=== PATIENT | male | born 1940 | race Caucasian/White ===

== ENCOUNTER 2019-01-20 08:02 | Outpatient (RCR) | payer OTHER, SELFPAY | END 2019-02-18 | LOC: ANHLAB 08:02 | PROVIDERS: PCP Family Medicine; Visit Provider Internal Medicine Cardiovascular Disease | DX: I48.2 Chronic atrial fibrillation (principal) | CPT/HCPCS: 85610; 36415 ==

== ENCOUNTER 2019-05-21 07:09 | Outpatient (RCR) | payer OTHER, MEDICARE, SELFPAY ==
[2019-02-26 12:00] LABS: INR 2.8; Prothrombin Time 28.8 Seconds (11.1-14.7)
[2019-03-25 08:03] LABS: INR 2.5; Prothrombin Time 26.5 Seconds (11.1-14.7)
[2019-04-22 09:00] LABS: INR 2.3; Prothrombin Time 24.9 Seconds (11.1-14.7)
[2019-05-21 08:09] LABS: INR 1.9; Prothrombin Time 21.4 Seconds (11.1-14.7)
== END 2019-05-27 23:59 | disposition home or self-care (01) ==
LOC: ANHLAB 07:09
PROVIDERS: PCP Family Medicine; Visit Provider Internal Medicine Cardiovascular Disease
DX: Z51.81 Encounter for therapeutic drug level monitoring (principal); I48.20 Chronic atrial fibrillation, unspecified; Z79.01 Long term (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 of anticoagulants
CPT/HCPCS: 36415; 85610

== ENCOUNTER 2019-07-21 07:25 | Outpatient (RCR) | payer MEDICARE, SELFPAY ==
[2019-06-18 07:57] LABS: INR 1.4; Prothrombin Time 16.9 Seconds (11.1-14.7)
[2019-07-02 08:11] LABS: INR 1.5; Prothrombin Time 17.3 Seconds (11.1-14.7)
[2019-07-12 08:02] LABS: INR 1.5
[2019-07-21 07:53] LABS: INR 2.2; Prothrombin Time 23.9 Seconds (11.1-14.7)
== END 2019-09-16 23:59 | disposition home or self-care (01) ==
LOC: ANHLAB 07:25
PROVIDERS: PCP Family Medicine; Visit Provider Internal Medicine Cardiovascular Disease
DX: Z51.81 Encounter for therapeutic drug level monitoring (principal); I48.91 Unspecified atrial fibrillation; Z79.01 Long term (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 of anticoagulants
CPT/HCPCS: 36415; 85610

== ENCOUNTER 2019-12-22 11:00 | Outpatient (RCR) | payer MEDICARE, SELFPAY ==
--- NOTE | 2019-10-27 15:45 | PTOPEVAL ---
Thank you for referring Agustin Chen to [facility]. Please review, sign, date and return this plan of care DONOVAN. Pt referred to therapy due to right hip pain. He demonstrates increased risk for falls with Thorne balance score of 22/56. He demonstrates decreased LE strength and range, decreased functional mobility with walking speed, safety with mobility with use of rollator and decreased performance with transfers. He requires additional skilled therapy to address noted impairments and improved functional mobility. Cont PT 2x/wk x 8 wk. I agree with and certify that the following plan of care is medically necessary. Referring Physician Date Attending Provider: Jarvis Bates MD *PT Outpatient Evaluation Start: 10/27/19 13:16 Freq: Status: Active Protocol: Document 10/27/19 13:17 GIOVANNA (Rec: 10/27/19 14:10 CAP [id number]) Therapy Assessment Status Assessment Status Assessment Status Evaluation Outpatient Past Medical History Past Medical History Source of Past Medical History Patient,Recalled from Previous Visit, Confirmed with Patient /Family Cardiovascular History Hx Atrial Fibrillation Yes Hx Hypertension Yes Hx Other Cardiac Disorders Yes: stenosis right carotid artery Genitourinary History Hx Other Genitourinary Disorders Yes: chronic kidney disease Musculoskeletal History Hx Joint Replacement Yes: right THR 2009 and revision 10/05, right TKR 2013 Endocrine History Hx Diabetes Yes Hx Other Endocrine Disorders Yes: neuropathy Evaluation Information Problem Diagnosis right hip pain Onset 2 months Cause bone spurs of hip and HO of soft tissue Subjective Information Pt reports increased Query Text:As Reported By Patient/ progression of right hip pain. Family He also reports increased unsteadiness over the past 2 months. Reports 4 falls in the past month. His falls have been outside when walking, getting in/out of truck. Reports difficulty getting out of bed or chair at home. He does not perform an exercise program Prior Level of Function Home Setting Home Type Mobile Home Environmental Barriers Railing, Bilateral,Stairs, Greater than 4 Living Situation With Friend Mobility Assistive Devices (Used Last 3 Walker, Rollator Months) Comments Additional Prior Level of Function
--- NOTE | 2019-11-12 15:12 | PCPTNOTE ---
Patient did not show up for scheduled appointment this date.
--- NOTE | 2019-11-25 15:26 | PTOPEVAL ---
Thank you for referring Agustin Chen to [facility]. Please review, sign, date and return this plan of care DONOVAN. Pt has received 6 therapy visits to address impairments related to balance, functional mobility, endurance and strength. He is progressing slowly towards his therapy goals. Cont PT 2x/wk x 3 wk. I agree with and certify that the following plan of care is medically necessary. Referring Physician Date Attending Provider: Jarvis Bates MD Referring Provider: Physical therapy re-assessment note *PT Outpatient Evaluation Start: 10/27/19 13:16 Freq: Status: Active Protocol: Document 11/25/19 10:05 GIOVANNA (Rec: 11/25/19 10:31 GIOVANNA [id number]) Therapy Assessment Status Assessment Status Assessment Status Re-evaluation Evaluation Information Problem Diagnosis right hip pain Onset 2 months Cause bone spurs of hip and HO of soft tissue Subjective Information Denies pain in his right or Query Text:As Reported By Patient/ any falls in the past 2 months Family . Reports cont fatigue with walking with multipe rest required. He is able to get in /out of th truck better. Pain Assessment Timing of Pain Assessment Timing of Pain Assessment Re-assessment Pain Scale Pain Scale Used Numeric (1 - 10) Self Report Pain Assessment Right Anterior Lateral Hip(s) Reported Pain Level 0 Pain Score Pain Score 0: Self Report Lower Extremity Muscle Strength Testing Hip Strength Left Hip Flexion Strength 4+ Good + Hip Extension Strength 3 Fair Hip Abduction Strength 3- Fair - Hip Strength Comments full bridge for hip ext Right Hip Flexion Strength 5 Normal Hip Extension Strength 3 Fair Hip Abduction Strength 2+ Poor + Hip Adduction Strength 2+ Poor + Hip Strength Comments full bridge for hip ext Knee Strength Bilateral Knee Flexion Strength 4- Good - Knee Extension Strength 5 Normal Knee Strength Comments hamstring measured in supine Transfer Assessment Chair Transfer Assessment Chair Transfer Assistive Devices None Ambulation Assistive Devices Walker, Rollator Chair Transfer Destination Ambulatory Sit to Stand Chair Transfer Ability Independent Stand to Sit Chair Transfer Ability Independent Ability to Transfer In/Out of Chair Independent Chair Transfer Comments improved safety for hand placement and proper position with chair/mat except when fatigued Bed Mobility Assessment
--- NOTE | 2019-12-22 11:53 | PTOPEVAL ---
Thank you for referring Agustin Chen to [facility].? Pt has been seen for 12 therapy visits to address balance, strength and functional mobility. Continues to demonstrate poor safety with functional mobility and poor endurance with standing and walking. Limited progress noted towards therapy goals. DC skilled therapy at this time with pt having reaching maximal potential with skilled services. Please review, sign, date and return this plan of care DONOVAN. I agree with and certify that the following plan of care is medically necessary. Referring Physician Date Attending Provider: Jarvis Bates MD Physical Therapy Discharge Note *PT Outpatient Evaluation Start: 10/27/19 13:16 Freq: Status: Active Protocol: Document 12/22/19 11:00 GIOVANNA (Rec: 12/22/19 11:51 GIOVANNA [id number]) Therapy Assessment Status Assessment Status Re-evaluation Evaluation Information Problem Diagnosis right hip pain Onset 2 months Cause bone spurs of hip and HO of soft tissue Subjective Information Pt has had 1 fall in the past Query Text:As Reported By Patient/ month when he was entering the Family house. Reports cont fatigue with walking with multipe rest required. He does feel like his walking is a little better . Pain Assessment Timing of Pain Assessment Timing of Pain Assessment Re-assessment Pain Scale Pain Scale Used Numeric (1 - 10) Self Report Pain Assessment Right Anterior Lateral Hip(s) Reported Pain Level 0 Pain Score Pain Score 0: Self Report Lower Extremity Muscle Strength Testing Hip Strength Left Hip Flexion Strength 4+ Good + Hip Extension Strength 3 Fair Hip Abduction Strength 3 Fair Right Hip Flexion Strength 4- Good - Hip Extension Strength 3 Fair Hip Abduction Strength 2+ Poor + Hip Adduction Strength 2+ Poor + Knee Strength Bilateral Knee Flexion Strength 4 Good Knee Extension Strength 5 Normal Knee Strength Comments hamstring measured in supine Transfer Assessment Chair Transfer Assessment Chair Transfer Assistive Devices None Ambulation Assistive Devices Walker, Rollator Chair Transfer Destination Ambulatory Sit to Stand Chair Transfer Ability Independent Stand to Sit Chair Transfer Ability Independent Ability to Transfer In/Out of Chair Independent Chair Transfer Comments decreased safety with transfers except when fatigued then poor safety and poor carry-over of education. Gait Assessment Gait Assessment Ambulation Assist
== END 2019-12-28 10:16 | disposition home or self-care (01) ==
LOC: ANHPT 11:00
PROVIDERS: Visit Provider Orthopaedic Surgery
DX: M25.551 Pain in right hip (principal)
CPT/HCPCS: 97110; 97116; 97162; 97530

== ENCOUNTER 2020-02-09 14:15 | Outpatient (RCR) | payer MEDICARE, SELFPAY ==
--- NOTE | 2020-02-01 13:28 | PTOPEVAL ---
PHYSICAL THERAPY EVALUATION AND PLAN OF CARE 02-01-2020 Thank you for referring Agustin Chen to [facility], for the diagnosis of gait imbalance.?He is scheduled to be seen for therapy? 2 x/week for 4 weeks. Please review, sign, date and return this plan of care DONOVAN. I agree with and certify that the following plan of care is medically necessary. Referring Physician Date Attending Provider: Vineet Quintana MD *PT Outpatient Evaluation Document 02/01/20 12:40 HAYLEE (Rec: 02/01/20 13:28 HAYLEE [id number]) Therapy Assessment Status Assessment Status Assessment Status Evaluation Outpatient Past Medical History Past Medical History Source of Past Medical History Patient,Recalled from Previous Visit, Confirmed with Patient /Family Neurological History Hx Neurological Disorders No Significant History Cardiovascular History Hx Atrial Fibrillation Yes: meds control Hx Hypertension Yes: meds control Hx Other Cardiac Disorders Yes: stenosis right carotid artery Respiratory History Hx Other Respiratory Disorders Yes: SOB with exertion Gastrointestinal History Hx Gastrointestinal Disorders No Significant History Genitourinary History Hx Other Genitourinary Disorders Yes: chronic kidney disease Musculoskeletal History Hx Back Pain Yes: chronic back pain, crushed back have not had treatment for Hx Joint Replacement Yes: right THR 2009 and revision 10/05, right TKR 2013 Hx Other Musculoskeletal Disorders Yes: pain in hands, cannot move at times in AM Hematological History Hx Hematological Disorders No Significant History Endocrine History Hx Diabetes Yes: taking meds, not sure meds are control- had lab work Hx Other Endocrine Disorders Yes: neuropath R and L feet Evaluation Information Problem Diagnosis unsteady gait, falls Onset Nov 2019 Subjective Information gradual increase with problems Query Text:As Reported By Patient/ walking; have had 2 falls- Family in his home and walking-- walker got away from him ; unable to get up off the floor , called ambulance but did not go to the hospital, they just helped him get up; Diagnostic Tests X-Rays For This Problem Yes: recent hip xray:stable, greater troch spur distalR Previous Treatments Previous Treatments For This Problem previous PT here for same issue Prior Level of Function A
--- NOTE | 2020-02-09 15:02 | PCPTNOTE ---
Patient did not show up for scheduled appointment this date.
--- NOTE | 2020-02-11 08:29 | PCPTNOTE ---
pt did not show for today's appt, called and talked with him; he stated he was not feeling well. Reminded him of appt next week and to call if he is not jeronimo to attend.
--- NOTE | 2020-02-15 16:51 | PCPTNOTE ---
pt called and canceled all remaining appointments, due to not wanting to pay co-pay;
--- NOTE | 2020-02-25 11:39 | PCPTNOTE ---
PHYSICAL THERAPY DISCHARGE 02-25-2020 Attending Provider: Vineet Quintana MD Patient:Agustin Chen Date of :1940 Mr. Chen has received the PT evaluation and one treatment session for the diagnosis of unsteady gait and falls. He did not show for 2 appointments, then called on 02-15-20, and stated he wanted to cancel his therapy due to co pays for his insurance. The goals were not assessed. Thank you for referring Agustin to [facility]. Please review, sign, date and return this discharge summary DONOVAN. I have been updated about the patient's current status and I agree with discharge from the above service at this time. Referring Physician Date
== END 2020-02-28 09:41 | disposition home or self-care (01) ==
LOC: ANHPT 14:15
PROVIDERS: Visit Provider Family Medicine
DX: R26.81 Unsteadiness on feet (principal); R29.6 Repeated falls
CPT/HCPCS: 97110; 97161

== ENCOUNTER 2020-03-31 11:19 | Outpatient (CLI) | payer MEDICARE, SELFPAY ==
--- NOTE | ~2020-03-31 | XR_ITS ---
XR abdomen/kub 1V DATE: 03/31/2020 11:35 INDICATION: Constipation TECHNIQUE: AP projection, 2 views COMPARISON: None FINDINGS: There is a battery pack overlying the left buttock, with leads extending into the thoracic spinal canal is hiatus T7-8. There is extensive degenerative spurring thoracic and lumbar spine. There is prominent osteoarthritic change at the left hip joint. Status post right total hip arthropla sty. There is no evidence of bowel obstruction. There is no evidence of any significant retention of fecal material within the colon. Psoas shadows are intact. No visceromegaly is evident. IMPRESSION: No evidence of bowel obstruction or constipation detected radiographically Reviewed, dictated and finalized at [facility] 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 [employer] IMPRESSION: No evidence of bowel obstruction or constipation detected radiograp hically
== END 2020-03-31 11:20 | disposition home or self-care (01) ==
PROVIDERS: Visit Provider Family Medicine
DX: K59.00 Constipation, unspecified (principal)
CPT/HCPCS: 74018

== ENCOUNTER 2020-04-18 08:08 | Outpatient (RCR) | payer MEDICARE, SELFPAY ==
[2020-01-27 12:13] LABS: INR 1.8; Prothrombin Time 20.3 Seconds (11.1-14.7)
[2020-03-08 08:16] LABS: INR 1.8; Prothrombin Time 21.8 Seconds (11.1-14.7)
[2020-03-27 07:57] LABS: Prothrombin Time 23.1 Seconds (11.1-14.7)
[2020-04-18 08:53] LABS: INR 1.9; Prothrombin Time 22.1 Seconds (11.1-14.7)
== END 2020-04-26 23:59 | disposition home or self-care (01) ==
LOC: ANHLAB 08:08
PROVIDERS: Family Medicine; Visit Provider Internal Medicine Cardiovascular Disease
DX: Z51.81 Encounter for therapeutic drug level monitoring (principal); I48.91 Unspecified atrial fibrillation; Z79.01 Long term (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 of anticoagulants
CPT/HCPCS: 36415; 85610

== ENCOUNTER 2020-09-04 07:40 | Outpatient (RCR) | payer MEDICARE, SELFPAY ==
[2020-06-16 10:45] LABS: INR 1.5; Prothrombin Time 18.4 Seconds (11.1-14.7)
[2020-06-30 08:29] LABS: INR 1.5; Prothrombin Time 18.8 Seconds (11.1-14.7)
[2020-07-18 08:34] LABS: INR 2.7; Prothrombin Time 29.5 Seconds (11.1-14.7)
[2020-09-04 08:30] LABS: INR 1.6; Prothrombin Time 19.9 Seconds (11.1-14.7)
== END 2020-09-14 23:59 | disposition home or self-care (01) ==
LOC: ANHLAB 07:40
PROVIDERS: PCP Family Medicine; Visit Provider Internal Medicine Cardiovascular Disease
DX: I48.91 Unspecified atrial fibrillation (principal)
CPT/HCPCS: 36415; 85610

== ENCOUNTER 2020-09-21 16:41 | Inpatient (IN) | payer MEDICARE, SELFPAY ==
--- NOTE | ~2020-09-21 | XR_ITS ---
XR hip LT 2V w AP pelvis DATE: 09/21/2020 21:10 INDICATION: Generalized left hip pain after a fall TECHNIQUE: AP pelvis. AP and lateral views of left hip COMPARISON: 10/09/2019 pelvis and right hip FINDINGS: Battery pack and electrodes overlying the left pelvis and lumbar spine. Status post right total hip arthroplasty. Severe left hip osteoarthritis including joint space narrowing and prominent spurring. The pubic symphysis and sacroiliac joints appear intact. No pelvic fracture or bone destruction is de tected. Prominent degenerative disc disease is noted at the included L3-4 through L5-S1 interspaces. No fracture or dislocation, avascular necrosis or bone destruction of the left hip. IMPRESSION: L3-4 through L5-S1 degenerative disc disease Status post right total hip arthroplasty Severe left hip osteoarthritis. 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
--- NOTE | ~2020-09-21 | CT_ITS ---
EXAMINATION: CT brain wo con DATE: 09/24/2020 19:17 INDICATION: Confusion TECHNIQUE: Computed tomography (CT) of the head was performed without intravenous contrast. The mA wa s adjusted according to patient size. Iterative reconstruction technique was employed. Exam dose: 60 5.33 mGy-cm total exam DLP. COMPARISON: 10/18/2020 CT brain FINDINGS: Prominent bilateral vertebral artery calcifications, basilar artery and prominent bilateral carotid siphon and supraclinoid internal carotid artery calcifications. There is nonspecific diminished attenuation of the subcortical and periventricular cerebral white mat ter, likely due to chronic small vessel ischemic changes. No intracranial mass lesion or hemorrhage or cerebrovascular accident is detected. No midline shift o r mass effects. No subdural or epidural hematoma. There is cerebral and cerebellar volume loss. Bilateral drusen. No fracture or bone destruction of the cranial vault. Included paranasal sinuses and mastoid air cell s are normally developed and aerated. IMPRESSION: Cerebral atherosclerosis and chronic small vessel ischemic changes of the cerebral white matter No acute intracranial finding Reviewed, dictated and finalized at [facility]. 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
--- NOTE | ~2020-09-21 | CT_ITS ---
EXAMINATION:CT diagnostic chest wo con DATE: 09/22/2020 10:30 INDICATION: Pneumonia. Abnormal chest radiograph. TECHNIQUE: Computed tomography (CT) of the chest was performed without intravenous contrast. Automate d exposure control and iterative reconstruction technique were employed. The dose-length product (DLP ) was 535.64 mGy-cm. COMPARISON: Chest single view 09/21/2020, 12/18/17 FINDINGS: There is mild volume loss of the left hemithorax with elevation of left hemidiaphragm, whic h is chronic. There is mild scarring at left lung apex. There are peripheral groundglass opacities wi th septal thickening involving all lobes, left worse than right. There is honeycombing in left upper lobe. No bronchiectasis. Calcified pulmonary nodules and calcified hilar and mediastinal lymph nodes are consistent with old granulomatous disease. No pleural effusion. Cardiomegaly is noted. There are coronary artery calcifications. No pericardial effusion. There is mild mediastinal lymphadenopathy. F or example, a right paratracheal node measures 11 x 18 mm. There is a 4 mm stone in right kidney. The re is mild atrophy of left kidney. Epidural electrodes are noted. There are bridging endplate osteoph ytes at multiple levels in the spine, consistent with diffuse idiopathic skeletal hyperostosis (DISH) . IMPRESSION: 1. Diffuse lung disease, likely chronic interstitial lung disease in a pattern of usual interstitial pneumonia (UIP). 2. Mild mediastinal lymphadenopathy, likely reactive. 3. Cardiomegaly. 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
--- NOTE | ~2020-09-21 | CT_ITS ---
EXAMINATION: CT brain wo con DATE: 09/21/2020 18:10 INDICATION: Fall. Generalized paresis. TECHNIQUE: Computed tomography (CT) of the head was performed without intravenous contrast. The mA wa s adjusted according to patient size. Iterative reconstruction technique was employed. Exam dose: 68 1.00 mGy-cm total exam DLP. COMPARISON: 11/20/2017 CT brain FINDINGS: Prominent bilateral vertebral, basilar and bilateral carotid siphon internal carotid artery calcifications. There is nonspecific diminished attenuation of the cerebral white matter, likely du e to chronic small vessel ischemic changes. No intracranial mass lesion or hemorrhage or cerebrovascular accidents. No subdural or epidural hematoma. Bilateral drusen is noted No skull fracture or bone destruction. The included paranasal sinuses and the mastoid air cells are normally developed and aerated. IMPRESSION: Bilateral drusen Central and cortical cerebral atrophy Cerebral atherosclerosis and chronic small vessel ischemic changes of the white matter Reviewed, dictated and finalized at [facility]. 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
--- NOTE | ~2020-09-21 | CT_ITS ---
CT lumbar spine wo con DATE: 09/21/2020 18:10 INDICATION: Bilateral lower extremity paresis TECHNIQUE: Axial images and sagittal and coronal reconstructions through the lumbar spine. Exam dose: 1166.42 mGy-cm total exam DLP. COMPARISON: 04/26/2016 lumbar spine FINDINGS: Abdominal aortic calcifications and prominent calcifications of the celiac, superior mesent jarrod, renal and iliac arteries. No abdominal aortic aneurysm. Right hip arthroplasty. 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 There is multilevel degenerative disc disease, most pronounced at L1-2, L2-3, L3-4. No evidence of primary lumbar spinal stenosis. There is posterior spurring at T12-L1, L1-L2, L2-3. There is posterior disc bulging at L4-5 and L5-S1 . No fracture or bone destruction, spondylolysis or spondylolisthesis. There is degenerative change at the lumbosacral apophyseal joints, particularly at L4-5 and L5-S1. IMPRESSION: Multilevel degenerative disc disease of the lumbar and lumbosacral spine Posterior disc bulging particularly L4-5 and L5-S1 Thoracic spinal leads Reviewed, dictated and finalized at [facility]. 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
--- NOTE | ~2020-09-21 | XR_ITS ---
XR chest 1V DATE: 09/21/2020 21:11 INDICATION: Weakness. Atrial fibrillation. Hypertension. TECHNIQUE: AP chest COMPARISON: 09/07/2018 2 view chest FINDINGS: Spinal leads overlie the lower thoracic spine. Aortic arch calcification. Borderline or increased heart size. No hilar or mediastinal enlargement is evident. There is patchy increased density overlying the left mid and lower lung zones and right lung base sug gesting bilateral pneumonia. No pleural effusion or pulmonary vascular congestion or pneumothorax. Osteopenia. IMPRESSION: Mild patchy infiltrates in the left mid and lower lung field and right lung base, suggest ing bilateral pneumonia Reviewed, dictated and finalized at [facility]. IMPRESSION: Mild patchy infiltrates in the left mid and lower lung field and ri ght lung base, suggesting bilateral pneumonia
--- NOTE | ~2020-09-21 | XR_ITS ---
EXAMINATION: XR chest 1V portable EXAM DATE: 09/25/2020 00:24 INDICATION: Coarse lung sounds. TECHNIQUE: Portable AP frontal chest x-ray was obtained. Comparison is made to prior examination from 09/24/2020. FINDINGS: There is patchy left lung and right lower lobe airspace disease, probably the interstitial lung disease suspected on CT scan obtained 3 days earlier. Can't exclude superimposed acute pneumonia . The cardiomediastinal silhouette is prominent but magnified on this AP technique. There is no pneum othorax suspected. There are no pleural effusions. Spine stimulator leads. IMPRESSION: Peripheral left-sided predominant airspace disease at least partly chronic interstitial lung disease. Difficult to exclude superimposed developing pneumonia. Please clinically correlate. 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 IMPRESSION: Peripheral left-sided predominant airspace disease at least partly chronic interstitial lung disease. Difficult to exclude superimposed developin g pneumonia. Please clinically correlate.
--- NOTE | ~2020-09-21 | XR_ITS ---
XR chest 1V portable DATE: 09/24/2020 19:01 INDICATION: Pneumonia TECHNIQUE: Portable upright AP chest on 09/24/2020 1854 hours COMPARISON: 09/22/2020 CT chest FINDINGS: Electrodes overlie the lower thoracic spinal canal. Cardiomegaly. Aortic arch calcification. Pulmonary vascularity appears within normal range. No pleura l effusion or pneumothorax. Increased interstitial markings favoring the periphery are again noted, consistent with interstitial fibrosis/usual interstitial pneumonia. Diffuse osteopenia. Degenerative spurring of the thoracic spine. 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
[2020-09-21 16:47] VITALS: BP 180/78; PULSE 103; RESP 17; TEMP 36.4; O2SAT 98
[2020-09-21 17:00] VITALS: PULSE 96
--- NOTE | 2020-09-21 17:05 | ECG_ITS ---
Measurements Intervals [place] Rate: 91 P: MI: 0 QRS: 16 QRSD: 85 T: 18 QT: 358 QTc: 442 Interpretive Statements ATRIAL FIBRILLATION INCOMPLETE RIGHT BUNDLE BRANCH BLOCK BASELINE ARTIFACT- I, II, III, AVR, AVL, AVF, V1-V6 ABNORMAL ECG Electronically Signed On 09-21-2020 18:01:54 CDT by Grupo Johnson D.O.
[2020-09-21 18:28] LABS: Basophils Percent Auto 0.2 % (0.2-1.2); Eosinophils Absolute Auto 0.1 K/mm3 (0-0.3); Eosinophils Percent Auto 0.9 % (0-4.4); Hematocrit 42.6 % (42.0-52.0); Hemoglobin 13.7 g/dL (14.0-18.0); Immature Granulocyte Absolute 0.05 K/mm3 (0.00-0.031); Immature Granulocyte Percent A 0.4 % (0-0.5); Lymphocytes Absolute Auto 0.84 K/mm3 (0.9-3.2); Lymphocytes Percent Auto 6.9 % (18.3-44.2); Mean Corpuscular HGB Conc 32.2 g/dl (32-36); Mean Corpuscular Hemoglobin 32.9 pg (26-34); Mean Corpuscular Volume 102.2 fl (80-100); Mean Platelet Volume 10.4 fl (7.4-10.4); Monocytes Absolute Auto 0.9 K/mm3 (0.1-0.6); Monocytes Percent Auto 7.5 % (2.6-8.5); Neutrophils Absolute Auto 10.2 K/mm3 (1.3-6.7); Neutrophils Percent Auto 84.1 % (45.5-73.1); Platelet Count Result 263 k/mm3 (150-375); Red Blood Count 4.17 M/mm3 (4.6-6.20); Red Cell Distribution Width 12.9 % (11.5-14.5); White Blood Count 12.1 K/mm3 (4.5-10.0)
[2020-09-21 19:43] LABS: Alanine Aminotransferase 31 U/L (4-50); Albumin Level 4.4 g/dL (3.5-5.1); Alkaline Phosphatase 85 U/L (38-126); Anion Gap 13 mmol/L (8-16); Aspartate Amino Transferase 94 U/L (17-59); Bilirubin,Total 0.9 mg/dL (0.2-1.3); Blood Urea Nitrogen 31 mg/dL (9-20); Calcium 9.8 mg/dL (8.4-10.2); Carbon Dioxide 23 mmol/L (22-30); Chloride 103 mmol/L (98-107); Estimated CRCL calculation 38 ml/min; Estimated Glomerular Filt Rate 45; Glucose 189 mg/dL (75-110); Magnesium 1.7 mg/dL (1.6-2.3); Potassium 5.1 mmol/L (3.4-5.0); Sodium 139 mmol/L (137-145)
[2020-09-21 19:45] LABS: Creatine Kinase 3019 U/L (55-170)
[2020-09-21] MEDS: SODIUM BICARBONATE 8.4% 50 MEQ/50 ML SYRINGE IV PUSH (20:52)
[2020-09-21] MEDS: SODIUM CHLORIDE 0.45% 1,000 ML 100 ML IV CONT (20:52)
[2020-09-21 21:33] LABS: Add Urine Microscopic? YES; Appearance Urine Clear (Clear); Bacteria Urine Trace /hpf; Bilirubin Urine Negative (Negative); Blood Urine 3+ (Negative); Color Urine Yellow (Yellow); Glucose Urine UA Negative (Negative); Ketones Urine 1+ mg/dL (Negative); Leukocyte Esterase Ur Negative LEU/UL (Negative); Mucus Urine Rare /lpf; Nitrate Urine Negative (Negative); Protein Urine 2+ mg/dL (Negative); RBC Urine 0-2 /hpf (0-2); Specific Grav Ur 1.023 (1.001-1.035); Urobilinogen Urine Negative mg/dL (<2.0); WBC Urine 0-3 /hpf
--- NOTE | 2020-09-21 21:49 | ED.WEAKNESS ---
HPI - Weakness General Chief complaint: Weakness Stated complaint: INCREASED WEAKNES Time Seen by Provider: 09/21/20 17:08 Source: patient Mode of arrival: EMS Limitations: no limitations History of Present Illness HPI Narrative: 80-year-old male Here because of an incident with his walker while trying to go to the bathroom Patient says that he tried to sit down on the seat of his wheeled walker and that it collapsed and he went to the ground Then he was too weak to get up for several hours and claims that it took him an hour to get back to his living room where his TV set and his phone were He does not believe that he injured himself, he did not think that he was ill in any way on his way into the bathroom Denies a cough or shortness of breath, he denies nausea vomiting diarrhea or any other GI symptoms, did not have any chest pain or syncope He does not have any new numbness, but he does note that both of his legs feel too weak to support him, and he also notes that the amount of swelling present in both of his legs he regards is pretty typical of what he usually has Related Data Home Medications Medication Instructions Recorded Confirmed warfarin 1 mg tablet 1 mg PO DAILY 03/27/20 05/31/20 Allergies Allergy/AdvReac Type Severity Reaction Status Date / Time No Known Allergies Allergy Verified 09/21/20 17:00 Review of Systems Review of Systems: All systems reviewed & are unremarkable except as noted in HPI and below Constitutional: Constitutional: Reports no additional constitutional complaints, Denies chills, Reports fatigue, Denies fever(s), Denies headache(s) and Reports weakness Eyes: Eyes: Reports no additional eye complaints and Denies change in vision ENT: Denies headache(s) and Denies sore throat Cardiovascular: Cardiovascular: Denies chest pain, Denies rapid heart rate and Denies dyspnea Respiratory: Respiratory: Denies cough and Denies dyspnea Gastrointestinal: Gastrointestinal: Denies abdominal pain, Denies diarrhea and Denies vomiting Genitourinary: Genitourinary: Denies dysuria and Denies urinary frequency Musculoskeletal: Musculoskeletal: Denies deformity, Reports arthralgias, Denies joint swelling and Denies numbness Integumentary/Breasts: Skin/Breast: Denies rash and Denies wounds Neurologic: Denies headache(s), Denies focal weakness, Denies numbness and Reports weakness Psychiatric: Psychiatric: Reports no additional psychiatric complaints Endocrine: Endocrine: Reports no additional endocrine complaints Hematologic/Lymphatic: Hematologic/Lymphatic: Reports no additional hematologic/lymphatic complaints Allergic/Immunologic: Allergic/Immunologic: Reports no additional allergic/immunologic complaints [facility] Past Medical History Medical History (Updated 09/21/20 @ 21:58 by Dieter Douglas MD) Atrial fibrillation CKD (chronic kidney disease) Diabetes mellitus with neuropathy Fatty liver HLD (hyperlipidemia) HTN (hypertension) [employer] current use of anticoagulant Neuropathy Pulmonary HTN Stenosis of right carotid artery Surgical History Surgical History (Updated 09/01/20 @ 09:03 by Vineet Quintana MD) History of endarterectomy History of revision of total replacement of right hip joint Dr. Coleman History of right cataract extraction Family History Family History Sibling Hypertension Family history of chronic obstructive pulmonary disease Malignant neoplasm of prostate Family history of lung cancer Social History Social History (Updated 05/31/20 @ 11:02 by Adina Brooke) Social History: Single Smoking status: Never smoker Second hand tobacco smoke exposure: No Alcohol intake: never Substance use: never Substance use type: does not use Gender identity (if verbalized by the patient): Male Exam Const: General: cooperative and alert Orientation/consciousness: patient oriented
--- NOTE | 2020-09-21 22:48 | PM.IMHP ---
H&P: HPI History of Present Illness Date/Time: 09/21/20 22:48 Chief Complaint: collapse, rhabdomyolysis Narrative: 80-year-old male who prsents to the ED with generalised weakness, but more particularly his lower extremity wekaness. he reports that he walked to his bathroom. he went to the bathroom but when he tried to go back, he was not able to move as much and felt weak and collapseed to the ground without any loss of consciousness. He tried to get up but was not able to get up and stayed on the floor for few hours and it took him an hour to get back to his living room. He reports he did not injury himself however he reports soreness in his lower hips both sides but right worse than the left. He has occasional cough but no sob. no nasuea, vomitign, diarrhea. he reprots he feels numb in his lateral side of thigh and is painful to lift up his both lower legs. He is noted to ahve stable vitals in the ED with no fever. EKG showed rate controlled afib which is chronic. his CXR states possilbe pnuemonia on left lower lobe. head CT was negative for any acute fidnings. his wbc is mildly elevateda t 12k, renal function is at baseline. he is noted to ahve elevated CK suggestive of rhabdomyolysis.lumbar spine ct scan showed riht hip arthroplasty, along with diffuse mlutilevel degernative disc disease with posterior spurrin gat T12-L1, L1-L2, L2-L3, alng wtih posterio disc bulgin gparticular L4-5, and L5-S1. xray hips showed right hip total hip arthorplasty along with severe left hip osteroathritis. no urinary retention or urine incontinence noted. He is admitted for further evaluation and management. Review of Systems Review of Systems: Narrative: - CONSTITUTIONAL: Denies weight loss, fever and chills. - HEENT: Denies changes in vision and hearing - RESPIRATORY: Denies SOB and reporrts occasional cough. - CV: Denies palpitations and CP. - GI: Denies abdominal pain, nausea, vomiting and diarrhea. - : Denies dysuria and urinary frequency. - MSK: Denies myalgia and joint pain. - SKIN: Denies rash and pruritus. - NEUROLOGICAL: Denies headache and syncope. reports lower extremity weakness - PSYCHIATRIC: Denies recent changes in mood. Denies anxiety and depression. All systems reviewed & are unremarkable except as noted in HPI and below PMFSH Past Medical History Medical History (Updated 09/21/20 @ 21:58 by Dieter Douglas MD) Atrial fibrillation CKD (chronic kidney disease) Diabetes mellitus with neuropathy Fatty liver HLD (hyperlipidemia) HTN (hypertension) [employer] current use of anticoagulant Neuropathy Pulmonary HTN Stenosis of right carotid artery Surgical History Surgical History (Updated 09/01/20 @ 09:03 by Vineet Quintana MD) History of endarterectomy History of revision of total replacement of right hip joint Dr. Coleman History of right cataract extraction Family History Family History Sibling Hypertension Family history of chronic obstructive pulmonary disease Malignant neoplasm of prostate Family history of lung cancer Social History Social History (Updated 05/31/20 @ 11:02 by Adina Brooke) Social History: Single Smoking status: Never smoker Second hand tobacco smoke exposure: No Alcohol intake: never Substance use: never Substance use type: does not use Gender identity (if verbalized by the patient): Male Spiritual care concerns: No Meds Home Medications and Allergies Home Medications Medication Instructions Recorded Confirmed Type metoprolol tartrate 100 mg tablet 100 mg PO Q12H #180 tablet 01/20/20 09/22/20 Rx metformin 500 mg tablet 1,000 mg PO BID #120 tablet 01/27/20 09/22/20 Rx pravastatin 40 mg tablet 40 mg PO DAILY #90 tablet 01/27/20 09/22/20 Rx warfarin 1 mg tablet 4.5 mg PO DAILY 03/27/20 09/22/20 History glimepiride 3 mg PO DAILY 09/22/20 09/22/20 History Allergies Allergy/AdvReac Typ
[2020-09-21 22:53] VITALS: BP 184/103; PULSE 75; RESP 17; O2SAT 96
[2020-09-21 23:42] VITALS: BP 172/74; PULSE 97; RESP 20; O2SAT 97
[2020-09-21 23:48] VITALS: RESP 20
[2020-09-22] VITALS (8 sets, daily range): BP systolic 106–152; BP diastolic 58–100; PULSE 82–113; RESP 16–20; TEMP 36.1–37.2; O2SAT 95–100; BMI 28.2
--- NOTE | 2020-09-22 00:20 | ADMGEN ---
This patient, Agustin Chen, was admitted to [facility] Surg Room 315-01. Patient/family oriented to hospital policies and general routines including ID bracelet, bed and alarms, visiting hours, pain management, procedures, bathroom and other care routines, personal items, smoking policy, room service/diet, and visiting hours. Information on how to activate the Rapid Response Team has been discussed. Patient/Family are encouraged to report perceived risks to care and to ask questions if they do not understand what they are told or what they should do.
[2020-09-22 03:23] LABS: Basophils Percent Auto 0.2 % (0.2-1.2); Eosinophils Percent Auto 0.2 % (0-4.4); Hematocrit 36.4 % (42.0-52.0); Immature Granulocyte Absolute 0.03 K/mm3 (0.00-0.031); Immature Granulocyte Percent A 0.3 % (0-0.5); Lymphocytes Absolute Auto 1.34 K/mm3 (0.9-3.2); Lymphocytes Percent Auto 13.3 % (18.3-44.2); Mean Corpuscular Hemoglobin 32.3 pg (26-34); Mean Corpuscular Volume 97.8 fl (80-100); Mean Platelet Volume 9.7 fl (7.4-10.4); Monocytes Absolute Auto 1.4 K/mm3 (0.1-0.6); Monocytes Percent Auto 14.1 % (2.6-8.5); Neutrophils Absolute Auto 7.2 K/mm3 (1.3-6.7); Neutrophils Percent Auto 71.9 % (45.5-73.1); Platelet Count Result 251 k/mm3 (150-375); Red Blood Count 3.72 M/mm3 (4.6-6.20); Red Cell Distribution Width 12.8 % (11.5-14.5); White Blood Count 10.1 K/mm3 (4.5-10.0)
[2020-09-22 03:30] LABS: INR 1.6; Prothrombin Time 19.9 Seconds (11.1-14.7)
[2020-09-22 03:37] LABS: Hemoglobin A1C 5.2 % (<5.7)
[2020-09-22] MEDS: SODIUM CHLORIDE 0.9% IV 1,000 ML 125 ML IV CONT ×2 (03:54→23:19)
[2020-09-22 04:41] LABS: Folic Acid 9.5 ng/mL (2.76->20)
[2020-09-22 04:57] LABS: Anion Gap 10 mmol/L (8-16); Blood Urea Nitrogen 30 mg/dL (9-20); Calcium 9.2 mg/dL (8.4-10.2); Carbon Dioxide 24 mmol/L (22-30); Chloride 103 mmol/L (98-107); Creatine Kinase 7199 U/L (55-170); Estimated CRCL calculation 40 ml/min; Estimated Glomerular Filt Rate 49; Glucose 151 mg/dL (75-110); Potassium 4.2 mmol/L (3.4-5.0); Sodium 137 mmol/L (137-145)
[2020-09-22 07:44] LABS: Glucose Point of Care 135 mg/dl (65-105)
[2020-09-22] MEDS: PRAVASTATIN SODIUM 20 MG TABLET 40 MG PO (09:37)
[2020-09-22] MEDS: GLIMEPIRIDE 1 MG TABLET 3 MG PO (09:38)
[2020-09-22] MEDS: METOPROLOL TARTRATE 50 MG TAB 100 MG PO ×2 (09:38→21:13)
[2020-09-22] MEDS: metFORMIN HCL 500 MG TABLET 1000 MG PO ×2 (09:38→17:31)
[2020-09-22 11:45] LABS: Glucose Point of Care 170 mg/dl (65-105)
--- NOTE | 2020-09-22 13:27 | P.PNIM_ITS ---
Progress Note: A&P Assessment and Plan (1) Rhabdomyolysis: Qualifiers: Rhabdomyolysis type: traumatic Encounter type: initial encounter Qualified Code(s): T79.6XXA - Traumatic ischemia of muscle, initial encounter Code(s): M62.82 - Rhabdomyolysis Status: Acute Assessment and Plan: * Patient on the floor for 3.5 hours * CK is 7199 * Will recheck in the am * Trend CK * NS 125ml/hr * Trend labs * Labs in the am * Trend renal function (2) Pneumonia: Qualifiers: Pneumonia type: due to unspecified organism Laterality: bilateral Lung location: unspecified part of lung Qualified Code(s): J18.9 - Pneumonia, unspecified organism Code(s): J18.9 - Pneumonia, unspecified organism Status: Acute Assessment and Plan: * CT found interstitial PNA * Started on Ceftriaxone 1gm IV daily * Azithromycin 250 IV Daily * WBC 10.1 * Trend labs * Labs in the am * Cultures pending * De-escalate when culture return (3) Atrial fibrillation: Qualifiers: Atrial fibrillation type: unspecified chronic Qualified Code(s): I48.20 - Chronic atrial fibrillation, unspecified Code(s): I48.91 - Unspecified atrial fibrillation Status: Acute Assessment and Plan: * EKG shows atrial fibrillation * Continue warfarin 4.5mg Po daily * Trend INR * Current INR is 1.6 * INR in the am (4) General weakness: Code(s): R53.1 - Weakness Status: Acute Assessment and Plan: * CT showed degenerative Disc dz * Bulging disc L4-5 and L5-S1 * MRI cancelled * Neurology consulted thank you for recommendations * CT head Bilateral drusen and cerebral atrophy and chronic small vessel ischemic changes (5) History of revision of total replacement of right hip joint: Code(s): Z96.641 - Presence of right artificial hip joint Status: Chronic (6) Stenosis of right carotid artery: Code(s): I65.21 - Occlusion and stenosis of right carotid artery Status: Acute (7) skilled nursing current use of anticoagulant: Code(s): Z79.01 - 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 (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 of anticoagulants Status: Acute Assessment and Plan: * For A.Fib * See above (8) Diabetes mellitus with neuropathy: Qualifiers: Diabetes mellitus type: type 2 Diabetes mellitus assisted insulin use: with 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 service 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 use Qualified Code(s): E11.40 - Type 2 diabetes mellitus with diabetic neuropathy, unspecified; Z79.4 - 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 (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 of insulin Code(s): E11.40 - Type 2 diabetes mellitus with diabetic neuropathy, unspecified Status: Acute Assessment and Plan: * Glucose is 151 * Glimepiride 3mg PO daily * Metformin 1000mg PO BID * ACCU check AC/HS * Sliding scale * Adjust medications as needed (9) CKD (chronic kidney disease): Code(s): N18.9 - Chronic kidney disease, unspecified Status: Acute Assessment and Plan: * Baseline creatinine is 1.5 * Creatinine is 1.4 today * Trend Creatinine * Labs in the am (10) HTN (hypertension): Qualifiers: Hypertension type: essential hypertension Qualified Code(s): I10 - Essential (primary) hypertension Code(s): I10 - Essential (primary) hypertension Status: Acute Assessment and Plan: * Current BP is 106/58 * Continue metoprolol 100mg PO BID
--- NOTE | 2020-09-22 13:27 | PM.IMPN ---
Progress Note: A&P Assessment and Plan (1) Rhabdomyolysis: Qualifiers: Rhabdomyolysis type: traumatic Encounter type: initial encounter Qualified Code(s): T79.6XXA - Traumatic ischemia of muscle, initial encounter Code(s): M62.82 - Rhabdomyolysis Status: Acute Assessment and Plan: Patient on the floor for 3.5 hours CK is 7199 Will recheck in the am Trend CK NS 125ml/hr Trend labs Labs in the am Trend renal function (2) Pneumonia: Qualifiers: Pneumonia type: due to unspecified organism Laterality: bilateral Lung location: unspecified part of lung Qualified Code(s): J18.9 - Pneumonia, unspecified organism Code(s): J18.9 - Pneumonia, unspecified organism Status: Acute Assessment and Plan: CT found interstitial PNA Started on Ceftriaxone 1gm IV daily Azithromycin 250 IV Daily WBC 10.1 Trend labs Labs in the am Cultures pending De-escalate when culture return (3) Atrial fibrillation: Qualifiers: Atrial fibrillation type: unspecified chronic Qualified Code(s): I48.20 - Chronic atrial fibrillation, unspecified Code(s): I48.91 - Unspecified atrial fibrillation Status: Acute Assessment and Plan: EKG shows atrial fibrillation Continue warfarin 4.5mg Po daily Trend INR Current INR is 1.6 INR in the am (4) General weakness: Code(s): R53.1 - Weakness Status: Acute Assessment and Plan: CT showed degenerative Disc dz Bulging disc L4-5 and L5-S1 MRI cancelled Neurology consulted thank you for recommendations CT head Bilateral drusen and cerebral atrophy and chronic small vessel ischemic changes (5) History of revision of total replacement of right hip joint: Code(s): Z96.641 - Presence of right artificial hip joint Status: Chronic (6) Stenosis of right carotid artery: Code(s): I65.21 - Occlusion and stenosis of right carotid artery Status: Acute (7) [facility] current use of anticoagulant: Code(s): Z79.01 - 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 (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 of anticoagulants Status: Acute Assessment and Plan: For A.Fib See above (8) Diabetes mellitus with neuropathy: Qualifiers: Diabetes mellitus type: type 2 Diabetes mellitus manager of program insulin use: with assisted use Qualified Code(s): E11.40 - Type 2 diabetes mellitus with diabetic neuropathy, unspecified; Z79.4 - 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 (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 of insulin Code(s): E11.40 - Type 2 diabetes mellitus with diabetic neuropathy, unspecified Status: Acute Assessment and Plan: Glucose is 151 Glimepiride 3mg PO daily Metformin 1000mg PO BID ACCU check AC/HS Sliding scale Adjust medications as needed (9) CKD (chronic kidney disease): Code(s): N18.9 - Chronic kidney disease, unspecified Status: Acute Assessment and Plan: Baseline creatinine is 1.5 Creatinine is 1.4 today Trend Creatinine Labs in the am (10) HTN (hypertension): Qualifiers: Hypertension type: essential hypertension Qualified Code(s): I10 - Essential (primary) hypertension Code(s): I10 - Essential (primary) hypertension Status: Acute Assessment and Plan: Current BP is 106/58 Continue metoprolol 100mg PO BID Trend Blood pressures Adjust medications as needed (11) HLD (hyperlipidemia): Qualifiers: Hyperlipidemia type: unspecified Qualified Code(s): E78.5 - Hyperlipidemia, unspecified Code(s): E78.5 - Hyperlipidemia, unspecified Status: Acute Assessment and Plan: Pravastatin 40mg PO daily (12) Pulmonary HTN: Code(s): I27.20 - Pulmonary hypertension, unspecified Status: Acute (13) Fatty liver: Code(s): K76.0 - Fatty (change of) liver, not elsewhere classified Status: Acute (14) Neuropathy: Code(
--- NOTE | 2020-09-22 13:59 | WPDNEURCNPN ---
Assessment and Plan Additional Plan history of collapse at home we need the MRI of brain though he has no documented seizurel and has underlying atrial fibrillation I will also obtain the EEG Consult date: 09/22/20 Time Seen: 13:30 HPI: Agustin Chen is a 80 year old male admitted to the hospital for the complaints of collapse with rhabdomyolysis ,reportedly he walked to the bathroom but when he tried to go back he was unable to move felt extremely weak and collapsed to the ground without becoming unconscious, he was unable to get up for few hours, Did not injure himself anywhere though complained of soreness in his both lower hips right more than the left. his initial EKG revealed controlled atrial fibrillation which is chronic in nature by history, chest x-ray documented left lower lobe pneumonia,CT scan of the head was normal though he was found to have elevated CK suggestive of rhabdomyolysis, initial lumbar spine CT scan in the ER documented right hip arthroplasty with multilevel degenerative disc disease and spurring at the edges of the vertebral bodies along with the bulging discs , patient does have ongoing history of atrial fibrillation, chronic renal disease, diabetes mellitus, with neuropathy, hyperlipidemia, hypertension, and long-term current use of anti coagulant, pulmonary hypertension, and stenosis of the right carotid artery, he has a undergone endarterectomy in the past and revision total replacement the right hip ,also right cataract extraction, re-evaluation up until now documented unremarkable UA is slightly abnormal chemistry protime of 219.9 with INR of1.6 Review of Systems Review of Systems: All systems reviewed & are unremarkable except as noted in HPI and below PMFSH Past Medical History Medical History Atrial fibrillation CKD (chronic kidney disease) Diabetes mellitus with neuropathy Fatty liver HLD (hyperlipidemia) HTN (hypertension) 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 Coleman History of right cataract extraction Family History Family History Sibling Hypertension Family history of chronic obstructive pulmonary disease Malignant neoplasm of prostate Family history of lung cancer Social History Social History Social History: Single Smoking status: Never smoker Second hand tobacco smoke exposure: No Alcohol intake: never Substance use: never Substance use type: does not use Gender identity (if verbalized by the patient): Male Spiritual care concerns: No Meds Home Medications and Allergies Home Medications Medication Instructions Recorded Confirmed Type metoprolol tartrate 100 mg tablet 100 mg PO Q12H #180 tablet 01/20/20 09/22/20 Rx metformin 500 mg tablet 1,000 mg PO BID #120 tablet 01/27/20 09/22/20 Rx pravastatin 40 mg tablet 40 mg PO DAILY #90 tablet 01/27/20 09/22/20 Rx warfarin 1 mg tablet 4.5 mg PO DAILY 03/27/20 09/22/20 History glimepiride 3 mg PO DAILY 09/22/20 09/22/20 History Allergies Allergy/AdvReac Type Severity Reaction Status Date / Time No Known Allergies Allergy Verified 09/21/20 17:00 Vital Signs Vital Signs - 24 hr 09/21/20 16:47 09/21/20 17:00 09/21/20 22:53 Temperature 36.4 C L Pulse Rate 103 H 96 75 Respiratory Rate 17 17 Blood Pressure 180/78 H 184/103 H Pulse Oximetry 98 96 09/21/20 23:42 09/21/20 23:48 09/22/20 00:00 Temperature 36.3 C L Pulse Rate 97 106 H Respiratory Rate 20 20 20 Blood Pressure 172/74 H 140/100 H Pulse Oximetry 97 99 09/22/20 04:00 09/22/20 08:00 09/22/20 09:38 Temperature 36.2 C L 36.1 C L
[2020-09-22] MEDS: WARFARIN (*PBKC) 1.5 MG TABLET 4.5 MG PO (17:31)
[2020-09-22 17:40] LABS: Glucose Point of Care 76 mg/dl (65-105)
[2020-09-22 18:15] LABS: SARS-CoV-2 RNA PCR Negative
[2020-09-22 21:38] LABS: Glucose Point of Care 156 mg/dl (65-105)
[2020-09-22 23:27] LABS: INR 1.8; Prothrombin Time 21.1 Seconds (11.1-14.7)
[2020-09-23] VITALS (7 sets, daily range): BP systolic 105–165; BP diastolic 52–121; PULSE 68–88; RESP 18–20; TEMP 36.7; O2SAT 96–98
[2020-09-23 06:43] LABS: Basophils Percent Auto 0.3 % (0.2-1.2); Eosinophils Absolute Auto 0.3 K/mm3 (0-0.3); Eosinophils Percent Auto 2.1 % (0-4.4); Hematocrit 35.2 % (42.0-52.0); Hemoglobin 11.5 g/dL (14.0-18.0); Immature Granulocyte Absolute 0.05 K/mm3 (0.00-0.031); Immature Granulocyte Percent A 0.4 % (0-0.5); Lymphocytes Percent Auto 11.9 % (18.3-44.2); Mean Corpuscular HGB Conc 32.7 g/dl (32-36); Mean Corpuscular Hemoglobin 32.5 pg (26-34); Mean Corpuscular Volume 99.4 fl (80-100); Mean Platelet Volume 9.7 fl (7.4-10.4); Monocytes Absolute Auto 1.9 K/mm3 (0.1-0.6); Monocytes Percent Auto 16.5 % (2.6-8.5); Neutrophils Absolute Auto 8.1 K/mm3 (1.3-6.7); Neutrophils Percent Auto 68.8 % (45.5-73.1); Platelet Count Result 230 k/mm3 (150-375); Red Blood Count 3.54 M/mm3 (4.6-6.20); Red Cell Distribution Width 12.9 % (11.5-14.5); White Blood Count 11.8 K/mm3 (4.5-10.0)
[2020-09-23 07:15] LABS: Alanine Aminotransferase 48 U/L (4-50); Albumin Level 3.5 g/dL (3.5-5.1); Alkaline Phosphatase 50 U/L (38-126); Anion Gap 9 mmol/L (8-16); Aspartate Amino Transferase 188 U/L (17-59); Blood Urea Nitrogen 27 mg/dL (9-20); Calcium 9.1 mg/dL (8.4-10.2); Carbon Dioxide 26 mmol/L (22-30); Chloride 102 mmol/L (98-107); Creatine Kinase 5302 U/L (55-170); Estimated CRCL calculation 43 ml/min; Estimated Glomerular Filt Rate 53; Glucose 93 mg/dL (75-110); Magnesium 1.6 mg/dL (1.6-2.3); Potassium 4.9 mmol/L (3.4-5.0); Sodium 137 mmol/L (137-145)
[2020-09-23] MEDS: MAGNESIUM SULF 2 GM/WATER 50ML 2 GM/50 ML BAG IVPB (08:21)
[2020-09-23 08:33] LABS: Glucose Point of Care 93 mg/dl (65-105)
[2020-09-23] MEDS: GLIMEPIRIDE 1 MG TABLET 3 MG PO (09:16)
[2020-09-23] MEDS: metFORMIN HCL 500 MG TABLET 1000 MG PO ×2 (09:17→18:34)
[2020-09-23] MEDS: PRAVASTATIN SODIUM 20 MG TABLET 40 MG PO (09:17)
[2020-09-23] MEDS: METOPROLOL TARTRATE 50 MG TAB 100 MG PO ×2 (09:17→20:13)
--- NOTE | 2020-09-23 11:34 | P.PNIM_ITS ---
Progress Note: A&P Assessment and Plan (1) Rhabdomyolysis: Qualifiers: Encounter type: initial encounter Rhabdomyolysis type: traumatic Qualified Code(s): T79.6XXA - Traumatic ischemia of muscle, initial encounter Code(s): M62.82 - Rhabdomyolysis Status: Acute Assessment and Plan: * Patient on the floor for 3.5 hours * CK is 5302 down from 7199 * Will recheck in the am * Trend CK * NS 125ml/hr * Trend labs * AST is elevated at 188 which his baseline mid-20 * Labs in the am * Trend renal function (2) Pneumonia: Qualifiers: Pneumonia type: due to unspecified organism Laterality: bilateral Lung location: unspecified part of lung Qualified Code(s): J18.9 - Pneumonia, unspecified organism Code(s): J18.9 - Pneumonia, unspecified organism Status: Acute Assessment and Plan: * CT found interstitial PNA * Started on Ceftriaxone 1gm IV daily * Azithromycin 250 IV Daily * WBC 10.1 * Trend labs * Labs in the am * Cultures no growth day 1 * De-escalate when culture return (3) Atrial fibrillation: Qualifiers: Atrial fibrillation type: unspecified chronic Qualified Code(s): I48.20 - Chronic atrial fibrillation, unspecified Code(s): I48.91 - Unspecified atrial fibrillation Status: Acute Assessment and Plan: * EKG shows atrial fibrillation * Continue warfarin 4.5mg Po daily * Trend INR * Current INR is 1.8 * INR in the am (4) General weakness: Code(s): R53.1 - Weakness Status: Acute Assessment and Plan: * CT showed degenerative Disc dz * Bulging disc L4-5 and L5-S1 * MRI cancelled * Neurology consulted thank you for recommendations * CT head Bilateral drusen and cerebral atrophy and chronic small vessel ischemic changes (5) History of revision of total replacement of right hip joint: Code(s): Z96.641 - Presence of right artificial hip joint Status: Chronic (6) Stenosis of right carotid artery: Code(s): I65.21 - Occlusion and stenosis of right carotid artery Status: Acute (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: Code(s): Z79.01 - senior care (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 of anticoagulants Status: Acute Assessment and Plan: * For A.Fib * See above (8) Diabetes mellitus with neuropathy: Qualifiers: Diabetes mellitus type: type 2 Diabetes mellitus assisted insulin use: with assisted use Qualified Code(s): E11.40 - Type 2 diabetes mellitus with diabetic neuropathy, unspecified; Z79.4 - middle or 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 school principal (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 of insulin Code(s): E11.40 - Type 2 diabetes mellitus with diabetic neuropathy, unspecified Status: Acute Assessment and Plan: * Glucose is 93 * Glimepiride 3mg PO daily * Metformin 1000mg PO BID * ACCU check AC/HS * Sliding scale * Adjust medications as needed (9) CKD (chronic kidney disease): Code(s): N18.9 - Chronic kidney disease, unspecified Status: Acute Assessment and Plan: * Baseline creatinine is 1.5 * Creatinine is 1.3 today down from 1.40 * Trend Creatinine * Labs in the am (10) HTN (hypertension): Qualifiers: Hypertension type: essential hypertension Qualified Code(s): I10 - Essential (primary) hypertension Code(s): I10 - Essential (primary) hypertension Status: Acute
--- NOTE | 2020-09-23 11:34 | PM.IMPN ---
Progress Note: A&P Assessment and Plan (1) Rhabdomyolysis: Qualifiers: Encounter type: initial encounter Rhabdomyolysis type: traumatic Qualified Code(s): T79.6XXA - Traumatic ischemia of muscle, initial encounter Code(s): M62.82 - Rhabdomyolysis Status: Acute Assessment and Plan: Patient on the floor for 3.5 hours CK is 5302 down from 7199 Will recheck in the am Trend CK NS 125ml/hr Trend labs AST is elevated at 188 which his baseline mid-20 Labs in the am Trend renal function (2) Pneumonia: Qualifiers: Pneumonia type: due to unspecified organism Laterality: bilateral Lung location: unspecified part of lung Qualified Code(s): J18.9 - Pneumonia, unspecified organism Code(s): J18.9 - Pneumonia, unspecified organism Status: Acute Assessment and Plan: CT found interstitial PNA Started on Ceftriaxone 1gm IV daily Azithromycin 250 IV Daily WBC 10.1 Trend labs Labs in the am Cultures no growth day 1 De-escalate when culture return (3) Atrial fibrillation: Qualifiers: Atrial fibrillation type: unspecified chronic Qualified Code(s): I48.20 - Chronic atrial fibrillation, unspecified Code(s): I48.91 - Unspecified atrial fibrillation Status: Acute Assessment and Plan: EKG shows atrial fibrillation Continue warfarin 4.5mg Po daily Trend INR Current INR is 1.8 INR in the am (4) General weakness: Code(s): R53.1 - Weakness Status: Acute Assessment and Plan: CT showed degenerative Disc dz Bulging disc L4-5 and L5-S1 MRI cancelled Neurology consulted thank you for recommendations CT head Bilateral drusen and cerebral atrophy and chronic small vessel ischemic changes (5) History of revision of total replacement of right hip joint: Code(s): Z96.641 - Presence of right artificial hip joint Status: Chronic (6) Stenosis of right carotid artery: Code(s): I65.21 - Occlusion and stenosis of right carotid artery Status: Acute (7) 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: Code(s): Z79.01 - care home (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 of anticoagulants Status: Acute Assessment and Plan: For A.Fib See above (8) Diabetes mellitus with neuropathy: Qualifiers: Diabetes mellitus type: type 2 Diabetes mellitus nursing home insulin use: with intermission coordinator use Qualified Code(s): E11.40 - Type 2 diabetes mellitus with diabetic neuropathy, unspecified; Z79.4 - terminal press operator (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 of insulin Code(s): E11.40 - Type 2 diabetes mellitus with diabetic neuropathy, unspecified Status: Acute Assessment and Plan: Glucose is 93 Glimepiride 3mg PO daily Metformin 1000mg PO BID ACCU check AC/HS Sliding scale Adjust medications as needed (9) CKD (chronic kidney disease): Code(s): N18.9 - Chronic kidney disease, unspecified Status: Acute Assessment and Plan: Baseline creatinine is 1.5 Creatinine is 1.3 today down from 1.40 Trend Creatinine Labs in the am (10) HTN (hypertension): Qualifiers: Hypertension type: essential hypertension Qualified Code(s): I10 - Essential (primary) hypertension Code(s): I10 - Essential (primary) hypertension Status: Acute Assessment and Plan: Current BP is 165/82 probably from the fluids and the diuretics on hold Will add hydralazine 10mg IV Q8hr with parameters Continue metoprolol 100mg PO BID Trend Blood pressures Adjust medications as needed (11) HLD (hyperlipidemia): Qualifiers: Hyperlipidemia type: unspecified Qualified Code(s): E78.5 - Hyperlipidemia, unspecified Code(s): E78.5 - Hyperlipidemia, unspecified Status: Acute Assessment and Plan: Pravastatin 40mg PO daily (12) Pulmonary HTN: Code(s): I27.20 - Pulmonary h
[2020-09-23 13:46] LABS: Glucose Point of Care 169 mg/dl (65-105)
[2020-09-23] MEDS: GABAPENTIN 300 MG CAPSULE PO (14:08)
[2020-09-23] MEDS: ONDANSETRON INJ 4 MG/2 ML VIAL IV PUSH (17:00)
[2020-09-23 17:40] LABS: Glucose Point of Care 123 mg/dl (65-105)
[2020-09-23] MEDS: WARFARIN (*PBKC) 1.5 MG TABLET 4.5 MG PO (18:33)
[2020-09-23] MEDS: ACETAMINOPHEN 325 MG TABLET 650 MG PO (20:19)
[2020-09-23] MEDS: SODIUM CHLORIDE 0.9% IV 1,000 ML 125 ML IV CONT (20:21)
[2020-09-23 23:16] LABS: Glucose Point of Care 156 mg/dl (65-105)
[2020-09-24 00:33] LABS: INR 2.4; Prothrombin Time 27.1 Seconds (11.1-14.7)
[2020-09-24] MEDS: ACETAMINOPHEN 325 MG TABLET 650 MG PO (05:29)
[2020-09-24 06:00] VITALS: BP 103/60; PULSE 86; RESP 20; TEMP 36.6; O2SAT 96
[2020-09-24 06:24] LABS: Hematocrit 32.6 % (42.0-52.0); Hemoglobin 10.5 g/dL (14.0-18.0); Mean Corpuscular HGB Conc 32.2 g/dl (32-36); Mean Corpuscular Hemoglobin 32.8 pg (26-34); Mean Corpuscular Volume 101.9 fl (80-100); Mean Platelet Volume 9.4 fl (7.4-10.4); Platelet Count Result 192 k/mm3 (150-375); Red Cell Distribution Width 12.8 % (11.5-14.5); White Blood Count 11.3 K/mm3 (4.5-10.0)
[2020-09-24 06:46] LABS: Alanine Aminotransferase 42 U/L (4-50); Albumin Level 3.2 g/dL (3.5-5.1); Alkaline Phosphatase 53 U/L (38-126); Anion Gap 8 mmol/L (8-16); Aspartate Amino Transferase 125 U/L (17-59); Bilirubin,Total 0.7 mg/dL (0.2-1.3); Blood Urea Nitrogen 24 mg/dL (9-20); Calcium 8.5 mg/dL (8.4-10.2); Carbon Dioxide 23 mmol/L (22-30); Chloride 103 mmol/L (98-107); Creatine Kinase 2499 U/L (55-170); Estimated CRCL calculation 43 ml/min; Estimated Glomerular Filt Rate 53; Glucose 99 mg/dL (75-110); Magnesium 1.6 mg/dL (1.6-2.3); Sodium 134 mmol/L (137-145)
[2020-09-24 08:06] LABS: Glucose Point of Care 69 mg/dl (65-105)
[2020-09-24 08:43] LABS: Glucose Point of Care 73 mg/dl (65-105)
[2020-09-24 08:53] VITALS: PULSE 69
[2020-09-24] MEDS: METOPROLOL TARTRATE 50 MG TAB 100 MG PO ×2 (08:53→22:36)
[2020-09-24] MEDS: GLIMEPIRIDE 1 MG TABLET 3 MG PO (08:53)
[2020-09-24] MEDS: GABAPENTIN 300 MG CAPSULE PO ×3 (08:55→18:15)
[2020-09-24] MEDS: metFORMIN HCL 500 MG TABLET 1000 MG PO ×2 (08:55→18:15)
[2020-09-24] MEDS: PRAVASTATIN SODIUM 20 MG TABLET 40 MG PO (08:55)
--- NOTE | 2020-09-24 09:05 | P.PNIM_ITS ---
Progress Note: A&P Assessment and Plan (1) Rhabdomyolysis: Qualifiers: Encounter type: initial encounter Rhabdomyolysis type: traumatic Qualified Code(s): T79.6XXA - Traumatic ischemia of muscle, initial encounter Code(s): M62.82 - Rhabdomyolysis Status: Acute Assessment and Plan: * Patient on the floor for 3.5 hours * CK is 2499 down from 7199 * Will recheck in the am * Trend CK * NS 125ml/hr * Trend labs * AST is trending down and is at 125 which his baseline mid-20 * Labs in the am * Trend renal function (2) Pneumonia: Qualifiers: Pneumonia type: due to unspecified organism Laterality: bilateral Lung location: unspecified part of lung Qualified Code(s): J18.9 - Pneumonia, unspecified organism Code(s): J18.9 - Pneumonia, unspecified organism Status: Acute Assessment and Plan: * CT found interstitial PNA * Started on Ceftriaxone 1gm IV daily * Azithromycin 250 IV Daily * WBC 11.3 * Trend labs * Labs in the am * Cultures no growth day 1 * De-escalate when culture return (3) Atrial fibrillation: Qualifiers: Atrial fibrillation type: unspecified chronic Qualified Code(s): I48.20 - Chronic atrial fibrillation, unspecified Code(s): I48.91 - Unspecified atrial fibrillation Status: Acute Assessment and Plan: * EKG shows atrial fibrillation * Continue warfarin 4.5mg Po daily * Trend INR * Current INR is 2.4 * INR in the am (4) General weakness: Code(s): R53.1 - Weakness Status: Acute Assessment and Plan: * CT showed degenerative Disc dz * Bulging disc L4-5 and L5-S1 * MRI cancelled * Neurology consulted thank you for recommendations * CT head Bilateral drusen and cerebral atrophy and chronic small vessel ischemic changes (5) History of revision of total replacement of right hip joint: Code(s): Z96.641 - Presence of right artificial hip joint Status: Chronic (6) Stenosis of right carotid artery: Code(s): I65.21 - Occlusion and stenosis of right carotid artery Status: Acute (7) director long term care current use of anticoagulant: Code(s): Z79.01 - prison (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 of anticoagulants Status: Acute Assessment and Plan: * For A.Fib * See above (8) Diabetes mellitus with neuropathy: Qualifiers: Diabetes mellitus type: type 2 Diabetes mellitus marine oil terminal superintendent insulin use: with marine oil terminal superintendent use Qualified Code(s): E11.40 - Type 2 diabetes mellitus with diabetic neuropathy, unspecified; Z79.4 - prison (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 of insulin Code(s): E11.40 - Type 2 diabetes mellitus with diabetic neuropathy, unspecified Status: Acute Assessment and Plan: * Glucose is 99 * Glimepiride 3mg PO daily * Metformin 1000mg PO BID * ACCU check AC/HS * Sliding scale * Adjust medications as needed (9) CKD (chronic kidney disease): Code(s): N18.9 - Chronic kidney disease, unspecified Status: Acute Assessment and Plan: * Baseline creatinine is 1.5 * Creatinine is 1.3 today down from 1.40 * Trend Creatinine * Labs in the am (10) HTN (hypertension): Qualifiers: Hypertension type: essential hypertension Qualified Code(s): I10 - Essential (primary) hypertension Code(s): I10 - Essential (primary) hypertension Status: Acut
--- NOTE | 2020-09-24 09:05 | PM.IMPN ---
Progress Note: A&P Assessment and Plan (1) Rhabdomyolysis: Qualifiers: Encounter type: initial encounter Rhabdomyolysis type: traumatic Qualified Code(s): T79.6XXA - Traumatic ischemia of muscle, initial encounter Code(s): M62.82 - Rhabdomyolysis Status: Acute Assessment and Plan: Patient on the floor for 3.5 hours CK is 2499 down from 7199 Will recheck in the am Trend CK NS 125ml/hr Trend labs AST is trending down and is at 125 which his baseline mid-20 Labs in the am Trend renal function (2) Pneumonia: Qualifiers: Pneumonia type: due to unspecified organism Laterality: bilateral Lung location: unspecified part of lung Qualified Code(s): J18.9 - Pneumonia, unspecified organism Code(s): J18.9 - Pneumonia, unspecified organism Status: Acute Assessment and Plan: CT found interstitial PNA Started on Ceftriaxone 1gm IV daily Azithromycin 250 IV Daily WBC 11.3 Trend labs Labs in the am Cultures no growth day 1 De-escalate when culture return (3) Atrial fibrillation: Qualifiers: Atrial fibrillation type: unspecified chronic Qualified Code(s): I48.20 - Chronic atrial fibrillation, unspecified Code(s): I48.91 - Unspecified atrial fibrillation Status: Acute Assessment and Plan: EKG shows atrial fibrillation Continue warfarin 4.5mg Po daily Trend INR Current INR is 2.4 INR in the am (4) General weakness: Code(s): R53.1 - Weakness Status: Acute Assessment and Plan: CT showed degenerative Disc dz Bulging disc L4-5 and L5-S1 MRI cancelled Neurology consulted thank you for recommendations CT head Bilateral drusen and cerebral atrophy and chronic small vessel ischemic changes (5) History of revision of total replacement of right hip joint: Code(s): Z96.641 - Presence of right artificial hip joint Status: Chronic (6) Stenosis of right carotid artery: Code(s): I65.21 - Occlusion and stenosis of right carotid artery Status: Acute (7) longterm current use of anticoagulant: Code(s): Z79.01 - long term acute care registered nurse (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 of anticoagulants Status: Acute Assessment and Plan: For A.Fib See above (8) Diabetes mellitus with neuropathy: Qualifiers: Diabetes mellitus type: type 2 Diabetes mellitus terminal worker insulin use: with terminal worker use Qualified Code(s): E11.40 - Type 2 diabetes mellitus with diabetic neuropathy, unspecified; Z79.4 - longterm (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 of insulin Code(s): E11.40 - Type 2 diabetes mellitus with diabetic neuropathy, unspecified Status: Acute Assessment and Plan: Glucose is 99 Glimepiride 3mg PO daily Metformin 1000mg PO BID ACCU check AC/HS Sliding scale Adjust medications as needed (9) CKD (chronic kidney disease): Code(s): N18.9 - Chronic kidney disease, unspecified Status: Acute Assessment and Plan: Baseline creatinine is 1.5 Creatinine is 1.3 today down from 1.40 Trend Creatinine Labs in the am (10) HTN (hypertension): Qualifiers: Hypertension type: essential hypertension Qualified Code(s): I10 - Essential (primary) hypertension Code(s): I10 - Essential (primary) hypertension Status: Acute Assessment and Plan: Current BP is 103/60 probably from the fluids and the diuretics on hold Will add hydralazine 10mg IV Q8hr with parameters Continue metoprolol 100mg PO BID Trend Blood pressures Adjust medications as needed (11) HLD (hyperlipidemia): Qualifiers: Hyperlipidemia type: unspecified Qualified Code(s): E78.5 - Hyperlipidemia, unspecified Code(s): E78.5 - Hyperlipidemia, unspecified Status: Acute Assessment and Plan: Pravastatin 40mg PO daily (12) Pulmonary HTN: Code(s): I27.20
[2020-09-24 11:51] LABS: Glucose Point of Care 53 mg/dl (65-105)
[2020-09-24] MEDS: DEXTROSE 50% 25 GM/50 ML SYRINGE IV PUSH ×5 (11:59→23:48)
[2020-09-24 12:22] LABS: Glucose Point of Care 96 mg/dl (65-105)
[2020-09-24 13:45] VITALS: BP 142/47; PULSE 84; RESP 22; TEMP 37.1; O2SAT 98
[2020-09-24] MEDS: GLUCOSE ORAL GEL 15 GM OF GLUCSE IN 37.5 GM TUBE PO (17:06)
[2020-09-24 17:35] LABS: Glucose Point of Care 41 mg/dl (65-105)
[2020-09-24 17:35] LABS: Glucose Point of Care 39 mg/dl (65-105)
[2020-09-24 17:50] LABS: Glucose Point of Care 120 mg/dl (65-105)
[2020-09-24] MEDS: WARFARIN (*PBKC) 1.5 MG TABLET 4.5 MG PO (18:15)
[2020-09-24 18:55] LABS: Glucose Point of Care 79 mg/dl (65-105)
[2020-09-24 18:58] VITALS: BP 117/82; PULSE 87; O2SAT 97
[2020-09-24 19:11] LABS: Alveolar/Arterial O2 Gradient 37.4 mmHg; Base Excess ABG 0.1 mEq/l (+/-2.0); Fractional Inspired Oxygen 21 %; HCO3 ABG 24.2 mEq/l (22.0-26.0); Oxyhemoglobin 92.6 % THb (90.0-100.0); PCO2 ABG 37.5 mmHg (35.0-45.0); PO2 ABG 67.4 mmHg (80.0-100.0); PO2 FiO2 Ratio Arterial Blood 3.21 %; Total Hemoglobin 11.5 g/dL (12.0-18.0); pH ABG 7.428 (7.350-7.450)
[2020-09-24 19:13] LABS: Device ROOM AIR; Modified Allen's Test Pass; Site Drawn RIGHT RADIAL
--- NOTE | 2020-09-24 19:39 | PC.NURSE ---
Hold 1000ml 0.9% NS at 125ml/hr and Initiate 500ml 5% Dextrose 0.9% NS ONCE at 100ml/hr. Discontinue 5% Dextrose 0.9% NS after first bag. Restart 1000ml 0.9% NS at 125ml/hr CONT.
[2020-09-24 20:34] LABS: NT Pro B Type Natriuretic Pept 2100 pg/mL (5-100)
[2020-09-24 21:02] LABS: Glucose Point of Care 26 mg/dl (65-105)
[2020-09-24 21:03] LABS: Glucose Point of Care 117 mg/dl (65-105)
[2020-09-24] MEDS: DEXTROSE 5%/0.9% SOD CHL 1,000 ML 100 ML (21:51)
[2020-09-24 22:00] VITALS: BP 106/55; PULSE 86; RESP 20; TEMP 36.5; O2SAT 97
[2020-09-24 22:36] VITALS: PULSE 68
[2020-09-24 23:41] LABS: INR 2.2; Prothrombin Time 25.4 Seconds (11.1-14.7)
[2020-09-25] VITALS (14 sets, daily range): BP systolic 104–157; BP diastolic 48–72; PULSE 72–98; RESP 16–20; TEMP 36.3–37.1; O2SAT 93–100
--- NOTE | 2020-09-25 | PM.EVENT ---
Event Note Event Note Event Note: The patient's blood sugars have been dropping below 60 every hour for the last 6 hours. The patient had a 500 mL bag of D5 normal saline and his blood sugar still continue to drop. The patient has been eating poorly. The patient received metformin and glyburide earlier today. I have listened to the patient he has coarse lung sounds some going to give him some Lasix as well. Since were having a difficult time keeping his blood sugars above and change him to D10 continuously and give him some Solu-Medrol. I am going to add some nebulizer treatments as well.
[2020-09-25 00:15] LABS: Glucose Point of Care 144 mg/dl (65-105)
[2020-09-25 00:15] LABS: Glucose Point of Care 48 mg/dl (65-105)
--- NOTE | 2020-09-25 01:38 | PC.NURSE ---
Patients blood sugars continued to drop in the 40's hourly despite being given glucagon 12.5. Per Saray Davidson the patient was transferred to IMU Room 206 Bed 2 @ 0130 with his belongings. Report was given to the nurse, Cherie, by phone prior to transfer.
[2020-09-25] MEDS: methylPREDNISolone SOD SUCC 125 MG VIAL IV PUSH (01:57)
[2020-09-25] MEDS: DEXTROSE 50% 25 GM/50 ML SYRINGE IV PUSH (01:58)
[2020-09-25] MEDS: DEXTROSE 10% 1,000 ML 50 ML IV CONT (01:59)
[2020-09-25 02:17] LABS: Glucose Point of Care 146 mg/dl (65-105)
[2020-09-25 02:17] LABS: Glucose Point of Care 65 mg/dl (65-105)
--- NOTE | 2020-09-25 02:27 | PC.NURSE ---
This patient, Agustin Chen, was received from [facility] on 09/25/20 at 0130. Patient/family oriented to unit policies and routines
[2020-09-25 03:03] LABS: Glucose Point of Care 146 mg/dl (65-105)
[2020-09-25 03:03] LABS: Glucose Point of Care 47 mg/dl (65-105)
[2020-09-25 03:27] LABS: Glucose Point of Care 104 mg/dl (65-105)
[2020-09-25 04:28] LABS: Glucose Point of Care 119 mg/dl (65-105)
[2020-09-25 05:15] LABS: Glucose Point of Care 136 mg/dl (65-105)
[2020-09-25 05:35] LABS: INR 2.3; Prothrombin Time 25.5 Seconds (11.1-14.7)
[2020-09-25 07:01] LABS: Glucose Point of Care 181 mg/dl (65-105)
[2020-09-25 07:13] LABS: Alanine Aminotransferase 44 U/L (4-50); Albumin Level 3.3 g/dL (3.5-5.1); Alkaline Phosphatase 61 U/L (38-126); Anion Gap 7 mmol/L (8-16); Aspartate Amino Transferase 110 U/L (17-59); Bilirubin,Total 0.8 mg/dL (0.2-1.3); Blood Urea Nitrogen 20 mg/dL (9-20); Calcium 8.8 mg/dL (8.4-10.2); Carbon Dioxide 23 mmol/L (22-30); Chloride 103 mmol/L (98-107); Creatine Kinase 1469 U/L (55-170); Estimated CRCL calculation 47 ml/min; Estimated Glomerular Filt Rate 58; Glucose 113 mg/dL (75-110); Potassium 4.4 mmol/L (3.4-5.0); Sodium 133 mmol/L (137-145)
[2020-09-25 07:15] LABS: Hematocrit 33.7 % (42.0-52.0); Hemoglobin 10.8 g/dL (14.0-18.0); Mean Corpuscular Hemoglobin 32.9 pg (26-34); Mean Corpuscular Volume 102.7 fl (80-100); Mean Platelet Volume 10.2 fl (7.4-10.4); Platelet Count Result 206 k/mm3 (150-375); Red Blood Count 3.28 M/mm3 (4.6-6.20); Red Cell Distribution Width 13.1 % (11.5-14.5); White Blood Count 11.9 K/mm3 (4.5-10.0)
[2020-09-25 07:19] LABS: Glucose Point of Care 254 mg/dl (65-105)
[2020-09-25 08:31] LABS: NT Pro B Type Natriuretic Pept 2750 pg/mL (5-100)
[2020-09-25] MEDS: FUROSEMIDE INJ 40 MG/4 ML VIAL 20 MG IV PUSH (09:02)
[2020-09-25 09:14] LABS: Glucose Point of Care 258 mg/dl (65-105)
--- NOTE | 2020-09-25 09:47 | P.PNIM_ITS ---
Progress Note: A&P Assessment and Plan (1) Rhabdomyolysis: Qualifiers: Encounter type: initial encounter Rhabdomyolysis type: traumatic Qualified Code(s): T79.6XXA - Traumatic ischemia of muscle, initial encounter Code(s): M62.82 - Rhabdomyolysis Status: Acute Assessment and Plan: * Patient on the floor for 3.5 hours * CK is 1469 down from 2499 * Will recheck in the am * Trend CK * NS 125ml/hr * Trend labs * AST is trending down and is at 110 which his baseline mid-20 * Labs in the am * Trend renal function (2) Pneumonia: Qualifiers: Laterality: bilateral Lung location: unspecified part of lung Pneumonia type: due to unspecified organism Qualified Code(s): J18.9 - Pneumonia, unspecified organism Code(s): J18.9 - Pneumonia, unspecified organism Status: Acute Assessment and Plan: * CT found interstitial PNA * Started on Ceftriaxone 1gm IV daily * Azithromycin 250 IV Daily * DC antibiotics for now * Looks like baseling WBC is about 11 * WBC 11.9 * Chest xray from 09/25/20 looks the same as the first one and has chronic findings. * Trend labs * Labs in the am * Cultures no growth day 3 * Second set of cultures pending * De-escalate when culture return (3) Atrial fibrillation: Qualifiers: Atrial fibrillation type: unspecified chronic Qualified Code(s): I48.20 - Chronic atrial fibrillation, unspecified Code(s): I48.91 - Unspecified atrial fibrillation Status: Acute Assessment and Plan: * EKG shows atrial fibrillation * Continue warfarin 4.5mg Po daily * Trend INR * Current INR is 2.3 * INR in the am (4) General weakness: Code(s): R53.1 - Weakness Status: Acute Assessment and Plan: * CT showed degenerative Disc dz * Bulging disc L4-5 and L5-S1 * MRI cancelled * Neurology consulted thank you for recommendations * CT head Bilateral drusen and cerebral atrophy and chronic small vessel ischemic changes (5) History of revision of total replacement of right hip joint: Code(s): Z96.641 - Presence of right artificial hip joint Status: Chronic (6) Stenosis of right carotid artery: Code(s): I65.21 - Occlusion and stenosis of right carotid artery Status: Acute (7) rn pediatric current use of anticoagulant: Code(s): Z79.01 - residential (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 of anticoagulants Status: Acute Assessment and Plan: * For A.Fib * See above (8) Diabetes mellitus with neuropathy: Qualifiers: Diabetes mellitus skilled nursing insulin use: with central communications specialist use Diabetes mellitus type: type 2 Qualified Code(s): E11.40 - Type 2 diabetes mellitus with diabetic neuropathy, unspecified; Z79.4 - residential (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 of insulin Code(s): E11.40 - Type 2 diabetes mellitus with diabetic neuropathy, unspecified Status: Acute Assessment and Plan: * Glucose is 250s * Glimepiride 3mg PO daily DC'd for hypoglycemia episodes * Metformin 1000mg PO BID on hold for sustained hypoglycemia * ACCU check AC/HS * Sliding scale * Adjust medications as needed (9) CKD (chronic kidney disease): Code(s): N18.9 - Chronic kidney disease, unspecified Status: Acute Assessment and Plan: * Baseline creatinine is 1.5 * Creatinine is 1.2 today down from 1.3 * Trend Creatinine * Labs in the am
--- NOTE | 2020-09-25 09:47 | PM.IMPN ---
Progress Note: A&P Assessment and Plan (1) Rhabdomyolysis: Qualifiers: Encounter type: initial encounter Rhabdomyolysis type: traumatic Qualified Code(s): T79.6XXA - Traumatic ischemia of muscle, initial encounter Code(s): M62.82 - Rhabdomyolysis Status: Acute Assessment and Plan: Patient on the floor for 3.5 hours CK is 1469 down from 2499 Will recheck in the am Trend CK NS 125ml/hr Trend labs AST is trending down and is at 110 which his baseline mid-20 Labs in the am Trend renal function (2) Pneumonia: Qualifiers: Laterality: bilateral Lung location: unspecified part of lung Pneumonia type: due to unspecified organism Qualified Code(s): J18.9 - Pneumonia, unspecified organism Code(s): J18.9 - Pneumonia, unspecified organism Status: Acute Assessment and Plan: CT found interstitial PNA Started on Ceftriaxone 1gm IV daily Azithromycin 250 IV Daily DC antibiotics for now Looks like baseling WBC is about 11 WBC 11.9 Chest xray from 09/25/20 looks the same as the first one and has chronic findings. Trend labs Labs in the am Cultures no growth day 3 Second set of cultures pending De-escalate when culture return (3) Atrial fibrillation: Qualifiers: Atrial fibrillation type: unspecified chronic Qualified Code(s): I48.20 - Chronic atrial fibrillation, unspecified Code(s): I48.91 - Unspecified atrial fibrillation Status: Acute Assessment and Plan: EKG shows atrial fibrillation Continue warfarin 4.5mg Po daily Trend INR Current INR is 2.3 INR in the am (4) General weakness: Code(s): R53.1 - Weakness Status: Acute Assessment and Plan: CT showed degenerative Disc dz Bulging disc L4-5 and L5-S1 MRI cancelled Neurology consulted thank you for recommendations CT head Bilateral drusen and cerebral atrophy and chronic small vessel ischemic changes (5) History of revision of total replacement of right hip joint: Code(s): Z96.641 - Presence of right artificial hip joint Status: Chronic (6) Stenosis of right carotid artery: Code(s): I65.21 - Occlusion and stenosis of right carotid artery Status: Acute (7) terminal block assembler current use of anticoagulant: Code(s): Z79.01 - terminal block assembler (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 of anticoagulants Status: Acute Assessment and Plan: For A.Fib See above (8) Diabetes mellitus with neuropathy: Qualifiers: Diabetes mellitus superintendent container terminal insulin use: with superintendent container terminal use Diabetes mellitus type: type 2 Qualified Code(s): E11.40 - Type 2 diabetes mellitus with diabetic neuropathy, unspecified; Z79.4 - [facility] (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 of insulin Code(s): E11.40 - Type 2 diabetes mellitus with diabetic neuropathy, unspecified Status: Acute Assessment and Plan: Glucose is 250s Glimepiride 3mg PO daily DC'd for hypoglycemia episodes Metformin 1000mg PO BID on hold for sustained hypoglycemia ACCU check AC/HS Sliding scale Adjust medications as needed (9) CKD (chronic kidney disease): Code(s): N18.9 - Chronic kidney disease, unspecified Status: Acute Assessment and Plan: Baseline creatinine is 1.5 Creatinine is 1.2 today down from 1.3 Trend Creatinine Labs in the am (10) HTN (hypertension): Qualifiers: Hypertension type: essential hypertension Qualified Code(s): I10 - Essential (primary) hypertension Code(s): I10 - Essential (primary) hypertension Status: Acute Assessment and Plan: Current BP is 139/62 probably from the fluids and the diuretics on hold Will add hydralazine 10mg IV Q8hr with parameters, DC'D Continue metoprolol 100mg PO BID Trend Blood pressures Adjust medications as needed (11) HLD (hyperlipidemia): Qualifiers: Hyperlipidemia type: unspe
--- NOTE | 2020-09-25 10:47 | PCDIET ---
Nutrition Follow-Up Complete: Nutrition Diagnosis: Inadequate oral intake related to decreased appetite as evidenced by patient statements to physician and 7% weight loss x 4 months. Nutrition Goal: Patient to consume 75% of meals/supplements or greater and maintain weight. Goal in progress. Average intake from last review has been 70% of recorded meals. Patient does not like Ensure Compact and would not like to try alternate supplement, but does request milkshake. Recommend milkshake made with Frozen Nutritional Treat (300kcal, 9g protein) once per day. Could also consider liberalizing diet to no added salt with carbohydrate control, as patient c/o not liking many of the foods provided. Last recorded weight is 91.8 kg. Recommend obtaining new weight. Bowel Motility: BM x 1 on 09/24/20. Labs Reviewed: Hgb (10.8), Hct (33.7), Glu (254), Na (133), Alb (3.3), BNP (2750) Meds Noted: NS at 125mL/hr, Coumadin - noted multiple medications held today. Additional Notes: No open sores documented. Will continue to monitor with same goal. Nutrition Monitoring and Evaluation: Follow up in 5 days.
[2020-09-25] MEDS: SODIUM CHLORIDE 0.9% IV 1,000 ML 125 ML IV CONT ×2 (11:23→19:43)
[2020-09-25 12:06] LABS: Glucose Point of Care 355 mg/dl (65-105)
[2020-09-25] MEDS: INSULIN HUMAN NPH (*BKC) 100 UNITS/ML SUB-Q (15:28)
[2020-09-25 16:57] LABS: Glucose Point of Care 322 mg/dl (65-105)
[2020-09-25] MEDS: INSULIN ASPART (*BKC) 100 UNITS/ML SUB-Q ×2 (18:24→22:14)
[2020-09-25] MEDS: INSULIN ASPART (*BKC) 100 UNITS/ML 6 UNITS SUB-Q (18:24)
[2020-09-25] MEDS: WARFARIN (*PBKC) 1.5 MG TABLET 4.5 MG PO (18:31)
[2020-09-25] MEDS: METOPROLOL TARTRATE 50 MG TAB 100 MG PO (19:46)
--- NOTE | 2020-09-25 20:18 | PC.NURSE ---
This patient, Agustin Chen, was transferred to [facility] on 09/25/20 at 2038. Personal belongings sent with patient. Report given to Caro. Appropriate documentation sent with patient.
--- NOTE | 2020-09-25 20:20 | ADMGEN ---
This patient, Agustin Chen, was admitted to [facility] Surg Room 329-01. Patient/family oriented to hospital policies and general routines including ID bracelet, bed and alarms, visiting hours, pain management, procedures, bathroom and other care routines, personal items, smoking policy, room service/diet, and visiting hours. Information on how to activate the Rapid Response Team has been discussed. Patient/Family are encouraged to report perceived risks to care and to ask questions if they do not understand what they are told or what they should do.
[2020-09-25 22:14] LABS: Glucose Point of Care 304 mg/dl (65-105)
[2020-09-26] VITALS (7 sets, daily range): BP systolic 127–154; BP diastolic 55–75; PULSE 71–96; RESP 16–20; TEMP 36.3–36.8; O2SAT 99–100
[2020-09-26] MEDS: SODIUM CHLORIDE 0.9% IV 1,000 ML 125 ML IV CONT (03:00)
[2020-09-26 06:06] LABS: Hematocrit 30.2 % (42.0-52.0); Hemoglobin 10.1 g/dL (14.0-18.0); Mean Corpuscular HGB Conc 33.4 g/dl (32-36); Mean Corpuscular Hemoglobin 33.2 pg (26-34); Mean Corpuscular Volume 99.3 fl (80-100); Mean Platelet Volume 9.3 fl (7.4-10.4); Platelet Count Result 227 k/mm3 (150-375); Red Blood Count 3.04 M/mm3 (4.6-6.20); Red Cell Distribution Width 12.6 % (11.5-14.5); White Blood Count 12.4 K/mm3 (4.5-10.0)
[2020-09-26 06:17] LABS: Alanine Aminotransferase 44 U/L (4-50); Albumin Level 3.1 g/dL (3.5-5.1); Alkaline Phosphatase 60 U/L (38-126); Anion Gap 9 mmol/L (8-16); Aspartate Amino Transferase 69 U/L (17-59); Bilirubin,Total 0.3 mg/dL (0.2-1.3); Blood Urea Nitrogen 33 mg/dL (9-20); Calcium 8.8 mg/dL (8.4-10.2); Carbon Dioxide 22 mmol/L (22-30); Chloride 107 mmol/L (98-107); Creatine Kinase 641 U/L (55-170); Estimated CRCL calculation 47 ml/min; Estimated Glomerular Filt Rate 58; Glucose 260 mg/dL (75-110); Potassium 4.2 mmol/L (3.4-5.0); Sodium 138 mmol/L (137-145)
[2020-09-26 09:09] LABS: Basophils Percent Auto 0.1 % (0.2-1.2); Hematocrit 30.6 % (42.0-52.0); Hemoglobin 9.9 g/dL (14.0-18.0); Immature Granulocyte Absolute 0.05 K/mm3 (0.00-0.031); Immature Granulocyte Percent A 0.4 % (0-0.5); Lymphocytes Absolute Auto 0.64 K/mm3 (0.9-3.2); Mean Corpuscular HGB Conc 32.4 g/dl (32-36); Mean Corpuscular Hemoglobin 32.5 pg (26-34); Mean Corpuscular Volume 100.3 fl (80-100); Mean Platelet Volume 10.2 fl (7.4-10.4); Monocytes Absolute Auto 1.2 K/mm3 (0.1-0.6); Monocytes Percent Auto 9.4 % (2.6-8.5); Neutrophils Absolute Auto 10.9 K/mm3 (1.3-6.7); Neutrophils Percent Auto 85.1 % (45.5-73.1); Platelet Count Result 239 k/mm3 (150-375); Red Blood Count 3.05 M/mm3 (4.6-6.20); Red Cell Distribution Width 12.7 % (11.5-14.5); White Blood Count 12.8 K/mm3 (4.5-10.0)
[2020-09-26] MEDS: PRAVASTATIN SODIUM 20 MG TABLET 40 MG PO (10:36)
[2020-09-26] MEDS: METOPROLOL TARTRATE 50 MG TAB 100 MG PO ×2 (10:36→20:13)
[2020-09-26] MEDS: INSULIN ASPART (*BKC) 100 UNITS/ML 6 UNITS SUB-Q ×3 (10:39→17:34)
[2020-09-26] MEDS: INSULIN ASPART (*BKC) 100 UNITS/ML SUB-Q ×2 (10:40→12:03)
[2020-09-26 11:45] LABS: Glucose Point of Care 220 mg/dl (65-105)
[2020-09-26 12:36] LABS: INR 2.9; Prothrombin Time 31.1 Seconds (11.1-14.7)
--- NOTE | 2020-09-26 15:30 | PM.IMPN ---
Progress Note: A&P Assessment and Plan (1) Rhabdomyolysis: Qualifiers: Encounter type: initial encounter Rhabdomyolysis type: traumatic Qualified Code(s): T79.6XXA - Traumatic ischemia of muscle, initial encounter Code(s): M62.82 - Rhabdomyolysis Status: Acute Assessment and Plan: Patient was admitted into the hospital after being found down for 3 hours. His CK was elevated consistent with rhabdo. He received copious IV fluid hydration with improvement to his CK in the 600s today in AST is trending down. IV fluids were discontinued at this time. Will recheck labs in the morning. If patient is feeling well, labs are improved will be able to be discharged to SNF tomorrow. (2) General weakness: Code(s): R53.1 - Weakness Status: Acute Assessment and Plan: Could be from rhabdomyolysis, verses weakness from fall and hospitalization. Patient does have a history of chronic back issues and has a nerve stimulator in place. CT lumbar spine showed Multilevel degenerative disc disease of the lumbar and lumbosacral spine. Posterior disc bulging particularly L4-5 and L5-S1. Thoracic spinal leads CT head Bilateral drusen and cerebral atrophy and chronic small vessel ischemic changes. Neurology consulted and wanted an MRI brain and Lumbosacral MRI but unable to obtain MRI due to Nerve stimulator in place. Patient still having weakness to his lower extremities and says right arm. He denies any bowel or bladder incontinence. Continue PT/OT, monitor how he does with therapy and discuss with the patient further (3) Atrial fibrillation: Qualifiers: Atrial fibrillation type: unspecified chronic Qualified Code(s): I48.20 - Chronic atrial fibrillation, unspecified Code(s): I48.91 - Unspecified atrial fibrillation Status: Acute Assessment and Plan: Chronic. EKG shows atrial fibrillation. He is on warfarin and INR is 2.9. Normal. Continue warfarin 4.5mg PO daily INR in the am (4) buttermaker current use of anticoagulant: Code(s): Z79.01 - buttermaker (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 of anticoagulants Status: Acute Assessment and Plan: For A.Fib See above (5) Diabetes mellitus with neuropathy: Qualifiers: Diabetes mellitus watermelon inspector insulin use: with watermelon inspector use Diabetes mellitus type: type 2 Qualified Code(s): E11.40 - Type 2 diabetes mellitus with diabetic neuropathy, unspecified; Z79.4 - buttermaker (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 of insulin Code(s): E11.40 - Type 2 diabetes mellitus with diabetic neuropathy, unspecified Status: Acute Assessment and Plan: Glucose is 260s He is on Glimepiride 3mg PO daily and Metformin 1000mg PO BID at home, but he was not eating well the first few days and became hypoglycemic. Will continue with ACCU check AC/HS, Sliding scale and will adjust medications as needed (6) CKD (chronic kidney disease): Code(s): N18.9 - Chronic kidney disease, unspecified Status: Acute Assessment and Plan: Baseline creatinine is 1.5 Creatinine is 1.2 today Trend Creatinine. Labs in the am (7) HTN (hypertension): Qualifiers: Hypertension type: essential hypertension Qualified Code(s): I10 - Essential (primary) hypertension Code(s): I10 - Essential (primary) hypertension Status: Acute Assessment and Plan: BP this morning was 154/71. Discontinued IV fluids at this time. Continue metoprolol 100mg PO BID Trend Blood pressures. Adjust medications as needed (8) HLD (hyperlipidemia): Qualifiers: Hyperlipidemia type: unspecified Qualified Code(s): E78.5 - Hyperlipidemia, unspecified Code(s): E78.5 - Hyperlipidemia, unspecified Status: Acute Assessment and Plan: Pravastatin 40mg PO daily (9) Neuropathy: Code(s): G62.9 - Polyneuropathy, unspecified Status: Acute Assessment and Plan: Will s
[2020-09-26 17:09] LABS: Add Urine Microscopic? YES; Appearance Urine Clear (Clear); Bilirubin Urine Negative (Negative); Blood Urine Negative (Negative); Color Urine Yellow (Yellow); Glucose Urine UA 2+ mg/dL (Negative); Ketones Urine Negative (Negative); Leukocyte Esterase Ur Negative LEU/UL (Negative); Mucus Urine Rare /lpf; Nitrate Urine Negative (Negative); Protein Urine 1+ mg/dL (Negative); RBC Urine 0-2 /hpf (0-2); Specific Grav Ur 1.024 (1.001-1.035); Squamous Epithelial Cell Urine Rare /hpf (Few); Urobilinogen Urine Negative mg/dL (<2.0); WBC Urine 0-3 /hpf
[2020-09-26 17:22] LABS: Glucose Point of Care 191 mg/dl (65-105)
[2020-09-26] MEDS: WARFARIN (*PBKC) 1.5 MG TABLET 4.5 MG PO (17:35)
[2020-09-26 21:28] LABS: Glucose Point of Care 248 mg/dl (65-105)
[2020-09-27 06:00] VITALS: BP 150/90; PULSE 86; RESP 16; TEMP 36.1; O2SAT 96
[2020-09-27 06:16] LABS: Basophils Percent Auto 0.2 % (0.2-1.2); Eosinophils Percent Auto 0.4 % (0-4.4); Hemoglobin 10.1 g/dL (14.0-18.0); Immature Granulocyte Absolute 0.06 K/mm3 (0.00-0.031); Immature Granulocyte Percent A 0.6 % (0-0.5); Lymphocytes Absolute Auto 1.71 K/mm3 (0.9-3.2); Lymphocytes Percent Auto 16.2 % (18.3-44.2); Mean Corpuscular HGB Conc 32.6 g/dl (32-36); Mean Corpuscular Hemoglobin 32.8 pg (26-34); Mean Corpuscular Volume 100.6 fl (80-100); Mean Platelet Volume 9.7 fl (7.4-10.4); Monocytes Absolute Auto 1.2 K/mm3 (0.1-0.6); Monocytes Percent Auto 10.9 % (2.6-8.5); Neutrophils Absolute Auto 7.6 K/mm3 (1.3-6.7); Neutrophils Percent Auto 71.7 % (45.5-73.1); Platelet Count Result 259 k/mm3 (150-375); Red Blood Count 3.08 M/mm3 (4.6-6.20); Red Cell Distribution Width 12.8 % (11.5-14.5); White Blood Count 10.6 K/mm3 (4.5-10.0)
[2020-09-27 06:19] LABS: Alanine Aminotransferase 83 U/L (4-50); Alkaline Phosphatase 61 U/L (38-126); Anion Gap 7 mmol/L (8-16); Aspartate Amino Transferase 76 U/L (17-59); Bilirubin,Total 0.5 mg/dL (0.2-1.3); Blood Urea Nitrogen 34 mg/dL (9-20); Calcium 8.9 mg/dL (8.4-10.2); Carbon Dioxide 22 mmol/L (22-30); Chloride 110 mmol/L (98-107); Creatine Kinase 291 U/L (55-170); Estimated CRCL calculation 43 ml/min; Estimated Glomerular Filt Rate 53; Glucose 123 mg/dL (75-110); Potassium 3.9 mmol/L (3.4-5.0); Sodium 139 mmol/L (137-145)
[2020-09-27 06:34] LABS: INR 3.1; Prothrombin Time 32.8 Seconds (11.1-14.7)
[2020-09-27 07:04] LABS: Glucose Point of Care 117 mg/dl (65-105)
[2020-09-27] MEDS: INSULIN ASPART (*BKC) 100 UNITS/ML 6 UNITS SUB-Q ×2 (08:44→13:05)
[2020-09-27 08:45] VITALS: PULSE 92
[2020-09-27] MEDS: METOPROLOL TARTRATE 50 MG TAB 100 MG PO (08:45)
[2020-09-27] MEDS: PRAVASTATIN SODIUM 20 MG TABLET 40 MG PO (08:46)
--- NOTE | 2020-09-27 11:33 | WPDNEUROPN ---
Progress Note: A&P Assessment and Plan (1) Rhabdomyolysis: Qualifiers: Encounter type: initial encounter Rhabdomyolysis type: traumatic Qualified Code(s): T79.6XXA - Traumatic ischemia of muscle, initial encounter Code(s): M62.82 - Rhabdomyolysis Status: Acute (2) Atrial fibrillation: Qualifiers: Atrial fibrillation type: unspecified chronic Qualified Code(s): I48.20 - Chronic atrial fibrillation, unspecified Code(s): I48.91 - Unspecified atrial fibrillation Status: Acute (3) Neuropathy: Code(s): G62.9 - Polyneuropathy, unspecified Status: Acute Additional Plan Generalized weakness with history of in addition to a total [place] atrial fibrillation for which he is on anti depression therapy the CT scan wanted neck subdural bleed clinical Vidhier is consistent with the decreased strength in all 4 extremities along with the peripheral neuropathy because of the underlying diabetes mellitus physical therapy has been continued, Will obtain EMG nerve conduction study as an outpatient later on Review of Systems Review of Systems: All systems reviewed & are unremarkable except as noted in HPI and below Exam Const: General: cooperative, comfortable, alert and awake Nutritional Appearance: average body habitus Orientation/consciousness: oriented to person and oriented to place Limitations: physical limitations HENMT: Head: normal to inspection Ears: hearing grossly normal bilaterally General nose exam: Normal external nose present Face and sinus: normal facial exam Resp: Effort & Inspection: able to speak in complete sentences Auscultation: clear to auscultation bilaterally Cardio: Rhythm: abnormal rhythm Neuro: General: oriented to person and oriented to place Cranial nerves: Yes CN's II-XII intact bilaterally Cognition (Neuro): normal cognition Speech: normal speech Gait exam (Neuro): Staggering gait present and Wide-based gait present Motor exam (neuro): Pronator motor function not present, No tremor noted and Abnormal motor strength present Sensory Exam: Sensory deficit (Neuro) Deep tendon reflexes (DTR's): Right triceps reflex intensity grade: 1+, Left triceps reflex intensity grade: 1+, Rt Biceps (C5, C6): 1+, Left biceps reflex intensity grade: 1+, Right brachioradialis reflex intensity grade: 1+, Left brachioradialis reflex intensity grade: 1+, Right patellar reflex intensity grade: 1+, Left patellar reflex intensity grade: 1+, Right ankle reflex intensity grade: 0 and Left ankle reflex intensity grade: 0 Plantar Reflex Responses: downgoing: bilateral Psych: Appearance: grossly normal Objective Data Vital Signs Vital Signs: Vital Signs - 24 hr 09/26/20 12:00 09/26/20 14:00 09/26/20 20:00 Temperature 36.7 C Pulse Rate 71 90 Respiratory Rate 20 18 Blood Pressure 137/75 127/55 L Pulse Oximetry 100 99 09/26/20 20:13 09/26/20 22:00 09/27/20 06:00 Temperature 36.8 C 36.1 C L Pulse Rate 87 90 86 Respiratory Rate 18 16 Blood Pressure 152/60 H 150/90 H Pulse Oximetry 99 96 09/27/20 08:45 Temperature Pulse Rate 92 Respiratory Rate Blood Pressure Pulse Oximetry Intake/Output Intake/Output: Intake & Output 09/24/20 09/25/20 09/26/20 09/27/20 23:59 23:59 23:59 23:59 Intake Total 820 2470 2820 290 Output Total 700 700 500 Balance 820 1770 2120 -210 Meds/Results Medications: Active Medications Generic Name Dose Route Start Last Admin Trade Name Freq PRN Reason Stop Dose Admin Cyanocobalamin 1,000 mcg 09/27/20 09:00 Cyanocobalamin Inj 1,000 Mcg/Ml Vial IM 09/30/20 09:01 DAILY SANDRINE Dextrose 12.5 gm 09/25/20 00:11 09/25/20 01:58 Dextrose 50% 25 Gm/50 Ml Syringe IV PUSH 12.5 gm PRN PRN Administration Hypoglycemia Protocol Glucagon 1 mg 09/25/20 00:11 Glucagon For Inj 1 Mg Vial IM PRN PRN Hypoglycemia Protocol Glucose 15 gm 09/25/20 00:11 Glucose Oral Gel 1
[2020-09-27] MEDS: CYANOCOBALAMIN INJ 1,000 MCG/ML VIAL 1000 MCG IM (13:05)
[2020-09-27 14:00] VITALS: BP 165/75; PULSE 87; RESP 24; TEMP 36.4; O2SAT 97
--- NOTE | 2020-09-27 15:16 | PM.IMPN ---
Progress Note: A&P Assessment and Plan (1) Lower extremity weakness: Code(s): R29.898 - Other symptoms and signs involving the musculoskeletal system Status: Acute Assessment and Plan: The patient is an 80-year-old man with a history of diabetes, atrial fibrillation on warfarin, hyperlipidemia, who presented to the emergency room after sustaining a fall at home 09/21/20. Patient states he was walking back from the bathroom when he tried to walk backwards out of the restroom and then fell to the ground. Denies syncopal episode. Patient was unable to get himself off of the floor and he sat there for over 3 hours. He was finally able to call 911 to bring him to the emergency room. The patient's vitals on arrival to the emergency room showed elevated blood pressure 180/78, slight tachycardic with atrial fibrillation 103, afebrile, normal respiratory rate and oxygenation on room air. Initial labs showed leukocytosis at 12,100, slightly elevated neutrophil count at 84%. Macrocytic anemia with a hemoglobin of 13, hematocrit 42. INR was subtherapeutic at 1.6. Patient's creatinine was 1.5 which appears to be around his baseline, hyperkalemia at 5.1, 5.2%. AST slightly elevated at 94, normal ALT. Total CK was elevated at 7200 showing signs of rhabdomyolysis. CT head on arrival showed no acute abnormality, chronic cerebral atherosclerosis and chronic small-vessel ischemic changes, central and cortical cerebral atrophy. Lumbar CT completed due to bilateral lower extremity paresis which showed Multilevel degenerative disc disease of the lumbar and lumbosacral spine. Posterior disc bulging particularly L4-5 and L5-S1. Thoracic spinal leads. The patient was admitted to the hospital for rhabdo and given IV fluid hydration with improvement of his CK level to 291. IV fluids have been discontinued. He was found to be severely Vitamin B12 deficiency and given IM Cyanocobalamin for 3 days, will start PO Cyanocobalamin 1000 mg daily until follow up with PCP. My most concerning issue is that the patient tells me he has never had bilateral leg weakness like he does right now and it all started after his fall. He was tearful when talking to our PT therapist because of how weak he was on 09/25/20 and concerned about being able to walk again. He was TTP to L5-S1 midline spine, weakness worse on right side greater than left, sensory deficits equal bilaterally. We are unable to get further imaging with an MRI because the patient has an nerve stimulator in place. I was concerned about compressive to his spinal cord causing lower extremity weakness and I called and talked to [facility] NeuroSurgeon Dr. Amos Akhtar. He who reviewed the patients CT Lumbar spine and the history I gave him and accepted him to their NeuroSurgery Service 09/27/[address] Kofi Monzon. He did ask for me to obtain a CT Myelogram, but I was unable to at this time, since the patient is on Warfarin with an INR at 3.1. Will hold Warfarin at this time, will not give Vitamin K. Patient will be waiting on a neurosurgical floor bed possibly for 24 hrs or more, may trend down where they could do a CT Myelogram at their facility vs MRI for further evaluation. Initially in the ER the patients CXR suggested bilateral pnuemonia with patchy infiltrates, but the patient had a CT Chest completed on 09/22/20 showing Diffuse lung disease, likely chronic interstitial lung disease in a pattern of usual interstitial pneumonia (UIP). Mild mediastinal lymphadenopathy, likely reactive. Repeat CXR 09/24/20 showed Interstitial fibrotic changes in the pattern of usual interstitial pneumonia. At that time, antibiotics IV Azithromycin and IV Ceftriaxone were discontinued. Patient continue to deny any respiratory symptoms at this time. The patient continues to have leukocytosis, but he does not have any respiratory symptoms (denies SOB, productive cough, change to his cough from baseline), does not have any urinary symptoms (
[2020-09-27 18:22] LABS: Glucose Point of Care 89 mg/dl (65-105)
--- NOTE | 2020-09-29 07:22 | PM.TDS ---
Transfer Discharge Sum: Prov Provider Date of admission: 09/21/20 21:43 Primary care physician: Vineet Quintana MD Admitting clinician: Tam Loernzo MD Consults: 09/22/20 Consult to Dietitian Routine Reason for Consult:: diet supplements with elevated creatinine, decreased appetite Consult to Physician Routine Comment: spoke to dr streeter @[phone] ([place],) Consulting Provider: Eric Streeter orthopedically impaired teacher/MD group to consult: dr. streeter Reason for consultation: lower extremity weakness Has provider been notified: Yes DS: Admitting Diagnosis Admitting Diagnosis Admitting Diagnosis: Fall, leg weakness DS: Discharge Diagnosis Discharge Diagnosis (1) Lower extremity weakness: Code(s): R29.898 - Other symptoms and signs involving the musculoskeletal system Status: Acute Assessment and Plan: The patient is an 80-year-old man with a history of diabetes, atrial fibrillation on warfarin, hyperlipidemia, who presented to the emergency room after sustaining a fall at home 09/21/20. Patient states he was walking back from the bathroom when he tried to walk backwards out of the restroom and then fell to the ground. Denies syncopal episode. Patient was unable to get himself off of the floor and he sat there for over 3 hours. He was finally able to call 911 to bring him to the emergency room. The patient's vitals on arrival to the emergency room showed elevated blood pressure 180/78, slight tachycardic with atrial fibrillation 103, afebrile, normal respiratory rate and oxygenation on room air. Initial labs showed leukocytosis at 12,100, slightly elevated neutrophil count at 84%. Macrocytic anemia with a hemoglobin of 13, hematocrit 42. INR was subtherapeutic at 1.6. Patient's creatinine was 1.5 which appears to be around his baseline, hyperkalemia at 5.1, 5.2%. AST slightly elevated at 94, normal ALT. Total CK was elevated at 7200 showing signs of rhabdomyolysis. CT head on arrival showed no acute abnormality, chronic cerebral atherosclerosis and chronic small-vessel ischemic changes, central and cortical cerebral atrophy. Lumbar CT completed due to bilateral lower extremity paresis which showed Multilevel degenerative disc disease of the lumbar and lumbosacral spine. Posterior disc bulging particularly L4-5 and L5-S1. Thoracic spinal leads. The patient was admitted to the hospital for rhabdo and given IV fluid hydration with improvement of his CK level to 291. IV fluids have been discontinued. He was found to be severely Vitamin B12 deficiency and given IM Cyanocobalamin for 3 days, will start PO Cyanocobalamin 1000 mg daily until follow up with PCP. My most concerning issue is that the patient tells me he has never had bilateral leg weakness like he does right now and it all started after his fall. He was tearful when talking to our PT therapist because of how weak he was on 09/25/20 and concerned about being able to walk again. He was TTP to L5-S1 midline spine, weakness worse on right side greater than left, sensory deficits equal bilaterally. We are unable to get further imaging with an MRI because the patient has an nerve stimulator in place. I was concerned about compressive to his spinal cord causing lower extremity weakness and I called and talked to [facility] Neuro[facility]geon Dr. Amos Akhtar. He who reviewed the patients CT Lumbar spine and the history I gave him and accepted him to their NeuroSurgery Service 09/27/[address] Kofi Monzon. He did ask for me to obtain a CT Myelogram, but I was unable to at this time, since the patient is on Warfarin with an INR at 3.1. Will hold Warfarin at this time, will not give Vitamin K. Patient will be waiting on a neurosurgical floor bed possibly for 24 hrs or more, may trend down where they could do a CT Myelogram at their facility vs MRI for further evaluation. Initially in the ER the patients CXR suggested bilateral pnuemonia with patchy infiltrates, but the patient had a C
--- NOTE | 2020-10-03 09:00 | PC.NURSE ---
Blood cx are negative.
== END 2020-09-27 18:40 | disposition short-term general hospital (02) | DRG 565 ==
LOC: ANHED 21:58 → ANH3MEDSUR 09-22 16:01 → ANHIMU 09-29 16:43
PROVIDERS: Hospitalist; Nurse Practitioner; Admitting Provider Internal Medicine; Emergency Provider Emergency Medicine; PCP Family Medicine; Visit Provider Physician Assistant
DX: T79.6XXA Traumatic ischemia of muscle, initial encounter (principal); I48.20 Chronic atrial fibrillation, unspecified; J84.9 Interstitial pulmonary disease, unspecified; Z20.822 Contact with and (suspected) exposure to COVID-19; I12.9 Hypertensive chronic kidney disease with stage 1 through stage 4 chronic kidney disease, or unspecified chronic kidney disease; E11.42 Type 2 diabetes mellitus with diabetic polyneuropathy; E11.22 Type 2 diabetes mellitus with diabetic chronic kidney disease; N18.30 Chronic kidney disease, stage 3 unspecified; E11.649 Type 2 diabetes mellitus with hypoglycemia without coma; E78.5 Hyperlipidemia, unspecified; I65.21 Occlusion and stenosis of right carotid artery; M16.12 Unilateral primary osteoarthritis, left hip; K76.0 Fatty (change of) liver, not elsewhere classified; I27.20 Pulmonary hypertension, unspecified; D64.9 Anemia, unspecified; E87.5 Hyperkalemia; W18.39XA Other fall on same level, initial encounter; Z96.641 Presence of right artificial hip joint; Z79.4 Long term (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 of insulin; Z79.01 Long term (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 of anticoagulants; Z98.42 Cataract extraction status, left eye; Z98.41 Cataract extraction status, right eye
CPT/HCPCS: 36415; 36600; 51701; 70450; 71045; 71250; 72131; 73502; 80048; 80053; 81001; 82550; 82607; 82746; 82805; 82948; 83036; 83735; 83880; 84443; 85025; 85027; 85610; 87040; 93005; 96374; 97110; 97161; 97166; 97530; 97535; 99285; A9270; C9803; J0456; J0696; J1815; J1940; J2405; J2930; J3420; J3475; J7030; J7042; U0003; U0005

== ENCOUNTER 2021-01-03 16:07 | Outpatient (CLI) | payer MEDICARE, SELFPAY ==
[2021-01-03 17:08] LABS: Alanine Aminotransferase 15 U/L (4-50); Alkaline Phosphatase 92 U/L (38-126); Anion Gap 10 mmol/L (8-16); Aspartate Amino Transferase 22 U/L (17-59); Bilirubin,Total 0.4 mg/dL (0.2-1.3); Blood Urea Nitrogen 21 mg/dL (9-20); Calcium 9.5 mg/dL (8.4-10.2); Carbon Dioxide 26 mmol/L (22-30); Chloride 100 mmol/L (98-107); Estimated Glomerular Filt Rate 58; Glucose 130 mg/dL (65-110); Potassium 4.8 mmol/L (3.4-5.0); Sodium 136 mmol/L (137-145)
[2021-01-03 17:16] LABS: Hemoglobin A1C 6.1 % (<5.7)
== END 2021-01-03 16:08 | disposition home or self-care (01) ==
PROVIDERS: PCP Family Medicine; Visit Provider Family Medicine
DX: E11.40 Type 2 diabetes mellitus with diabetic neuropathy, unspecified (principal); Z79.4 Long term (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 of insulin
CPT/HCPCS: 36415; 80053; 83036; 85610

== ENCOUNTER 2021-02-22 09:53 | Outpatient (RCR) | payer MEDICARE, SELFPAY ==
[2020-12-01 12:26] LABS: Prothrombin Time 13.4 Seconds (11.1-14.7)
[2021-01-03 17:10] LABS: Prothrombin Time 12.9 Seconds (11.1-14.7)
[2021-01-30 11:50] LABS: INR 2.1; Prothrombin Time 22.9 Seconds (11.1-14.7)
[2021-02-22 10:50] LABS: INR 2.8
== END 2021-03-01 23:59 | disposition home or self-care (01) ==
LOC: ANHLAB 09:53
PROVIDERS: PCP Family Medicine; Visit Provider Internal Medicine Cardiovascular Disease
DX: I48.91 Unspecified atrial fibrillation (principal)
CPT/HCPCS: 36415; 85610

== ENCOUNTER 2021-06-16 11:39 | Outpatient (RCR) | payer MEDICARE, SELFPAY ==
[2021-03-20 12:35] LABS: INR 3.3; Prothrombin Time 32.4 Seconds (11.1-14.7)
[2021-04-04 17:18] LABS: INR 1.6; Prothrombin Time 19.1 Seconds (11.1-14.7)
[2021-04-12 10:43] LABS: INR 2.2; Prothrombin Time 23.8 Seconds (11.1-14.7)
[2021-05-07 11:49] LABS: INR 4.4; Prothrombin Time 40.3 Seconds (11.1-14.7)
[2021-05-15 10:41] LABS: INR 3.1; Prothrombin Time 31.4 Seconds (11.1-14.7)
[2021-05-31 10:11] LABS: INR 3.3; Prothrombin Time 32.2 Seconds (11.1-14.7)
[2021-06-16 13:18] LABS: INR 2.8; Prothrombin Time 28.4 Seconds (11.1-14.7)
== END 2021-06-18 23:59 | disposition home or self-care (01) ==
LOC: ANHLAB 11:39
PROVIDERS: PCP Family Medicine; Visit Provider Internal Medicine Cardiovascular Disease
DX: I48.91 Unspecified atrial fibrillation (principal)
CPT/HCPCS: 36415; 85610

== ENCOUNTER 2021-09-08 08:35 | Outpatient (CLI) | payer MEDICARE, SELFPAY ==
[2021-09-08 09:22] LABS: Alanine Aminotransferase 14 U/L (6-50); Albumin Level 3.8 g/dL (3.5-5.1); Alkaline Phosphatase 89 U/L (38-126); Anion Gap 9 mmol/L (8-16); Aspartate Amino Transferase 26 U/L (17-59); Bilirubin,Total 0.7 mg/dL (0.2-1.3); Blood Urea Nitrogen 33 mg/dL (9-20); Calcium 8.8 mg/dL (8.4-10.2); Carbon Dioxide 20 mmol/L (22-30); Chloride 107 mmol/L (98-107); Cholesterol 145 mg/dL (0-200); Estimated Glomerular Filt Rate 53; Glucose 101 mg/dL (65-110); HDL Direct 29 mg/dL; Potassium 4.4 mmol/L (3.4-5.0); Sodium 136 mmol/L (137-145); Triglycerides 100 mg/dL (<150)
[2021-09-08 09:24] LABS: Hemoglobin A1C 6.1 % (<5.7)
[2021-09-08 09:28] LABS: Hematocrit 37.9 % (42.0-52.0); Hemoglobin 12.2 g/dL (14.0-18.0); Mean Corpuscular HGB Conc 32.2 g/dl (32-36); Mean Corpuscular Volume 99.5 fl (80-100); Mean Platelet Volume 9.8 fl (7.4-10.4); Platelet Count Result 249 k/mm3 (150-375); Red Blood Count 3.81 M/mm3 (4.6-6.20); Red Cell Distribution Width 14.6 % (11.5-14.5); White Blood Count 8.3 K/mm3 (4.5-10.0)
[2021-09-08 09:33] LABS: LDL Cholesterol Direct 77 mg/dL
[2021-09-08 09:38] LABS: Add Urine Microscopic? NO; Appearance Urine Clear (Clear); Bilirubin Urine Negative (Negative); Blood Urine Negative (Negative); Color Urine Yellow (Yellow); Glucose Urine UA Negative (Negative); Ketones Urine Negative (Negative); Leukocyte Esterase Ur Negative LEU/UL (NEGATIVE); Nitrate Urine Negative (Negative); Protein Urine Negative (Negative); Urobilinogen Urine 0.2 mg/dL (<2.0)
[2021-09-08 10:34] LABS: Creatinine Urine 48.5 mg/dL
[2021-09-08 10:39] LABS: MALB Creatinine Ratio 51.5 mg/g (0-30)
== END 2021-09-08 08:36 | disposition home or self-care (01) ==
LOC: ANHLAB 08:37
PROVIDERS: PCP Family Medicine; Visit Provider Family Medicine
DX: E11.40 Type 2 diabetes mellitus with diabetic neuropathy, unspecified (principal); Z79.4 Long term (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 of insulin; E78.5 Hyperlipidemia, unspecified; K76.0 Fatty (change of) liver, not elsewhere classified; N18.30 Chronic kidney disease, stage 3 unspecified; I12.9 Hypertensive chronic kidney disease with stage 1 through stage 4 chronic kidney disease, or unspecified chronic kidney disease
CPT/HCPCS: 36415; 80053; 80061; 81003; 82043; 83036; 84443; 85027

== ENCOUNTER 2021-09-29 11:34 | Outpatient (RCR) | payer MEDICARE, SELFPAY ==
[2021-07-14 12:06] LABS: INR 1.7; Prothrombin Time 19.2 Seconds (11.1-14.7)
[2021-07-28 12:30] LABS: INR 2.6; Prothrombin Time 27.1 Seconds (11.1-14.7)
[2021-09-05 11:46] LABS: Prothrombin Time 21.7 Seconds (11.1-14.7)
[2021-09-29 12:44] LABS: INR 1.8; Prothrombin Time 20.5 Seconds (11.1-14.7)
== END 2021-10-12 23:59 | disposition home or self-care (01) ==
LOC: ANHLAB 11:34
PROVIDERS: PCP Family Medicine; Visit Provider Internal Medicine Cardiovascular Disease
DX: I48.91 Unspecified atrial fibrillation (principal)
CPT/HCPCS: 36415; 85610

== ENCOUNTER 2022-01-07 09:09 | Outpatient (RCR) | payer MEDICARE, SELFPAY ==
[2021-11-02 11:19] LABS: INR 2.1; Prothrombin Time 22.9 Seconds (11.1-14.7)
[2021-11-30 17:37] LABS: INR 1.6; Prothrombin Time 18.8 Seconds (11.1-14.7)
[2021-12-13 12:20] LABS: INR 2.5; Prothrombin Time 26.4 Seconds (11.1-14.7)
[2022-01-07 09:35] LABS: INR 2.2; Prothrombin Time 23.7 Seconds (11.1-14.7)
== END 2022-01-31 23:59 | disposition home or self-care (01) ==
LOC: ANHLAB 09:09
PROVIDERS: PCP Family Medicine; Visit Provider Internal Medicine Cardiovascular Disease
DX: I48.91 Unspecified atrial fibrillation (principal)
CPT/HCPCS: 36415; 85610

== ENCOUNTER 2022-01-12 12:32 | Outpatient (CLI) | payer MEDICARE, SELFPAY ==
[2022-01-12 13:04] LABS: Alanine Aminotransferase 23 U/L (6-50); Albumin Level 3.8 g/dL (3.5-5.1); Alkaline Phosphatase 102 U/L (38-126); Anion Gap 10 mmol/L (8-16); Aspartate Amino Transferase 27 U/L (17-59); Bilirubin,Total 0.4 mg/dL (0.2-1.3); Blood Urea Nitrogen 28 mg/dL (9-20); Calcium 8.8 mg/dL (8.4-10.2); Carbon Dioxide 21 mmol/L (22-30); Chloride 106 mmol/L (98-107); Estimated Glomerular Filt Rate 53; Glucose 107 mg/dL (65-110); Potassium 4.2 mmol/L (3.4-5.0); Sodium 137 mmol/L (137-145)
[2022-01-12 13:53] LABS: Hemoglobin A1C 6.5 % (<5.7)
== END 2022-01-12 12:33 | disposition home or self-care (01) ==
LOC: ANHLAB 12:34
PROVIDERS: PCP Family Medicine; Visit Provider Family Medicine
DX: E11.40 Type 2 diabetes mellitus with diabetic neuropathy, unspecified (principal); I10 Essential (primary) hypertension; Z79.4 Long term (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 of insulin
CPT/HCPCS: 36415; 80053; 83036

== ENCOUNTER 2022-03-21 09:09 | Outpatient (CLI) | payer MEDICARE, SELFPAY ==
[2022-03-21 10:14] LABS: Influenza A QL RT-PCR Negative (Negative); Influenza B QL RT-PCR Negative (Negative); SARS-CoV-2 RNA PCR Negative
== END 2022-03-21 09:10 | disposition home or self-care (01) ==
PROVIDERS: PCP Family Medicine; Visit Provider Physician Assistant
DX: R05.9 Cough, unspecified (principal); Z20.822 Contact with and (suspected) exposure to COVID-19
CPT/HCPCS: 87636

== ENCOUNTER → 2022-03-26 11:15 | Outpatient (CLI) | payer MEDICARE, SELFPAY ==
--- NOTE | ~2022-03-26 | XR_ITS ---
XR ribs BI 3V w CXR 2V DATE: 03/26/2022 11:37 INDICATION: Right mid lateral rib pain after coughing TECHNIQUE: PA and lateral chest. 3 views right ribs. 3 views of left ribs. COMPARISON: 09/25/2020 portable AP chest 09/22/2020 CT chest FINDINGS: Borderline heart size. No hilar or mediastinal enlargement is evident. Chronic interstitial fibrotic changes are again noted particularly in the lateral left lung and right lung base, as noted on 09/22/2020 CT chest. Otherwise no pulmonary consolidation, pleural effusion or pulmonary vascular congestion or pneumothor ax is detected. No left or right rib fracture or bone destruction is detected. Diffuse osteopenia. Status post anterior cervical spine surgical fusion. Degenerative spurring of the thoracic and lumbar spine. Electrodes overlie the lower thoracic spinal canal. IMPRESSION: Chronic interstitial fibrotic changes of the lungs particularly involving the peripheral lateral left lung and right lower lung No detectable rib fracture Osteopenia Degenerative changes of the thoracic and lumbar spine Status post anterior cervical spine surgical fusion Reviewed, dictated and finalized at location B. OGY PROFESSOR IMPRESSION: Chronic interstitial fibrotic changes of the lungs particularly inv olving the peripheral lateral left lung and right lower lung No detectable rib fracture Osteopenia Degenerative changes of the thoracic and lumbar spine Status post anterior cervical spine surgical fusion
== END ==
PROVIDERS: PCP Family Medicine; Visit Provider Physician Assistant
DX: R07.81 Pleurodynia (principal); M85.80 Other specified disorders of bone density and structure, unspecified site; M47.816 Spondylosis without myelopathy or radiculopathy, lumbar region; M47.814 Spondylosis without myelopathy or radiculopathy, thoracic region; J84.170 Interstitial lung disease with progressive fibrotic phenotype in diseases classified elsewhere; Z98.1 Arthrodesis status
CPT/HCPCS: 71046; 71110

== ENCOUNTER 2022-04-23 10:17 | Outpatient (RCR) | payer MEDICARE, SELFPAY ==
[2022-02-02 13:49] LABS: INR 3.1; Prothrombin Time 30.8 Seconds (11.1-14.7)
[2022-03-09 12:24] LABS: INR 2.2; Prothrombin Time 23.7 Seconds (11.1-14.7)
[2022-04-08 11:28] LABS: INR 1.6; Prothrombin Time 18.5 Seconds (11.1-14.7)
[2022-04-16 13:19] LABS: INR 1.6; Prothrombin Time 18.9 Seconds (11.1-14.7)
[2022-04-23 11:36] LABS: INR 1.8
== END 2022-05-03 23:59 | disposition home or self-care (01) ==
LOC: ANHLAB 10:17
PROVIDERS: PCP Family Medicine; Visit Provider Internal Medicine Cardiovascular Disease
DX: I48.91 Unspecified atrial fibrillation (principal)
CPT/HCPCS: 36415; 85610

== ENCOUNTER 2022-07-17 10:12 | Outpatient (RCR) | payer MEDICARE, SELFPAY ==
[2022-05-08 11:01] LABS: INR 2.4; Prothrombin Time 25.3 Seconds (11.1-14.7)
[2022-06-05 09:17] LABS: INR 2.9; Prothrombin Time 29.2 Seconds (11.1-14.7)
[2022-07-05 10:48] LABS: INR 2.3; Prothrombin Time 24.6 Seconds (11.1-14.7)
== END 2022-08-06 23:59 | disposition home or self-care (01) ==
LOC: ANHLAB 10:12
PROVIDERS: PCP Family Medicine; Visit Provider Internal Medicine Cardiovascular Disease
DX: I48.91 Unspecified atrial fibrillation (principal)
CPT/HCPCS: 36415; 85610

== ENCOUNTER 2022-07-17 10:13 | Outpatient (CLI) | payer MEDICARE, SELFPAY ==
[2022-07-17 11:07] LABS: Alanine Aminotransferase 18 U/L (6-50); Albumin Level 3.7 g/dL (3.5-5.1); Alkaline Phosphatase 89 U/L (38-126); Anion Gap 7 mmol/L (8-16); Aspartate Amino Transferase 22 U/L (17-59); Bilirubin,Total 0.8 mg/dL (0.2-1.3); Blood Urea Nitrogen 27 mg/dL (9-20); Calcium 8.6 mg/dL (8.4-10.2); Carbon Dioxide 24 mmol/L (22-30); Chloride 103 mmol/L (98-107); Estimated Glomerular Filt Rate 49; Glucose 168 mg/dL (65-110); Potassium 4.2 mmol/L (3.4-5.0); Sodium 134 mmol/L (137-145)
[2022-07-17 11:08] LABS: Hemoglobin A1C 6.2 % (<5.7)
== END 2022-07-17 10:14 | disposition home or self-care (01) ==
LOC: ANHLAB 10:14
PROVIDERS: PCP Family Medicine; Visit Provider Family Medicine
DX: E11.40 Type 2 diabetes mellitus with diabetic neuropathy, unspecified (principal); Z79.4 Long term (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 of insulin
CPT/HCPCS: 36415; 80053; 83036

== ENCOUNTER 2022-12-04 09:14 | Outpatient (RCR) | payer MEDICARE, SELFPAY ==
[2022-12-04 10:24] LABS: INR 2.6; Prothrombin Time 30.1 Seconds (11.1-14.7)
== END 2022-12-12 23:59 | disposition home or self-care (01) ==
LOC: ANHLAB 09:14
PROVIDERS: PCP Family Medicine; Visit Provider Internal Medicine Cardiovascular Disease
DX: I48.91 Unspecified atrial fibrillation (principal)
CPT/HCPCS: 36415; 85610

== ENCOUNTER 2023-02-01 08:40 | Outpatient (RCR) | payer MEDICARE, SELFPAY ==
[2023-01-02 10:33] LABS: INR 3.1; Prothrombin Time 33.9 Seconds (11.1-14.7)
[2023-02-01 09:41] LABS: INR 2.8; Prothrombin Time 31.2 Seconds (11.1-14.7)
== END 2023-04-02 23:59 | disposition home or self-care (01) ==
LOC: ANHLAB 08:40
PROVIDERS: PCP Family Medicine; Visit Provider Internal Medicine Cardiovascular Disease
DX: Z51.81 Encounter for therapeutic drug level monitoring (principal); I48.91 Unspecified atrial fibrillation; Z79.01 Long term (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 of anticoagulants
CPT/HCPCS: 36415; 85610

== ENCOUNTER 2023-02-01 08:42 | Outpatient (CLI) | payer MEDICARE, SELFPAY ==
[2023-02-01 09:31] LABS: Hematocrit 36.2 % (42.0-52.0); Hemoglobin 11.5 g/dL (14.0-18.0); Mean Corpuscular HGB Conc 31.8 g/dl (32-36); Mean Corpuscular Hemoglobin 32.2 pg (26-34); Mean Corpuscular Volume 101.4 fl (80-100); Mean Platelet Volume 9.7 fl (7.4-10.4); Platelet Count Result 256 k/mm3 (150-375); Red Blood Count 3.57 M/mm3 (4.6-6.20)
[2023-02-01 09:32] LABS: Appearance Urine Clear (Clear); Bilirubin Urine Negative (Negative); Blood Urine Negative (Negative); Color Urine Yellow (Yellow); Glucose Urine UA Negative (Negative); Ketones Urine Negative (Negative); Leukocyte Esterase Ur Negative LEU/UL (NEGATIVE); Nitrate Urine Negative (Negative); Protein Urine Negative (Negative); Specific Grav Ur 1.012 (1.001-1.035); Urobilinogen Urine 0.2 mg/dL (<2.0); pH Urine 5.5 (5.0-9.0)
[2023-02-01 09:40] LABS: Creatinine Urine 64.9 mg/dL
[2023-02-01 09:42] LABS: Alanine Aminotransferase 18 U/L (6-50); Albumin Level 3.6 g/dL (3.5-5.1); Alkaline Phosphatase 75 U/L (38-126); Anion Gap 8 mmol/L (8-16); Aspartate Amino Transferase 22 U/L (17-59); Bilirubin,Total 0.6 mg/dL (0.2-1.3); Blood Urea Nitrogen 30 mg/dL (9-20); Calcium 8.7 mg/dL (8.4-10.2); Carbon Dioxide 22 mmol/L (22-30); Chloride 106 mmol/L (98-107); Cholesterol 139 mg/dL (0-200); Estimated Glomerular Filt Rate 45; Glucose 102 mg/dL (65-110); HDL Direct 29 mg/dL; Potassium 4.2 mmol/L (3.4-5.0); Sodium 136 mmol/L (137-145); Triglycerides 81 mg/dL (<150)
[2023-02-01 09:45] LABS: MALB Creatinine Ratio 30.8 mg/g (0-30)
[2023-02-01 09:46] LABS: Add Urine Microscopic? NO
[2023-02-01 09:53] LABS: Hemoglobin A1C 6.1 % (<5.7)
[2023-02-01 09:53] LABS: LDL Cholesterol Direct 78 mg/dL
== END 2023-02-01 08:43 | disposition home or self-care (01) ==
LOC: ANHLAB 08:44
PROVIDERS: PCP Family Medicine; Visit Provider Family Medicine
DX: I48.91 Unspecified atrial fibrillation (principal); E11.40 Type 2 diabetes mellitus with diabetic neuropathy, unspecified; E78.5 Hyperlipidemia, unspecified; I10 Essential (primary) hypertension
CPT/HCPCS: 36415; 80053; 80061; 81003; 82043; 83036; 84443; 85027; 85610

== ENCOUNTER 2023-05-01 12:10 | Observation (INO) | payer MEDICARE, SELFPAY ==
[2023-05-01] VITALS (39 sets, daily range): BP systolic 92–166; BP diastolic 44–99; PULSE 61–97; RESP 14–22; TEMP 36.6–36.8; O2SAT 90–100
--- NOTE | ~2023-05-01 | XR_ITS ---
EXAMINATION: XR chest 2V DATE: 05/01/2023 13:28 INDICATION: Left chest pain. Palpitations. TECHNIQUE: Frontal and lateral views of the chest were obtained. COMPARISON: Chest 2 views 03/26/2022, chest CT 09/22/2020 FINDINGS: There is chronic peripheral reticular opacities in the lungs, worst in left upper lobe. No pleural effusion or pneumothorax. Cardiomegaly is noted. Epidural electrodes are noted. There are jerome nges of anterior fusion procedure in cervical spine. IMPRESSION: 1. Stable chronic interstitial lung disease. 2. Cardiomegaly. 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 AISER AUDITOR
--- NOTE | 2023-05-01 12:13 | ECG_ITS ---
Measurements Intervals [place] Rate: 68 P: ME: 0 QRS: 42 QRSD: 138 T: 14 QT: 448 QTc: 477 Interpretive Statements ATRIAL FIBRILLATION RIGHT BUNDLE BRANCH BLOCK BASELINE ARTIFACT- I, II, III, AVR, AVL, AVF, V1-V6 ABNORMAL ECG COMPARED TO ECG 09/21/2020 16:57:51 RIGHT BUNDLE-BRANCH BLOCK NOW PRESENT Electronically Signed On 05-01-2023 15:47:37 ASSISTANT CHIEF OF POLICE by Grupo Johnson D.O.
[2023-05-01 12:38] LABS: Basophils Percent Auto 0.4 % (0.2-1.2); Eosinophils Absolute Auto 0.3 K/mm3 (0-0.3); Eosinophils Percent Auto 2.8 % (0-4.4); Hematocrit 37.9 % (42.0-52.0); Hemoglobin 11.9 g/dL (14.0-18.0); Immature Granulocyte Absolute 0.04 K/mm3 (0.00-0.031); Immature Granulocyte Percent A 0.4 % (0-0.5); Lymphocytes Absolute Auto 1.19 K/mm3 (0.9-3.2); Lymphocytes Percent Auto 11.9 % (18.3-44.2); Mean Corpuscular HGB Conc 31.4 g/dl (32-36); Mean Corpuscular Hemoglobin 32.1 pg (26-34); Mean Corpuscular Volume 102.2 fl (80-100); Mean Platelet Volume 9.4 fl (7.4-10.4); Monocytes Absolute Auto 1.2 K/mm3 (0.1-0.6); Monocytes Percent Auto 11.8 % (2.6-8.5); Neutrophils Absolute Auto 7.3 K/mm3 (1.3-6.7); Neutrophils Percent Auto 72.7 % (45.5-73.1); Platelet Count Result 238 k/mm3 (150-375); Red Blood Count 3.71 M/mm3 (4.6-6.20); Red Cell Distribution Width 13.4 % (11.5-14.5)
[2023-05-01 12:52] LABS: Alanine Aminotransferase 17 U/L (6-50); Alkaline Phosphatase 74 U/L (38-126); Anion Gap 8 mmol/L (8-16); Aspartate Amino Transferase 28 U/L (17-59); Bilirubin,Total 0.8 mg/dL (0.2-1.3); Blood Urea Nitrogen 34 mg/dL (9-20); Calcium 9.1 mg/dL (8.4-10.2); Carbon Dioxide 24 mmol/L (22-30); Chloride 103 mmol/L (98-107); Estimated Glomerular Filt Rate 49; Glucose 127 mg/dL (65-110); Lipase 47 U/L (23-300); Potassium 4.5 mmol/L (3.4-5.0); Sodium 135 mmol/L (137-145)
[2023-05-01 13:00] LABS: Troponin I < 0.012 ng/mL (0.000-0.034)
--- NOTE | 2023-05-01 15:15 | ECG_ITS ---
Measurements Intervals [place] Rate: 89 P: [place]: 0 QRS: 30 QRSD: 134 T: 5 QT: 400 QTc: 489 Interpretive Statements ATRIAL FIBRILLATION RIGHT BUNDLE BRANCH BLOCK BASELINE ARTIFACT- I, II, III, AVR, AVL, AVF, V1-V6 ABNORMAL ECG COMPARED TO ECG 05/01/2023 15:30:12 NO SIGNIFICANT CHANGES Electronically Signed On 05-01-2023 19:12:31 MEDICAL DOCTOR MD by Grupo Johnson D.O.
[2023-05-01 15:56] LABS: INR 3.3; Prothrombin Time 36.5 Seconds (11.1-14.7)
[2023-05-01 15:57] LABS: Partial Thromboplastin Time 66.3 SECONDS (22.3-36.8)
[2023-05-01 16:04] LABS: Troponin I < 0.012 ng/mL (0.000-0.034)
[2023-05-01] MEDS: ASPIRIN 81 MG CHEWABLE TABLET 324 MG PO (17:46)
--- NOTE | 2023-05-01 17:52 | ED.CHESTPAIN ---
HPI - Chest Pain General Chief Complaint: Chest Pain Stated Complaint: CHEST PAIN, PALPTATIONS X5D Time Seen by Provider: 05/01/23 17:52 History of Present Illness HPI narrative: Patient is an 82 year old male with history of HTN, HLD, CKD, Afib, Pulmonary HTN, fatty liver here with chest pain. Patient notes that he has had intermittent chest pain for quite some time however over the last 1 week it seems to be persistent. It is located on the left side, nonradiating. He denies any associated shortness of breath, lightheadedness, diaphoresis. The pain is a pounding sensation, no exacerbating or alleviating symptoms, does not seem to worsen with exertion. He has a history of A.Fib, anticoagulated on Coumadin, no history of CAD. Last stress test was about 10 years ago, no prior cardiac catheterization. Daughter at bedside does note that he has had an increased cough over the last month or so intermittent in nature. He denies any increased sputum production. He has not taken anything for his pain today. Related Data Home Medications Medication Instructions Recorded Confirmed warfarin 1 mg tablet 4.5 mg PO DAILY 03/27/20 01/22/23 Allergies Allergy/AdvReac Type Severity Reaction Status Date / Time No Known Allergies Allergy Verified 01/22/23 09:43 Review of Systems Review of Systems: All systems reviewed & are unremarkable except as noted in HPI and below [facility] Past Medical History Medical History Atrial fibrillation Chronic kidney disease, stage 3 unspecified CKD (chronic kidney disease) Diabetes mellitus with neuropathy Fatty liver HLD (hyperlipidemia) HTN (hypertension) [facility] current use of anticoagulant Neuropathy Pulmonary HTN Stenosis of right carotid artery Surgical History Surgical History History of endarterectomy History of revision of total replacement of right hip joint Dr. Coleman History of right cataract extraction History of right hip replacement Dr Bates- 2009 History of right knee joint replacement Dr Bates- 2013 Family History Family History Sibling Hypertension Family history of chronic obstructive pulmonary disease Malignant neoplasm of prostate Family history of lung cancer Social History Social History Social History: Single Smoking status: Never smoker Second hand tobacco smoke exposure: No Alcohol intake: never Substance use: never Substance use type: does not use Living arrangements: alone Occupation/Education: retired Gender identity (if verbalized by the patient): Male Sexual Orientation (if Verbalized by the Patient): Straight or Heterosexual Spiritual care concerns: No Exam Narrative: GENERAL: Well-appearing, well-nourished, and in no acute distress. HEAD: Normocephalic, atraumatic. EYES: PERRLA and EOMI. ENT: Nares clear. Mucous membranes moist. NECK: Supple. CHEST: Clear to auscultation. No respiratory distress. HEART: Regular rate and rhythm. Normal peripheral pulses. ABDOMEN: Soft, nontender, nondistended. EXTREMITIES: Normal range of motion. Trace bilateral lower extremity pitting edema. No calf tenderness. SKIN: Warm, dry, no rash. NEURO: No focal deficits. Alert and oriented x3. PSYCH: Normal mood and affect. Course Course Emergency Course: Chart review performed. Patient here with chest pain x5 days. Triage vitals normal, repeat shows HTN. Office visit note from 01/22/23 at PCP office. Note history of HTN, HLD, CKD, Afib, Pulmonary HTN, fatty liver. Triage cardiac protocol reviewed. CBC within normal limits, INR 3.3, Creatinine 1.4, troponin negative x2. Patient seen evaluated, nontoxic appearing. He continues to have active chest pain. Will do trial of nitroglycerin. Discussed that
--- NOTE | 2023-05-01 17:59 | ECG_ITS ---
Measurements Intervals [place] Rate: 56 P: SC: 0 QRS: 38 QRSD: 145 T: 10 QT: 454 QTc: 441 Interpretive Statements ATRIAL FIBRILLATION WITH SLOW VENTRICULAR RESPONSE RIGHT BUNDLE BRANCH BLOCK ABNORMAL ECG COMPARED TO ECG 09/21/2020 16:57:51 HEART RATE HAS DECREASED RIGHT BUNDLE-BRANCH BLOCK NOW PRESENT Electronically Signed On 05-02-2023 8:12:40 PASTRY MIXER by Grupo Johnson D.O.
[2023-05-01] MEDS: NITROGLYCERIN SL 0.4 MG TABLET SUBLINGUAL (18:16)
--- NOTE | 2023-05-01 18:17 | PC.NURSE ---
1816: .4 SL Nitro given, 11/28 pain, BP: 148/92.
--- NOTE | 2023-05-01 18:22 | PC.NURSE ---
1821: .4 SL nitro given, pain is 8 , BP is 116/69
--- NOTE | 2023-05-01 18:27 | PC.NURSE ---
1825: pain is 8, bp is 92/49, 3rd pill of nitro not given due to low blood pressure
[2023-05-01 18:32] LABS: NT Pro B Type Natriuretic Pept 2440 pg/mL (19.9-100)
[2023-05-01 18:52] LABS: Troponin I < 0.012 ng/mL (0.000-0.034)
[2023-05-01] MEDS: MORPHINE SULFATE (*CRX) 4 MG/ML INJ IV PUSH (19:03)
[2023-05-01 19:06] LABS: Influenza A QL RT-PCR Negative (Negative); Influenza B QL RT-PCR Negative (Negative); RSV RNA, RT-PCR Negative (Negative); SARS-CoV-2 RNA PCR Positive (Negative)
[2023-05-01] MEDS: ONDANSETRON INJ 4 MG/2 ML VIAL IV PUSH (19:47)
[2023-05-01] MEDS: HYDROmorphone HCL INJ (*CRX) 1 MG/ML SYR IV PUSH (19:48)
--- NOTE | 2023-05-01 20:10 | PM.IMHP ---
H&P: HPI History of Present Illness Date/Time: 05/01/23 20:10 Chief Complaint: Chest pain. Narrative: This is an 82-year-old male with past medical history significant for chronic kidney disease, diabetes mellitus, fatty liver, dyslipidemia, hypertension, pulmonary hypertension. Patient lives at home and has a caregiver. I am unable to obtain any history from patient. Most of the history has been obtained from medical records and family member who is at bedside. Was brought to the emergency room due to complaints of chest pain. Patient was positive for COVID EXAMINATION: XR chest 2V DATE: 05/01/2023 13:28 INDICATION: Left chest pain. Palpitations. TECHNIQUE: Frontal and lateral views of the chest were obtained. COMPARISON: Chest 2 views 03/26/2022, chest CT 09/22/2020 FINDINGS: There is chronic peripheral reticular opacities in the lungs, worst in left upper lobe. No pleural effusion or pneumothorax. Cardiomegaly is noted. Epidural electrodes are noted. There are changes of anterior fusion procedure in cervical spine. IMPRESSION: 1. Stable chronic interstitial lung disease. 2. Cardiomegaly. 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 Coleman History of right cataract extraction History of right hip replacement Dr Bates- 2009 History of right knee joint replacement Dr Bates- 2013 Family History Family History Sibling Hypertension Family history of chronic obstructive pulmonary disease Malignant neoplasm of prostate Family history of lung cancer Social History Social History Social History: Single Smoking status: Never smoker Second hand tobacco smoke exposure: No Alcohol intake: never Substance use: never Substance use type: does not use Do You Feel Safe in your Home?: Yes Lack of Transportation: No Lack of Food: Never True Current Housing: I Have Housing Concerned About Future Housing: No Difficulty Paying Gas/Electric Bills: No Difficulty Paying for Meds: No Currently Unemployed: No Education: High School Diploma/GED Difficulty w/ Childcare or Family Care: No Living arrangements: alone Occupation/Education: retired Gender identity (if verbalized by the patient): Male Sexual Orientation (if Verbalized by the Patient): Straight or Heterosexual Spiritual care concerns: No Meds Home Medications and Allergies Home Medications Medication Instructions Recorded Confirmed Type warfarin 1 mg tablet 4.5 mg PO DAILY 03/27/20 05/02/23 History metoprolol tartrate 100 mg tablet 100 mg PO Q12H #180 tabs 02/14/23 05/02/23 Rx pravastatin 40 mg tablet 40 mg PO DAILY #90 tabs 04/22/23 05/02/23 Rx furosemide 20 mg tablet 20 mg PO DAILY 05/02/23 05/02/23 History Allergies Allergy/AdvReac Type Severity Reaction Status Date / Time No Known Allergies Allergy Verified 01/22/23 09:43 Vital Signs Vital Signs - 24 hr 05/01/23 12:24 05/01/23 15:29 05/01/23 17:49 Temperature 97.8 F 98.3 F Pulse Rate 61 86 97 Respiratory Rate 18 18 Blood Pressure 125/99 H 166/76 H Pulse Oximetry 99 100 Oxygen Delivery Room Air 05/01/23 17:49 05/01/23 18:58 05/01/23 18:58 Temperature 98.3 F Pulse Rate 80 79 73 Re
[2023-05-02] VITALS (16 sets, daily range): BP systolic 106–151; BP diastolic 39–69; PULSE 64–87; RESP 18–20; TEMP 36.2–37.1; O2SAT 94–97; BMI 29.0
--- NOTE | 2023-05-02 00:33 | ADMGEN ---
This patient, Agustin Chen, was admitted to IMU Room 211-01 at 2350. Patient/family oriented to hospital policies and general routines including ID bracelet, bed and alarms, visiting hours, pain management, procedures, bathroom and other care routines, personal items, smoking policy, room service/diet, and visiting hours. Information on how to activate the Rapid Response Team has been discussed. Patient/Family are encouraged to report perceived risks to care and to ask questions if they do not understand what they are told or what they should do.
--- NOTE | 2023-05-02 09:13 | PM.IMPN ---
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 Code(s): E11.40 - Type 2 diabetes mellitus with diabetic neuropathy, unspecified Status: Acute (4) Pulmonary HTN: Code(s): I27.20 - Pulmonary hypertension, unspecified Status: Acute (5) Idiopathic pulmonary fibrosis: Code(s): J84.112 - Idiopathic pulmonary fibrosis Status: Acute (6) Chronic kidney disease, stage 3 unspecified: Code(s): N18.30 - Chronic kidney disease, stage 3 unspecified Status: Acute (7) COVID-19: Code(s): U07.1 - COVID-19 Status: Acute Time Spent With Patient Time: The patient is an 82-year-old male with a past medical history significant for chronic kidney disease, diabetes, fatty liver, dyslipidemia, hypertension, pulmonary hypertension, and no prior history of coronary artery disease. He presents with chest pain and has tested positive for COVID-19. His chest x-ray indicates stable chronic interstitial lung disease with cardiomegaly. Laboratory findings are notable for a WBC of 10, hemoglobin of 11.9, platelet count of 238, and a creatinine of 1.4, which is around his baseline. Troponin levels have remained negative. Liver function tests are within normal limits. An EKG reveals atrial fibrillation with a slow ventricular response of 56 and a right bundle branch block, unchanged from previous EKGs. He is not hypoxic and is currently anticoagulated on coumadin. The patient appears confused, with an unknown baseline mental status, but likely has underlying dementia. His INR is elevated at 3.3, and BNP is significantly elevated at 2,440. The chest pain is likely related to his COVID-19 infection. The patient's condition will continue to be monitored for any worsening due to the COVID-19 infection, and his INR will be closely observed. Subjective Date/time seen: 05/02/23 09:13 Interval history: No new complaints. Feels well her chest pain has resolved. Continues to have some cough denies any shortness of breath Review of Systems Review of Systems: All systems reviewed & are unremarkable except as noted in HPI and below Exam Narrative: GENERAL: Well-appearing, well-nourished, and in no acute distress. HEAD: Normocephalic, atraumatic. EYES: PERRLA and EOMI. ENT: Nares clear.? Mucous membranes moist. NECK: Supple. CHEST: Clear to auscultation.? No respiratory distress. HEART: Regular rate and rhythm.? Normal peripheral pulses. ABDOMEN: Soft, nontender, nondistended. EXTREMITIES: Normal range of motion.? Trace bilateral lower extremity pitting edema.? No calf tenderness. SKIN: Warm, dry, no rash. NEURO: No focal deficits.? Alert and oriented x3. PSYCH: Normal mood and affect. Objective Data Vital Signs Vital Signs: Vital Signs - 24 hr 05/01/23 12:24 05/01/23 15:29 05/01/23 17:49 Temperature 97.8 F 98.3 F Pulse Rate 61 86 97 Respiratory Rate 18 18 Blood Pressure 125/99 H 166/76 H Pulse Oximetry 99 100 Oxygen Delivery Room Air 05/01/23 17:49 05/01/23 18:58 05/01/23 18:58 Temperature 98.3 F Pulse Rate 80 79 73 Respiratory Rate 22 H 18 Blood Pressure 141/73 H 104/63 Pulse Oximetry 100 98 Oxygen Delivery 05/01/23 20:50 05/01/23 19:00 05/01/23 19:01 Temperature Pulse Rate 80 80 70 Respiratory Rate 19 22 H 16 Blood Pressure 97/52 L 126/76 Pulse Oximetry 99 99 100 Oxygen Delivery
[2023-05-02] MEDS: PRAVASTATIN SODIUM 20 MG TABLET 40 MG PO (10:00)
[2023-05-02] MEDS: METOPROLOL TARTRATE 50 MG TAB 100 MG PO ×2 (10:00→20:42)
[2023-05-02] MEDS: WARFARIN (*PBKC) 1.5 MG TABLET 4.5 MG PO (17:07)
[2023-05-03] VITALS (10 sets, daily range): BP systolic 110–155; BP diastolic 48–64; PULSE 56–77; RESP 16–20; TEMP 36.2–36.6; O2SAT 90–98
[2023-05-03] MEDS: ONDANSETRON INJ 4 MG/2 ML VIAL IV PUSH (00:05)
[2023-05-03 04:33] LABS: Basophils Percent Auto 0.2 % (0.2-1.2); Eosinophils Absolute Auto 0.1 K/mm3 (0-0.3); Eosinophils Percent Auto 0.7 % (0-4.4); Hemoglobin 10.7 g/dL (14.0-18.0); Immature Granulocyte Absolute 0.03 K/mm3 (0.00-0.031); Immature Granulocyte Percent A 0.4 % (0-0.5); Lymphocytes Percent Auto 9.9 % (18.3-44.2); Mean Corpuscular HGB Conc 31.5 g/dl (32-36); Mean Corpuscular Volume 101.8 fl (80-100); Mean Platelet Volume 9.1 fl (7.4-10.4); Monocytes Absolute Auto 1.4 K/mm3 (0.1-0.6); Monocytes Percent Auto 17.5 % (2.6-8.5); Neutrophils Absolute Auto 5.8 K/mm3 (1.3-6.7); Neutrophils Percent Auto 71.3 % (45.5-73.1); Platelet Count Result 205 k/mm3 (150-375); Red Blood Count 3.34 M/mm3 (4.6-6.20); Red Cell Distribution Width 13.4 % (11.5-14.5); White Blood Count 8.1 K/mm3 (4.5-10.0)
[2023-05-03 04:43] LABS: Prothrombin Time 33.8 Seconds (11.1-14.7)
[2023-05-03 04:44] LABS: Alanine Aminotransferase 17 U/L (6-50); Albumin Level 3.4 g/dL (3.5-5.1); Alkaline Phosphatase 74 U/L (38-126); Anion Gap 6 mmol/L (8-16); Aspartate Amino Transferase 52 U/L (17-59); Bilirubin,Total 0.6 mg/dL (0.2-1.3); Blood Urea Nitrogen 26 mg/dL (9-20); Calcium 8.6 mg/dL (8.4-10.2); Carbon Dioxide 24 mmol/L (22-30); Chloride 102 mmol/L (98-107); Estimated CRCL calculation 38 ml/min; Estimated Glomerular Filt Rate 49; Glucose 123 mg/dL (65-110); Sodium 132 mmol/L (137-145)
[2023-05-03] MEDS: PRAVASTATIN SODIUM 20 MG TABLET 40 MG PO (08:53)
[2023-05-03] MEDS: METOPROLOL TARTRATE 50 MG TAB 100 MG PO ×2 (08:54→20:21)
--- NOTE | 2023-05-03 12:30 | PM.IMPN ---
Progress Note: A&P Assessment and Plan (1) Chest pain: Qualifiers: Chest pain type: unspecified Qualified Code(s): R07.9 - Chest pain, unspecified Code(s): R07.9 - Chest pain, unspecified Status: Inactive (2) Atrial fibrillation: Code(s): I48.91 - Unspecified atrial fibrillation Status: Acute (3) Diabetes mellitus with neuropathy: Qualifiers: Diabetes mellitus type: type 2 Diabetes mellitus nursing home insulin use: with nursing home use Qualified Code(s): E11.40 - Type 2 diabetes mellitus with diabetic neuropathy, unspecified; Z79.4 - senior care (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 of insulin Code(s): E11.40 - Type 2 diabetes mellitus with diabetic neuropathy, unspecified Status: Acute (4) Pulmonary HTN: Code(s): I27.20 - Pulmonary hypertension, unspecified Status: Acute (5) Idiopathic pulmonary fibrosis: Code(s): J84.112 - Idiopathic pulmonary fibrosis Status: Acute (6) Chronic kidney disease, stage 3 unspecified: Code(s): N18.30 - Chronic kidney disease, stage 3 unspecified Status: Acute (7) COVID-19: Code(s): U07.1 - COVID-19 Status: Acute Plan The patient is an 82-year-old male with a past medical history significant for chronic kidney disease, diabetes, fatty liver, dyslipidemia, hypertension, pulmonary hypertension, and no prior history of coronary artery disease. He presents with chest pain and has tested positive for COVID-19. His chest x-ray indicates stable chronic interstitial lung disease with cardiomegaly. Laboratory findings are notable for a WBC of 10, hemoglobin of 11.9, platelet count of 238, and a creatinine of 1.4, which is around his baseline. Troponin levels have remained negative. Liver function tests are within normal limits. An EKG reveals atrial fibrillation with a slow ventricular response of 56 and a right bundle branch block, unchanged from previous EKGs. He is not hypoxic and is currently anticoagulated on Coumadin. The patient appears confused, with an unknown baseline mental status, but likely has underlying dementia. His INR is elevated at 3.3, and BNP is significantly elevated at 2,440. The chest pain is likely related to his COVID-19 infection. The patient's condition will continue to be monitored for any worsening due to the COVID-19 infection, and his INR will be closely observed. Subjective Date/time seen: 05/03/23 12:30 Interval history: No new complaints. Feels well her chest pain has resolved. Continues to have some cough denies any shortness of breath Review of Systems Review of Systems: All systems reviewed & are unremarkable except as noted in HPI and below Exam Narrative: GENERAL: Well-appearing, well-nourished, and in no acute distress. HEAD: Normocephalic, atraumatic. EYES: PERRLA and EOMI. ENT: Nares clear.? Mucous membranes moist. NECK: Supple. CHEST: Clear to auscultation.? No respiratory distress. HEART: Regular rate and rhythm.? Normal peripheral pulses. ABDOMEN: Soft, nontender, nondistended. EXTREMITIES: Normal range of motion.? Trace bilateral lower extremity pitting edema.? No calf tenderness. SKIN: Warm, dry, no rash. NEURO: No focal deficits.? Alert and oriented x3. PSYCH: Normal mood and affect. Objective Data Vital Signs Vital Signs: Vital Signs - 24 hr 05/02/23 16:00 05/02/23 14:00 05/02/23 16:00 Temperature 97.8 F Pulse Rate 73 73 79 Respiratory Rate 18 Blood Pressure 150/69 H Pulse Oximetry 97 Oxygen Delivery 05/02/23 18:00 05/02/23 20:00 05/02/23 20:42 Temperature 97.1 F L Pulse Rate 71 72 72 Respiratory Rate 18 Blood Pressure 151/58 H Pulse Oximetry 97 Oxygen Delivery 05/02/23 20:00 05/02/23 20:00 05/02/23 22:00 Temperature Pulse Rate 71 68 Respiratory Rate Blood Pressure Pulse Oximetry Oxygen Delivery Room Air 05/03/23 00:00 05/03/23 00:00 05/03/23 02:00 Temperature 97.2 F L Pulse Rate 77 75 6
--- NOTE | 2023-05-03 13:45 | ADMGEN ---
This patient, Agustin Chen, was admitted to Medical Room 349-01 from IMU - 211 at 1345. Patient/family oriented to hospital policies and general routines including ID bracelet, bed and alarms, visiting hours, pain management, procedures, bathroom and other care routines, personal items, smoking policy, room service/diet, and visiting hours. Information on how to activate the Rapid Response Team has been discussed. Patient/Family are encouraged to report perceived risks to care and to ask questions if they do not understand what they are told or what they should do.
[2023-05-03] MEDS: WARFARIN (*PBKC) 1.5 MG TABLET 4.5 MG PO (18:01)
[2023-05-04 05:33] VITALS: BP 116/51; PULSE 65; RESP 18; TEMP 37.2; O2SAT 95
[2023-05-04 05:57] LABS: INR 2.9; Prothrombin Time 32.7 Seconds (11.1-14.7)
[2023-05-04 08:45] VITALS: O2SAT 95
[2023-05-04] MEDS: PRAVASTATIN SODIUM 20 MG TABLET 40 MG PO (09:28)
[2023-05-04 09:30] VITALS: PULSE 60
[2023-05-04] MEDS: METOPROLOL TARTRATE 50 MG TAB 100 MG PO ×2 (09:30→20:38)
--- NOTE | 2023-05-04 09:39 | PCPTNOTE ---
05/04/23 MW PT Eval complete
--- NOTE | 2023-05-04 12:33 | PM.IMPN ---
Progress Note: A&P Assessment and Plan (1) Chest pain: Qualifiers: Chest pain type: unspecified Qualified Code(s): R07.9 - Chest pain, unspecified Code(s): R07.9 - Chest pain, unspecified Status: Inactive (2) Atrial fibrillation: Code(s): I48.91 - Unspecified atrial fibrillation Status: Acute (3) Diabetes mellitus with neuropathy: Qualifiers: Diabetes mellitus type: type 2 Diabetes mellitus [facility] insulin use: with [facility] use Qualified Code(s): E11.40 - Type 2 diabetes mellitus with diabetic neuropathy, unspecified; Z79.4 - shelter (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 of insulin Code(s): E11.40 - Type 2 diabetes mellitus with diabetic neuropathy, unspecified Status: Acute (4) Pulmonary HTN: Code(s): I27.20 - Pulmonary hypertension, unspecified Status: Acute (5) Idiopathic pulmonary fibrosis: Code(s): J84.112 - Idiopathic pulmonary fibrosis Status: Acute (6) Chronic kidney disease, stage 3 unspecified: Code(s): N18.30 - Chronic kidney disease, stage 3 unspecified Status: Acute (7) COVID-19: Code(s): U07.1 - COVID-19 Status: Acute Plan The patient is an 82-year-old male with a past medical history significant for chronic kidney disease, diabetes, fatty liver, dyslipidemia, hypertension, pulmonary hypertension, and no prior history of coronary artery disease. He presents with chest pain and has tested positive for COVID-19. His chest x-ray indicates stable chronic interstitial lung disease with cardiomegaly. Laboratory findings are notable for a WBC of 10, hemoglobin of 11.9, platelet count of 238, and a creatinine of 1.4, which is around his baseline. Troponin levels have remained negative. Liver function tests are within normal limits. An EKG reveals atrial fibrillation with a slow ventricular response of 56 and a right bundle branch block, unchanged from previous EKGs. He is not hypoxic and is currently anticoagulated on Coumadin. The patient appears confused, with an unknown baseline mental status, but likely has underlying dementia. His INR is elevated at 3.3, and BNP is significantly elevated at 2,440. The chest pain is likely related to his COVID-19 infection. The patient's condition will continue to be monitored for any worsening due to the COVID-19 infection, and his INR will be closely observed. Subjective Date/time seen: 05/04/23 12:33 Interval history: No overnight events. Chest pain has resolved. Feeling well. Review of Systems Review of Systems: All systems reviewed & are unremarkable except as noted in HPI and below Exam Narrative: GENERAL: Well-appearing, well-nourished, and in no acute distress. HEAD: Normocephalic, atraumatic. EYES: PERRLA and EOMI. ENT: Nares clear.? Mucous membranes moist. NECK: Supple. CHEST: Clear to auscultation.? No respiratory distress. HEART: Regular rate and rhythm.? Normal peripheral pulses. ABDOMEN: Soft, nontender, nondistended. EXTREMITIES: Normal range of motion.? Trace bilateral lower extremity pitting edema.? No calf tenderness. SKIN: Warm, dry, no rash. NEURO: No focal deficits.? Alert and oriented x3. PSYCH: Normal mood and affect. Objective Data Vital Signs Vital Signs: Vital Signs - 24 hr 05/03/23 14:00 05/03/23 20:15 05/03/23 20:21 Temperature 97.5 F L 97.9 F Pulse Rate 69 64 64 Respiratory Rate 16 18 Blood Pressure 110/48 L 125/56 L Pulse Oximetry 98 95 Oxygen Delivery 05/03/23 20:00 05/04/23 05:33 05/04/23 09:30 Temperature 99 F Pulse Rate 65 60 Respiratory Rate 18 Blood Pressure 116/51 L Pulse Oximetry 95 Oxygen Delivery Room Air 05/04/23 09:30 Temperature Pulse Rate Respiratory Rate Blood Pressure Pulse Oximetry Oxygen Delivery Room Air Intake/Output Intake/Output: Intake & Output 05/01/23 05/02/23 05/03/23 05/04/23 23:59 23:59 23:59 23:59 Intake Total 520 1070 240 Output Total 800 950 200 Leonides
[2023-05-04 14:00] VITALS: BP 112/60; PULSE 63; RESP 16; TEMP 36.8; O2SAT 95
[2023-05-04] MEDS: WARFARIN (*PBKC) 1.5 MG TABLET 4.5 MG PO (17:36)
[2023-05-04 20:38] VITALS: PULSE 85
[2023-05-04 21:20] VITALS: BP 108/59; PULSE 86; RESP 17; TEMP 36.1; O2SAT 93
[2023-05-05 06:00] VITALS: BP 113/67; PULSE 69; RESP 18; TEMP 36.3; O2SAT 96
[2023-05-05 06:00] LABS: INR 2.8; Prothrombin Time 31.9 Seconds (11.1-14.7)
[2023-05-05 09:34] VITALS: PULSE 66
[2023-05-05] MEDS: METOPROLOL TARTRATE 50 MG TAB 100 MG PO (09:34)
[2023-05-05] MEDS: PRAVASTATIN SODIUM 20 MG TABLET 40 MG PO (09:34)
--- NOTE | 2023-05-05 14:42 | PM.DS ---
DS: Admitting Diagnosis Discharge Date 05/05/2023 Admitting Diagnosis Chest pain DS: Discharge Diagnosis Discharge Diagnosis (1) Chest pain: Qualifiers: Chest pain type: unspecified Qualified Code(s): R07.9 - Chest pain, unspecified Code(s): R07.9 - Chest pain, unspecified Status: Inactive (2) Atrial fibrillation: Code(s): I48.91 - Unspecified atrial fibrillation Status: Acute (3) Diabetes mellitus with neuropathy: Qualifiers: Diabetes mellitus type: type 2 Diabetes mellitus penitentiary insulin use: with penitentiary use Qualified Code(s): E11.40 - Type 2 diabetes mellitus with diabetic neuropathy, unspecified; Z79.4 - 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 accountant (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 of insulin Code(s): E11.40 - Type 2 diabetes mellitus with diabetic neuropathy, unspecified Status: Acute (4) Pulmonary HTN: Code(s): I27.20 - Pulmonary hypertension, unspecified Status: Acute (5) Idiopathic pulmonary fibrosis: Code(s): J84.112 - Idiopathic pulmonary fibrosis Status: Acute (6) Chronic kidney disease, stage 3 unspecified: Code(s): N18.30 - Chronic kidney disease, stage 3 unspecified Status: Acute (7) COVID-19: Code(s): U07.1 - COVID-19 Status: Acute DS: Summary Hospital Course Hospital Course: The patient is an 82-year-old male with a past medical history significant for chronic kidney disease, diabetes, fatty liver, dyslipidemia, hypertension, pulmonary hypertension, and no prior history of coronary artery disease. He presents with chest pain and has tested positive for COVID-19. His chest x-ray indicates stable chronic interstitial lung disease with cardiomegaly. Laboratory findings are notable for a WBC of 10, hemoglobin of 11.9, platelet count of 238, and a creatinine of 1.4, which is around his baseline. Troponin levels have remained negative. Liver function tests are within normal limits. An EKG reveals atrial fibrillation with a slow ventricular response of 56 and a right bundle branch block, unchanged from previous EKGs. He is not hypoxic and is currently anticoagulated on Coumadin. The patient appears confused, with an unknown baseline mental status, but likely has underlying dementia. His INR is elevated at 3.3 on admission, and BNP is significantly elevated at 2,440. The chest pain is likely related to his COVID-19 infection and musculoskeletal in origin. This resolved with supportive treatment. The patient's condition will continue to be monitored for any worsening due to the COVID-19 infection, and his INR will be closely observed and remained therapeutic. A work with physical therapy and occupational therapy during the hospital stay and will be discharged home to follow-up with PCP Time Spent with Patient Time attestation: Total time spent providing and/or coordinating discharge services: Exam Narrative: GENERAL: Well-appearing, well-nourished, and in no acute distress. HEAD: Normocephalic, atraumatic. EYES: PERRLA and EOMI. ENT: Nares clear.? Mucous membranes moist. NECK: Supple. CHEST: Clear to auscultation.? No respiratory distress. HEART: Regular rate and rhythm.? Normal peripheral pulses. ABDOMEN: Soft, nontender, nondistended. EXTREMITIES: Normal range of motion.? Trace bilateral lower extremity pitting edema.? No calf tenderness. SKIN: Warm, dry, no rash. NEURO: No focal deficits.? Alert and oriented x3. PSYCH: Normal mood and affect. DS: Data Data Completed and Pending Labs on day of discharge: Labs from last 24 hours 05/05/23 05:23 PT 31.9 H INR 2.8 Discharge Plan Discharge Attending physician on discharge: Tam Lorenzo Discharging Clinician: Tam Lorenzo Anticipated Discharge Date/Time: 05/05/23 14:40 Patient Disposition: Home, Self-Care Activity: as tolerated Diet: heart healthy Patient Instructions: Antibiotic Form, Warfarin (By mouth) Stand Alone Forms: General Discharge Inform
== END 2023-05-05 15:15 | disposition home or self-care (01) ==
LOC: ANHED 19:57 → ANHIMU 05-02 04:58 → ANH3MED 05-05 14:42 → ANHIMU 05-06 10:17 → ANH3MED 05-06 10:17
PROVIDERS: Emergency Medicine; Admitting Provider Internal Medicine; Emergency Provider Student in an Organized Health Care Education/Training Program; PCP Family Medicine; Visit Provider Internal Medicine
DX: U07.1 COVID-19 (principal); R07.9 Chest pain, unspecified; E78.5 Hyperlipidemia, unspecified; I12.9 Hypertensive chronic kidney disease with stage 1 through stage 4 chronic kidney disease, or unspecified chronic kidney disease; E11.22 Type 2 diabetes mellitus with diabetic chronic kidney disease; N18.30 Chronic kidney disease, stage 3 unspecified; I48.91 Unspecified atrial fibrillation; I45.10 Unspecified right bundle-branch block; I27.20 Pulmonary hypertension, unspecified; J84.112 Idiopathic pulmonary fibrosis; K76.0 Fatty (change of) liver, not elsewhere classified; E11.40 Type 2 diabetes mellitus with diabetic neuropathy, unspecified; J84.9 Interstitial pulmonary disease, unspecified; Z79.01 Long term (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 of anticoagulants; Z79.899 Other long term (current) drug therapy
CPT/HCPCS: 36415; 71046; 80053; 83690; 83880; 84484; 85025; 85610; 85730; 87637; 93005; 96374; 96375; 96376; 97161; 97165; 99285; A9270; G0378; J1170; J2270; J2405

== ENCOUNTER 2023-08-06 10:32 | Outpatient (CLI) | payer MEDICARE, SELFPAY ==
[2023-08-06 11:04] LABS: Basophils Percent Auto 0.4 % (0.2-1.2); Eosinophils Absolute Auto 0.3 K/mm3 (0-0.3); Eosinophils Percent Auto 3.1 % (0-4.4); Hematocrit 32.1 % (42.0-52.0); Hemoglobin 9.9 g/dL (14.0-18.0); Immature Granulocyte Absolute 0.04 K/mm3 (0.00-0.031); Immature Granulocyte Percent A 0.5 % (0-0.5); Lymphocytes Absolute Auto 1.12 K/mm3 (0.9-3.2); Lymphocytes Percent Auto 13.4 % (18.3-44.2); Mean Corpuscular HGB Conc 30.8 g/dl (32-36); Mean Corpuscular Hemoglobin 31.2 pg (26-34); Mean Corpuscular Volume 101.3 fl (80-100); Mean Platelet Volume 9.1 fl (7.4-10.4); Monocytes Absolute Auto 1.1 K/mm3 (0.1-0.6); Monocytes Percent Auto 12.9 % (2.6-8.5); Neutrophils Absolute Auto 5.8 K/mm3 (1.3-6.7); Neutrophils Percent Auto 69.7 % (45.5-73.1); Platelet Count Result 241 k/mm3 (150-375); Red Blood Count 3.17 M/mm3 (4.6-6.20); Red Cell Distribution Width 15.3 % (11.5-14.5); White Blood Count 8.4 K/mm3 (4.5-10.0)
[2023-08-06 11:14] LABS: Alanine Aminotransferase 13 U/L (6-50); Albumin Level 3.5 g/dL (3.5-5.1); Alkaline Phosphatase 86 U/L (38-126); Anion Gap 6 mmol/L (4-12); Aspartate Amino Transferase 19 U/L (17-59); Bilirubin,Total 0.8 mg/dL (0.2-1.3); Blood Urea Nitrogen 20 mg/dL (9-20); Calcium 8.8 mg/dL (8.4-10.2); Carbon Dioxide 22 mmol/L (22-30); Chloride 107 mmol/L (98-107); Estimated Glomerular Filt Rate > 60; Glucose 154 mg/dL (65-110); Potassium 3.3 mmol/L (3.4-5.0); Sodium 135 mmol/L (137-145)
[2023-08-06 12:49] LABS: Appearance Urine Clear (Clear); Bilirubin Urine Negative (Negative); Blood Urine Negative (Negative); Color Urine Yellow (Yellow); Glucose Urine UA Negative (Negative); Ketones Urine Negative (Negative); Leukocyte Esterase Ur Negative LEU/UL (Negative); Nitrate Urine Negative (Negative); Protein Urine Negative (Negative); Specific Grav Ur 1.011 (1.001-1.035); Urobilinogen Urine 0.2 mg/dL (<2.0); pH Urine 5.5 (5.0-9.0)
[2023-08-06 12:59] LABS: Add Urine Microscopic? NO
[2023-08-06 13:59] LABS: Hemoglobin A1C 5.9 % (<5.7)
== END 2023-08-06 10:33 | disposition home or self-care (01) ==
LOC: ANHLAB 10:35
PROVIDERS: PCP Family Medicine; Visit Provider Family Medicine
DX: E11.40 Type 2 diabetes mellitus with diabetic neuropathy, unspecified (principal); R63.4 Abnormal weight loss; I48.91 Unspecified atrial fibrillation; Z79.4 Long term (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 of insulin
CPT/HCPCS: 36415; 80053; 81003; 83036; 84443; 85025

== ENCOUNTER 2023-09-02 18:01 | Outpatient (RCR) | payer MEDICARE, SELFPAY ==
[2023-06-07 12:40] LABS: INR 4.1; Prothrombin Time 43.2 Seconds (11.1-14.7)
[2023-09-02 18:37] LABS: INR 2.3; Prothrombin Time 26.7 Seconds (11.1-14.7)
== END 2023-09-05 23:59 | disposition home or self-care (01) ==
LOC: ANHLAB 18:01
PROVIDERS: PCP Family Medicine; Visit Provider Internal Medicine Cardiovascular Disease
DX: Z51.81 Encounter for therapeutic drug level monitoring (principal); I48.91 Unspecified atrial fibrillation; Z79.01 Long term (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 of anticoagulants
CPT/HCPCS: 36415; 85610

== ENCOUNTER 2023-12-20 09:53 | Outpatient (RCR) | payer MEDICARE, SELFPAY ==
[2023-11-15 10:15] LABS: INR 1.7; Prothrombin Time 20.6 Seconds (11.1-14.7)
[2023-11-22 10:37] LABS: INR 2.1; Prothrombin Time 23.9 Seconds (11.1-14.7)
[2023-12-20 11:26] LABS: INR 2.2; Prothrombin Time 25.4 Seconds (11.1-14.7)
== END 2024-02-13 23:59 | disposition home or self-care (01) ==
LOC: ANHLAB 09:53
PROVIDERS: PCP Family Medicine; Visit Provider Internal Medicine Cardiovascular Disease
DX: Z51.81 Encounter for therapeutic drug level monitoring (principal); I48.91 Unspecified atrial fibrillation; Z79.01 Long term (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 of anticoagulants
CPT/HCPCS: 36415; 85610

== ENCOUNTER 2024-04-16 12:57 | Emergency (ER) | payer MEDICARE, SELFPAY ==
--- NOTE | ~2024-04-16 | XR_ITS ---
EXAMINATION: XR_[id number]_CR DATE: 04/16/2024 14:18 INDICATION: Left knee pain and swelling. TECHNIQUE: 2 views of left knee were obtained. COMPARISON: None. FINDINGS: Alignment is normal. No fracture. There is mild osteoarthritis of medial and patellofemoral compartments and moderate osteoarthritis of lateral compartment. No knee joint effusion. IMPRESSION: 1. Moderate left knee osteoarthritis. 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
--- NOTE | ~2024-04-16 | XR_ITS ---
EXAMINATION: XR hand RT min 3V DATE: 04/16/2024 14:18 INDICATION: Right hand pain. Fall. TECHNIQUE: 4 views of right hand were obtained. COMPARISON: None. FINDINGS: Alignment is normal. No fracture. There is moderate osteoarthritis of first carpometacarpal joint. There is mild to moderate osteoarthritis of all of the metacarpophalangeal joints and interph alangeal joints. IMPRESSION: 1. Polyarticular osteoarthritis. 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 [employer]
[2024-04-16 13:19] VITALS: BP 97/52; PULSE 90; RESP 20; TEMP 36.8; O2SAT 99
--- NOTE | 2024-04-16 13:51 | ED.FALL ---
HPI - Fall General Chief Complaint: Extremity Problem,Nontraumatic Stated Complaint: R wrist and Left Knee Pain Post Fall Time Seen by Provider: 04/16/24 13:52 Source: patient, RN notes reviewed and old records reviewed Mode of arrival: ambulatory Limitations: no limitations History of Present Illness HPI Narrative: 83-year-old male presents to the [facility] with complaints of right wrist pain post fall weeks. Patient is also concern for left knee swelling. States that he was getting out of bed when he heard a pop 2 days ago. Swelling noted to the left knee, swelling noted to the right wrist. No treatment prior to arrival Related Data Home Medications ?Medication ?Instructions ?Recorded ?Confirmed ?Last Taken ?Type warfarin 1 mg tablet 4.5 mg PO DAILY 03/27/20 12/10/23 Unknown History furosemide 20 mg tablet 20 mg PO DAILY 05/02/23 12/10/23 Unknown History Allergies Allergy/AdvReac Type Severity Reaction Status Date / Time No Known Allergies Allergy Verified 04/16/24 13:59 Review of Systems Review of Systems: All systems reviewed & are unremarkable except as noted in HPI and below Constitutional: Constitutional: Reports no additional constitutional complaints ENT: Reports system reviewed and no additional complaints, except as documented Cardiovascular: Cardiovascular: Reports no additional cardiovascular complaints, Denies chest pain and Denies dyspnea Respiratory: Respiratory: Reports no additional respiratory complaints, Denies chest congestion, Denies cough and Denies dyspnea Musculoskeletal: Musculoskeletal: Reports as per HPI and Reports arthralgias Integumentary/Breasts: Skin/Breast: Reports system reviewed and no additional complaints, except as docu PMFSH Past Medical History Medical History Retinal telangiectasia of both eyes Vitreous hemorrhage, bilateral Chest pain Chronic kidney disease, stage 3 unspecified Stenosis of right carotid artery shelter current use of anticoagulant Neuropathy Fatty liver Pulmonary HTN HLD (hyperlipidemia) HTN (hypertension) CKD (chronic kidney disease) Diabetes mellitus with neuropathy Atrial fibrillation Surgical History Surgical History History of right hip replacement Dr Bates- 2009 History of right knee joint replacement Dr Bates- 2013 History of right cataract extraction History of revision of total replacement of right hip joint Dr. Coleman -2016 History of endarterectomy Family History Family History Sibling Hypertension Family history of chronic obstructive pulmonary disease Malignant neoplasm of prostate Family history of lung cancer Social History Social History Social History: Single Smoking status: Never smoker Second hand tobacco smoke exposure: No Alcohol intake: never Substance use: never Substance use type: does not use Do You Feel Safe in your Home?: Yes Lack of Transportation: No Lack of Food: Never True Current Housing: I Have Housing Concerned About Future Housing: No Difficulty Paying Gas/Electric Bills: No Difficulty Paying for Meds: No Currently Unemployed: No Education: High School Diploma/GED Difficulty w/ Childcare or Family Care: No Living arrangements: alone Occupation/Education: retired Gender identity (if verbalized by the patient): Male Sexual Orientation (if Verbalized by the Patient): Straight or Heterosexual Spiritual care concerns: No Comments At the time of my signature, I reviewed and agree with the nursing past medical, surgical, social, and family history. There is no relevant family history pertinent to the patient complaint. Exam Const: General: cooperative, no acute distress, well developed, alert, ill appearing chronically, uncomfortable and well nourished Nutritional Appearance: well nourished Orientation/consciousness: patient oriented x3 Limitations: no limitations HENMT: Head: normal to inspection Face/Nose/Sinus: normal facial exam and face symmetric Face and sinus: normal facial exam and face symmetric Eyes: General: appearance normal, both eyes and all related structures Neck: Neck: normal visual inspection, full ROM, no lymphadenopathy and no meningeal signs Chest: Chest palpation & inspection: normal inspection of the chest Resp: Effort & Inspection: normal respiratory effort and able to speak in complete sentences Auscultation: clear to auscultation bilaterally, no crackles, no rales, no rhonchi and no wheezes Cardio: Rate: regular rate Skin: General skin exam: normal color and no rashes or lesions noted Neuro: General: patient oriented x3, moves all extremities and no meningeal signs Cognition (Neuro): normal cognition Speech: normal speech Gait exam (Neuro): Other gait observations present (Wheelchair-bound) Extrem: General: normal to inspection, full ROM, capillary refill normal and normal gait Right upper extremity: wrist tenderness (Generalized), swelling (Generalized) and abnormal ROM pain with active ROM during Left lower extremity: knee Details: tenderness (Generalized), swelling and abnormal ROM Details: pain with active ROM Psych: Appearance: grossly normal and well kempt Mental Status: mental status grossly normal Speech and movement: Normal speech and movement present and Clear speech present Affect: normal affect Attitude: cooperative Course Course Level of Care: Express Care Visit Vital Signs Vital signs: Vital Signs Temperature 98.2 F 04/16/24 13:19 Pulse Rate 90 04/16/24 13:19 Respiratory Rate 20 04/16/24 13:19 Blood Pressure 97/52 L 04/16/24 13:19 Pulse Oximetry 99 04/16/24 13:19 Oxygen Delivery Room Air 04/16/24 13:19 Temperature 98.2 F 04/16/24 13:19 Pulse Rate 90 04/16/24 13:19 Respiratory Rate 20 04/16/24 13:19 Blood Pressure 97/52 L 04/16/24 13:19 Pulse Oximetry 99 04/16/24 13:19 Oxygen Delivery Room Air 04/16/24 13:19 Reviewed MDM - Fall MDM Narrative Medical decision making narrative: Patient presents with right wrist pain, left knee pain, x-ray shows polyarticular osteoarthritis. Patient is sitting in wheelchair. Presents with. Patient's vitals stable. Patient in no acute distress Patient appropriate for outpatient treatment and follow-up Discharge instructions reviewed with patient, as well as provided in writing per nursing staff. The instructions also include specific and strict return/GO TO THE ER as well as f/u information. All questions have been answered, and the patient deny any further questions with discharge and discharge plan. Some parts of this dictation were generated by voice recognition software and may contain typographical and/or grammatical inaccuracies. Differential Diagnosis Differential diagnosis: Likely other (Arthritis, sprain, strain, effusion) Imaging Data Radiologist's impression: EXAMINATION: XR hand RT min 3V DATE: 04/16/2024 14:18 INDICATION: Right hand pain. Fall. TECHNIQUE: 4 views of right hand were obtained. COMPARISON: None. FINDINGS: Alignment is normal. No fracture. There is moderate osteoarthritis of first carpometacarpal joint. There is mild to moderate osteoarthritis of all of the metacarpophalangeal joints and interphalangeal joints. IMPRESSION: 1. Polyarticular osteoarthritis. EXAMINATION: XR_[id number]_CR DATE: 04/16/2024 14:18 INDICATION: Left knee pain and swelling. TECHNIQUE: 2 views of left knee were obtained. COMPARISON: None. FINDINGS: Alignment is normal. No fracture. There is mild osteoarthritis of medial and patellofemoral compartments and moderate osteoarthritis of lateral compartment. No knee joint effusion. IMPRESSION: 1. Moderate left knee osteoarthritis. Critical Care Time Critical Care Time Critical Care Time: No Discharge Plan Discharge Clinical Impression: Polyarticular osteoarthritis, Acute knee pain Patient Disposition: Home, Self-Care Condition: Stable Instructions: Antibiotic Form, Osteoarthritis (ED) Additional Instructions: Give Tylenol as needed for pain Follow-up with primary care provider Today the x-rays did not show any signs of fractures in either the right wrist or the left knee. Both x-rays did show significant arthritis. For new or worsening symptoms go directly to the emergency room Patient Language: Persian Prescriptions: No Action furosemide 20 mg tablet 20 mg PO DAILY warfarin 1 mg tablet 4.5 mg PO DAILY Protocol: Dose Management Condition: Friday Dose/Route: 1 mg Instruction: 1 x 1 mg tablet Condition: Friday Dose/Route: 1.5 mg Instruction: 1.5 x 1 mg tablets Condition: Friday Dose/Route: 1 mg Instruction: 1 x 1 mg tablet Condition: Friday Dose/Route: 1.5 mg Instruction: 1.5 x 1 mg tablets Condition: Dose/Route: 1 mg Instruction: 1 x 1 mg tablet Condition: Friday Dose/Route: 1.5 mg Instruction: 1.5 x 1 mg tablets Condition: Friday Dose/Route: 1 mg Instruction: 1 x 1 mg tablet Protocol Text: Adjustment Start Date: Friday03/27/20 INR Value: 2.0 INR Date: 03/27/20 Recheck Date: 04/03/20 Rx Instructions: Takes a total of 4.5 mgs daily metoprolol tartrate 100 mg tablet 100 mg PO Q12H Qty: 180 2RF pravastatin 40 mg tablet 40 mg PO DAILY Qty: 90 2RF Follow-up/Referrals: Vineet Quintana MD [Primary Care Provider] - 1 Week ([facility] follow-up) Time of Disposition: 14:44
== END 2024-04-16 14:51 | disposition home or self-care (01) ==
PROVIDERS: Emergency Provider Nurse Practitioner; PCP Family Medicine
DX: M18.11 Unilateral primary osteoarthritis of first carpometacarpal joint, right hand (principal); M19.041 Primary osteoarthritis, right hand; M25.562 Pain in left knee; M17.12 Unilateral primary osteoarthritis, left knee; I65.21 Occlusion and stenosis of right carotid artery; I12.9 Hypertensive chronic kidney disease with stage 1 through stage 4 chronic kidney disease, or unspecified chronic kidney disease; E11.22 Type 2 diabetes mellitus with diabetic chronic kidney disease; N18.30 Chronic kidney disease, stage 3 unspecified; E11.40 Type 2 diabetes mellitus with diabetic neuropathy, unspecified; E78.5 Hyperlipidemia, unspecified; I48.91 Unspecified atrial fibrillation; I27.20 Pulmonary hypertension, unspecified; H35.073 Retinal telangiectasis, bilateral; I10 Essential (primary) hypertension; Z96.641 Presence of right artificial hip joint; Z96.651 Presence of right artificial knee joint; Z98.41 Cataract extraction status, right eye
CPT/HCPCS: 73130; 73560; 99214; G0463

== ENCOUNTER 2024-05-09 11:45 | Inpatient (IN) | payer MEDICARE, SELFPAY ==
[2024-05-09] VITALS (11 sets, daily range): BP systolic 93–149; BP diastolic 53–110; PULSE 73–92; RESP 16–21; TEMP 36.2–37.6; O2SAT 95–100
--- NOTE | ~2024-05-09 | CT_ITS ---
EXAMINATION: CT brain wo con DATE: 05/09/2024 14:53 INDICATION: Head trauma . TECHNIQUE: Computed tomography (CT) of the head was performed . Comment 09/24/2020 intravenous contrast . The mA was adjusted according to patient size. Iterative reconstruction technique was employed. The dose-length product was 1210.67 mGy-cm. COMPARISON: None. FINDINGS: No acute intracranial hemorrhage or extra-axial fluid collection. No hydrocephalus, mass, or herniation. No acute ischemic infarct. Unremarkable dural venous sinus attenuation. No acute osseous abnormality. Mild bilateral maxillary and ethmoid mucosal thickening, trace right mastoid fluid, the remaining. Moderate atrophy and chronic white matter change. Atherosclerotic intracranial calcification. Bilater al lens replacements. Bilateral drusen IMPRESSION: No acute intracranial process. Reviewed, dictated and finalized at location K. STANT PRINTER FLOOR COVERING
--- NOTE | ~2024-05-09 | XR_ITS ---
CHEST RADIOGRAPH, PA AND LATERAL CLINICAL HISTORY: CP . COMPARISON: 05/01/2023 TECHNIQUE: PA and lateral views of the chest. FINDINGS The cardiomediastinal silhouette is partially obscured. Dense opacification of the periphery of the left hemithorax, with aeration of only the left upper lob e, an interval change from 05/01/2023 for which cross-sectional imaging (noncontrast enhanced CT exami nation of the chest) is recommended for further evaluation. The right hemithorax is clear. IMPRESSION: Dense opacification of the periphery of the left hemithorax, an interval change from one year earlier for which cross-sectional imaging (noncontrast enhanced CT examination of the chest) is recommended for further evaluation. 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 ONWEALTH ATTORNEY
--- NOTE | ~2024-05-09 | CT_ITS ---
EXAMINATION: CT diagnostic chest wo con DATE: 05/09/2024 14:53 INDICATION: Left chest pain TECHNIQUE: Computed tomography (CT) of the chest was performed with 100 mL Omnipaque-350 intravenous contrast. Automated exposure control and iterative reconstruction technique were employed. The dose-l ength product was 535.67 mGy-cm. COMPARISON: 09/22/2020. FINDINGS: CHEST: Thoracic aorta: Ascending aorta dilated to 4.1 cm. Mild arch calcification. Normal arch anatomy. Lung parenchyma and airways: Peripheral reticular opacities, worse in the left lung. Left upper lobe honeycombing. Left lung bronchiectasis. Thoracic inlet, axillae and chest wall: No thyroid or soft tissue mass. No axillary lymphadenopathy. Mediastinum: Enlarged mediastinal lymph nodes. Dilated central pulmonary arteries as can be seen with pulmonary arterial hypertension. Heart and pericardium: Cardiomegaly. No pericardial effusion. Coronary artery calcifications: Moderate. Pleura: No effusion or mass. Chronic appearing left pleural thickening. Chronic left hemidiaphragm el evation. Upper abdomen: Left renal atrophy. Multiple bilateral renal calcifications. Chronic right pelviectasi s and caliectasis. Enlarged upper abdominal lymph node (image 107), slightly increased in size. Thoracic bones: No acute osseous finding in the chest. Stimulator leads terminate in the lower thorac ic spine canal. IMPRESSION: Chronic interstitial lung disease, worse in the left lung, likely usual interstitial pneumonia (UIP) with progressive change since the prior study. Findings may represent acute/chronic exacerbation of i nterstitial lung disease. Overlying infection, or asymmetric edema not excluded. Ascending aortic ectasia. Mediastinal and upper abdominal lymphadenopathy. Reviewed, dictated and finalized at location K. O INTERFERENCE SUPERVISOR IMPRESSION: Chronic interstitial lung disease, worse in the left lung, likely usual interst itial pneumonia (UIP) with progressive change since the prior study. Findings m ay represent acute/chronic exacerbation of interstitial lung disease. Overlying infection, or asymmetric edema not excluded. Ascending aortic ectasia. Mediastinal and upper abdominal lymphadenopathy.
--- NOTE | ~2024-05-09 | XR_ITS ---
EXAM: XR foot RT min 3V DATE: 05/09/2024 17:25 HISTORY: right forefoot pain . COMPARISON: None available. FINDINGS: Decreased mineralization. No acute fracture or dislocation. No lytic or blastic lesion. Sc attered arthritic changes, severe at the first MTP joint. Punched-out appearing periarticular erosion s at the first MTP joint. Achilles and plantar enthesopathy. No erosion or periosteal change. Forefoo t soft tissue swelling. IMPRESSION: Significant forefoot soft tissue swelling. No definite radiographic evidence of osteomyel itis. Severe arthritic changes at the first MTP joint with findings suggestive of gout. Septic arthri tis is not excluded. Reviewed, dictated and finalized at location K. ESTATE SITE ANALYST IMPRESSION: Significant forefoot soft tissue swelling. No definite radiographic evidence of osteomyelitis. Severe arthritic changes at the first MTP joint wit h findings suggestive of gout. Septic arthritis is not excluded.
--- NOTE | ~2024-05-09 | CT_ITS ---
EXAMINATION: CT cervical spine wo con DATE: 05/09/2024 14:53 INDICATION: Neck trauma TECHNIQUE: Computed tomography (CT) of the cervical spine was performed without intravenous contrast. Automated exposure control and iterative reconstruction technique were employed. The dose-length pro duct was 497.13 mGy-cm. COMPARISON: X-ray C-spine 09/29/2007. FINDINGS: Vertebral Body Alignment: Grade 1 anterolistheses at C5-6 and C6-7, presumably on a degenerative basi s. Craniocervical and atlantoaxial alignment: Moderate degenerative change. Alignment intact. Osseous structures/fracture: No evidence of a lytic or blastic process in the visualized spine. No e vidence of acute fracture. ACDF hardware spanning C3-C5. The right inferior fixation screw is fractur ed. Cervical soft tissues: The paraspinal soft tissues planes are maintained. Degenerative changes: Multilevel degenerative disc disease including large bridging anterior osteophy lula. Multilevel facet arthropathy. No severe central canal or neural foraminal narrowing. IMPRESSION: No acute fracture or traumatic malalignment in the cervical spine. Reviewed, dictated and finalized at location K. RY DRUM TANNER
--- NOTE | 2024-05-09 11:46 | ECG_ITS ---
Test Date: 2024-05-09 11:52:14 Measurements Intervals [place] Rate: 79 P: 0 NM: 0 QRS: 60 QRSD: 144 T: 19 QT: 396 QTc: 455 Interpretive Statements ATRIAL FIBRILLATION INTRAVENTRICULAR CONDUCTION DELAY [130+ ms QRS DURATION] No previous ECG available for comparison Electronically Signed On 05-10-2024 18:13:09 RIB BUILDER by Chriss Rankin M.D.
[2024-05-09 12:26] LABS: Basophils Absolute Auto 0.1 K/mm3 (0.0-0.1); Basophils Percent Auto 0.5 % (0.2-1.2); Eosinophils Absolute Auto 0.2 K/mm3 (0-0.3); Eosinophils Percent Auto 1.8 % (0-4.4); Hematocrit 34.7 % (42.0-52.0); Hemoglobin 11.1 g/dL (14.0-18.0); Immature Granulocyte Absolute 0.04 K/mm3 (0.00-0.031); Immature Granulocyte Percent A 0.4 % (0-0.5); Lymphocytes Absolute Auto 1.11 K/mm3 (0.9-3.2); Lymphocytes Percent Auto 10.6 % (18.3-44.2); Mean Corpuscular Hemoglobin 31.6 pg (26-34); Mean Corpuscular Volume 98.9 fl (80-100); Mean Platelet Volume 9.6 fl (7.4-10.4); Monocytes Absolute Auto 1.6 K/mm3 (0.1-0.6); Monocytes Percent Auto 15.1 % (2.6-8.5); Neutrophils Absolute Auto 7.5 K/mm3 (1.3-6.7); Neutrophils Percent Auto 71.6 % (45.5-73.1); Platelet Count Result 230 k/mm3 (150-375); Red Blood Count 3.51 M/mm3 (4.6-6.20); Red Cell Distribution Width 14.2 % (11.5-14.5); White Blood Count 10.5 K/mm3 (4.5-10.0)
[2024-05-09 12:28] LABS: INR 2.7; Prothrombin Time 29.4 Seconds (11.1-14.7)
[2024-05-09 12:29] LABS: Alanine Aminotransferase 16 U/L (6-50); Albumin Level 3.6 g/dL (3.5-5.1); Alkaline Phosphatase 86 U/L (38-126); Anion Gap 9 mmol/L (4-12); Aspartate Amino Transferase 22 U/L (17-59); Bilirubin,Total 0.8 mg/dL (0.2-1.3); Blood Urea Nitrogen 29 mg/dL (9-20); Calcium 8.9 mg/dL (8.4-10.2); Carbon Dioxide 25 mmol/L (22-30); Chloride 103 mmol/L (98-107); Estimated CRCL calculation 36 ml/min; Estimated Glomerular Filt Rate 45; Glucose 135 mg/dL (65-110); Lipase 42 U/L (23-300); Partial Thromboplastin Time 52.3 Seconds (22.3-36.8); Potassium 4.3 mmol/L (3.4-5.0); Sodium 137 mmol/L (137-145)
[2024-05-09 12:40] LABS: Troponin I < 0.012 ng/mL (0.000-0.034)
[2024-05-09] MEDS: ASPIRIN 81 MG CHEWABLE TABLET 324 MG PO (13:10)
[2024-05-09] MEDS: MORPHINE SULFATE (*CRX) 2 MG/ML INJ IV PUSH (14:30)
--- NOTE | 2024-05-09 14:35 | ECG_ITS ---
Test Date: 2024-05-09 15:07:13 Measurements Intervals [place] Rate: 70 P: 0 W[place]: 0 QRS: 24 QRSD: 145 T: -3 QT: 433 QTc: 469 Interpretive Statements ATRIAL FIBRILLATION INTRAVENTRICULAR CONDUCTION DELAY [130+ ms QRS DURATION] Compared to ECG 05/09/2024 11:52:14 No significant changes Electronically Signed On 05-10-2024 18:11:54 GRIDDLE ATTENDANT by Chriss Rankin M.D.
[2024-05-09 15:39] LABS: Troponin I < 0.012 ng/mL (0.000-0.034)
--- NOTE | 2024-05-09 15:48 | ED.CHESTPAIN ---
HPI - Chest Pain General Chief Complaint: Chest Pain Stated Complaint: chest pain Time Seen by Provider: 05/09/24 13:06 Source: patient Mode of arrival: ambulatory Limitations: no limitations History of Present Illness HPI narrative: This is an 83-year-old male, with history of AFib and prior ND, presenting to the emergency department complaining of constant left-sided chest pain, lightheadedness and shortness of breath with exertion for the past day. The patient states he he has had coughing for the past 4 days with sharp left-sided chest pain. He states the pain does not radiate. He states yesterday, he fell striking his head but did not lose consciousness. He has no other complaints at this time. Related Data Home Medications ?Medication ?Instructions ?Recorded ?Confirmed ?Last Taken ?Type warfarin 1 mg tablet 4.5 mg PO DAILY 03/27/20 12/10/23 Unknown History furosemide 20 mg tablet 20 mg PO DAILY 05/02/23 12/10/23 Unknown History Allergies Allergy/AdvReac Type Severity Reaction Status Date / Time No Known Allergies Allergy Verified 04/16/24 13:59 Review of Systems Review of Systems: All systems reviewed & are unremarkable except as noted in HPI and below PMFSH Past Medical History Medical History Retinal telangiectasia of both eyes Vitreous hemorrhage, bilateral Chest pain Chronic kidney disease, stage 3 unspecified Stenosis of right carotid artery custodial current use of anticoagulant Neuropathy Fatty liver Pulmonary HTN HLD (hyperlipidemia) HTN (hypertension) CKD (chronic kidney disease) Diabetes mellitus with neuropathy Atrial fibrillation Surgical History Surgical History History of right hip replacement Dr Bates- 2009 History of right knee joint replacement Dr Bates- 2013 History of right cataract extraction History of revision of total replacement of right hip joint Dr. Coleman History of endarterectomy Family History Family History Sibling Hypertension Family history of chronic obstructive pulmonary disease Malignant neoplasm of prostate Family history of lung cancer Social History Social History Social History: Single Smoking status: Never smoker Second hand tobacco smoke exposure: No Alcohol intake: never Substance use: never Substance use type: does not use Do You Feel Safe in your Home?: Yes Lack of Transportation: No Lack of Food: Never True Current Housing: I Have Housing Concerned About Future Housing: No Difficulty Paying Gas/Electric Bills: No Difficulty Paying for Meds: No Currently Unemployed: No Education: High School Diploma/GED Difficulty w/ Childcare or Family Care: No Living arrangements: alone Occupation/Education: retired Gender identity (if verbalized by the patient): Male Sexual Orientation (if Verbalized by the Patient): Straight or Heterosexual Spiritual care concerns: No Exam Narrative: GENERAL: Well-developed, well-nourished, and in no acute distress. HEAD: Normocephalic, atraumatic. EYES: PERRLA and EOMI. NECK: Supple. No midline spine tenderness to palpation, no step-off or crepitus CHEST: Clear to auscultation. No respiratory distress. No wheezes rales or rhonchi. No pain on palpation of the anterior chest wall HEART: Regular rate and rhythm. No murmur heard. Normal peripheral pulses. ABDOMEN: Soft, nontender, nondistended, normal active bowel sounds. EXTREMITIES: Normal range of motion. No edema. SKIN: Warm, dry, no rash. NEURO: Alert and oriented x3. Strength 5/5 bilaterally, sensation intact bilaterally, no noted ataxia, cranial nerves 2-12 intact PSYCH: Normal mood and affect. Course Course Emergency Course: 15:53 - CBC demonstrates elevated white blood cell count of 10.5 and mild anemia with hemoglobin of 11.1 that appears to be at the patient's baseline. INR 2.7. Chemistries demonstrate chronic creatinine elevation of 1.5 with BUN of 29 but are otherwise unremarkable. Troponins negative x2. Lipase negative. CT head negative for intracranial hemorrhage or skull fracture. CT cervical spine negative for fracture or dislocation. Chest x-ray showed changes consistent with chronic lung disease with concerns for acute exacerbation in the left lower lobe. CT chest demonstrates changes consistent with chronic interstitial lung disease with acute worsening on the left. I suspect pneumonia. Will treat with Rocephin and is with her. Considering the patient's past medical history, I recommended admission for observation. The patient is agreeable. I discussed the patient with NATTY Lei who accepts admission. Vital Signs Vital signs: Vital Signs Temperature 99.6 F 05/09/24 11:54 Pulse Rate 78 05/09/24 11:54 Respiratory Rate 20 05/09/24 11:54 Blood Pressure 148/110 H 05/09/24 11:54 Pulse Oximetry 98 05/09/24 11:54 Oxygen Delivery Room Air 05/09/24 11:54 Temperature 99.6 F 05/09/24 11:54 Pulse Rate 82 05/09/24 16:49 Respiratory Rate 16 05/09/24 16:49 Blood Pressure 149/76 H 05/09/24 16:49 Pulse Oximetry 97 05/09/24 16:49 Oxygen Delivery Room Air 05/09/24 13:11 MDM - Chest Pain MDM Narrative Medical decision making narrative: Plan: Labs, imaging, EKG, troponin, pain control, reassess Differential Diagnosis Differential diagnosis: Likely other (ACS, costochondritis, pneumonia, COVID, influenza, RSV, metabolic abnormality, other) Lab Data 05/09/24 12:09 05/09/24 12:09 Labs: Lab Results 05/09/24 05/09/24 05/09/24 Range/Units 12:09 14:34 15:51 WBC 10.5 H (4.5-10.0) K/mm3 RBC 3.51 L (4.6-6.20) M/mm3 Hgb 11.1 L (14.0-18.0) g/dL Hct 34.7 L (42.0-52.0) % MCV 98.9 (80-100) fl MCH 31.6 (26-34) pg MCHC 32.0 (32-36) g/dl RDW 14.2 (11.5-14.5) % Plt Count 230 (150-375) k/mm3 MPV 9.6 (7.4-10.4) fl Immature Gran % (Auto) 0.4 (0-0.5) % Neut % (Auto) 71.6 (45.5-73.1) % Lymph % (Auto) 10.6 L (18.3-44.2) % [place] % (Auto) 15.1 H (2.6-8.5) % Eos % (Auto) 1.8 (0-4.4) % Baso % (Auto) 0.5 (0.2-1.2) % Lymph # (Auto) 1.11 (0.9-3.2) K/mm3 [place] # (Auto) 1.6 H (0.1-0.6) K/mm3 Eos # (Auto) 0.2 (0-0.3) K/mm3 Baso # (Auto) 0.1 (0.0-0.1) K/mm3 Abs Immat Gran (auto) 0.04 H (0.00-0.031) K/mm3 Absolute Neuts (auto) 7.5 H (1.3-6.7) K/mm3 Absolute Nucleated RBC 0.000 (0.0-0.012) K/mm3 Nucleated RBC % 0.0 (0.0-0.2) % PT 29.4 H (11.1-14.7) Seconds INR 2.7 APTT 52.3 H (22.3-36.8) Seconds Sodium 137 (137-145) mmol/L Potassium 4.3 (3.4-5.0) mmol/L Chloride 103 (98-107) mmol/L Carbon Dioxide 25 (22-30) mmol/L Anion Gap 9 (4-12) mmol/L BUN 29 H (9-20) mg/dL Creatinine 1.50 H (0.7-1.3) mg/dL Estim Creat Clear Calc 36 ml/min Estimated GFR 45 L (59 - ) Glucose 135 H (65-110) mg/dL Calcium 8.9 (8.4-10.2) mg/dL Total Bilirubin 0.8 (0.2-1.3) mg/dL AST 22 (17-59) U/L ALT 16 (6-50) U/L Alkaline Phosphatase 86 (38-126) U/L Troponin I < 0.012 < 0.012 (0.000-0.034) ng/mL Total Protein 8.0 (6.3-8.2) g/dL Albumin 3.6 (3.5-5.1) g/dL Lipase 42 (23-300) U/L Influenza A (RT-PCR) Negative (Negative) Influenza B (RT-PCR) Negative (Negative) RSV (RT-PCR) Negative (Negative) SARS-CoV-2 RNA (RT-PCR) Negative (Negative) ECG Data EKG #1: Attestation: I personally reviewed and interpreted this ECG as follows: ECG completion date: 05/09/24 ECG completion time: 11:52 Prior ECG tracings: not available for review Interpretation: AFib, rate 79, normal axis, right bundle branch block, no ST segment elevations or T-wave inversions concerning for ischemia, otherwise normal intervals with QTC of 455. EKG #2: Attestation: I personally reviewed and interpreted this ECG as follows: ECG completion date: 05/09/24 ECG completion time: 15:07 Prior ECG tracings: available for review Interpretation: AFib, rate 70, normal axis, right bundle branch block, no ST segment elevations or T-wave inversions concerning for ischemia, otherwise normal intervals with QTC of 469. Compared to EKG done at 11:52 today, there are no significant changes. Discharge Plan Discharge Clinical Impression: Pneumonia Qualifiers: Pneumonia type: due to unspecified organism Laterality: left Lung location: lower lobe of lung Qualified Code(s): J18.9 - Pneumonia, unspecified organism Chest pain Qualifiers: Chest pain type: unspecified Qualified Code(s): R07.9 - Chest pain, unspecified Chronic kidney disease Qualifiers: Chronic kidney disease stage: stage 3 (moderate) Chronic kidney disease stage 3 subtype: stage 3b (GFR 30-44) Qualified Code(s): N18.32 - Chronic kidney disease, stage 3b Patient Disposition: Still a Patient Condition: Serious Patient Language: Mohawk Prescriptions: No Action furosemide 20 mg tablet 20 mg PO DAILY warfarin 1 mg tablet 4.5 mg PO DAILY Protocol: Dose Management Condition: Friday Dose/Route: 1 mg Instruction: 1 x 1 mg tablet Condition: Friday Dose/Route: 1.5 mg Instruction: 1.5 x 1 mg tablets Condition: Friday Dose/Route: 1 mg Instruction: 1 x 1 mg tablet Condition: Friday Dose/Route: 1.5 mg Instruction: 1.5 x 1 mg tablets Condition: Dose/Route: 1 mg Instruction: 1 x 1 mg tablet Condition: Friday Dose/Route: 1.5 mg Instruction: 1.5 x 1 mg tablets Condition: Friday Dose/Route: 1 mg Instruction: 1 x 1 mg tablet Protocol Text: Adjustment Start Date: Friday03/27/20 INR Value: 2.0 INR Date: 03/27/20 Recheck Date: 04/03/20 Rx Instructions: Takes a total of 4.5 mgs daily metoprolol tartrate 100 mg tablet 100 mg PO Q12H Qty: 180 2RF pravastatin 40 mg tablet 40 mg PO DAILY Qty: 90 2RF Follow-up/Referrals: Vineet Quintana MD [Primary Care Provider] - Time of Disposition: 15:53
[2024-05-09 16:33] LABS: Influenza A QL RT-PCR Negative (Negative); Influenza B QL RT-PCR Negative (Negative); RSV RNA, RT-PCR Negative (Negative); SARS-CoV-2 RNA PCR Negative (Negative)
--- NOTE | 2024-05-09 16:41 | PC.NURSE ---
This RN offered to order pt. dinner. Pt. nephew is bringing him dinner.
[2024-05-09] MEDS: AZITHROMYCIN 250 MG TABLET 500 MG PO (16:49)
--- NOTE | 2024-05-09 17:00 | P.HP_ITS ---
H&P: HPI History of Present Illness Date/Time: 05/09/24 17:00 Chief Complaint: Chest pain, cough, and shortness of breath. Narrative: This is an 83-year-old male with atrial fibrillation on chronic anticoagulation, chronic interstitial lung disease, hypertension, hyperlipidemia, diet-controlled diabetes, diabetic neuropathy, chronic kidney disease, and carotid stenosis who presented to the emergency department with complaints of chest pain, cough, and shortness of breath. The patient provides the following history. He has not been feeling well for couple of days with productive cough, mild shortness of breath, left-sided pleuritic chest pain, nausea, dry heaves, and generalized malaise. This morning his heart was pounding and racing and he decided to come in for evaluation. He also mentions that a couple of days ago he fell when he got up in the middle of the night to use the restroom and hit his head on the carpeted floor. Since that time he has had a mild headache and tightness in his neck. He attributes the fall to the fact that it was dark in the room and he lost his balance due to the fact that he was not walking with his walker. He denies fever, chills, sweats, vertigo, visual changes, sinus congestion, sore throat, dysphagia, concerns for aspiration, exertional chest pain, orthopnea, paroxysmal nocturnal dyspnea, current palpitations, abdominal pain, diarrhea, dysuria, calf pain, syncope, and near syncope. On exam he has some swelling to his feet, right greater than left, and he reports that his right 1st toe has been sore since his fall the other night. In the ED: He was afebrile on arrival with stable vital signs. SpO2 has been the upper 90s to 100% on room air. Labs are significant for WBC count of 10.5, hemoglobin 11.1, BUN 29, creatinine 1.50, glucose 135, troponin less than 0.012. He tested negative for influenza, RSV, and COVID. Head CT and cervical spine CT were without acute findings. Chest x-ray showed dense opacification of the periphery of the left hemithorax as subsequent chest CT showed chronic interstitial lung disease, worse in the left lung, likely usual interstitial pneumonia with progressive change compared to prior study, possible acute on chronic exacerbation, but overlying infection or asymmetric edema is not excluded. He was given aspirin 324 mg, azithromycin 500 mg, and ceftriaxone 1 g and he is being admitted in this setting for further treatment and evaluation. Review of Systems Review of Systems: 12 systems were reviewed and are negativ e except for as per HPI. 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 Coleman History of endarterectomy Family History Family History Sibling Hypertension Family history of chronic obstructive pulmonary disease Malignant neoplasm of prostate Family history of lung cancer Social History Social History (Updated 05/09/24 @ 17:36 by Aniya Lei PA-C) Social History: Surrogate medical decision maker: Kayla Haji, niece. Code status: Full code, he states he would not want to be on life support any longer than 5 days. Smoking status: Never smoker Second hand tobacco smoke exposure: No Alcohol intake: never Substance use: never Substance use type: does not use Do You Feel Safe in your Home?: Yes Lack of Transportation: No Lack of Food: Never True Current Housing: I Have Housing Concerned About Future Housing: No Difficulty Paying Gas/Electric Bills: No Difficulty Paying for Meds: No Currently Unemployed: No Education: High School Diploma/GED Difficulty w/ Childcare or Family Care: No Living arrangements: alone Occupation/Education: retired Spiritual care concerns: No Meds Home Medications and Allergies Home Medications ?Medication ?Instructions ?Recorded ?Confirmed ?Type warfarin 1 mg tablet 4.5 mg PO DAILY 03/27/20 12/10/23 History metoprolol tartrate 100 mg tablet 100 mg PO Q12H #180 tabs 02/14/23 12/10/23 Rx furosemide 20 mg tablet 20 mg PO DAILY 05/02/23 12/10/23 History pravastatin 40 mg tablet 40 mg PO DAILY #90 tabs 01/02/24 Rx Allergies Allergy/AdvReac Type Severity Reaction Status Date / Time No Known Allergies Allergy Verified 04/16/24 13:59 Vital Signs Vital Signs - 24 hr 05/09/24 11:54 05/09/24 13:11 05/09/24 13:11 Temperature 99.6 F Pulse Rate 78 76 Respiratory Rate 20 19 Blood Pressure 148/110 H 118/67 Pulse Oximetry 98 100 Oxygen Delivery Room Air Room Air 05/09/24 14:28 05/09/24 16:49 Temperature Pulse Rate 82 82 Respiratory Rate 16 16 Blood Pressure 130/65 149/76 H Pulse Oximetry 95 97 Oxygen Delivery Exam Narrative: General: Mildly ill-appearing elderly gentleman the semi-Park position in bed in no acute distress. Weight: 90.9 kg. BMI: 27.9. HEENT: PERRL, EOMI. Sclera anicteric. Oral mucosa moist. Neck: Supple. No midline vertebral tenderness. Mild tenderness to palpation over the cervical paraspinous muscles. Respiratory: Respirations are nonlabored and he is speaking in full sentences. Lung sounds are coarse bilaterally with occasional rhonchi that improve with cough. Cardiovascular: Irregularly irregular rate and rhythm. Gastrointestinal: Abdomen is soft, nontender, and nondistended with positive bowel sounds. Skin: Warm and dry. Extremities: No cyanosis or clubbing. Mild bilateral pedal edema, right greater than left. Neurological: Alert. Cranial nerves 2-12 are grossly intact. Generalized weakness without gross focal findings. Psychiatric: Pleasant and cooperative with normal mood and affect. H&P: Results Labs Labs: Short CBC 05/09/24 Range/Units 12:09 WBC 10.5 H (4.5-10.0) K/mm3 Hgb 11.1 L (14.0-18.0) g/dL Hct 34.7 L (42.0-52.0) % Plt Count 230 (150-375) k/mm3 [facility] 05/09/24 12:09 Sodium 137 Potassium 4.3 Chloride 103 Carbon Dioxide 25 BUN 29 H Creatinine 1.50 H Glucose 135 H Calcium 8.9 Cardiac Enzymes 05/09/24 05/09/24 Range/Units 12:09 14:34 Troponin I < 0.012 < 0.012 (0.000-0.034) ng/mL Liver Function 05/09/24 Range/Units 12:09 Total Bilirubin 0.8 (0.2-1.3) mg/dL AST 22 (17-59) U/L ALT 16 (6-50) U/L Alkaline Phosphatase 86 (38-126) U/L Albumin 3.6 (3.5-5.1) g/dL Imaging Chest X-Ray 05/09/24 13:17 IMPRESSION: 1. Dense opacification of the periphery of the left hemithorax, an interval change from one year earlier for which cross-sectional imaging (noncontrast enhanced CT examination of the chest) is recommended for further evaluation. Head CT 05/09/24 14:55 IMPRESSION: 1. No acute intracranial process. Cervical Spine CT 05/09/24 15:10 IMPRESSION: 1. No acute fracture or traumatic malalignment in the cervical spine. Chest CT 05/09/24 15:18 IMPRESSION: 1. 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 Findings may represent acute/chronic exacerbation of interstitial lung disease. Overlying infection, or asymmetric edema not excluded. 2. Ascending aortic ectasia. 3. Mediastinal and upper abdominal lymphadenopathy. Assessment and Plan Assessment and plan (1) Pneumonia: Qualifiers: Pneumonia type: due to unspecified organism Laterality: bilateral Lung location: unspecified part of lung Qualified Code(s): J18.9 - Pneumonia, unspecified organism Code(s): J18.9 - Pneumonia, unspecified organism Status: Acute (2) Chronic interstitial lung disease: Code(s): J84.9 - Interstitial pulmonary disease, unspecified Status: Acute (3) Atrial fibrillation: Code(s): I48.91 - Unspecified atrial fibrillation Status: Acute (4) Pleuritic chest pain: Code(s): R07.81 - Pleurodynia Status: Acute (5) Fall from ground level: Code(s): W18.30XA - Fall on same level, unspecified, initial encounter Status: Acute (6) Right foot pain: Code(s): M79.671 - Pain in right foot Status: Acute (7) 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 Labs, imaging, EKG, and all reports were personally reviewed. Chest pain is described as pleuritic and is left-sided, likely related to underlying chronic interstitial lung disease with possible acute exacerbation versus underlying pneumonia. Asymmetric pulmonary edema seems less likely as as pulmonary embolism. Continue azithromycin and ceftriaxone. Attempt sputum for culture. Start scheduled bronchodilators. He is in atrial fibrillation but is rate controlled at this time although it sounds as though he may have been in a rapid rate earlier today. Monitor on telemetry overnight. Continue warfarin as INR is therapeutic. Patient reports that his fall the other night was due to the fact that was dark and he was not ambulating with his walker. Initiate fall precautions and consult PT/OT once he is feeling better. X-rays ordered of the right foot and 1st toe given reports of pain. Blood pressures were reviewed and they are stable. Renal function is stable on review of previous labs. His home medications will be reviewed and resumed as appropriate. Findings and treatment plan were discussed with the patient. Questions were solicited and answered to satisfaction. The patient's medical management will be taken over by the hospitalist team in a.m. Quality VTE Prophylaxis VTE prophylaxis: pharmacologic ordered (on warfarin; INR 2.7) Hospitalist [facility] Advance Care Plan I have confirmed that the patient's Advanced Care Plan is present, code status is documented, or surrogate decision maker is listed in patient medical record.: Yes Medication Reconciliation I have utilized all available resources to obtain, update and review the patients current medications (includes all prescriptions, OTC, herbals, cannabis, and nutritional supplements).: Yes
--- NOTE | 2024-05-09 17:41 | ECG_ITS ---
Test Date: 2024-05-09 17:50:37 Measurements Intervals [place] Rate: 77 P: 0 MD: 0 QRS: 21 QRSD: 146 T: -9 QT: 433 QTc: 492 Interpretive Statements ATRIAL FIBRILLATION INTRAVENTRICULAR CONDUCTION DELAY [130+ ms QRS DURATION] Compared to ECG 05/09/2024 15:07:13 No significant changes Electronically Signed On 05-10-2024 18:11:15 REVIEW NURSE by Chriss Rankin M.D.
[2024-05-09] MEDS: IPRATROPIUM 0.5 MG/ALBUTEROL SULFATE 2.5 MG AMPUL.NEB 3 ML INHALATION (18:55)
[2024-05-09 19:04] LABS: Troponin I < 0.012 ng/mL (0.000-0.034)
--- NOTE | 2024-05-09 19:15 | PC.NURSE ---
Report received from ANDREW Bowman. Assumed care of patient at this time.
[2024-05-09 19:27] LABS: Uric Acid 11.1 mg/dL (3.5-8.5)
--- NOTE | 2024-05-09 20:17 | ADMGEN ---
This patient, Agustin Chen, was admitted to Medical Room [id number]. Report taken from ANDREW Grimm prior to transfer. Patient/family oriented to hospital policies and general routines including ID bracelet, bed and alarms, visiting hours, pain management, procedures, bathroom and other care routines, personal items, smoking policy, room service/diet, and visiting hours. Information on how to activate the Rapid Response Team has been discussed. Patient/Family are encouraged to report perceived risks to care and to ask questions if they do not understand what they are told or what they should do.
[2024-05-09] MEDS: guaiFENesin 12 HR 600 MG TABCR 1200 MG PO (20:32)
[2024-05-09] MEDS: ACETAMINOPHEN 325 MG TABLET 650 MG PO (20:32)
--- NOTE | 2024-05-09 21:26 | PC.NURSE ---
Electric Sign Wirer spoke with Kayla lee to go over admission questions, verify home medications and address code status.
[2024-05-10] VITALS (15 sets, daily range): BP systolic 111–149; BP diastolic 48–86; PULSE 69–107; RESP 18–20; TEMP 35.7–36.6; O2SAT 96–100
[2024-05-10] MEDS: DOXYCYCLINE HYCLATE 100 MG TABLET PO ×3 (01:00→20:06)
[2024-05-10] MEDS: SODIUM CHLORIDE 0.9% IV 1,000 ML 100 ML IV CONT (01:00)
[2024-05-10 06:25] LABS: Basophils Percent Auto 0.3 % (0.2-1.2); Eosinophils Absolute Auto 0.2 K/mm3 (0-0.3); Eosinophils Percent Auto 2.4 % (0-4.4); Hematocrit 30.4 % (42.0-52.0); Hemoglobin 9.7 g/dL (14.0-18.0); Immature Granulocyte Absolute 0.03 K/mm3 (0.00-0.031); Immature Granulocyte Percent A 0.3 % (0-0.5); Lymphocytes Absolute Auto 1.56 K/mm3 (0.9-3.2); Lymphocytes Percent Auto 17.9 % (18.3-44.2); Mean Corpuscular HGB Conc 31.9 g/dl (32-36); Mean Corpuscular Hemoglobin 31.5 pg (26-34); Mean Corpuscular Volume 98.7 fl (80-100); Mean Platelet Volume 9.4 fl (7.4-10.4); Monocytes Absolute Auto 1.3 K/mm3 (0.1-0.6); Monocytes Percent Auto 14.5 % (2.6-8.5); Neutrophils Absolute Auto 5.6 K/mm3 (1.3-6.7); Neutrophils Percent Auto 64.6 % (45.5-73.1); Platelet Count Result 190 k/mm3 (150-375); Red Blood Count 3.08 M/mm3 (4.6-6.20); Red Cell Distribution Width 14.3 % (11.5-14.5); White Blood Count 8.7 K/mm3 (4.5-10.0)
[2024-05-10 06:35] LABS: INR 3.5; Prothrombin Time 35.5 Seconds (11.1-14.7)
[2024-05-10 06:37] LABS: Magnesium 2.1 mg/dL (1.6-2.3)
[2024-05-10 06:38] LABS: Anion Gap 7 mmol/L (4-12); Blood Urea Nitrogen 29 mg/dL (9-20); Calcium 8.1 mg/dL (8.4-10.2); Carbon Dioxide 23 mmol/L (22-30); Chloride 105 mmol/L (98-107); Estimated CRCL calculation 38 ml/min; Estimated Glomerular Filt Rate 48; Glucose 83 mg/dL (65-110); Potassium 3.8 mmol/L (3.4-5.0); Sodium 135 mmol/L (137-145)
[2024-05-10] MEDS: IPRATROPIUM 0.5 MG/ALBUTEROL SULFATE 2.5 MG AMPUL.NEB 3 ML INHALATION ×3 (07:37→19:58)
[2024-05-10] MEDS: guaiFENesin 12 HR 600 MG TABCR 1200 MG PO ×2 (10:21→20:06)
[2024-05-10] MEDS: ACETAMINOPHEN 325 MG TABLET 650 MG PO ×2 (10:22→17:07)
[2024-05-10] MEDS: PRAVASTATIN SODIUM 20 MG TABLET 40 MG PO (10:23)
--- NOTE | 2024-05-10 15:23 | P.PNIM_ITS ---
Progress Note: A&P Assessment and Plan (1) Pneumonia: Qualifiers: Pneumonia type: due to unspecified organism Laterality: bilateral Lung location: unspecified part of lung Qualified Code(s): J18.9 - Pneumonia, unspecified organism Code(s): J18.9 - Pneumonia, unspecified organism Status: Acute (2) Chronic interstitial lung disease: Code(s): J84.9 - Interstitial pulmonary disease, unspecified Status: Acute (3) Atrial fibrillation: Code(s): I48.91 - Unspecified atrial fibrillation Status: Acute (4) Pleuritic chest pain: Code(s): R07.81 - Pleurodynia Status: Acute (5) Fall from ground level: Code(s): W18.30XA - Fall on same level, unspecified, initial encounter Status: Acute (6) Right foot pain: Code(s): M79.671 - Pain in right foot Status: Acute (7) group home current use of anticoagulant: Code(s): Z79.01 - group home (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 of anticoagulants Status: Acute (8) Hypertension: Code(s): I10 - Essential (primary) hypertension Status: Acute (9) Chronic kidney disease, stage 3 unspecified: Code(s): N18.30 - Chronic kidney disease, stage 3 unspecified Status: Acute Plan The patient presented to the emergency department with complaints of cough, chest pain, shortness of breath as detailed in HPI. Chest pain is described as pleuritic and is left-sided, likely related to underlying chronic interstitial lung disease with possible acute exacerbation versus underlying pneumonia. Asymmetric pulmonary edema seems less likely as as pulmonary embolism. Continue azithromycin and ceftriaxone. Attempt sputum for culture. Start scheduled bronchodilators. He is in atrial fi brillation but is rate controlled at this time although it sounds as though he may have been in a rapid rate earlier today. Monitor on telemetry overnight. Continue warfarin as INR is therapeutic. Patient reports that his fall the other night was due to the fact that was dark and he was not ambulating with his walker. Initiate fall precautions and consult PT/OT once he is feeling better. X-rays ordered of the right foot and 1st toe given reports of pain. Blood pressures were reviewed and they are stable. Time Spent With Patient Time with patient: 25 - 35 minutes Subjective Date/time seen: 01/20/25 15:24 Interval history: Narrative: This is an 83-year-old male with atrial fibrillation on chronic anticoagulation, chronic interstitial lung disease, hypertension, hyperlipidemia, diet-controlled diabetes, diabetic neuropathy, chronic kidney disease, and carotid stenosis who presented to the emergency department with complaints of chest pain, cough, and shortness of breath. The patient provides the following history. He has not been feeling well for couple of days with productive cough, mild shortness of breath, left-sided pleuritic chest pain, nausea, dry heaves, and generalized malaise. This morning his heart was pounding and racing and he decided to come in for evaluation. He also mentions that a couple of days ago he fell when he got up in the middle of the night to use the restroom and hit his head on the carpeted floor. Since that time he has had a mild headache and tightness in his neck. He attributes the fall to the fact that it was dark in the room and he lost his balance due to the fact that he was not walking with his walker. He denies fever, chills, sweats, vertigo, visual changes, sinus congestion, sore throat, dysphagia, concerns for aspiration, exertional chest pain, orthopnea, paroxysmal nocturnal dyspnea, current palpitations, abdominal pain, diarrhea, dysuria, calf pain, syncope, and near syncope. On exam he has some swelling to his feet, right greater than left, and he reports that his right 1st toe has been sore since his fall the other night. In the ED: He was afebrile on arrival with stable vital signs. SpO2 has been the upper 90s to 100% on room air. Labs are significant for WBC count of 10.5, hemoglobin 11.1, BUN 29, creatinine 1.50, glucose 135, troponin less than 0.012. He tested negative for influenza, RSV, and COVID. Head CT and cervical spine CT were without acute findings. Chest x-ray showed dense opacification of the periphery of the left hemithorax as subsequent chest CT showed chronic interstitial lung disease, worse in the left lung, likely usual interstitial pneumonia with progressive change compared to prior study, possible acute on chronic exacerbation, but overlying infection or asymmetric edema is not excluded. He was given aspirin 324 mg, azithromycin 500 mg, and ceftriaxone 1 g and he is being admitted in this setting for further treatment and evaluation. pt is doing well. up in the chair. denies any pain. Review of Systems Review of Systems: 12 systems were reviewed and are negativ e except for as per HPI. Exam Narrative: General: Mildly ill-appearing elderly gentleman the semi-Park position in bed in no acute distress. Weight: 90.9 kg. BMI: 27.9. HEENT: PERRL, EOMI. Sclera anicteric. Oral mucosa moist. Neck: Supple. No midline vertebral tenderness. Mild tenderness to palpation over the cervical paraspinous muscles. Respiratory: Respirations are nonlabored and he is speaking in full sentences. Lung sounds are coarse bilaterally with occasional rhonchi that improve with cough. Cardiovascular: Irregularly irregular rate and rhythm. Gastrointestinal: Abdomen is soft, nontender, and nondistended with positive bowel sounds. Skin: Warm and dry. Extremities: No cyanosis or clubbing. Mild bilateral pedal edema, right greater than left. Neurological: Alert. Cranial nerves 2-12 are grossly intact. Generalized weakness without gross focal findings. Psychiatric: Pleasant and cooperative with normal mood and affect. Objective Data Vital Signs Vital Signs: Vital Signs - 24 hr 05/09/24 16:49 05/09/24 18:57 05/09/24 19:00 Temperature Pulse Rate 82 73 79 Respiratory Rate 16 19 19 Blood Pressure 149/76 H Pulse Oximetry 97 Oxygen Delivery 05/09/24 19:15 05/09/24 19:30 05/09/24 19:48 Temperature Pulse Rate 82 92 Respiratory Rate 17 21 H Blood Pressure 93/53 L Pulse Oximetry Oxygen Delivery 05/09/24 19:55 05/09/24 22:00 05/10/24 00:00 Temperature 97.1 F L Pulse Rate 84 81 91 Respiratory Rate 17 20 Blood Pressure 93/53 L 119/68 Pulse Oximetry 97 98 Oxygen Delivery 05/10/24 04:00 05/10/24 06:00 05/10/24 07:40 Temperature 97.9 F Pulse Rate 69 77 86 Respiratory Rate 18 18 Blood Pressure 149/60 H Pulse Oximetry 97 96 Oxygen Delivery Room Air 05/10/24 07:40 05/10/24 07:50 05/10/24 10:22 Temperature Pulse Rate 86 85 Respiratory Rate 18 18 Blood Pressure Pulse Oximetry Oxygen Delivery Room Air 05/10/24 10:22 05/10/24 14:00 Temperature 96.3 F L Pulse Rate 89 93 Respiratory Rate 19 Blood Pressure 111/48 L Pulse Oximetry 100 Oxygen Delivery Intake/Output Intake/Output: Intake & Output 05/07/24 05/08/24 05/09/24 05/10/24 23:59 23:59 23:59 23:59 Intake Total 50 510 Output Total 100 600 Balance -50 -90 Meds/Results Medications: Active Medications Generic Name Dose Route Start Last Admin Trade Name Freq PRN Reason Stop Dose Admin Acetaminophen 650 mg 05/09/24 17:50 05/10/24 10:22 Acetaminophen 325 Mg Tablet PO 650 mg Q6H PRN Administration Mild Pain (1-3) or Fever Albuterol/Ipratropium 3 ml 05/09/24 20:00 05/10/24 15:03 Ipratropium 0.5 Mg/Albuterol Sulfate 2.5 Mg Ampul.Neb 3 Ml INHALATION 3 ml Q6HRT SANDRINE Administration Doxycycline Hyclate 100 mg 05/09/24 22:00 05/10/24 10:22 Doxycycline Hyclate 100 Mg Tablet PO 100 mg Q12H SANDRINE Administration Guaifenesin 1,200 mg 05/09/24 21:00 05/10/24 10:21 Guaifenesin 12 Hr 600 Mg Tabcr PO 1,200 mg Q12HR SANDRINE Administration Ceftriaxone Sodium 1 gm in 50 mls @ 100 mls/hr 05/10/24 17:00 Rocephin 1 Gm/Ns 50 Ml IVPB Q24H [facility] Pravastatin Sodium 40 mg 05/10/24 09:00 05/10/24 10:23 Pravastatin Sodium 20 Mg Tablet PO 40 mg DAILY SANDRINE Administration Warfarin Sodium 3 mg 05/10/24 17:00 Warfarin (*Pbkc) 3 Mg Tablet PO DAILY@1700 [facility] Radiology Results: ITS Impressions Chest X-Ray 05/09/24 13:17 IMPRESSION: Dense opacification of the periphery of the left hemithorax, an interval change from one year earlier for which cross-sectional imaging (noncontrast enhanced CT examination of the chest) is recommended for further evaluation. Head CT 05/09/24 14:55 IMPRESSION: No acute intracranial process. Cervical Spine CT 05/09/24 15:10 IMPRESSION: No acute fracture or traumatic malalignment in the cervical spine. Chest CT 05/09/24 15:18 IMPRESSION: Chronic interstitial lung disease, worse in the left lung, likely usual interstitial pneumonia (UIP) with progressive change since the prior study. Findings may represent acute/chronic exacerbation of interstitial lung disease. Overlying infection, or asymmetric edema not excluded. Ascending aortic ectasia. Mediastinal and upper abdominal lymphadenopathy. Foot X-Ray 05/09/24 17:43 IMPRESSION: Significant forefoot soft tissue swelling. No definite radiographic evidence of osteomyelitis. Severe arthritic changes at the first MTP joint with findings suggestive of gout. Septic arthritis is not excluded. Labs Labs: Laboratory Results - last 24 hr 05/09/24 05/09/24 05/09/24 14:34 15:51 17:53 WBC RBC Hgb Hct MCV MCH MCHC RDW Plt Count MPV Immature Gran % (Auto) Neut % (Auto) Lymph % (Auto) [place] % (Auto) Eos % (Auto) Baso % (Auto) Lymph # (Auto) [place] # (Auto) Eos # (Auto) Baso # (Auto) Abs Immat Gran (auto) Absolute Neuts (auto) Absolute Nucleated RBC Nucleated RBC % PT INR Sodium Potassium Chloride Carbon Dioxide Anion Gap BUN Creatinine Estim Creat Clear Calc Estimated GFR Glucose Uric Acid 11.1 H Calcium Magnesium Troponin I < 0.012 Influenza A (RT-PCR) Negative Influenza B (RT-PCR) Negative RSV (RT-PCR) Negative SARS-CoV-2 RNA (RT-PCR) Negative 05/09/24 05/10/24 17:54 06:08 WBC 8.7 RBC 3.08 L Hgb 9.7 L Hct 30.4 L MCV 98.7 MCH 31.5 MCHC 31.9 L RDW 14.3 Plt Count 190 MPV 9.4 Immature Gran % (Auto) 0.3 Neut % (Auto) 64.6 Lymph % (Auto) 17.9 L [place] % (Auto) 14.5 H Eos % (Auto) 2.4 Baso % (Auto) 0.3 Lymph # (Auto) 1.56 [place] # (Auto) 1.3 H Eos # (Auto) 0.2 Baso # (Auto) 0.0 Abs Immat Gran (auto) 0.03 Absolute Neuts (auto) 5.6 Absolute Nucleated RBC 0.000 Nucleated RBC % 0.0 PT 35.5 H D INR 3.5 Sodium 135 L Potassium 3.8 Chloride 105 Carbon Dioxide 23 Anion Gap 7 BUN 29 H Creatinine 1.40 H Estim Creat Clear Calc 38 Estimated GFR 48 L Glucose 83 Uric Acid Calcium 8.1 L Magnesium 2.1 Troponin I < 0.012 Influenza A (RT-PCR) Influenza B (RT-PCR) RSV (RT-PCR) SARS-CoV-2 RNA (RT-PCR) Quality VTE Prophylaxis VTE prophylaxis: pharmacologic ordered (on warfarin; INR 2.7)
[2024-05-10] MEDS: WARFARIN (*PBKC) 3 MG TABLET PO (17:11)
[2024-05-10] MEDS: METOPROLOL TARTRATE 50 MG TAB PO (20:06)
[2024-05-10 22:30] LABS: MRSA (PCR) NOT DETECTED (NOT DETECTE)
[2024-05-11] VITALS (13 sets, daily range): BP systolic 107–121; BP diastolic 42–87; PULSE 70–94; RESP 18–20; TEMP 35.7–36.1; O2SAT 98–99
[2024-05-11] MEDS: IPRATROPIUM 0.5 MG/ALBUTEROL SULFATE 2.5 MG AMPUL.NEB 3 ML INHALATION ×3 (01:56→13:28)
[2024-05-11 08:46] LABS: INR 3.6; Prothrombin Time 36.1 Seconds (11.1-14.7)
[2024-05-11] MEDS: PRAVASTATIN SODIUM 20 MG TABLET 40 MG PO (09:31)
[2024-05-11] MEDS: DOXYCYCLINE HYCLATE 100 MG TABLET PO (09:31)
[2024-05-11] MEDS: METOPROLOL TARTRATE 50 MG TAB PO (09:31)
[2024-05-11] MEDS: guaiFENesin 12 HR 600 MG TABCR 1200 MG PO (09:31)
--- NOTE | 2024-05-11 12:16 | P.PNIM_ITS ---
Progress Note: A&P Assessment and Plan (1) Pneumonia: Qualifiers: Pneumonia type: due to unspecified organism Laterality: bilateral Lung location: unspecified part of lung Qualified Code(s): J18.9 - Pneumonia, unspecified organism Code(s): J18.9 - Pneumonia, unspecified organism Status: Acute (2) Chronic interstitial lung disease: Code(s): J84.9 - Interstitial pulmonary disease, unspecified Status: Acute (3) Atrial fibrillation: Code(s): I48.91 - Unspecified atrial fibrillation Status: Acute (4) Pleuritic chest pain: Code(s): R07.81 - Pleurodynia Status: Acute (5) Fall from ground level: Code(s): W18.30XA - Fall on same level, unspecified, initial encounter Status: Acute (6) Right foot pain: Code(s): M79.671 - Pain in right foot Status: Acute (7) [facility] current use of anticoagulant: Code(s): Z79.01 - [facility] (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 of anticoagulants Status: Acute (8) Hypertension: Code(s): I10 - Essential (primary) hypertension Status: Acute (9) Chronic kidney disease, stage 3 unspecified: Code(s): N18.30 - Chronic kidney disease, stage 3 unspecified Status: Acute Plan The patient presented to the emergency department with complaints of cough, chest pain, shortness of breath. Chest pain is described as pleuritic and is left-sided, likely related to underlying chronic interstitial lung disease with possible acute exacerbation versus underlying pneumonia. Asymmetric pulmonary edema seems less likely as as pulmonary embolism. Continue azithromycin and ceftriaxone. Attempt sputum for culture. Start scheduled bronchodilators. He is in atrial fibrillation but is rate controlled at this time although it sounds as though he may have been in a rapid rate earlier today. Monitor on telemetry overnight. Continue warfarin as INR is therapeutic. Patient reports that his fall the other night was due to the fact that was dark and he was not ambulating with his walker. Initiate fall precautions and consult PT/OT once he is feeling better. X-rays ordered of the right foot and 1st toe given reports of pain. Blood pressures were reviewed and they are stable. Time Spent With Patient Time with patient: 25 - 35 minutes Subjective Date/time seen: 05/11/24 12:16 Interval history: Narrative: This is an 83-year-old male with atrial fibrillation on chronic anticoagulation, chronic interstitial lung disease, hypertension, hyperlipidemia, diet-controlled diabetes, diabetic neuropathy, chronic kidney disease, and carotid stenosis who presented to the emergency department with complaints of chest pain, cough, and shortness of breath. The patient provides the following history. He has not been feeling well for couple of days with productive cough, mild shortness of breath, left-sided pleuritic chest pain, nausea, dry heaves, and generalized malaise. This morning his heart was pounding and racing and he decided to come in for evaluation. He also mentions that a couple of days ago he fell when he got up in the middle of the night to use the restroom and hit his head on the carpeted floor. Since that time he has had a mild headache and tightness in his neck. He attributes the fall to the fact that it was dark in the room and he lost his balance due to the fact that he was not walking with his walker. He denies fever, chills, sweats, vertigo, visual changes, sinus congestion, sore throat, dysphagia, concerns for aspiration, exertional chest pain, orthopnea, paroxysmal nocturnal dyspnea, current palpitations, abdominal pain, diarrhea, dysuria, calf pain, syncope, and near syncope. On exam he has some swelling to his feet, right greater than left, and he reports that his right 1st toe has been sore since his fall the other night. In the ED: He was afebrile on arrival with stable vital signs. SpO2 has been the upper 90s to 100% on room air. Labs are significant for WBC count of 10.5, hemoglobin 11.1, BUN 29, creatinine 1.50, glucose 135, troponin less than 0.012. He tested negative for influenza, RSV, and COVID. Head CT and cervical spine CT were without acute findings. Chest x-ray showed dense opacification of the periphery of the left hemithorax as subsequent chest CT showed chronic interstitial lung disease, worse in the left lung, likely usual interstitial pneumonia with progressive change compared to prior study, possible acute on chronic exacerbation, but overlying infection or asymmetric edema is not excluded. He was given aspirin 324 mg, azithromycin 500 mg, and ceftriaxone 1 g and he is being admitted in this setting for further treatment and evaluation. pt is doing well. up in the chair. denies any pain. Review of Systems Review of Systems: 12 systems were reviewed and are negativ e except for as per HPI. Exam Narrative: General: Mildly ill-appearing elderly gentleman the semi-Park position in bed in no acute distress. Weight: 90.9 kg. BMI: 27.9. HEENT: PERRL, EOMI. Sclera anicteric. Oral mucosa moist. Neck: Supple. No midline vertebral tenderness. Mild tenderness to palpation over the cervical paraspinous muscles. Respiratory: Respirations are nonlabored and he is speaking in full sentences. Lung sounds are coarse bilaterally with occasional rhonchi that improve with cough. Cardiovascular: Irregularly irregular rate and rhythm. Gastrointestinal: Abdomen is soft, nontender, and nondistended with positive bowel sounds. Skin: Warm and dry. Extremities: No cyanosis or clubbing. Mild bilateral pedal edema, right greater than left. Neurological: Alert. Cranial nerves 2-12 are grossly intact. Generalized weakness without gross focal findings. Psychiatric: Pleasant and cooperative with normal mood and affect. Objective Data Vital Signs Vital Signs: Vital Signs - 24 hr 05/10/24 14:00 05/10/24 15:05 05/10/24 15:15 Temperature 96.3 F L Pulse Rate 93 88 87 Respiratory Rate 19 18 20 Blood Pressure 111/48 L Pulse Oximetry 100 Oxygen Delivery 05/10/24 16:00 05/10/24 19:59 05/10/24 20:00 Temperature Pulse Rate 107 H 81 Respiratory Rate 20 Blood Pressure Pulse Oximetry Oxygen Delivery Room Air 05/10/24 20:00 05/10/24 20:06 05/10/24 20:09 Temperature Pulse Rate 89 95 97 Respiratory Rate 20 Blood Pressure Pulse Oximetry Oxygen Delivery 05/10/24 22:00 05/11/24 00:00 05/11/24 01:57 Temperature 96.4 F L Pulse Rate 91 72 77 Respiratory Rate 20 20 Blood Pressure 147/86 H Pulse Oximetry 99 Oxygen Delivery 05/11/24 02:06 05/11/24 04:00 05/11/24 06:00 Temperature 97.0 F L Pulse Rate 74 82 77 Respiratory Rate 20 20 Blood Pressure 121/87 Pulse Oximetry 98 Oxygen Delivery 05/11/24 08:58 05/11/24 09:04 05/11/24 09:10 Temperature Pulse Rate 78 80 Respiratory Rate 20 20 Blood Pressure Pulse Oximetry 98 Oxygen Delivery Room Air 05/11/24 09:31 05/11/24 09:31 05/11/24 09:31 Temperature Pulse Rate 94 83 Respiratory Rate Blood Pressure Pulse Oximetry Oxygen Delivery Room Air Intake/Output Intake/Output: Intake & Output 05/08/24 05/09/24 05/10/24 05/11/24 23:59 23:59 23:59 23:59 Intake Total 50 1160 1167 Output Total 100 1100 1000 Balance -50 60 167 Meds/Results Medications: Active Medications Generic Name Dose Route Start Last Admin Trade Name Freq PRN Reason Stop Dose Admin Acetaminophen 650 mg 05/09/24 17:50 05/10/24 17:07 Acetaminophen 325 Mg Tablet PO 650 mg Q6H PRN Administration Mild Pain (1-3) or Fever Albuterol/Ipratropium 3 ml 05/09/24 20:00 05/11/24 08:58 Ipratropium 0.5 Mg/Albuterol Sulfate 2.5 Mg Ampul.Neb 3 Ml INHALATION 3 ml Q6HRT SANDRINE Administration Doxycycline Hyclate 100 mg 05/09/24 22:00 05/11/24 09:31 Doxycycline Hyclate 100 Mg Tablet PO 100 mg Q12H SANDRINE Administration Guaifenesin 1,200 mg 05/09/24 21:00 05/11/24 09:31 Guaifenesin 12 Hr 600 Mg Tabcr PO 1,200 mg Q12HR SANDRINE Administration Ceftriaxone Sodium 1 gm in 50 mls @ 100 mls/hr 05/10/24 17:00 05/10/24 17:33 Rocephin 1 Gm/Ns 50 Ml IVPB Infused Q24H [facility]DRINE Infusion Metoprolol Tartrate 50 mg 05/10/24 18:00 05/11/24 09:31 Metoprolol Tartrate 50 Mg Tab PO 50 mg Q12HR SANDRINE Administration Pravastatin Sodium 40 mg 05/10/24 09:00 05/11/24 09:31 Pravastatin Sodium 20 Mg Tablet PO 40 mg DAILY SANDRINE Administration Warfarin Sodium 3 mg 05/10/24 17:00 05/10/24 17:11 Warfarin (*Pbkc) 3 Mg Tablet PO 3 mg DAILY@1700 SANDRINE Administration Radiology Results: ITS Impressions Chest X-Ray 05/09/24 13:17 IMPRESSION: Dense opacification of the periphery of the left hemithorax, an interval change from one year earlier for which cross-sectional imaging (noncontrast enhanced CT examination of the chest) is recommended for further evaluation. Head CT 05/09/24 14:55 IMPRESSION: No acute intracranial process. Cervical Spine CT 05/09/24 15:10 IMPRESSION: No acute fracture or traumatic malalignment in the cervical spine. Chest CT 05/09/24 15:18 IMPRESSION: Chronic interstitial lung disease, worse in the left lung, likely usual interstitial pneumonia (UIP) with progressive change since the prior study. Findings may represent acute/chronic exacerbation of interstitial lung disease. Overlying infection, or asymmetric edema not excluded. Ascending aortic ectasia. Mediastinal and upper abdominal lymphadenopathy. Foot X-Ray 05/09/24 17:43 IMPRESSION: Significant forefoot soft tissue swelling. No definite radiographic evidence of osteomyelitis. Severe arthritic changes at the first MTP joint with findings suggestive of gout. Septic arthritis is not excluded. Labs Labs: Laboratory Results - last 24 hr 05/10/24 05/11/24 21:11 06:30 PT 36.1 H INR 3.6 Nasal MRSA (PCR) Not detected Quality VTE Prophylaxis VTE prophylaxis: pharmacologic ordered (on warfarin; INR 2.7)
--- NOTE | 2024-05-11 12:58 | PM.DS ---
DS: Admitting Diagnosis Discharge Date 05/11 Admitting Diagnosis chest pain, sob DS: Discharge Diagnosis Discharge Diagnosis (1) Pneumonia: Qualifiers: Laterality: bilateral Lung location: unspecified part of lung Pneumonia type: due to unspecified organism Qualified Code(s): J18.9 - Pneumonia, unspecified organism Code(s): J18.9 - Pneumonia, unspecified organism Status: Acute (2) Chronic interstitial lung disease: Code(s): J84.9 - Interstitial pulmonary disease, unspecified Status: Acute (3) Atrial fibrillation: Code(s): I48.91 - Unspecified atrial fibrillation Status: Acute (4) Pleuritic chest pain: Code(s): R07.81 - Pleurodynia Status: Acute (5) Fall from ground level: Code(s): W18.30XA - Fall on same level, unspecified, initial encounter Status: Acute (6) Right foot pain: Code(s): M79.671 - Pain in right foot Status: Acute (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 Chest pain is described as pleuritic and is left-sided, likely related to underlying chronic interstitial lung disease with possible acute exacerbation versus underlying pneumonia. Asymmetric pulmonary edema seems less likely as as pulmonary embolism. Continue azithromycin and ceftriaxone. Attempt sputum for culture. Start scheduled bronchodilators. He is in atrial fibrillation but is rate controlled at this time although it sounds as though he may have been in a rapid rate earlier. He had been stabilized. INR is 3.6 today- 05/11- we are holding coumadin for today and tomorrow, 05/12. He needs sandie reach out to cardiology for further instructions. He is on antibiotics which will effect INR levels- so that needs to be taken not consideration while adjusting meds. His last dose for augmentin would be 05/13 at pm. Doxy last dose 1/23 22 pm Continue warfarin as INR is therapeutic. Patient reports that his fall the other night was due to the fact that was dark and he was not ambulating with his walker. Initiate fall precautions and consult PT/OT once he is feeling better. X-rays ordered of the right foot and 1st toe given reports of pain. There a concern for gout- uric acid was checked and elevated- 11.1. will send colchicine script tpo pt pharmacy. he will need to f/u with pcp about duration of therapy and uric acid recheck. Time Spent with Patient Time attestation: Total time spent providing and/or coordinating discharge services: Exam Narrative: General: Mildly ill-appearing elderly gentleman the semi-Park position in bed in no acute distress. Weight: 90.9 kg. BMI: 27.9. HEENT: PERRL, EOMI. Sclera anicteric. Oral mucosa moist. Neck: Supple. No midline vertebral tenderness. Mild tenderness to palpation over the cervical paraspinous muscles. Respiratory: Respirations are nonlabored and he is speaking in full sentences. Lung sounds are coarse bilaterally with occasional rhonchi that improve with cough. Cardiovascular: Irregularly irregular rate and rhythm. Gastrointestinal: Abdomen is soft, nontender, and nondistended with positive bowel sounds. Skin: Warm and dry. Extremities: No cyanosis or clubbing. Mild bilateral pedal edema, right greater than left. Neurological: Alert. Cranial nerves 2-12 are grossly intact. Generalized weakness without gross focal findings. Psychiatric: Pleasant and cooperative with normal mood and affect. DS: Data Data Completed and Pending Labs on day of discharge: Labs from last 24 hours 05/11/24 05/10/24 06:30 21:11 PT 36.1 H INR 3.6 Nasal MRSA (PCR) Not detected Preliminary micro results at discharge 05/09/24 16:34 Blood Culture - Preliminary Blood 05/09/24 16:36 Blood Culture - Preliminary Blood Discharge Plan Discharge Attending physician on discharge: Britney Montenegro Discharging Clinician: Clarissa Cuba Patient Disposition: Home Health Service Activity: august shower Diet: heart healthy Discharge Instructions: you were admitted for shortness of breath. Diagnosed with pneumonia. You were treated with antibiotics. You have some days remaining: take doxycycline 100 mg twice a day (am and pm) - for 5 more doses- last dose 05/13/24 pm and Augmentin 1 tab twice a day-last dose 05/13/24 pm for 5 more doses as well. You INR was high, 3.6 (because of antibiotics most likely)- so we held your Coumadin dose today and please hold it tomorrow, 05/12. Then call your cardiology to have INR repeated and get further instructions about the dose. Please make sure our follow fall and bleeding precautions. You uric acid was slightly elevated. I can add medication for you for gout treatment. please f/u with your PCP on further instructions Patient Instructions: Antibiotic Form, Warfarin (By mouth) Patient Language: Citizen Of [place] Stand Alone Forms: General Discharge Information Follow-up/Referrals: Vineet Quintana MD [Primary Care Provider] - 1 Week (f/u with cardiology for inr recheck and coumadin dose instructions) Discharge Medications: New doxycycline hyclate 100 mg Tablet 100 mg PO Q12H Qty: 5 0RF amoxicillin-pot clavulanate 875-125 mg tablet 1 tablet PO Q12H Qty: 5 0RF colchicine 0.6 mg tablet 0.6 mg PO DAILY Qty: 30 0RF Continued furosemide 20 mg tablet 20 mg PO DAILY metoprolol tartrate 100 mg tablet 50 mg PO Q12H pravastatin 40 mg tablet 40 mg PO DAILY Qty: 90 2RF Held warfarin 3 mg tablet 3 mg PO DAILY Hold Instructions: Resume on 05/13/24. hold for today, 05/11 and tomorrow, 05/12 and the have cardiology repeat your INR and instruct you on dose Other Ambulatory Orders: Prothrombin Time INR (Routine) Timeframe: 2 Days Location: Determined by Patient Ordered By: Clarissa Cuba Date of admission: 05/10/24 11:38 Primary Care Provider: Vineet Quintana Admitting Provider: Damion Eubanks Attending physician on admission: Damion Eubanks Condition: Serious Quality VTE Prophylaxis VTE prophylaxis: pharmacologic ordered (on warfarin; INR 2.7) Hospitalist MIPS Heart Failure (Exclusion) Patient has history of Heart Transplant or Left Ventricular Assistive Device?: No IF YES, STOP HERE Heart Failure (Qualifier) Patient has current or prior documentation of LVEF less than or equal to 40%, or mod/servere depressed LVSF?: No IF NO, STOP HERE
[2024-05-12 19:33] LABS: Pneumococcal Antigen Urine NOT DETECTED
[2024-05-13 18:43] LABS: Mycoplasma IgM Antibody Titer 79 U/mL
== END 2024-05-11 15:40 | disposition home health service (06) | DRG 194 ==
LOC: ANHED 15:55 → ANHIMU 18:31 → ANH3MED 19:39
PROVIDERS: Emergency Medicine; Physician Assistant; Admitting Provider General Practice; Emergency Provider Preventive Medicine Aerospace Medicine; PCP Family Medicine; Visit Provider Nurse Practitioner
DX: J18.9 Pneumonia, unspecified organism (principal); J84.9 Interstitial pulmonary disease, unspecified; E11.22 Type 2 diabetes mellitus with diabetic chronic kidney disease; I12.9 Hypertensive chronic kidney disease with stage 1 through stage 4 chronic kidney disease, or unspecified chronic kidney disease; N18.32 Chronic kidney disease, stage 3b; I48.91 Unspecified atrial fibrillation; E78.5 Hyperlipidemia, unspecified; W18.30XA Fall on same level, unspecified, initial encounter; M79.671 Pain in right foot; E11.42 Type 2 diabetes mellitus with diabetic polyneuropathy; I65.21 Occlusion and stenosis of right carotid artery; Z96.641 Presence of right artificial hip joint; Z96.651 Presence of right artificial knee joint; Z98.41 Cataract extraction status, right eye; Z79.01 Long term (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 of anticoagulants; I25.2 Old myocardial infarction
CPT/HCPCS: 36415; 70450; 71046; 71250; 72125; 73630; 80048; 80053; 83690; 83735; 84484; 84550; 85025; 85610; 85730; 86738; 87040; 87070; 87205; 87449; 87637; 87641; 87899; 93005; 94640; 94667; 94668; 96365; 96375; 97161; 99285; A9270; G0378; J0696; J2270; J7030

== ENCOUNTER 2024-06-16 10:34 | Outpatient (CLI) | payer MEDICARE, SELFPAY ==
--- OUTSIDE RECORDS SUMMARY | 2024-06-16 12:01 | XMS_ITS | Encounter Summary ---
Author Organization [facility] Address [address] [place] [id number] Care Team Providers Care Turbine Inspector Name Role Phone Vineet Quintana MD Primary Care Provider Puneet Dee MD Unavailable [phone] Encounter Details Date Type Department Care Team (Late Contact Info) Description 08/26/2016 Orders Only [facility] ProviderChetna MD [address] [place] [id number] Social History Tobacco Use Types Packs/Day Years Used Date Smoking Tobacco: Never Alcohol Use Standard Drinks/Week Comments No 0 (1 standard drink = 0.6 oz pur e alcohol) Sex and Gender Information Value Date Recorded Sex Assigned at Not on file 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 Historical Provider [facility] KARENA BURR Final Result documented in this encounter Visit Diagnoses Not on filedocumented in this encounter Additional Health Concerns Infection Onset Date Last Indicated Resolved Time MDR gram neg/ESBL 10/16/2020 10/16/2020 documented as of this encounter Care Teams Turbine Inspector Relationship Specialty Start Date End Date Vineet Quintana MD [address] [place] [address] PCP - General 07/19/16 Puneet Dee MD [address] [place] [address] Consulting Physician Cardiology 12/22/18 documented as of this encounter
--- OUTSIDE RECORDS SUMMARY | 2024-06-16 12:01 | XMS_ITS | Clinical Summary ---
Author Organization [facility] Address [facility] [place] [address] Care Team Providers Care Cds Sales Advisor Name Role Phone Vineet Quintana MD Primary Care Provider [phone] Allergies No known active allergies Medications glimepiride 1 MG tablet Take 1 mg by mouth every morning before breakfast. Active glimepiride 2 MG tablet Take 2 mg by mouth every morning before breakfast. Active pravastatin 40 MG tablet Take 40 mg by mouth nightly at bedtime. Active warfarin 3 MG tablet Take 3 mg by mouth daily. Active metFORMIN 500 MG tabletIndicatio ns:2 tabs BID Take 500 mg by mouth 2 (two) times daily with meals. Indications: 2 tabs BID Active metoprolol tartrate 100 MG tablet Take 100 mg by mouth 2 (two) times daily. Active Social History Tobacco Use Types Packs/Day Years Used Date Smoking Tobacco: Never Smokeless Tobacco: Never Alcohol Use Standard Drinks/Week Comments Never 0 (1 standard drink = 0.6 oz pur e alcohol) AUDIT-C Answer Date Recorded Q1: How often do you have a drink containing alc ohol? Never 08/14/2020 Average Number of Drinks Not on file 021 Frequency of Binge Drinking Not on file 07/21 Sex and Gender Information Value Date Recorded Sex Assigned at Not on file Legal Sex Male 9:25 PM CDT Gender Identity Not on file Sexual Orientation Not on file Last Filed Vital Signs Vital Sign Reading Time Taken Comments Blood Pressure 156/70 08/14/2020 9:50 AM CDT Pulse 67 08/14/2020 9:50 AM CDT Temperature 36.6 C (97.8 F) 08/14/2020 9:50 AM CDT Respiratory Rate 20 08/14/2020 9:50 AM CDT Oxygen Saturation 99% 08/14/2020 9:50 AM CDT Inhaled Oxygen Concentration - - Weight 98.4 kg (217 lb) 08/14/2020 7:39 AM CDT Height 180.3 cm (5' 11 ) 08/14/2020 7:39 AM CDT Body Mass Index 30.27 08/14/2020 7:39 AM CDT Plan of Treatment Health Maintenance Due Date Last Done Comments Zoster Vaccines (1 of 2) 1990 Annual Medicare Wellness Visit 2005 Pneumococcal Vaccine: 65+ Years (1 of 1 - PCV) 2005 RSV Immunization or 60+ Years (1 - 1-dose 75+ series) 08/04/2015 COVID-19 Vaccine (3 - season) 2023 07/09/2020, 06/17/2020 Influenza Adult (#1) 2024 02/18/2020, 02/19/2019, 02/04/2017, Additional history exists DTaP, Tdap and Td Vaccines (2 - Td or Tdap) 08/08/2026 08/08/2016 Meningococcal B Vaccine Aged Out No l onger eligible based on patient's age to complete this topic Meningococcal Vaccine Aged Out No rosa shankar eligible based on patient's age to complete this topic RSV Immunizations Under 20 Months Aged Out No longer eligible based on patient's age to complete this topic Medical Devices Implanted Type Area Oil Spot Washer Device Identifier Shelf Expiration Date Model / Serial / Lot [id number] Implanted:Qty: 1 on 08/14/2020 by Luigi Mueller MD at [facility] 04/23/2023 / [id number] / Insurance [employer] Care Teams Cds Sales Advisor Relationship Specialty Start Date End Date Vineet Quintana MD [address] [place] [address] PCP - General FAMILY PRACTICE 08/11/20
--- OUTSIDE RECORDS SUMMARY | 2024-06-16 12:01 | XMS_ITS | Clinical Summary ---
Author Organization [facility] Address [address] [facility] [place] [address] Care Team Providers Care Document Coordinator Name Role Phone Vineet Quintana MD Primary Care Provider Puneet Dee MD Unavailable [phone] Allergies No known active allergies Medications pravastatin (PRAVACHOL) 40 mg tablet Take 1 tablet (40 mg total) by mouth daily Active metoprolol tartrate (LOPRESSOR) 25 mg immediate release tablet Take 0.5 tablets (12.5 mg total) by mouth 2 (two) times a day 30 tablet 11 1 Active Additional Information Patient taking differently: 50 mgoral 2 times daily, Reported on 05/14/2024 docusate sodium (COLACE) 100 mg capsuleIndicatio ns:constipation, Stool Softener Take 1 capsule (100 mg total) by mouth 2 (two) times a day 1 Active furosemide (LASIX) 20 mg tabletIndication s:Shortness of breath,Systolic congestive heart failure, unspecified HF chronicity (HCC) TAKE 1 TABLET BY MOUTH EVERY DAY 90 tablet 2 4 Active warfarin (COUMADIN) 3 mg tablet TAKE 1 AND 1/2 TABLETS BY MOUTH DAILY 135 tablet 5 Active doxycycline 100 mg tablet Take 1 tablet (100 mg total) by mouth 2 (two) times a day Active amoxicillin-clav ulanate (AUGMENTIN) 875-125 mg per tablet Take 1 tablet by mouth 2 (two) times a day Active colchicine (COLCRYS) 0.6 mg tablet Take 1 tablet (0.6 mg total) by mouth daily Active Active Problems Problem Noted Date Diagnosed Date LVH (left ventricular hypertrophy) 02/26/2024 Hyperlipidemia 08/28/2022 Assessment & Plan (09/10/2023 9:05 AM CDT): Hyperlipidemia chronic controlled. Continue pravastatin. Systolic congestive heart failure (CMS/HCC) 11/2020 Cardiomyopathy 12/27/2020 At risk for venous thromboembolism (VTE) 021 08/27/2022 Overview (08/27/2022): Problem added by Discern Expert Rule: [id number] Lumbar canal stenosis 10/03/2020 Cervical stenosis of spine 09/27/2020 Overview (10/02/2020): Added automatically from request for surgery [id number] Disorder of arteries and arterioles 06/20/2020 Carotid artery disease 12/14/2019 Cardiac rhythm disorder or disturbance or change 12/14/2019 Swelling of right hand 01/11/2019 Right cavernous carotid stenosis 01/11/2019 Obesity (BMI 30.0-34.9) 01/11/2019 History of fall 01/11/2019 Diabetes mellitus, type II 01/11/2019 Chronic back pain 01/11/2019 Bilateral carotid artery stenosis 12/01/2018 Assessment & Plan (09/10/2023 9:04 AM CDT): Stable moderate stenosis on the left. Endarterectomy site on the right remains widely patent with no recurrent stenosis. Continue anti-platelet therapy risk factor modification follow up 1 year. Assessment & Plan (12/17/2018 9:07 AM CDT): Impression: Near high-grade right internal carotid artery stenosis noted on carotid duplex. Patient is asymptomatic. Plan: Will further investigate his right carotid stenosis with a CTA of his carotids with anticipation of surgical treatment. Patient to follow-up in 2 weeks to discuss test results and potential surgical treatment options. Bilateral lower extremity edema 09/18/2017 Essential hypertension 11/05/2016 Assessment & Plan (09/10/2023 9:04 AM CDT): Hypertension chronic controlled. Continue current medical management. Assessment & Plan (12/17/2018 9:08 AM CDT): Impression: Stable hypertension. Plan: Continue current antihypertensive regimen as directed by PCP. Chronic anticoagulation 11/05/2016 Shortness of breath 07/24/2016 Overview (09/13/2016): SOB (shortness of breath) Atrial fibrillation ([facility]) 09/04/2013 Overview (07/26/2016): ATRIAL FIBRILLATION Resolved Problems Problem Noted Date Diagnosed Date Resolved Date Pulmonary HTN ([facility]/HCC) 11/05/201611/20 Encounters Date Type Department Care Team Description 05/14/2024 9:00 AM ZONE SUPERVISOR FIREARMS Office Visit [facility] Cardiology [address] [place] [address] [place] [phone] Kaley Echeverria NP Chronic atrial fibrillation (HCC) (Primary Dx); Chronic anticoagulation; History of recent pneumonia; Vision changes; Hospital discharge follow-up 05/10/2024 Anticoagulation Visit [facility] Cardiology [address] [place] [address] [place] [phone] Fina Saab RN Atrial fibrillation, unspecified type (HCC) (Primary Dx) 05/07/2024 Telephone [facility] Cardiology [address] [place] [address] Advanced Medicine 8th [place] [address] [place] [address] Job Mcdonough MD any add'l amyloid testing? 04/22/2024 Telephone [facility] Cardiology [address] [place] [address] Advanced Medicine 8th [place] [address] [place] [address] Job Mcdonough MD 04/01/2024 Telephone [facility] Cardiology [address] [facility] Floor 1, [address] [place] [address] Job Mcdonough MD 03/29/2024 9:30 AM ZONE SUPERVISOR FIREARMS Lab [facility] - Lab Collection [address] [facility] Floor 5 [place] [address] Cardiomyopathy, unspecified type (HCC); Essential hypertension; Chronic anticoagulation; Type 2 diabetes mellitus with chronic kidney disease, without long-term current use of insulin, unspecified CKD stage (HCC) 03/29/2024 8:00 AM ZONE SUPERVISOR FIREARMS Office Visit [facility] Cardiology [facility] Floor 1, [address] [place] [address] Job Mcdonough MD Cardiomyopathy, unspecified type (HCC) (Primary Dx); Bilateral carotid artery stenosis; Essential hypertension; Chronic anticoagulation; Type 2 diabetes mellitus with chronic kidney disease, without long-term current use of insulin, unspecified CKD stage (HCC) 03/29/2024 Anticoagulation Visit [facility] Cardiology [address] [place] [phone] Puneet Huerta RN Atrial fibrillation, unspecified type (HCC) (Primary Dx) 03/29/2024 Documentation [facility] Cardiology [facility] Floor 1, [address] [place] [phone] Lashon Parrish, ANDREW from Last 3 Months Immunizations Immunization Administration Dates Next Due Influenza, Quadrivalent, Hig h Dose, Preservative Free, Intrr 02/18/2020 Influenza, Trivalent, High D ose, Split, Preservative Free, Intramuscular 02/19/2019,02/04/2017 Influenza, Trivalent, IM (MDV) 01/04/2013 Tdap 08/08/2016 Surgical History Surgery Date Site/Laterality Comments CARPAL TUNNEL RELEASE Bilateral CAROTID ENDARTERECTOMY 01/04/2019 Right TOTAL HIP ARTHROPLASTY Right SPINAL CORD STIMULATOR IMPLANT 04/21/2015 - 04/20/2016 COLONOSCOPY CATARACT EXTRACTION W/ INTRA OCULAR LENS IMPLANT Bilateral TOTAL KNEE ARTHROPLASTY Right SPINE SURGERY 09/19/2020 - 10/18/2020 JOINT REPLACEMENT Medical History Medical History Date Comments Osteoarthritis Osteoarthritis Calculus of kidney Kidney Stones Peptic ulcer Peptic Ulcer Dis ease Diabetes mellitus (HCC) Type 2 Hypertension HLD (hyperlipidemia) CKD (chronic kidney disease) Atrial fibrillation (CMS/HCC) (HCC) Anticoagulated on Coumadin Chronic pain neck and back Cataract Family History Medical History Relation Name Comments Other Father 2 Natural Causes; Cause of : Natural Causes Car Accident Mother 2 MVA; Cause of D eath: MVA Relation Name Status Comments Father 1 (Age 80) Father 2 Mother 1 Mother 2 Social History Tobacco Use Types Packs/Day Years Used Date Smoking Tobacco: Never Cigarettes Smokeless Tobacco: Never Tobacco Cessation:Counseling Given: Not Answered Alcohol Use Standard Drinks/Week Comments No 0 (1 standard drink = 0.6 oz pur e alcohol) Social Connection and Isolat ion Panel [NHANES] Answer Date Recorded In a typical week, how many times do you talk on the phone with family, friends, or neighbors? More than three times a week 10/12/2020 How often do you get togethe r with friends or relatives? Twice a week 10/12/2020 How often do you attend chur ch or yarsanism services? Never 10/12/2020 Do you belong to any clubs o r organizations such as religion groups, unions, fraternal or athletic groups, or school groups? No 10/12/2020 How often do you attend meet ings of the clubs or organizations you belong to? Never 10/12/2020 Are you , , di vorced, , never , or living with a partner? 10/12/2020 AUDIT-C Answer Date Recorded Q1: How often do you have a drink containing alc ohol? Never 10/31/2020 Average Number of Drinks Not on file 021 Frequency of Binge Drinking Not on file 10/19 Overall Financial Resource Strain (CARDIA) Answe r Date Recorded How hard is it for you to pa y for the very basics like food, housing, medical care, and heating? Not very hard 10/12/2020 Hunger Vital Sign Answer Date Recorded Within the past 12 months, y ou worried that your food would run out before you got the money to buy more. Never true 10/13/19 21 Within the past 12 months, t he food you bought just didn't last and you didn't have money to get more. Never true 10/12/2020 PRAPARE - Transportation Answer Date Re corded In the past 12 months, has l ack of transportation kept you from medical appointments or from getting medications? No 09/20 In the past 12 months, has l ack of transportation kept you from meetings, work, or from getting things needed for daily living? No 10/12/2020 Housing Stability Vital Sign Answer Bhupinder e Recorded In the last 12 months, was t here a time when you were not able to pay the mortgage or rent on time? No 10/12/2020 In the last 12 months, how many places have you lived? 1 10/12/2020 In the last 12 months, was t here a time when you did not have a steady place to sleep or slept in a fci (including now)? No 10/12/2020 Sex and Gender Information Value Date Recorded Sex Assigned at Not on file Legal Sex Male 12:35 AM ZONE SUPERVISOR FIREARMS Gender Identity Not on file Sexual Orientation Not on file Obstetrics History Last Filed Vital Signs Vital Sign Reading Time Taken Comments Blood Pressure 108/58 05/14/2024 9:18 AM ZONE SUPERVISOR FIREARMS Pulse 88 05/14/2024 9:18 AM ZONE SUPERVISOR FIREARMS Temperature 36.1 C (97 F) 01/16/2021 9:50 AM CDT Respiratory Rate 18 03/29/2024 8:29 AM ZONE SUPERVISOR FIREARMS Oxygen Saturation 96% 05/14/2024 9:18 AM ZONE SUPERVISOR FIREARMS Inhaled Oxygen Concentration - - Weight 85.7 kg (189 lb) 05/14/2024 9:18 AM ZONE SUPERVISOR FIREARMS Height 180.3 cm (5' 11 ) 05/14/2024 9:18 AM ZONE SUPERVISOR FIREARMS Body Mass Index 26.36 05/14/2024 9:18 AM ZONE SUPERVISOR FIREARMS Plan of Treatment Health Maintenance Due Date Last Done Comments Albumin Creatinine Ratio, Urine 1940 Depression Screening 1940 Dilated Eye Exam 1940 Foot Exam 1940 Hepatitis B Screening 1958 Pneumococcal vaccine 65+ (1 of 2 - PCV) 08/04/1959 Zoster Vaccine (1 of 2) 1990 Well Visit 65+ 2005 Fall Risk Assessment 10/26/2021 10/26/2020 Influenza Vaccine (#1) 2023 , 02/19/2019, 02/04/2017, Additional history exists Hemoglobin A1C 09/27/2024 03/29/2024, 060 12/2020, 09/03/2016 Lipid Panel 03/29/2025 03/29/2024, 060 12/2020, 01/20/2019, Additional history exists eGFR 03/29/2025 03/29/2024, 01/03/2021 DTaP/Tdap/Td Vaccine (2 - Td or Tdap) 08/08/2026 08/08/2016 Medical Devices Implanted Type Area Senior Ssis Developer Device Identifier Shelf Expiration Date Model / Serial / Lot Medtronic Scs Lead [id number] Implanted:Qty : 2 Lead Back Medtronic Inc [id number] / / Description:STIMULATOR IS NO T CURRENTLY ACTIVE, NOT SURE WHERE EXTERNAL CONTROLLER IS - PT DOES NOT USE JL 04/22/24 Medtronic Scs [id number]/15/20 16 Implanted: (Quantity not on file) Spinal Cord Stimulator Left: Lumbar-Sac ral Spine Medtronic [id number] / [id number] / Description:STIMULATOR IS NO T CURRENTLY ACTIVE, NOT SURE WHERE EXTERNAL CONTROLLER IS - PT DOES NOT USE JL 04/22/24 Shane Donovan from [employer] patient managing Dr needs to fill out MRI scan type eligibility form prior to MRI since device is NON Functioning and external controller is missing. Trail Spine [id number] l7-G2 Cage Spinal [place] 7 D L13mm X W16mm X H7mm Sterile Latex Free Cervical Interbody System - [id number] Implanted:Qty : 1 on 10/04/2020 by Eliseo Del Castillo MD at [facility] N/A: Spine Cervical Trail Spine [id number] 08/04/2024 6101-213 1870TS5- G2 / / [id number] Edda Spine [id number] l7-G2 Cage Spinal [place] 7 D L13mm X W16mm X H8mm Sterile Latex Free Cervical Interbody System - [id number] Implanted:Qty : 1 on 10/04/2020 by Eliseo Del Castillo MD at [facility] N/A: Spine Cervical Edda Spine [id number] 12/17/2024 6101-213 [id number] G2 / / [id number] Spine [id number] Arthur 34mm 2 Level Spine Cervical Plate Bone Nonsterile - [id number] Implanted:Qty : 1 on 10/04/2020 by Eliseo Del Castillo MD at [facility] N/A: Spine Cervical Trail Spine [id number] / / Edda Spine [id number] Arthur 4mm 18mm Self Tap Variable Angle Spine Cervical Screw Bone - [id number] Implanted:Qty : 2 on 10/04/2020 by Eliseo Del Castillo MD at [facility] N/A: Spine Cervical Edda Spine [id number] 18CA / / Edda Spine [id number] Arthur 4mm 18mm Self Tap Fix Angle Spine Cervical Screw Bone - [id number] Implanted:Qty : 2 on 10/04/2020 by Eliseo Del Castillo MD at [facility] N/A: Spine Cervical Trail Spine [id number] 18CA / / Screw Bone 4mm 20mm Spine Cerv St Variable Nonstrl Ltxfre - [id number] Implanted:Qty : 2 on 10/04/2020 by Eliseo Del Castillo MD at [facility] N/A: Spine Cervical Edda Spine [id number] 20CA / / Procedures Procedure Name Priority Date/Time Associated Diagnosis Comments PROTIME-INR Routine 05/08/2024 11:33 AM ZONE SUPERVISOR FIREARMS Atrial fibrillation, unspecified type (HCC) Chronic anticoagulation SCAN - LABS 03/30/2024 EGFR Routine 03/29/2024 9:41 AM ZONE SUPERVISOR FIREARMS Cardiomyopathy, unspecified type (HCC) Essential hypertension DIFFERENTIAL AUTO Routine 03/29/2024 9:4 1 AM ZONE SUPERVISOR FIREARMS Cardiomyopathy, unspecified type (HCC) Essential hypertension COMPREHENSIVE METABOLIC PANEL Routine 03/29/2024 9:41 AM ZONE SUPERVISOR FIREARMS Cardiomyopathy, unspecified type (HCC) Essential hypertension HEMOGLOBIN A1C Routine 03/29/2024 9:41 AM ZONE SUPERVISOR FIREARMS Cardiomyopathy, unspecified type (HCC) Essential hypertension Type 2 diabetes mellitus with chronic kidney disease, without long-term current use of insulin, unspecified CKD stage (HCC) LIPID PANEL Routine 03/29/2024 9:41 AM ZONE SUPERVISOR FIREARMS Cardiomyopathy, unspecified type (HCC) Essential hypertension CBC WITH AUTO DIFFERENTIAL Routine 03/29/2024 9:41 AM ZONE SUPERVISOR FIREARMS Cardiomyopathy, unspecified type (HCC) Essential hypertension PROTIME-INR Routine 03/29/2024 9:41 AM ZONE SUPERVISOR FIREARMS Cardiomyopathy, unspecified type (HCC) Essential hypertension Chronic anticoagulation from Last 3 Months Results * (ABNORMAL) Protime-INR (05/08/2024 11:33 AM ZONE SUPERVISOR FIREARMS) INR 2.9(H) [facility] Renee Comment: Reference Range 0.9-1.1 Moderate-intensity Warfarin Therapy 2.0-3.0 Higher-intensity Warfarin Therapy 3.0-4.0 PT 28.5(H) 9.0 - 11.5 sec [facility] Renee Comment: For additional information, please refer to http://education.edPULSE/faq/SHL302 (This link is being provided for informational/ educational purposes only.) Blood 05/08/2024 11:3 3 AM ZONE SUPERVISOR FIREARMS 05/08/2024 11:34 AM ZONE SUPERVISOR FIREARMS Narrative [facility] - 05/09/2024 3:12 AM ZONE SUPERVISOR FIREARMS FASTING:NO FASTING: NO Puneet Dee MD LAB BLOOD ORDERABLES Colleen l Result [facility] [address] [place] [address] * SCAN - LABS (03/30/2024) us Provider Scanning Final Result * (ABNORMAL) eGFR (03/29/2024 9:41 AM ZONE SUPERVISOR FIREARMS) eGFR 47(L) >=60 mL/min/1. 73 m2 Comment: Interpretive Data Reference Interval Normal >/= 90 mL/min/1.73m2 Mildly decreased* 60 - 89 mL/min/1.73m2 Mildly to moderately decreased 45 - 59 mL/min/1.73m2 Moderately to severely decreased 30 - 44 mL/min/1.73m2 Severely decreased 15 - 29 mL/min/1.73m2 Kidney Failure < 15 mL/min/1.73m2 *Relative to young adult level Estimated glomerular filtration rate is determined by the 2020 CKD-EPI equation recommended by the National Kidney Foundation (A Unifying Approach to GFR Estimation: Recommendations of the NKF-ASK Task Force on Reassessing the Inclusion of Race in Diagnosing Kidney Disease, JASN 2020). The CKD-EPI equation should not be used for patients with unstable renal function and has not been validated in children and those over 70. Current interpretive data was last reviewed 2021. Blood 03/29/2024 9:41 AM ZONE SUPERVISOR FIREARMS 03/29/2024 9:44 AM ZONE SUPERVISOR FIREARMS us Job Mcdonough MD LAB BLOOD ORDERABLES Final Result [facility] [place] [address] * (ABNORMAL) Differential, auto (03/29/2024 9:41 AM ZONE SUPERVISOR FIREARMS) Neutrophil abs 6.2 1.5 - 6.5 K/cumm Comment:Testing performed by : [facility], [address] [place] [phone] Lymphocyte abs 1.2 0.8 - 3.3 K/cumm CERTIFFANIE BJ Comment:Testing performed by : [facility], [address] [place] [phone] Monocyte abs 1.4(H) 0.2 - 0.8 K/cumm CERTIFFANIE BJ Comment:Testing performed by : [facility], [address] [place] [phone] Eosinophil abs 0.3 0.0 - 0.5 K/cumm CERTIFFANIE BJ Comment:Testing performed by : [facility], [address] [place] [phone] Basophil abs 0.1 0.0 - 0.1 K/cumm CERTIFFANIE BJ Comment:Testing performed by : [facility], [address] [place] [phone] Neutrophil pct 67.6 % CERTIFFANIE KELLEY Comment: Interpretive Data Percent cell count reference ranges are not reported, since discordance with absolute values may lead to misinterpretation of CBC data. Current Interpretive Data was last revised on 2017. Testing performed by: [facility], [address] [place] [phone] Lymphocyte pct 13.6 % CERTIFFANIE KELLEY Comment: Interpretive Data Percent cell count reference ranges are not reported, since discordance with absolute values may lead to misinterpretation of CBC data. Current Interpretive Data was last revised on 2017. Testing performed by: [facility], [address] [place] [phone] Monocyte pct 14.9 % CERTIFFANIE KELLEY Comment: Interpretive Data Percent cell count reference ranges are not reported, since discordance with absolute values may lead to misinterpretation of CBC data. Current Interpretive Data was last revised on 2017. Testing performed by: [facility], [address] [place] [phone] Eosinophil pct 3.1 % CERTIFFANIE KELLEY Comment: Interpretive Data Percent cell count reference ranges are not reported, since discordance with absolute values may lead to misinterpretation of CBC data. Current Interpretive Data was last revised on 2017. Testing performed by: [facility], [address] [place] [phone] Basophil pct 0.8 % CERTIFFANIE KELLEY Comment: Interpretive Data Percent cell count reference ranges are not reported, since discordance with absolute values may lead to misinterpretation of CBC data. Current Interpretive Data was last revised on 2017. Testing performed by: [facility], [address] [place] [phone] Blood 03/29/2024 9:41 AM ZONE SUPERVISOR FIREARMS 03/29/2024 9:42 AM ZONE SUPERVISOR FIREARMS us Job Mcdonough MD LAB BLOOD ORDERABLES Final Result EMELY KELLEY [facility] [place] [address] * (ABNORMAL) CBC with auto differential (03/29/2024 9:41 AM ZONE SUPERVISOR FIREARMS) WBC 9.1 3.8 - 9.9 K/cumm Comment:Testing performed by : [facility], [address] [place] [address] Hgb 10.9(L) 13.0 - 17.5 g/dL CERNER BJ Comment:Testing performed by : [facility], [address] [place] [address] Hct 34.5(L) 38.9 - 50.3 % CERNER BJ Comment:Testing performed by : [facility], [address] [place] [address] Plt 252 150 - 400 K/cumm CERNER BJ Comment:Testing performed by : [facility], [address] [place] [address] MPV 7.1 6.8 - 10.4 fL CERNER BJ Comment:Testing performed by : [facility], [address] [place] [address] RBC 3.51(L) 4.30 - 5.80 M/cumm CERNER BJ Comment:Testing performed by : [facility], [address] [place] [address] MCV 98.4(H) 81.3 - 96.4 fL CERNER BJ Comment:Testing performed by : [facility], [address] [place] [address] MCH 31.1 27.1 - 33.3 pg CERNER BJ Comment:Testing performed by : [facility], [address] [place] [address] MCHC 31.6(L) 32.3 - 35.7 g/dL CERNER BJH Comment:Testing performed by : [facility], [address] [place] [address] RDW CV 14.6 11.1 - 14.9 % CERNER BJ Comment:Testing performed by : [facility], [address] [place] [phone] NRBC abs 0.00 0.00 - 0.01 K/cumm [facility] Comment:Testing performed by : [facility], [address] [place] [phone] Blood 03/29/2024 9:41 AM ZONE SUPERVISOR FIREARMS 03/29/2024 9:42 AM ZONE SUPERVISOR FIREARMS Luca HAN [facility] - 03/29/2024 9:45 AM ZONE SUPERVISOR FIREARMS Cardio onc labdr mcdonough. Job Mcdonough MD LAB BLOOD ORDERABLES Final Result Performing Organization Address [facility] Co de Phone Number [facility] [place] [address] * (ABNORMAL) Protime-INR (03/29/2024 9:41 AM ZONE SUPERVISOR FIREARMS) Pathologist [facility] PT 29.3(H) 9.7 - 13.0 sec INR 2.66(H) 0.90 - 1.20 [facility] Comment: Interpretive data Oral anticoagulant therapeutic ranges: Venous thromboembolism prophylaxis or treatment: 2.0-3.0 CARDIOLOGY Standard range: 2.0-3.0 High-intensity range: 2.5-3.5 Refer to indication-specific guidelines for appropriate target ranges for prosthetic heart valve replacement. Current interpretive data was last revised on 2019. Blood 03/29/2024 9:41 AM ZONE SUPERVISOR FIREARMS 03/29/2024 10:28 AM ZONE SUPERVISOR FIREARMS Narrative EMELY [facility] - 03/29/2024 10:52 AM ZONE SUPERVISOR FIREARMS Cardio onc labdr mcdonough. Job Mcdonough MD LAB BLOOD ORDERABLES Final Result Performing Organization Address [facility] de Phone Number [facility] [place] [address] * (ABNORMAL) Hemoglobin A1c (03/29/2024 9:41 AM ZONE SUPERVISOR FIREARMS) Hgb A1C 6.3(H) 4.0 - 5.6 % Estimated Average Glucose 134 mg/dL [facility] Comment: The ADA recommends reporting an estimated Average Glucose (eAG) with all Hemoglobin A1c results using the equation derived from a study of 507 normal and diabetic adults. Minority populations were underrepresented and children were not included. (Diabetes Care 2020; 43(S1): S66-S76). The eAG is not equivalent to a fasting glucose. Blood 03/29/2024 9:41 AM ZONE SUPERVISOR FIREARMS 03/29/2024 9:44 AM ZONE SUPERVISOR FIREARMS Narrative [facility] - 03/29/2024 10:00 AM ZONE SUPERVISOR FIREARMS Cardio onc lab, dr mcdonough. us Job Mcdonough MD LAB BLOOD ORDERABLES Final Result [facility] Department [place] [address] * (ABNORMAL) Lipid panel (03/29/2024 9:41 AM ZONE SUPERVISOR FIREARMS) Pathologist [facility] Cholesterol 131 30 - 199 mg/dL Comment: Interpretive Data Ages < or = 19 years Acceptable: <170 mg/dL Borderline high: 170-199 mg/dL High: >or= 200 mg/dL Ages > or = 20 years Desirable: <200 mg/dL Borderline high: 200-239 mg/dL High: >or= 240 mg/dL Literature References: 1. Expert Panel on Integrated Guidelines for Cardiovascular Health and Risk Reduction in Children and Adolescents. Pediatrics 2011;128:S213 2. NCEP Expert Panel. Circulation 2004;110:227 Current Interpretive Data was last revised on 2017. Triglycerides 104 <=149 mg/dL [facility] Comment: Interpretive Data Ages < or = 9 years Acceptable: <75 mg/dL Borderline high: 75-99 mg/dL High: >or= 100 mg/dL Ages 10 to 20 years Acceptable: <90 mg/dL Borderline high: 90-129 mg/dL High: >or= 130 mg/dL Ages > or = 20 years Desirable: <150 mg/dL Borderline high: 150-199 mg/dL High: 200-499 mg/dL Very high: >or= 499 mg/dL Literature References: 1. Expert Panel on Integrated Guidelines for Cardiovascular Health and Risk Reduction in Children and Adolescents. Pediatrics 2011;128:S213 2. NCEP Expert Panel. Circulation 2004;110:227 Current Interpretive Data was last revised on 2017. HDL 38(L) >=40 mg/dL [facility] Comment: Interpretive Data Ages < or = 19 years Acceptable: >45 mg/dL Borderline low: 40-45 mg/dL Low: <40 mg/dL Ages > or = 20 years Desirable: >or= 60 mg/dL Low: <40 mg/dL Literature References: 1. Expert Panel on Integrated Guidelines for Cardiovascular Health and Risk Reduction in Children and Adolescents. Pediatrics 2011;128:S213 2. NCEP Expert Panel. Circulation 2004;110:227 Current Interpretive Data was last revised on 2017. LDL, calculated 74 <=129 mg/dL [facility] Comment: Interpretive Data Ages < or = 19 years Acceptable: <110 mg/dL Borderline high: 110-129 mg/dL High: >or= 130 mg/dL Ages > or = 20 years Optimal: <100 mg/dL Near optimal: 100-129 mg/dL Borderline high: 130-159 mg/dL High: >160 mg/dL Calculated using the Azam LDL-C estimating equation. This equation was implemented on 2023. Prior to this date LDL-C was estimated using the Friedewald equation. Literature References: 1. Expert Panel on Integrated Guidelines for Cardiovascular Health and Risk Reduction in Children and Adolescents. Pediatrics 2011;128:S213 2. NCEP Expert Panel. Circulation 2004;110:227 3. Azam Szymanski al. YANNICK Cardiol. 2020 August 19;5(5):540-548. doi: 10.1001/[email or web address] Current Interpretive Data was last revised on 2023. Non-HDL Cholesterol 93 mg/dL [facility] Comment: Interpretive Data Ages < or = 19 years Acceptable: <120 mg/dL Borderline high: 120-144 mg/dL High: >145 mg/dL Ages > or = 20 years When triglycerides are >200 mg/dL, Non-HDL cholesterol is a secondary target of therapy with treatment goals that are 30 mg/dL greater than the LDL cholesterol target. Literature References: 1. Expert Panel on Integrated Guidelines for Cardiovascular Health and Risk Reduction in Children and Adolescents. Pediatrics 2011;128:S213 2. NCEP Expert Panel. Circulation 2004;110:227 Current Interpretive Data was last revised on 2017. Chol/HDL ratio 3 [facility] Blood 03/29/2024 9:41 AM ZONE SUPERVISOR FI[employer]ARMS 03/29/2024 9:44 AM ZONE SUPERVISOR FIREARMS Narrative [facility] - 03/29/2024 10:07 AM ZONE SUPERVISOR FIREARMS Cardio onc lab, dr mcdonough. [place] Job Mcdonough MD LAB BLOOD ORDERABLES Final Result [facility] [place] [address] * (ABNORMAL) Comprehensive metabolic panel (03/29/2024 9:41 AM ZONE SUPERVISOR FIREARMS) Sodium 138 135 - 145 mmol/L Potassium, pl 4.1 3.3 - 4.9 mmol/L [facility] Chloride 105 97 - 110 mmol/L [facility] CO2 29 22 - 32 mmol/L [facility] Anion gap 4 2 - 15 mmol/L [facility] BUN 24 6 - 25 mg/dL [facility] Creatinine 1.46(H) 0.80 - 1.30 mg/dL [facility] Glucose 90 70 - 199 mg/dL [facility] Comment: Interpretive Data Fasting glucose >/= 126 mg/dl is diagnostic for diabetes. Fasting is defined as no caloric intake for at least 8 hours. Fasting glucose between 100 mg/dl to 125 mg/dl is diagnostic of prediabetes. In a patient with classic symptoms of hyperglycemia or hyperglycemic crisis, a random glucose >/= 200 mg/dl is diagnostic for diabetes. In the absence of unequivocal hyperglycemia, results should be confirmed by repeat testing. The classification and Diagnosis of Diabetes Diabetes Care 202; 46: S19-S40. Current interpretive data was last revised 2022. Calcium 8.8 8.5 - 10.3 mg/dL [facility] Bilirubin, total 0.5 0.1 - 1.2 mg/dL [facility] Protein, pl 8.1 6.5 - 8.5 g/dL [facility] Albumin 3.2(L) 3.5 - 5.0 g/dL [facility] Alk phos 88 40 - 130 Units/L [facility] ALT 12 7 - 55 Units/L [facility] AST 21 10 - 50 Units/L [facility] Blood 03/29/2024 9:41 AM ZONE SUPERVISOR FIREARMS 03/29/2024 9:44 AM ZONE SUPERVISOR FIREARMS Narrative [facility] - 03/29/2024 10:07 AM ZONE SUPERVISOR FIREARMS Cardio onc lab, dr mcdonough. [place] Job Mcdonough MD LAB BLOOD ORDERABLES Final Result [facility] [place] [address] from Last 3 Months Additional Health Concerns Infection Onset Date Last Indicated MDR gram neg/ESBL 10/16/2020 10/16/2020 Insurance [facility] MEDICARE GOLD [employer] MEDICARE GOLD AETNA MEDICARE AETNA MEDICARE GOLD Advance Directives For more information, please contact: [phone] Documents on File Type Date Recorded Patient District Director Expl anation ADVANCE DIRECTIVE 01/06/2019 12:00 AM PAULA NG WILL * Full Code (Latest Code Status on File) Date Activated Date Inactivated Comments 10/06/2020 3:43 PM 10/26/2020 7:19 PM * Full Code Date Activated Date Inactivated Comments 09/27/2020 8:36 PM 10/06/2020 3:42 PM Care Teams Document Coordinator Relationship Specialty Start Date End Date Vineet Quintana MD [address] [place] [address] PCP - General 07/19/16 Puneet Dee MD [address] [place] [address] Consulting Physician Cardiology 12/22/18
--- OUTSIDE RECORDS SUMMARY | 2024-06-16 12:01 | XMS_ITS | Encounter Summary ---
Author Organization [facility] Address [address] [place] [id number] Care Team Providers Care Research Pharmacist Name Role Phone Vineet Quintana MD Primary Care Provider Puneet Dee MD Unavailable [phone] Encounter Details Date Type Department Care Team (Late st Contact Info) Description 07/31/2016 Orders Only [facility] ProviderChetna MD [address] [place] [id number] Social History Tobacco Use Types Packs/Day Years Used Date Smoking Tobacco: Never Alcohol Use Standard Drinks/Week Comments No 0 (1 standard drink = 0.6 oz pur e alcohol) Sex and Gender Information Value Date Recorded Sex Assigned at Not on file 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 Historical Provider [facility] KARENA BURR Final Result documented in this encounter Visit Diagnoses Not on filedocumented in this encounter Additional Health Concerns Infection Onset Date Last Indicated Resolved Time MDR gram neg/ESBL 10/16/2020 10/16/2020 documented as of this encounter Care Teams Research Pharmacist Relationship Specialty Start Date End Date Vineet Quintana MD [address] [place] [address] PCP - General 07/19/16 Puneet Dee MD [address] [place] [address] Consulting Physician Cardiology 12/22/18 documented as of this encounter
--- OUTSIDE RECORDS SUMMARY | 2024-06-16 12:01 | XMS_ITS | Encounter Summary ---
Author Organization [facility] Address [facility] [place] [address] Care Team Providers Care Performance Improvement Manager Name Role Phone Vineet Quintana MD Primary Care Provider [phone] Encounter Details Date Type Department Care Team (Late st Contact Info) Description 08/09/2020 Prep for Procedure [facility] [address] [place], [place] [id number] Luigi Mueller MD [address] [facility] [address] [place] [address] Social History Tobacco Use Types Packs/Day Years Used Date Smoking Tobacco: Unknown Smokeless Tobacco: Never Sex and Gender Information Value Date Recorded Sex Assigned at Not on file Legal Sex Male 9:25 PM CDT Gender Identity Not on file Sexual Orientation Not on file COVID-19 Exposure Response Date Recorded In the last month, have you been in contact with someone who was confirmed or suspected to have Coronavirus / COVID-19? No / Unsure 08/11/2020 9:28 AM CDT documented as of this encounter Plan of Treatment Not on file documented as of this encounter Results * PRE-SURGICAL/PRE-PROCEDURE CORONAVIRUS (COVID 19) (08/11/2020 9:29 AM CDT) Pathologist [facility] CORONAVIRUS SARS COV 2 PCR (RESP) NOT DETECTED NOT DETECTED 08/12/2020 2:16 PM CDT [facility] Comment: A Not Detected (negative) test result for this test means that SARS-CoV-2 RNA was not present in the specimen above the limit of detection. A negative result does not rule out the possibility of COVID-19 and should not be used as the sole basis for treatment or patient management decisions. If COVID-19 is still suspected, based on exposure history together with other clinical findings, re-testing should be considered in consultation with public health authorities. Laboratory test results should always be considered in the context of clinical observations and epidemiological data in making a final diagnosis and patient management decisions. This patient specimen was tested using an FDA EUA pooling method. Negative results from pooled testing should not be treated as definitive. If the patient's clinical signs and symptoms are inconsistent with a negative result or results are necessary for patient management, then the patient should be considered for individual testing. In very rare cases, estimated at about 8 in 1,000 (0.8%) or less patient specimens with low viral loads may not be detected in sample pools due to the decreased sensitivity of pooled testing. Please review the Fact Sheets and FDA authorized labeling available for health care providers and patients using the following websites: https://[email or web address].noodls/home/Covid-19/HCP/rc- ermx-pnx4-kbmc-sheet.html https://[email or web address].noodls/home/Covid-19/Patients/ mk-qwau-ikj2-fact-sheet.html This test has been authorized by the FDA under an Emergency Use Authorization (EUA) for use by authorized laboratories. Due to the current public health emergency, [facility] [employer] [facility] is receiving a high volume of samples from a wide variety of swabs and media for COVID-19 testing. In order to serve patients during this public health crisis, samples from appropriate clinical sources are being tested. Negative test results derived from specimens received in non-commercially manufactured viral collection and transport media, or in media and sample collection kits not yet authorized by FDA for COVID-19 testing should be cautiously evaluated and the patient potentially subjected to extra precautions such as additional clinical monitoring, including collection of an additional specimen. Methodology: Nucleic Acid Amplification Test (NAAT) includes RT-PCR or TMA Additional information about COVID-19 can be found at the [employer] website: www.[employer]noodls/Covid19. Test performed at [facility] [address] [place] [address] Director: ERNESTO CHAO DO,MPH FIRST TEST UNKNOWN 08/11/2020 9:28 AM CDT [facility] EMPLOYED IN HEALTHCARE UNKNOWN 08/11/2020 9:28 AM CDT [facility] SYMPTOMATIC DEFINED BY CDC NO 08/11/2020 9:28 AM CDT [facility] DATE OF SYMPTOM ONSET UNKNOWN 08/11/2020 10:38 AM CDT [facility] HOSPITALIZATION STATUS NO 08/11/2020 9:28 AM CDT [facility] PATIENT IN ICU NO 08/11/2020 9:28 AM CDT [facility] RESIDENT OF [facility] UNKNOWN 08/11/2020 9:28 AM CDT [facility] UNKNOWN 08/11/2020 10:38 AM CDT [facility] PATIENT'S RACE PATIENT DECLINED 07/21 9:28 AM CDT [facility] ETHNICITY UNKNOWN 08/11/2020 9:28 AM CDT [facility] SOURCE (QST) NASOPHARYNGEAL SWAB 08/11/2020 9:28 AM CDT [facility] NASOPHARYNGEAL SWAB / Unknown 08/11/2020 9:29 AM CDT us Luigi Mueller MD MICROBIOLOGY - GENERAL ORDERA BLES Final Result [facility] [address] [place] [address], [place] [phone] [facility] [address] [place] [address], [place] documented in this encounter Visit Diagnoses Diagnosis Preop testing- Primary Preoperative examination, unspecified documented in this encounter Additional Health Concerns Infection Onset Date Last Indicated Resolved Time COVID-19 Rule Out 08/11/2020 08/11/2020 08/12/2020 2:16 PM CDT documented as of this encounter Care Teams Performance Improvement Manager Relationship Specialty Start Date End Date Vineet Quintana MD [address] [place] [address] PCP - General FAMILY PRACTICE 08/11/20 documented as of this encounter
--- OUTSIDE RECORDS SUMMARY | 2024-06-16 12:01 | XMS_ITS | Referral Summary ---
Author Organization [facility] Address [address] [facility] [place] [address] Care Team Providers Care Machine Shop Supervisor Name Role Phone Vineet Quintana MD Primary Care Provider Puneet Dee MD Unavailable [phone] Encounters Date Type Department Care Team Description 05/14/2024 9:00 AM MAINTENANCE TECHNICIAN 3RD SHIFT Office Visit [facility] Cardiology 10 [facility] [address] [place] [phone] Kaley Echeverria NP Chronic atrial fibrillation (HCC) (Primary Dx); Chronic anticoagulation; History of recent pneumonia; Vision changes; Hospital discharge follow-up 05/10/2024 Anticoagulation Visit [facility] Cardiology [address] [facility] [address] [place] [phone] Fina Saab RN Atrial fibrillation, unspecified type (HCC) (Primary Dx) 05/07/2024 Telephone [facility] Cardiology [address] [place] [address] Advanced [facility] 8th [place] [address] [place] [address] Job Mcdonough MD any add'l amyloid testing? 04/22/2024 Telephone [place] [id number] [facility] 8th [place] [address] [place] [address] Job Mcdonough MD 04/01/2024 Telephone [facility] Cardiology [facility]0 [facility] Floor 1, [address] [place] [address] Job Mcdonough MD 03/29/2024 Anticoagulation Visit [facility] Cardiology [address] [place] [address] Puneet Huerta RN Atrial fibrillation, unspecified type (HCC) (Primary Dx) 03/29/2024 Documentation [facility] Cardiology [address] [facility] Floor 1, [address] [place] [address] Lashon Parrish RN 03/29/2024 9:30 AM MAINTENANCE TECHNICIAN 3RD SHIFT Lab [facility] [address] [facility] Floor 5 [place] [address] Cardiomyopathy, unspecified type (HCC); Essential hypertension; Chronic anticoagulation; Type 2 diabetes mellitus with chronic kidney disease, without long-term current use of insulin, unspecified CKD stage (HCC) 03/29/2024 8:00 AM MAINTENANCE TECHNICIAN 3RD SHIFT Office Visit [facility] Cardiology [facility] Floor 1, [address] [place] [address] Job Mcdonough MD Cardiomyopathy, unspecified type (HCC) (Primary Dx); Bilateral carotid artery stenosis; Essential hypertension; Chronic anticoagulation; Type 2 diabetes mellitus with chronic kidney disease, without long-term current use of insulin, unspecified CKD stage (HCC) from Last 3 Months Allergies No known active allergies Medications pravastatin [...] (10/02/2020): Added automatically from request for surgery [id number] Disorder of arteries and arterioles 06/20/2020 Carotid [...] (09/13/2016): SOB (shortness of breath) Atrial fibrillation ([facility]) 09/04/2013 Overview (07/26/2016): ATRIAL FIBRILLATION Resolved Problems Problem Noted Date Diagnosed Date Resolved Date Pulmonary HTN ([facility]) 11/05/2016 08/2 09/2020 Immunizations Immunization Administration Dates Next Due Influenza, Quadrivalent, Hig h Dose, Preservative Free, Intrr 02/18/2020 Influenza, Trivalent, High D ose, Split, Preservative Free, Intramuscular 02/19/2019,02/04/2017 Influenza, Trivalent, IM (MDV) 01/04/2013 Tdap 08/08/2016 Social History Tobacco Use Types Packs/Day Years [...] week 10/12/2020 How often do you attend [facility] or sikhism services? Never 10/12/2020 Do you belong to any clubs o r organizations such as confucianism groups, unions, fraternal or athletic groups, or [...] place to sleep or slept in a [place] health [place] facility (including now)? No 10/12/2020 Sex and Gender Information Value Date Recorded Sex Assigned at Not on file Legal Sex Male 12:35 AM MAINTENANCE TECHNICIAN 3RD SHIFT Gender Identity Not on file Sexual Orientation Not on file Last Filed Vital Signs Vital Sign Reading Time Taken Comments Blood Pressure 108/58 05/14/2024 9:18 AM MAINTENANCE TECHNICIAN 3RD SHIFT Pulse 88 05/14/2024 9:18 AM MAINTENANCE TECHNICIAN 3RD SHIFT Temperature 36.1 C (97 F) 01/16/2021 9:50 AM CDT Respiratory Rate 18 03/29/2024 8:29 AM MAINTENANCE TECHNICIAN 3RD SHIFT Oxygen Saturation 96% 05/14/2024 9:18 AM MAINTENANCE TECHNICIAN 3RD SHIFT Inhaled Oxygen Concentration - - Weight 85.7 kg (189 lb) 05/14/2024 9:18 AM MAINTENANCE TECHNICIAN 3RD SHIFT Height 180.3 cm (5' 11 ) 05/14/2024 9:18 AM MAINTENANCE TECHNICIAN 3RD SHIFT Body Mass Index 26.36 05/14/2024 9:18 AM MAINTENANCE TECHNICIAN 3RD SHIFT Plan of Treatment Not on file Medical Devices Implanted Type Area Game Manager Device Identifier Shelf Expiration Date Model / Serial / Lot Medtronic Scs Lead [id number] Implanted:Qty : 2 Lead Back Medtronic Inc [id number] / / Description:STIMULATOR IS NO T CURRENTLY ACTIVE, NOT SURE WHERE EXTERNAL CONTROLLER IS - PT DOES NOT USE JL 04/22/24 Medtronic Scs [id number]/15/20 16 Implanted: (Quantity not on file) Spinal Cord Stimulator Left: Lumbar-Sac ral Spine Medtronic [id number] / [id number] / Description:STIMULATOR IS NO T CURRENTLY ACTIVE, NOT SURE WHERE EXTERNAL CONTROLLER IS - PT DOES NOT USE JL 04/22/24 Shane Donovan from [employer]tronic patient managing Dr needs to fill out MRI scan type eligibility form prior to MRI since device is NON Functioning and external controller is missing. Edda Spine [id number] l7-G2 Cage Spinal [place]ade 7 D L13mm X W16mm X H7mm Sterile Latex Free Cervical Interbody System - [id number] Implanted:Qty : 1 on 10/04/2020 by Eliseo Del Castillo MD at [facility] N/A: Spine Cervical Edda Spine [id number] 08/04/2024 6101-213 [id number]- G2 / / [id number] Edda Spine [id number] l7-G2 Cage Spinal Meade 7 D L13mm X W16mm X H8mm Sterile Latex Free Cervical Interbody System - [id number] Implanted:Qty : 1 on 10/04/2020 by Eliseo Del Castillo MD at [facility] N/A: Spine Cervical Blackwell Spine [id number] 12/17/2024 6101-213 1286YA9- G2 / / [id number] Edda Spine [id number] [place] 34mm 2 Level Spine Cervical Plate Bone Nonsterile - [id number] Implanted:Qty : 1 on 10/04/2020 by Eliseo Del Castillo MD at [facility] N/A: Spine Cervical Edda Spine [id number] / / Edda Spine [id number] [place] 4mm 18mm Self Tap Variable Angle Spine Cervical Screw Bone - [id number] Implanted:Qty : 2 on 10/04/2020 by Eliseo Del Castillo MD at [facility] N/A: Spine Cervical Edda Spine [id number] 18CA / / Edda Spine [id number] [place] 4mm 18mm Self Tap Fix Angle Spine Cervical Screw Bone - [id number] Implanted:Qty : 2 on 10/04/2020 by Eliseo Del Castillo MD at [facility] N/A: Spine Cervical Edda Spine [id number] 18CA / / Screw Bone 4mm 20mm Spine Cerv St Variable Nonstrl Ltxfre - [id number] Implanted:Qty : 2 on 10/04/2020 by Eliseo Del Castillo MD at [facility] N/A: Spine Cervical Blackwell Spine [id number] 20CA / / Procedures Procedure Name Priority Date/Time Associated Diagnosis Comments PROTIME-INR Routine 05/08/2024 11:33 AM MAINTENANCE TECHNICIAN 3RD SHIFT Atrial fibrillation, unspecified type (HCC) Chronic anticoagulation SCAN - LABS 03/30/2024 EGFR Routine 03/29/2024 9:41 AM MAINTENANCE TECHNICIAN 3RD SHIFT Cardiomyopathy, unspecified type (HCC) Essential hypertension DIFFERENTIAL AUTO Routine 03/29/2024 9:4 1 AM MAINTENANCE TECHNICIAN 3RD SHIFT Cardiomyopathy, unspecified type (HCC) Essential hypertension COMPREHENSIVE METABOLIC PANEL Routine 03/29/2024 9:41 AM MAINTENANCE TECHNICIAN 3RD SHIFT Cardiomyopathy, unspecified type (HCC) Essential hypertension HEMOGLOBIN A1C Routine 03/29/2024 9:41 AM MAINTENANCE TECHNICIAN 3RD SHIFT Cardiomyopathy, unspecified type (HCC) Essential hypertension Type 2 diabetes mellitus with chronic kidney disease, without long-term current use of insulin, unspecified CKD stage (HCC) LIPID PANEL Routine 03/29/2024 9:41 AM MAINTENANCE TECHNICIAN 3RD SHIFT Cardiomyopathy, unspecified type (HCC) Essential hypertension CBC WITH AUTO DIFFERENTIAL Routine 03/29/2024 9:41 AM MAINTENANCE TECHNICIAN 3RD SHIFT Cardiomyopathy, unspecified type (HCC) Essential hypertension PROTIME-INR Routine 03/29/2024 9:41 AM MAINTENANCE TECHNICIAN 3RD SHIFT Cardiomyopathy, unspecified type (HCC) Essential hypertension Chronic anticoagulation from Last 3 Months Results * (ABNORMAL) Protime-INR (05/08/2024 11:33 AM MAINTENANCE TECHNICIAN 3RD SHIFT) INR 2.9(H) ChicfyIvonne Renee Comment: Reference Range 0.9-1.1 Moderate-intensity Warfarin Therapy 2.0-3.0 Higher-intensity Warfarin Therapy 3.0-4.0 PT 28.5(H) 9.0 - 11.5 sec SnaapiqAlfonso Renee Comment: For additional information, please refer to http://education.Artisoft/faq/LAT665 (This link is being provided for informational/ educational purposes only.) Blood 05/08/2024 11:3 3 AM MAINTENANCE TECHNICIAN 3RD SHIFT 05/08/2024 11:34 AM MAINTENANCE TECHNICIAN 3RD SHIFT Narrative [facility] - 05/09/2024 3:12 AM MAINTENANCE TECHNICIAN 3RD SHIFT FASTING:NO FASTING: NO us Puneet Dee MD LAB BLOOD ORDERABLES Colleen l Result [email or web address] [address] [place] [address] * SCAN - LABS (03/30/2024) us Provider Scanning Final Result * (ABNORMAL) eGFR (03/29/2024 9:41 AM MAINTENANCE TECHNICIAN 3RD SHIFT) eGFR 47(L) >=60 mL/min/1. 73 m2 Comment: [...] last reviewed 2021. Blood 03/29/2024 9:41 AM MAINTENANCE TECHNICIAN 3RD SHIFT 03/29/2024 9:44 AM MAINTENANCE TECHNICIAN 3RD SHIFT us Job Mcdonough MD LAB BLOOD ORDERABLES Final Result EMELY KELLEY [facility] [place] [address] * (ABNORMAL) Differential, auto (03/29/2024 9:41 AM MAINTENANCE TECHNICIAN 3RD SHIFT) Pathologist [facility] Neutrophil abs 6.2 1.5 - 6.5 K/cumm Comment:Testing performed by : [facility] Heme Lab, [address] [place] [phone] Lymphocyte abs 1.2 0.8 - 3.3 K/cumm EMELY KELLEY Comment:Testing performed by : [facility], [address] [place] [phone] Monocyte abs 1.4(H) 0.2 - 0.8 K/cumm EMELY KELLEY Comment:Testing performed by : [facility], [address] [place] [phone] Eosinophil abs 0.3 0.0 - 0.5 K/cumm CERNER BJ Comment:Testing performed by : [facility]e [facility], [address] [place] [address] Basophil abs 0.1 0.0 - 0.1 K/cumm CERNER [facility]H Comment:Testing performed by : [facility], [address] [place], [place] [id number] Neutrophil pct 67.6 % CERNER BJ Comment: Interpretive Data Percent cell count reference ranges are not reported, since discordance with absolute values may lead to misinterpretation of CBC data. Current Interpretive Data was last revised on 2017. Testing performed by: [facility], [address] [place] [address] Lymphocyte pct 13.6 % CERNER BJ Comment: Interpretive Data Percent cell count reference ranges are not reported, since discordance with absolute values may lead to misinterpretation of CBC data. Current Interpretive Data was last revised on 2017. Testing performed by: [facility], [address] [place] [address] Monocyte pct 14.9 % CERNER BJ Comment: Interpretive Data Percent cell count reference ranges are not reported, since discordance with absolute values may lead to misinterpretation of CBC data. Current Interpretive Data was last revised on 2017. Testing performed by: [facility]e [facility], [address] [place] [address] Eosinophil pct 3.1 % CERNER BJ Comment: Interpretive Data Percent cell count reference ranges are not reported, since discordance with absolute values may lead to misinterpretation of CBC data. Current Interpretive Data was last revised on 2017. Testing performed by: [facility]e Lab, [address] [place], [place] [id number] Basophil pct 0.8 % CERNER BJ Comment: Interpretive Data Percent cell count reference ranges are not reported, since discordance with absolute values may lead to misinterpretation of CBC data. Current Interpretive Data was last revised on 2017. Testing performed by: [facility]e [facility], [address] [place] [address] Blood 03/29/2024 9:41 AM MAINTENANCE TECHNICIAN 3RD SHIFT 03/29/2024 9:42 AM MAINTENANCE TECHNICIAN 3RD SHIFT us Job Mcdonough MD LAB BLOOD ORDERABLES Final Result EMELY KELLEY [facility] Department [place] [address] * (ABNORMAL) CBC with auto differential (03/29/2024 9:41 AM MAINTENANCE TECHNICIAN 3RD SHIFT) WBC 9.1 3.8 - 9.9 K/cumm Comment:Testing performed by : [facility] Heme Lab, [address] [place] [address] Hgb 10.9(L) 13.0 - 17.5 g/dL CERTIFFANIE KELLEY Comment:Testing performed by : [facility]e Lab, [address] [place] [address] Hct 34.5(L) 38.9 - 50.3 % EMELY KELLEY Comment:Testing performed by : [facility]e Lab, [address] [place] [address] Plt 252 150 - 400 K/cumm CERTIFFANIE KELLEY Comment:Testing performed by : [facility] Heme Lab, [address] [place] [address] MPV 7.1 6.8 - 10.4 fL CERTIFFANIE BJ Comment:Testing performed by : [facility] Heme Lab, [address] [place] [address] RBC 3.51(L) 4.30 - 5.80 M/cumm CERTIFFANIE BJ Comment:Testing performed by : [facility] Heme Lab, [address] [place] [address] MCV 98.4(H) 81.3 - 96.4 fL CERTIFFANIE BJ Comment:Testing performed by : [facility] Heme Lab, [address] [place] [address] MCH 31.1 27.1 - 33.3 pg CERTIFFANIE BJ Comment:Testing performed by : [facility] Heme Lab, [address] [place] [address] MCHC 31.6(L) 32.3 - 35.7 g/dL EMELY [facility] Comment:Testing performed by : [facility] Heme Lab, [address] [place], [place] [phone] RDW CV 14.6 11.1 - 14.9 % [facility] Comment:Testing performed by : [facility] Heme Lab, [address] [place] [phone] NRBC abs 0.00 0.00 - 0.01 K/cumm [facility] Comment:Testing performed by : [facility]e Lab, [address] [place] [phone] Blood 03/29/2024 9:41 AM MAINTENANCE TECHNICIAN 3RD SHIFT 03/29/2024 9:42 AM MAINTENANCE TECHNICIAN 3RD SHIFT Narrative EMELY KELLEY - 03/29/2024 9:45 AM MAINTENANCE TECHNICIAN 3RD SHIFT Cardio onc labdr mcdonough. Job Mcdonough MD LAB BLOOD ORDERABLES Final Result Performing Organization Address City/State/[facility] Co de Phone Number [facility] [place] [address] * (ABNORMAL) Protime-INR (03/29/2024 9:41 AM MAINTENANCE TECHNICIAN 3RD SHIFT) PT 29.3(H) 9.7 - 13.0 sec INR 2.66(H) 0.90 - 1.20 [facility] Comment: Interpretive data Oral anticoagulant therapeutic ranges: Venous thromboembolism prophylaxis or treatment: 2.0-3.0 CARDIOLOGY Standard range: 2.0-3.0 High-intensity range: 2.5-3.5 Refer to indication-specific guidelines for appropriate target ranges for prosthetic heart valve replacement. Current interpretive data was last revised on 2019. Blood 03/29/2024 9:41 AM MAINTENANCE TECHNICIAN 3RD SHIFT 03/29/2024 10:28 AM MAINTENANCE TECHNICIAN 3RD SHIFT Narrative EMELY KELLEY - 03/29/2024 10:52 AM MAINTENANCE TECHNICIAN 3RD SHIFT Cardio onc labdr mcdonough. Job Mcdonough MD LAB BLOOD ORDERABLES Final Result Performing Organization Address City/[facility] de Phone Number [facility] [place] [address] * (ABNORMAL) Hemoglobin A1c (03/29/2024 9:41 AM MAINTENANCE TECHNICIAN 3RD SHIFT) Hgb A1C 6.3(H) 4.0 - 5.6 % Estimated Average Glucose 134 mg/dL [facility] Comment: The ADA recommends reporting an estimated Average Glucose (eAG) with all Hemoglobin A1c results using the equation derived from a study of 507 normal and diabetic adults. Minority populations were underrepresented and children were not included. (Diabetes Care 2020; 43(S1): S66-S76). The eAG is not equivalent to a fasting glucose. Blood 03/29/2024 9:41 AM MAINTENANCE TECHNICIAN 3RD SHIFT 03/29/2024 9:44 AM MAINTENANCE TECHNICIAN 3RD SHIFT Narrative [facility] - 03/29/2024 10:00 AM MAINTENANCE TECHNICIAN 3RD SHIFT Cardio onc lab, dr mcdonough. Job Mcdonough MD LAB BLOOD ORDERABLES Final Result Performing Organization Address [facility] de Phone Number [facility] Department [place] [address] * (ABNORMAL) Lipid panel (03/29/2024 9:41 AM MAINTENANCE TECHNICIAN 3RD SHIFT) Cholesterol 131 30 - 199 mg/dL Comment: [...] revised on 2017. Triglycerides 104 <=149 mg/dL [facility] Comment: Interpretive Data Ages < or = [...] revised on 2017. HDL 38(L) >=40 mg/dL [facility] Comment: Interpretive Data Ages < or = [...] on 2017. LDL, calculated 74 <=129 mg/dL [facility] Comment: Interpretive Data Ages < or = [...] revised on 2023. Non-HDL Cholesterol 93 mg/dL [facility] Comment: Interpretive Data Ages < or = [...] last revised on 2017. Chol/HDL ratio 3 [facility] Blood 03/29/2024 9:41 AM MAINTENANCE TECHNICIAN 3RD SHIFT 03/29/2024 9:44 AM MAINTENANCE TECHNICIAN 3RD SHIFT Narrative [facility] - 03/29/2024 10:07 AM MAINTENANCE TECHNICIAN 3RD SHIFT Cardio onc lab, dr mcdonough. us Job Mcdonough MD LAB BLOOD ORDERABLES Final Result [facility] [place] [address] * (ABNORMAL) Comprehensive metabolic panel (03/29/2024 9:41 AM MAINTENANCE TECHNICIAN 3RD SHIFT) Sodium 138 135 - 145 mmol/L Potassium, pl 4.1 3.3 - 4.9 mmol/L [facility] Chloride 105 97 - 110 mmol/L [facility] CO2 29 22 - 32 mmol/L [facility] Anion gap 4 2 - 15 mmol/L [facility] BUN 24 6 - 25 mg/dL [facility] Creatinine 1.46(H) 0.80 - 1.30 mg/dL [facility] Glucose 90 70 - 199 mg/dL [facility] Comment: Interpretive Data Fasting glucose >/= 126 [...] classification and Diagnosis of Diabetes Diabetes Care 2021; 46: S19-S40. Current interpretive data was last revised 2022. Calcium 8.8 8.5 - 10.3 mg/dL [facility] Bilirubin, total 0.5 0.1 - 1.2 mg/dL [facility] Protein, pl 8.1 6.5 - 8.5 g/dL [facility] Albumin 3.2(L) 3.5 - 5.0 g/dL [facility] Alk phos 88 40 - 130 Units/L [facility] ALT 12 7 - 55 Units/L [facility] AST 21 10 - 50 Units/L [facility] Blood 03/29/2024 9:41 AM MAINTENANCE TECHNICIAN 3RD SHIFT 03/29/2024 9:44 AM MAINTENANCE TECHNICIAN 3RD SHIFT Narrative CERNER [facility] - 03/29/2024 10:07 AM MAINTENANCE TECHNICIAN 3RD SHIFT Cardio onc lab, dr mcdonough. us Job Mcdonough MD LAB BLOOD ORDERABLES Final Result [facility] Department [place] [address] from Last 3 Months Additional Health Concerns Infection Onset Date Last Indicated MDR gram neg/ESBL 10/16/2020 10/16/2020 Insurance AETNA MEDICARE GOLD AETNA MEDICARE GOLD AETNA MEDICARE AETNA MEDICARE GOLD Advance Directives For more information, please contact: [phone] Documents on File Type Date Recorded Patient Public Speaking Professor Expl anation ADVANCE DIRECTIVE 01/06/2019 12:00 AM PAULA NG WILL * Full Code (Latest Code Status on File) Date Activated Date Inactivated Comments 10/06/2020 3:43 PM 10/26/2020 7:19 PM * Full Code Date Activated Date Inactivated Comments 09/27/2020 8:36 PM 10/06/2020 3:42 PM Care Teams Machine Shop Supervisor Relationship Specialty Start Date End Date Vineet Quintana MD [address] [facility] [address] [place] [address] PCP - General 07/19/16 Puneet Dee MD [address] [facility] [address] [place] [address] Consulting Physician Cardiology 12/22/18
[2024-06-16 12:19] LABS: Alanine Aminotransferase 22 U/L (6-50); Albumin Level 3.5 g/dL (3.5-5.1); Alkaline Phosphatase 102 U/L (38-126); Anion Gap 12 mmol/L (4-12); Aspartate Amino Transferase 28 U/L (17-59); Bilirubin,Total 0.6 mg/dL (0.2-1.3); Blood Urea Nitrogen 28 mg/dL (9-20); Calcium 9.1 mg/dL (8.4-10.2); Carbon Dioxide 22 mmol/L (22-30); Chloride 103 mmol/L (98-107); Estimated Glomerular Filt Rate 48; Glucose 97 mg/dL (65-110); Potassium 4.4 mmol/L (3.4-5.0); Sodium 137 mmol/L (137-145)
[2024-06-16 13:44] LABS: Hemoglobin A1C 6.2 % (<5.7)
== END 2024-06-16 10:35 | disposition home or self-care (01) ==
PROVIDERS: PCP Family Medicine; Visit Provider Family Medicine
DX: E11.40 Type 2 diabetes mellitus with diabetic neuropathy, unspecified (principal); Z79.4 Long term (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 of insulin
CPT/HCPCS: 36415; 80053; 83036

== ENCOUNTER 2024-09-22 09:29 | Emergency (ER) | payer MEDICARE, SELFPAY ==
--- NOTE | ~2024-09-22 | XR_ITS ---
XR hip RT min 2V 09/22/2024 11:05 Indication: Right hip pain. Procedure: 3 views right hip Comparison: Comparison to multiple prior studies sequentially, with oldest reviewed study dated 10/12. Findings: There is a right total hip arthroplasty which is well seated. No underlying fracture or tra umatic malalignment. There is heterotopic ossification lateral to the hip joint. There is atheroscler osis. Impression: 1: No acute bone or joint abnormality. 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 Impression: 1: No acute bone or joint abnormality.
--- OUTSIDE RECORDS SUMMARY | 2024-09-22 09:36 | XMS_ITS | Clinical Summary ---
Author Organization [facility] Address [address] [address] Care Team Providers Care News Correspondent Name Role Phone Vineet Quintana MD Primary Care Provider Puneet Dee MD Unavailable [phone] Allergies No known active allergies Medications pravastatin (PRAVACHOL) 40 mg tablet Take 1 tablet (40 mg total) by mouth daily Active metoprolol tartrate (LOPRESSOR) 25 mg immediate release tablet Take 0.5 tablets (12.5 mg total) by mouth 2 (two) times a day 30 tablet 11 10/25/19 21 Active Additional Information Patient taking differently: 50 mgoral 2 times daily, Reported on 09/22/2024 furosemide (LASIX) 20 mg tabletIndicatio ns:Shortness of breath,Systolic congestive heart failure, unspecified HF chronicity (HCC) TAKE 1 TABLET BY MOUTH EVERY DAY 90 tablet 2 12/15/19 24 Active warfarin (COUMADIN) 3 mg tablet TAKE 1 AND 1/2 TABLETS BY MOUTH DAILY 135 tablet 04/27/19 25 Active doxycycline 100 mg tablet Take 1 tablet (100 mg total) by mouth 2 (two) times a day Active colchicine (COLCRYS) 0.6 mg tablet Take 1 tablet (0.6 mg total) by mouth daily Active docusate sodium (COLACE) 100 mg capsuleIndicati ons:constipatio n,Stool Softener Take 1 capsule (100 mg total) by mouth 2 (two) times a day 10/25/19 21 025 Discontinu ed(No longer taking - Do not display on AVS) amoxicillin-cla vulanate (AUGMENTIN) 875-125 mg per tablet Take 1 tablet by mouth 2 (two) times a day 025 Discontinu ed(No longer taking - Do not display on AVS) Active Problems Problem Noted Date Diagnosed Date LVH (left ventricular hypertrophy) 02/26/2024 Hyperlipidemia 08/28/2022 Assessment & Plan (09/10/2023 9:05 AM CDT): Hyperlipidemia chronic controlled. Continue pravastatin. Systolic congestive heart failure 12/27/2020 Cardiomyopathy 12/27/2020 At risk for venous thromboembolism (VTE) 021 08/27/2022 Overview (08/27/2022): Problem added by Discern Expert Rule: [id number] Lumbar canal stenosis 10/03/2020 Cervical stenosis of spine 09/27/2020 Overview (10/02/2020): Added automatically from request for surgery [id number] Disorder of arteries and arterioles 06/20/2020 Carotid [...] (09/13/2016): SOB (shortness of breath) Atrial fibrillation 09/04/2013 Overview (07/26/2016): ATRIAL FIBRILLATION Resolved Problems Problem Noted Date Diagnosed Date Resolved Date Pulmonary HTN (CMS/HCC) 11/05/201611/20 Encounters Date Type Department Care Team Description 09/22/2024 8:45 AM CDT Office Visit [facility] Cardiology [address] [place] [address] Puneet Dee MD Longstanding persistent atrial fibrillation (HCC) (Primary Dx); Cardiac amyloidosis (HCC); Bilateral carotid artery stenosis; Cardiomyopathy, unspecified type (HCC); Essential hypertension; LVH (left ventricular hypertrophy); Chronic systolic congestive heart failure (HCC) 09/15/2024 9:45 AM CDT Office Visit [facility] Vascular and Vein Surgery [address] [place] [address] Aubrey Renee MD Bilateral carotid artery stenosis (Primary Dx) 09/14/2024 Anticoagulation Visit [facility] Cardiology [address] [place] [address] Gregoria Sloan RN Atrial fibrillation, unspecified type (HCC) (Primary Dx) 09/10/2024 10:00 AM CDT - 09/10/2024 11:59 PM CDT Hospital Encounter [facility] 2 Vascular [address] [place] [address] Stenosis of left carotid artery Discharge Disposition: Discharge to home or self care 08/16/2024 Anticoagulation Visit [facility] Cardiology [address] [place] [address] Gregoria Sloan RN Atrial fibrillation, unspecified type (HCC) (Primary Dx) 06/24/2024 Anticoagulation Visit [facility] Cardiology [address] [place] [address] Gregoria Sloan RN Atrial fibrillation, unspecified type (HCC) (Primary Dx) 06/23/2024 9:36 AM BUTT MAKER - 06/23/2024 11:59 PM BUTT MAKER Hospital Encounter [facility] Radiology [address] [place] [address] Discharge Disposition: Discharge to home or self care 06/23/2024 9:35 AM BUTT MAKER - 06/23/2024 11:59 PM BUTT MAKER Hospital Encounter [facility] Radiology [address] [place] [address] LVH (left ventricular hypertrophy); Cardiac amyloidosis (HCC) Discharge Disposition: Discharge to home or self care 06/23/2024 Results Follow-Up [facility] Cardiology [address], [address] [place] [id number] Job Mcdonough MD [place] Myocardial Amyloidosis Imaging SPECT/CT from Last 3 Months Immunizations Immunization Administration [...] (hyperlipidemia) CKD (chronic kidney disease) Atrial fibrillation (HCC) Anticoagulated on Coumadin Chronic pain neck and back Cataract Family History Medical History Relation Name Comments Other Father Natural Causes; Cause of : Natural Causes Car Accident Mother MVA; Cause of D eath: MVA Relation Name Status Comments Father (Age 80) Mother Social History Tobacco Use Types Packs/Day Years [...] often do you attend chur ch or catholic services? Never 10/12/2020 Do you belong to any clubs o r organizations such as gnosticist groups, unions, fraternal or athletic groups, or [...] place to sleep or slept in a senior care (including now)? No 10/12/2020 Sex and Gender Information Value Date Recorded Sex Assigned at Not on file Legal Sex Male 12:35 AM BUTT MAKER Gender Identity Not on file Sexual Orientation Not on file Obstetrics History Last Filed Vital Signs Vital Sign Reading Time Taken Comments Blood Pressure 120/56 09/22/2024 8:44 AM CDT Pulse 102 09/22/2024 8:44 AM CDT Temperature 36.1 C (97 F) 01/16/2021 9:50 AM CDT Respiratory Rate 18 03/29/2024 8:29 AM BUTT MAKER Oxygen Saturation 92% 09/22/2024 8:44 AM CDT Inhaled Oxygen Concentration - - Weight 78.9 kg (174 lb) 09/22/2024 8:44 AM CDT Height 180.3 cm (5' 11) 09/22/2024 8:44 AM CDT Body Mass Index 24.27 09/22/2024 8:44 AM CDT Plan of Treatment Health Maintenance Due Date Last Done Comments Albumin Creatinine Ratio, Urine 1940 Depression Screening 1940 Dilated Eye Exam 1940 Foot Exam 1940 Hepatitis B Screening 1958 Pneumococcal vaccine 65+ (1 of 2 - PCV) 08/04/1959 Zoster Vaccine (1 of 2) 1990 Well Visit 65+ 2005 Fall Risk Assessment 10/26/2021 10/26/2020 Hemoglobin A1C 09/27/2024 03/29/2024, 06/12/2020, 09/03/2016 Influenza Vaccine (Season Ended) 2024 02/18/2020, 02/19/2019, 02/04/2017, Additional history exists Lipid Panel 03/29/2025 03/29/2024, 06/0 12/2020, 01/20/2019, Additional history exists eGFR 03/29/2025 03/29/2024, 01/03/2021 DTaP/Tdap/Td Vaccine (2 - Td or Tdap) 08/08/2026 08/08/2016 Medical Devices Implanted Type Area Ball Maker Device Identifier Shelf Expiration Date Model / Serial / Lot Medtronic Scs Lead [id number] Implanted:Qty : 2 Lead Back Medtronic Inc [id number] / / Description:STIMULATOR IS NO T CURRENTLY ACTIVE, NOT SURE WHERE EXTERNAL CONTROLLER IS - PT DOES NOT USE JL 04/22/24 Medtronic Scs [id number]/15/20 16 Implanted: (Quantity not on file) Spinal Cord Stimulator Left: Lumbar-Sac ral Spine Medtronic [id number] / [id number] / Description:STIMULATOR IS NO T CURRENTLY ACTIVE, NOT SURE WHERE EXTERNAL CONTROLLER IS - PT DOES NOT USE JL 04/22/24 Shane Donovan from [employer] patient managing Dr needs to fill out MRI scan type eligibility form prior to MRI since device is NON Functioning and external controller is missing. Calhoun Spine [id number] l7-G2 Cage Spinal Pullman 7 D L13mm X W16mm X H7mm Sterile Latex Free Cervical Interbody System - [id number] Implanted:Qty : 1 on 10/04/2020 by Eliseo Del Castillo MD at [facility] N/A: Spine Cervical Calhoun Spine [id number] 08/04/2024 6101-213 [id number] G2 / / [id number] Calhoun Spine [id number] l7-G2 Cage Spinal Pullman 7 D L13mm X W16mm X H8mm Sterile Latex Free Cervical Interbody System - [id number] Implanted:Qty : 1 on 10/04/2020 by Eliseo Del Castillo MD at [facility] N/A: Spine Cervical Calhoun Spine [id number] 12/17/20241-213 [id number] G2 / / [id number] Calhoun Spine [id number] [place] 34mm 2 Level Spine Cervical Plate Bone Nonsterile - [id number] Implanted:Qty : 1 on 10/04/2020 by Eliseo Del Castillo MD at [facility] N/A: Spine Cervical Calhoun Spine [id number] / / Edda Spine [id number] [place] 4mm 18mm Self Tap Variable Angle Spine Cervical Screw Bone - [id number] Implanted:Qty : 2 on 10/04/2020 by Eliseo Del Castillo MD at [facility] N/A: Spine Cervical Edda Spine [id number] 18CA / / Edda Spine [id number] [place] 4mm 18mm Self Tap Fix Angle Spine Cervical Screw Bone - [id number] Implanted:Qty : 2 on 10/04/2020 by Eliseo Del Castillo MD at [facility] N/A: Spine Cervical Calhoun Spine [id number] 18CA / / Screw Bone 4mm 20mm Spine Cerv St Variable Nonstrl Ltxfre - [id number] Implanted:Qty : 2 on 10/04/2020 by Eliseo Del Castillo MD at [facility] N/A: Spine Cervical Edda Spine [id number] 20CA / / Procedures Procedure Name Priority Date/Time Associated Diagnosis Comments US CAROTIDS DUPLEX BILATERAL Schedule Routine, Read Routine (OP Routine) 09/10/2024 10:57 AM CDT Stenosis of left carotid artery PROTIME-INR Routine 09/10/2024 9:17 AM CDT Atrial fibrillation, unspecified type (HCC) Chronic anticoagulation PROTIME-INR Routine 08/14/2024 10:30 AM CDT Atrial fibrillation, unspecified type (HCC) Chronic anticoagulation NM MYOCARDIAL AMYLOIDOSIS IMAGING SPECT/CT Schedule Routine, Read Routine (OP Routine) 06/23/2024 1:42 PM BUTT MAKER LVH (left ventricular hypertrophy) Cardiac amyloidosis (HCC) PROTIME-INR Routine 06/23/2024 8:22 AM BUTT MAKER Atrial fibrillation, unspecified type (HCC) Chronic anticoagulation EGFR Routine 03/29/2024 9:41 AM BUTT MAKER Cardiomyopathy, unspecified type (HCC) Essential hypertension HEMOGLOBIN A1C Routine 03/29/2024 9:41 AM BUTT MAKER Cardiomyopathy, unspecified type (HCC) Essential hypertension Type 2 diabetes mellitus with chronic kidney disease, without long-term current use of insulin, unspecified CKD stage (HCC) LIPID PANEL Routine 03/29/2024 9:41 AM BUTT MAKER Cardiomyopathy, unspecified type (HCC) Essential hypertension from Last 3 Months or Most Recently Relevant to Health Maintenance Results * US Carotids Duplex Bilateral (09/10/2024 10:57 AM CDT) Anatomical Region Laterality Modality Vascular Bilateral Ultrasound 09/10/2024 10:1 2 AM CDT Narrative 09/10/2024 10:59 AM CDT Carotid Duplex Ultrasound Report Patient Name: HEATH CHEN A : 1940 (84y 1m) Study Date: 09/10/2024 10:12:50 AM Gender: M Mine Engineer: Antonia Retana Provider: AUBREY RENEE Quality: Adequate Order Provider: AUBREY RENEE PROCEDURES: Carotid Report: Carotid duplex examination of the extracranial arteries was performed using 2D, color and spectral Doppler. Blood Pressure: Right: 152 mmHg. Left: 146 mmHg. INDICATIONS: I65.22 Occlusion and stenosis of left carotid artery. HISTORY: Right carotid endarterectomy 01/04/19 H/O HTN, QUIT SMOKING 50+ YEARS AGO. COMPARISONS: No change compared to prior study. The previous exam was completed on 09/01/23. MEASUREMENTS: Right Value Left Value RT Prox CCA PSV 90 cm/sec LT Prox CCA PSV 87 cm/sec RT Prox CCA EDV 15 cm/sec LT Prox CCA EDV 13 cm/sec RT Distal CCA PSV 80 cm/sec LT Distal CCA PSV 102 cm/sec RT Distal CCA EDV 11 cm/sec LT Distal CCA EDV 12 cm/sec RT Prox ICA PSV 64 cm/sec LT Prox ICA PSV 75 cm/sec RT Prox ICA EDV 18 cm/sec LT Prox ICA EDV 10 cm/sec RT Mid ICA PSV 83 cm/sec LT Mid ICA PSV 103 cm/sec RT Mid ICA EDV 16 cm/sec LT Mid ICA EDV 23 cm/sec RT Distal ICA PSV 97 cm/sec LT Distal ICA PSV 87 cm/sec RT Distal ICA EDV 34 cm/sec LT Distal ICA EDV 30 cm/sec RT ECA Mid PSV 152 cm/sec LT ECA Mid PSV 106 cm/sec RT ECA EDV 0 cm/sec LT ECA EDV 0 cm/sec RT ICA/CCA 1.08 ratio LT ICA/CCA 1.01 ratio Rt Vert PSV 52 cm/sec Lt Vert PSV 28 cm/sec FINDINGS: Rt Common Carotid Artery: Duplex imaging of the right common carotid artery is within normal limits without evidence of atherosclerotic disease. Rt Internal Carotid Artery: The plaque in the right internal carotid artery appears to be heterogeneous and smooth. Atherosclerotic changes of the right internal carotid artery without hemodynamically significant Doppler findings. <50% stenosis. Rt External Carotid Artery: The right external carotid artery is patent without evidence of atherosclerotic plaque. Rt Vertebral Artery: The right vertebral artery is patent with antegrade flow. Lt Common Carotid Artery: The plaque in the left CCA appears to be heterogeneous and smooth. Lt Internal Carotid Artery: The plaque in the left internal carotid artery appears to be heterogeneous, calcified and irregular. Atherosclerotic changes of the left internal carotid artery without hemodynamically significant Doppler findings. <50% stenosis. Lt External Carotid Artery: The left external carotid artery is patent without evidence of atherosclerotic plaque. Lt Vertebral Artery: The left vertebral artery is patent with antegrade flow. CONCLUSIONS: 1. The right internal carotid artery disease is consistent with a less than 50% stenosis. 2. The left internal carotid artery disease is consistent with a less than 50% stenosis. 3. Normal, antegrade flow is noted in bilateral vertebral arteries. ATTESTATION: I have reviewed and interpreted the pertinent images and measurements of this study. I attest to the conclusions in the final report that is provided above. Electronically Signed By: Aubrey Renee MD 09/10/2024 10:59:26 AM CDT Procedure Note Aubrey Renee MD - 09/10/2024 Carotid Duplex Ultrasound Report Patient Name: HEATH CHEN A : 1940 (84y 1m) Study Date: 09/10/2024 10:12:50 AM Gender: M Mine Engineer: Antonia eRtana Provider: AUBREY RENEE Quality: Adequate Order Provider: AUBREY RENEE PROCEDURES: Carotid Report: Carotid duplex examination of the extracranial arterieswas performed using 2D, color and spectral Doppler. Blood Pressure: Right: 152 mmHg. Left: 146 mmHg. INDICATIONS: I65.22 Occlusion and stenosis of left carotid artery. HISTORY: Right carotid endarterectomy 01/04/19 H/O HTN, QUIT SMOKING 50+ YEARS AGO. COMPARISONS: No change compared to prior study. The previous exam was completed on09/01/23. MEASUREMENTS: Right Value Left Value RT Prox CCA PSV 90 cm/sec LT Prox CCA PSV 87 cm/sec RT Prox CCA EDV 15 cm/sec LT Prox CCA EDV 13 cm/sec RT Distal CCA PSV 80 cm/sec LT Distal CCA PSV 102 cm/sec RT Distal CCA EDV 11 cm/sec LT Distal CCA EDV 12 cm/sec RT Prox ICA PSV 64 cm/sec LT Prox ICA PSV 75 cm/sec RT Prox ICA EDV 18 cm/sec LT Prox ICA EDV 10 cm/sec RT Mid ICA PSV 83 cm/sec LT Mid ICA PSV 103 cm/sec RT Mid ICA EDV 16 cm/sec LT Mid ICA EDV 23 cm/sec RT Distal ICA PSV 97 cm/sec LT Distal ICA PSV 87 cm/sec RT Distal ICA EDV 34 cm/sec LT Distal ICA EDV 30 cm/sec RT ECA Mid PSV 152 cm/sec LT ECA Mid PSV 106 cm/sec RT ECA EDV 0 cm/sec LT ECA EDV 0 cm/sec RT ICA/CCA 1.08 ratio LT ICA/CCA 1.01 ratio Rt Vert PSV 52 cm/sec Lt Vert PSV 28 cm/sec FINDINGS: Rt Common Carotid Artery: Duplex imaging of the right common carotidartery is within normal limits without evidence of atherosclerotic disease. Rt Internal Carotid Artery: The plaque in the right internal carotidartery appears to be heterogeneous and smooth. Atherosclerotic changes of the right internalcarotid artery without hemodynamically significant Doppler findings. <50% stenosis. Rt External Carotid Artery: The right external carotid artery is patentwithout evidence of atherosclerotic plaque. Rt Vertebral Artery: The right vertebral artery is patent with antegradeflow. Lt Common Carotid Artery: The plaque in the left CCA appears to beheterogeneous and smooth. Lt Internal Carotid Artery: The plaque in the left internal carotid arteryappears to be heterogeneous, calcified and irregular. Atherosclerotic changes of theleft internal carotid artery without hemodynamically significant Doppler findings. <50%stenosis. Lt External Carotid Artery: The left external carotid artery is patentwithout evidence of atherosclerotic plaque. Lt Vertebral Artery: The left vertebral artery is patent with antegradeflow. CONCLUSIONS: 1. The right internal carotid artery disease is consistent with a lessthan 50% stenosis. 2. The left internal carotid artery disease is consistent with a less than50% stenosis. 3. Normal, antegrade flow is noted in bilateral vertebral arteries. ATTESTATION: I have reviewed and interpreted the pertinent images and measurements ofthis study. I attest to the conclusions in the final report that is provided above. Electronically Signed By: Aubrey Renee MD 09/10/2024 10:59:26 AM CDT us Aubrey Renee MD IMG US PROCEDURES Final Re sult * (ABNORMAL) Protime-INR (09/10/2024 9:17 AM CDT) INR 1.9(H) Katlyn moziyAlfonso Renee Comment: Reference Range 0.9-1.1 Moderate-intensity Warfarin Therapy 2.0-3.0 Higher-intensity Warfarin Therapy 3.0-4.0 PT 19.7(H) 9.0 - 11.5 sec Katlyn moziyAlfonso Renee Comment: For additional information, please refer to http://education.fitkit/faq/VST069 (This link is being provided for informational/ educational purposes only.) Blood 09/10/2024 9:17 AM CDT 09/10/2024 9:20 AM CDT us Puneet Dee MD LAB BLOOD ORDERABLES [facility] [address] [place] [address] * (ABNORMAL) Protime-INR (08/14/2024 10:30 AM CDT) INR 1.8(H) Katlyn moziyAlfonso Renee Comment: Reference Range 0.9-1.1 Moderate-intensity Warfarin Therapy 2.0-3.0 Higher-intensity Warfarin Therapy 3.0-4.0 PT 18.8(H) 9.0 - 11.5 sec DegordianFayeIvonne Renee Comment: For additional information, please refer to http://education.fitkit/faq/FUK592 (This link is being provided for informational/ educational purposes only.) Blood 08/14/2024 10:3 0 AM CDT 08/14/2024 10:30 AM CDT us Puneet Dee MD LAB BLOOD ORDERABLES Colleen l Result [facility] [address] [place] [address] * NM Myocardial Amyloidosis Imaging SPECT/CT (06/23/2024 1:42 PM BUTT MAKER) Anatomical Region Laterality Modality N/A Nuclear Medicine 06/23/2024 3:02 PM BUTT MAKER Impressions 06/23/2024 3:13 PM BUTT MAKER - This study demonstrates no abnormal myocardial uptake of Tc-99m pyrophosphate (Grade 0). See comments below. - Worsening peripheral reticulation of the left lung consistent with pulmonary fibrosis. This could be further evaluated with high-resolution chest CT. GENERAL COMMENTS CONCERNING THE INTERPRETATION OF TC-99M PYROPHOSPHATE IMAGING FOR DIAGNOSIS OF CARDIAC AMYLOIDOSIS A negative (Grade 0) Tc-99m pyrophosphate scan effectively excludes transthyretin-related cardiac amyloidosis (ATTR), but does not exclude light chain (AL) amyloidosis. If cardiac amyloidosis is suspected despite a negative scan, assessment of monoclonal proteins in serum or urine should be performed, if not already done, to assess for AL amyloidosis. A clearly positive (Grade 2 or 3) Tc-99m pyrophosphate scan can reflect either ATTR or AL amyloidosis, but has a high positive predictive value for ATTR amyloidosis if serum or urine monoclonal proteins are negative. A mildly positive (Grade 1) Tc-99m pyrophosphate scan can indicate either an early stage of ATTR or AL amyloidosis and further distinction requires assessment of monoclonal proteins in serum or urine. For further information, see the ASNC/AHA/ASE/EANM/HFSA/VONNIE/SCMR/SNMMI Expert Consensus Recommendations for Multimodality Imaging in Cardiac Amyloidosis (https://pubmed.ncbi.nlm.nih.gov/54237744/ and https://pubmed.ncbi.nlm.nih.gov/82400988/). Dictated by: Zhang Perez M.D. The radiology attending physician has personally reviewed this study, and had reviewed and/or edited this written report and agrees with it. Electronically signed by: Bereket Farrar M.D. Narrative 06/23/2024 3:13 PM BUTT MAKER EXAMINATION: MYOCARDIAL AMYLOID SCINTIGRAPHY (PLANAR/SPECT-CT) DATE OF STUDY: 06/23/2024 RADIOPHARMACEUTICAL: 34.6 mCi Tc-99m pyrophosphate (PYP) i.v. HISTORY: 83-year-old patient with persistent atrial fibrillation on chronic anticoagulation. Ordering team has a clinical suspicion for cardiac amyloid. The patient has a spinal cord stimulator which precluded cardiac MRI. COMPARISON: CT chest 10/15/2020 FINDINGS: Approximately 2.5 hours following administration of Tc-99m pyrophosphate, a planar image of the chest and upper abdomen was performed in the anterior projection, followed by SPECT/CT imaging of the chest. (The low-dose noncontrast CT images are used for attenuation correction and for fusion with emission SPECT images to allow for anatomical localization of SPECT findings and to better distinguish blood pool activity from myocardial uptake of the tracer.) On the planar image, tracer uptake within the region of the myocardium appears to be absent (grade 0). However, additional SPECT/CT images were subsequently obtained to better distinguish between blood pool activity and myocardial uptake, and to better detect small areas of abnormal uptake. SPECT/CT images show scattered calcified mediastinal lymph nodes consistent with old granulomatous disease. Worsening reticular opacities primarily left lung compared to CT chest 10/15/2020 consistent with interval progression of pulmonary fibrosis. Coronary artery disease. Degenerative changes of the spine. Spinal stimulator. After review of SPECT/CT images, myocardial uptake is assessed to be 0 on a 0-3 scale. Incidental findings on the low-dose CT images: none. Procedure Note Bereket Farrar MD - 06/23/2024 EXAMINATION: MYOCARDIAL AMYLOID SCINTIGRAPHY (PLANAR/SPECT-CT) DATE OF STUDY: 06/23/2024 RADIOPHARMACEUTICAL: 34.6 mCi Tc-99m pyrophosphate (PYP) i.v. HISTORY: 83-year-old patient with persistent atrial fibrillation on chronic anticoagulation. Ordering team has a clinical suspicion for cardiac amyloid. The patient has a spinal cord stimulator which precluded cardiac MRI. COMPARISON: CT chest 10/15/2020 FINDINGS: Approximately 2.5 hours following administration of Tc-99m pyrophosphate, a planar image of the chest and upper abdomen was performed in the anterior projection, followed by SPECT/CT imaging of the chest. (The low-dose noncontrast CT images are used for attenuation correction and for fusion with emission SPECT images to allow for anatomical localization of SPECT findings and to better distinguish blood pool activity from myocardial uptake of the tracer.) On the planar image, tracer uptake within the region of the myocardium appears to be absent (grade 0). However, additional SPECT/CT images were subsequently obtained to better distinguish between blood pool activity and myocardial uptake, and to better detect small areas of abnormal uptake. SPECT/CT images show scattered calcified mediastinal lymph nodes consistent with old granulomatous disease. Worsening reticular opacities primarily left lung compared to CT chest 10/15/2020 consistent with interval progression of pulmonary fibrosis. Coronary artery disease. Degenerative changes of the spine. Spinal stimulator. After review of SPECT/CT images, myocardial uptake is assessed to be 0 on a 0-3 scale. Incidental findings on the low-dose CT images: none. IMPRESSION: - This study demonstrates no abnormal myocardial uptake of Tc-99m pyrophosphate (Grade 0). See comments below. - Worsening peripheral reticulation of the left lung consistent with pulmonary fibrosis. This could be further evaluated with high-resolution chest CT. GENERAL COMMENTS CONCERNING THE INTERPRETATION OF TC-99M PYROPHOSPHATE IMAGING FOR DIAGNOSIS OF CARDIAC AMYLOIDOSIS A negative (Grade 0) Tc-99m pyrophosphate scan effectively excludes transthyretin-related cardiac amyloidosis (ATTR), but does not exclude light chain (AL) amyloidosis. If cardiac amyloidosis is suspected despite a negative scan, assessment of monoclonal proteins in serum or urine should be performed, if not already done, to assess for AL amyloidosis. A clearly positive (Grade 2 or 3) Tc-99m pyrophosphate scan can reflect either ATTR or AL amyloidosis, but has a high positive predictive value for ATTR amyloidosis if serum or urine monoclonal proteins are negative. A mildly positive (Grade 1) Tc-99m pyrophosphate scan can indicate either an early stage of ATTR or AL amyloidosis and further distinction requires assessment of monoclonal proteins in serum or urine. For further information, see the ASNC/AHA/ASE/EANM/HFSA/VONNIE/SCMR/SNMMI Expert Consensus Recommendations for Multimodality Imaging in Cardiac Amyloidosis (https://pubmed.ncbi.nlm.nih.gov/78613675/ and https://pubmed.ncbi.nlm.nih.gov/16053167/). Dictated by: Zhang Perez M.D. The radiology attending physician has personally reviewed this study, and had reviewed and/or edited this written report and agrees with it. Electronically signed by: Bereket Farrar M.D. us Job Mcdonough MD IMG NM PROCEDURES Fin al Result * (ABNORMAL) Protime-INR (06/23/2024 8:22 AM BUTT MAKER) INR 2.6(H) [email or web address] t Víctor Comment: Reference Range 0.9-1.1 Moderate-intensity Warfarin Therapy 2.0-3.0 Higher-intensity Warfarin Therapy 3.0-4.0 PT 26.2(H) 9.0 - 11.5 sec [email or web address] t Víctor Comment: For additional information, please refer to http://education.fitkit/faq/RTD869 (This link is being provided for informational/ educational purposes only.) Blood 06/23/2024 8:22 AM BUTT MAKER 06/23/2024 8:23 AM BUTT MAKER us Puneet Dee MD LAB BLOOD ORDERABLES Colleen l Result [facility] [address] [place] [address] * (ABNORMAL) eGFR (03/29/2024 9:41 AM BUTT MAKER) eGFR 47(L) >=60 mL/min/1. 73 m2 Comment: [...] of Race in Diagnosing Kidney Disease, JASN 202). The CKD-EPI equation should not be used for patients with unstable renal function and has not been validated in children and those over 70. Current interpretive data was last reviewed 2021. Blood 03/29/2024 9:41 AM BUTT MAKER 03/29/2024 9:44 AM BUTT MAKER Job Mcdonough MD LAB BLOOD ORDERABLES Final Result Performing Organization Address [facility] de Phone Number [facility] [place] [address] * (ABNORMAL) Hemoglobin A1c (03/29/2024 9:41 AM BUTT MAKER) Hgb A1C 6.3(H) 4.0 - 5.6 % Estimated Average Glucose 134 mg/dL [facility] Comment: The ADA recommends reporting an estimated Average Glucose (eAG) with all Hemoglobin A1c results using the equation derived from a study of 507 normal and diabetic adults. Minority populations were underrepresented and children were not included. (Diabetes Care 2020; 43(S1): S66-S76). The eAG is not equivalent to a fasting glucose. Blood 03/29/2024 9:41 AM BUTT MAKER 03/29/2024 9:44 AM BUTT MAKER Narrative [facility] - 03/29/2024 10:00 AM BUTT MAKER Cardio onc lab, dr mcdonough. Job Mcdonough MD LAB BLOOD ORDERABLES Final Result Performing Organization Address [facility] Co de Phone Number [facility] [place] [address] * (ABNORMAL) Lipid panel (03/29/2024 9:41 AM BUTT MAKER) Cholesterol 131 30 - 199 mg/dL Comment: [...] revised on 2017. Triglycerides 104 <=149 mg/dL [facility] Comment: Interpretive Data Ages < or [...] Pediatrics 2011;128:S213 2. NCEP Expert Panel. Circulation 2003;110:227 Current Interpretive Data was last revised on 2017. HDL 38(L) >=40 mg/dL [facility] Comment: Interpretive Data Ages < or [...] on 2017. LDL, calculated 74 <=129 mg/dL [facility] Comment: Interpretive Data Ages < or [...] NCEP Expert Panel. Circulation 2004;110:227 3. Azam Herrera et al. YANNICK Cardiol. 2020 August 19;5(5):540-548. doi: [email or web address] Current Interpretive Data was last revised on 2023. Non-HDL Cholesterol 93 mg/dL [facility] Comment: Interpretive Data Ages < or [...] last revised on 2017. Chol/HDL ratio 3 [facility] Blood 03/29/2024 9:41 AM BUTT MAKER 03/29/2024 9:44 AM BUTT MAKER Narrative [facility] - 03/29/2024 10:07 AM BUTT MAKER Cardio onc lab, dr mcdonough. us Job Mcdonough MD LAB BLOOD ORDERABLES Final Result 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 Expl anation ADVANCE DIRECTIVE 01/06/2019 12:00 AM PAULA NG WILL * Full Code (Latest Code Status on File) Date Activated Date Inactivated Comments 10/06/2020 3:43 PM 10/26/2020 7:19 PM * Full Code Date Activated Date Inactivated Comments 09/27/2020 8:36 PM 10/06/2020 3:42 PM Care Teams News Correspondent Relationship Specialty Start Date End Date Vineet Quintana MD [address] [facility] [address] [place] [address] PCP - General 07/19/16 Puneet Dee MD [address] [facility] [address] [place] [address] Consulting Physician Cardiology 12/22/18
--- OUTSIDE RECORDS SUMMARY | 2024-09-22 09:36 | XMS_ITS | Encounter Summary ---
Author Organization [facility] Healthcare Address [address] [place] [address] Care Team Providers Care Imaging Clerk Name Role Phone Vineet Quintana MD Primary Care Provider Puneet Dee MD Unavailable [phone] Reason for Visit * Reason Comments Atrial Fibrillation Hypertension Carotid Artery Disease Congestive Heart Failure Cardiomyopathy 6 mo f/u * Consultation (Routine) - Closed Specialty Diagnoses / Procedures Referred By Contac t Referred To Contact Cardiology Diagnoses Cardiac amyloidosis (HCC) Puneet Dee MD [address] [facility] [address] [place] [address] Phone: tel: fax: Job Baxter MD On license of [facility] [address] [address] Phone: tel: fax: Referral ID Status Reason Start Date Expiration Date V isits Requested Visits Authorized [id number] Closed Specialty Services Required 03/03/2024 04/02/2025 1 1 Encounter Details Date Type Department Care Team (Late st Contact Info) Description 09/22/2024 8:45 AM CDT Office Visit [facility] Cardiology [address] [place] [address] Puneet Dee MD [address] [facility] [address] [place] [address] Longstanding persistent atrial fibrillation (HCC) (Primary Dx); Cardiac amyloidosis (HCC); Bilateral carotid artery stenosis; Cardiomyopathy, unspecified type (HCC); Essential hypertension; LVH (left ventricular hypertrophy); Chronic systolic congestive heart failure (HCC) Social History Tobacco Use Types Packs/Day Years Used Date Smoking Tobacco: Never Cigarettes Smokeless Tobacco: Never Alcohol Use Standard Drinks/Week [...] often do you attend chur ch or rastafari services? Never 10/12/2020 Do you belong to any clubs o r organizations such as zoroastrian groups, unions, fraternal or athletic groups, or [...] place to sleep or slept in a alf (including now)? 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 Gender Identity Not on file Sexual Orientation Not on file documented as of this encounter Last Filed Vital Signs Vital Sign Reading Time Taken Comments Blood Pressure 120/56 09/22/2024 8:44 AM CDT Pulse 102 09/22/2024 8:44 AM CDT Temperature - - Respiratory Rate - - Oxygen Saturation 92% 09/22/2024 8:44 AM CDT Inhaled Oxygen Concentration - - Weight 78.9 kg (174 lb) 09/22/2024 8:44 AM CDT Height 180.3 cm (5' 11) 09/22/2024 8:44 AM CDT Body Mass Index 24.27 09/22/2024 8:44 AM CDT documented in this encounter Progress Notes * Puneet Dee MD - 09/22/2024 8:45 AM CDT Images from the original note were not included. [facility] DATE OF VISIT: 09/22/2024 CHIEF COMPLAINT Chief Complaint Patient presents with Atrial Fibrillation Hypertension Carotid Artery Disease Congestive Heart Failure Cardiomyopathy 6 mo f/u HPI Agustin Chen is a 84 y.o. male with persistent atrial fibrillation and on chronic anticoagulation. In preparation for a hip surgery patient underwent an echocardiogram and a stress test. Stress testdid not reveal any ischemia. Ejection fraction visually estimated by echo at 50%. Heart monitor diddid reveal a slightly elevated average heart rate. 09/18/2017 and denies any chest pain, shortness breath, syncope, presyncope, paroxysmal nocturnal dyspnea, orthopnea, or palpitations. He does have some swelling in his legs which had developed whichis mild 11/21/2017 OV with TIGER MACHINE OPERATOR: Patient was hospitalized 10/06-10/10 for urosepsis, had AFib with RVR. A new echo was performed that showed normal LV systolic and diastolic function, EF 62%, mild KISHA, mild RV enlargement, moderate LAE, mild MR, mild AR, mild TR, RVSP 36 mmHg. His metoprolol was up titrated to100 mg b.i.d.. He was readmitted 10/18-10/20 for weakness, dehydration, AFib with RVR. Het was in the emergency room for hypoglycemia (glucose < 40), had left-sided hemiparesis, thought he was havinga stroke. CT head was negative. He plans to start checking his blood sugar at home more regularly. He is bothered by his difficulty walking, says he has trouble lifting his right foot and he feels his legs are more swollen than they used to be. He just finished physical therapy for his legs. He gets short of breath while walking but denies any syncope, presyncope, chest pain or palpitations. He is compliant with warfarin and INR checks and denies any bleeding problems. He did not follow the hospital instructions about increasing his metoprolol, and has been taking 50 mg b.i.d.. Follow-up note 12/01/2018: He is doing okay at this point. He was admitted a few months ago because of atrial fibrillation with rapid ventricular response. Medications were adjusted. No edema He denies any chest pain, shortness of breath, syncope, presyncope, paroxysmal nocturnal dyspnea, palpitations. No bleeding Follow-up note 06/08/2019: He did undergo successful right carotid endarterectomy by Dr. Shin since last visit. He is doing well and feels good at this point. He denies any chest pain, shortness breath, syncope, presyncope, paroxysmal nocturnal dyspnea, orthopnea, edema or palpitations. Follow-up note 12/14/2019: Unfortunately his daughter in July. He is still tearful when discussing this. From a cardiac perspective he is stable and denies any chest pain, shortness breath, syncope, presyncope, paroxysmal nocturnal dyspnea, orthopnea, edema or palpitations. Follow-up note 06/20/2020: He denies any chest pain, shortness breath, syncope, presyncope, paroxysmal nocturnal dyspnea, orthopnea, significant edema or palpitations. No bleeding problems Follow-up note 12/27/2020: Patient has had extensive hospital course since last evaluation. He fellhe eventually went to [place]. He was in [place] for 5 weeks. Echocardiogram performed there showed asignificantly reduced ejection fraction as compared to previous with wall motion abnormalities. Hismedications were adjusted as well and he was taken off of warfarin. He is still on low-dose Lovenox. He also has been having some worsening swelling. No chest pain, syncope, presyncope, paroxysmal nocturnal dyspnea, orthopnea. He is short of breath with mild activity. Follow-up with TIGER MACHINE OPERATOR 01/09/2021: Today he reports feeling okay he thinks his shortness of breath and edema are about the same as they were a couple weeks ago. He denies orthopnea or PND. His brother states he is not very active, primarily sits most of the day. Follow-up note 02/05/2021: Still short of breath with mild activity such as walking around the house. Still has generalized weakness and frailty. Swelling has improved. No chest pain, syncope, presyncope, paroxysmal nocturnal dyspnea, orthopnea or palpitations. Follow-up note 01/07/2022: He has decided not to pursue surgery. Occasional paroxysmal nocturnal dyspnea. No syncope, presyncope, chest pain, shortness of breath, palpitations or bleeding problems. Intermittent lower extremity swelling is present Follow-up note 07/31/2023: He denies any chest pain, shortness breath, syncope, presyncope, paroxysmal nocturnal dyspnea, bleeding problems or significant or unusual swelling. No bleeding problems Follow-up note 02/26/2024: Has some neuropathic issues including numbness in his hands and feet. Nochest pain, shortness breath, syncope, presyncope , paroxysmal nocturnal dyspnea orthopnea, pedal edema or palpitations Follow-up note 09/22/2024: He is returning today not feeling very well. He does feel his chest pounding at times but he has been under a great deal of pain over the past couple of days because of hisright hip. He thinks he may have broken his right hip and every time he falls he falls on that side. He denies any chest pain, shortness breath, syncope, presyncope or edema. MEDICAL HISTORY Past Medical History: Diagnosis Date Anticoagulated on Coumadin Atrial fibrillation (HCC) Calculus of kidney Kidney Stones Cataract Chronic pain neck and back CKD (chronic kidney disease) Diabetes mellitus (HCC) Type 2 HLD (hyperlipidemia) Hypertension Osteoarthritis Osteoarthritis Peptic ulcer Peptic Ulcer Disease Social History Tobacco Use Smoking status: Never Smoker Smokeless tobacco: Never Used Substance Use Topics Alcohol use: No Drug use: No Family History Problem Relation Age of Onset Car Accident Mother MVA; Cause of : MVA Other Father Natural Causes; Cause of : Natural Causes MEDICATIONS Medication List Accurate as of September 22, 2024 8:53 AM. If you have any questions, ask your nurse or doctor. CHANGE how you take these medications metoprolol tartrate 25 mg immediate release tablet Commonly known as: LOPRESSOR Take 0.5 tablets (12.5 mg total) by mouth 2 (two) times a day What changed: how much to take CONTINUE taking these medications colchicine 0.6 mg tablet Commonly known as: COLCRYS doxycycline 100 mg tablet furosemide 20 mg tablet Commonly known as: LASIX TAKE 1 TABLET BY MOUTH EVERY DAY pravastatin 40 mg tablet Commonly known as: PRAVACHOL warfarin 3 mg tablet Commonly known as: COUMADIN TAKE 1 AND 1/2 TABLETS BY MOUTH DAILY ALLERGIES No Known Allergies REVIEW OF SYSTEMS Review of Systems Constitutional: Positive for malaise/fatigue and weight loss. Negative for weight gain. HENT: Negative for hearing loss. Eyes: Negative for blurred vision and visual disturbance. Cardiovascular: Positive for dyspnea on exertion and leg swelling. Negative for chest pain, claudication, irregular heartbeat, near-syncope, orthopnea, palpitations, paroxysmal nocturnal dyspnea and syncope. Respiratory: Positive for shortness of breath. Negative for cough, hemoptysis, sleep disturbances due to breathing, snoring and wheezing. Endocrine: Negative for cold intolerance, heat intolerance and polyuria. Hematologic/Lymphatic: Does not bruise/bleed easily. Skin: Negative for color change, itching and rash. Musculoskeletal: Negative for falls, joint pain, joint swelling, muscle cramps, muscle weakness andmyalgias. Gastrointestinal: Negative for abdominal pain, heartburn, nausea and vomiting. Genitourinary: Negative for dysuria and hematuria. Neurological: Negative for excessive daytime sleepiness, dizziness, focal weakness, headaches, light-headedness, loss of balance and numbness. Psychiatric/Behavioral: Negative for altered mental status, depression and substance abuse. The patient is not nervous/anxious. Allergic/Immunologic: Negative for environmental allergies. All other systems reviewed and are negative. PHYSICAL EXAM Blood pressure 120/56, pulse 102, height 180.3 cm (5' 11), weight 78.9 kg (174 lb), SpO2 92%. Body mass index is 24.27 kg/m??. Physical Exam Vitals reviewed. HENT: Head: Normocephalic and atraumatic. Nose: Nose normal. Eyes: General: No scleral icterus. Conjunctiva/sclera: Conjunctivae normal. Cardiovascular: Rate and Rhythm: Normal rate. Rhythm irregular. Pulses: Intact distal pulses. Heart sounds: Normal heart sounds. No murmur heard. No friction rub. No gallop. Pulmonary: Effort: Pulmonary effort is normal. No respiratory distress. Breath sounds: Normal breath sounds. No wheezing or rales. Chest: Chest wall: No tenderness. Abdominal: General: Bowel sounds are normal. There is no distension. Palpations: Abdomen is soft. Tenderness: There is no abdominal tenderness. Musculoskeletal: General: Swelling present. Normal range of motion. Cervical back: Neck supple. Comments: Trivial pedal edema Skin: General: Skin is warm and dry. Neurological: Mental Status: He is alert and oriented to person, place, and time. Psychiatric: Mood and Affect: Mood normal. LABS AND OTHER DIAGNOSTIC TESTS Lab Results Component Value Date WBC 9.1 03/29/2024 HGB 10.9 (L) 03/29/2024 HCT 34.5 (L) 03/29/2024 MCV 98.4 (H) 03/29/2024 Chemistry Component Value Date/Time CO2 29 03/29/2024 0941 CO2 27 10/14/2020 1538 BUN 21 01/05/2019 0435 CREATININE 1.46 (H) 03/29/2024 0941 CREATININE 1.20 01/03/2021 0000 Component Value Date/Time CALCIUM 8.8 03/29/2024 0941 ALKPHOS 88 03/29/2024 0941 AST 21 03/29/2024 0941 ALT 12 03/29/2024 0941 BILITOT 0.5 03/29/2024 0941 Lab Results Component Value Date CHOL 131 03/29/2024 CHOL 135 09/27/2020 CHOL 168 09/24/2016 Lab Results Component Value Date HDL 38 (L) 03/29/2024 HDL 27 (L) 09/27/2020 HDL 33 (L) 09/24/2016 No results found for: LDL] Lab Results Component Value Date LDLCALC 74 03/29/2024 Lab Results Component Value Date TRIG 104 03/29/2024 TRIG 87 09/27/2020 TRIG 138 09/24/2016 Lab Results Component Value Date CHOLHDL 3 03/29/2024 CHOLHDL 5 09/27/2020 EKG 01/07/2022: AFib abnormal ECG Echo 09/07/2018: Moderate LVH EF 60-70% with mild biatrial enlargement, mild AI mild pulmonary hypertension RVSP 38-43 Carotid artery ultrasound 09/08/2018: Greater than 70% stenosis of the right internal carotid artery. Less than 50% left internal carotid artery stenosis ECHo 09/2020 Irregular rhythm. Normal LV size with apical akinesis, mild to moderate reduction in LVEF 39%. Normal RV size and systolic function. LV diastolic function indeterminate. Moderate LAE, normal RA size. Aortic root 3.9 cm at the sinuses of Valsalva, 3.8 cm proximal ascending aorta. Mild AR, mild TR, trace MR. ? wire/catheter in R heart? Normal size of IVC and visualized abdominal aorta. Est. PASP 31 mm Hg. Inadequate image quality for accurate longitudinal strain analysis. No prior study available for comparison. ECHo 12/28/2020 Definity contrast agent used to visually enhance endocardial wall motion and contractility. Lot Number: [id number]. Mild concentric left ventricular hypertrophy. Mild enlargement of left ventricle cavity. Mild global left ventricular systolic dysfunction. Indeterminate diastolic function. Ejection fraction is visually estimated at 45- 50 %. Ejection fraction is measured at 49 %. There is severe enlargement of left atrium. There is mild enlargement of right atrium. Mitral valve leaflets appear mildly thickened. Mild to moderate mitral valve regurgitation. Aortic cusps appear mildly calcified. Aortic cusps appear mildly sclerotic. Moderate aortic valve regurgitation. Mild pulmonary hypertension based on right ventricular systolic pressure. Estimated peak RVSP is 37 mmHg. Mild tricuspid regurgitation. Atrial fibrillation. ECHO 08/06/23 Normal left ventricular systolic function. No focal wall motion abnormalities. Normal left ventricular size. Mild concentric left ventricular hypertrophy. Diastolic dysfunction is present. Ejection fraction is visually estimated at 55-60 %. Ejection fraction is measured at 55 %. There is severe enlargement of left atrium. There is moderate enlargement of right atrium. Mild mitral annular calcification. Mild mitral valve regurgitation. Aortic cusps appear mildly calcified. Aortic cusps appear moderately sclerotic. Trileaflet aortic valve. Mild to moderate aortic valve regurgitation. Mild tricuspid regurgitation. Mild pulmonic regurgitation. Atrial fibrillation. ASSESSMENT Diagnoses and all orders for this visit: 1. Persistent (longstanding) atrial fibrillation HR elevated today but he is in pain and on anticoagulation 2. Essential hypertension At goal 3. Pulmonary HTN (CMS/HCC) Mild 4. Chronic anticoagulation No bleeding issues 5. Carotid artery disease (CMS/HCC) S/p right CEA. Followed by vascular surgery 6. Systolic congestive heart failure, chronic Better compensated 7. Cardiomyopathy, unspecified type improved 8. Left ventricular hypertrophy Mild 9. Cardiac amyloidosis Workup negative to this point PLAN/RECOMMENDATIONS Continue metoprolol for rate control, heart failure. He is having some right hip pain and we will be going to the ER for x-rays and further evaluation. He has also lost significant weight and he states that he is not hungry and not eating very much. He Is stable at this point. Continue his warfarin for anticoagulation and atrial fibrillation and other regimen without change. Follow-up in 6 months or sooner as clinically indicated. Puneet Dee MD, [facility] documented in this encounter Plan of Treatment Not on file documented as of this encounter Visit Diagnoses Diagnosis Longstanding persistent atrial fibrillation (HCC)- Primary Cardiomyopathy, unspecified type (HCC) Bilateral carotid artery stenosis Occlusion and stenosis of carotid artery without mention of cerebral infarction Essential hypertension Unspecified essential hypertension LVH (left ventricular hypertrophy) Cardiomegaly Chronic systolic congestive heart failure (HCC) documented in this encounter Discontinued Medications Medication Sig Discontinue Reason Start Date End Da te amoxicillin-clavulanat e (AUGMENTIN) 875-125 mg per tablet Take 1 tablet by mouth 2 (two) times a day No longer taking - Do not display on AVS 09/22/2024 docusate sodium (COLACE) 100 mg capsuleIndications:con stipation,Stool Softener Take 1 capsule (100 mg total) by mouth 2 (two) times a day No longer taking - Do not display on AVS 10/24/2020 09/22/2024 documented as of this encounter Orders Outpatient Referral Count Last Ordered Date Fir st Ordered Date AMB REFERRAL TO CARDIOLOGY 1 09/22/2024 documented in this encounter Additional Health Concerns Infection Onset Date Last Indicated Resolved Time MDR gram neg/ESBL 10/16/2020 10/16/2020 documented as of this encounter Care Teams Imaging Clerk Relationship Specialty Start Date End Date Vineet Quintana MD [address] [place] [address] PCP - General 07/19/16 Puneet Dee MD [address] [place] [address] Consulting Physician Cardiology 12/22/18 documented as of this encounter
--- OUTSIDE RECORDS SUMMARY | 2024-09-22 09:36 | XMS_ITS | Referral Summary ---
Author Organization [facility] Address [address] [address] Care Team Providers Care Nursing Aide Name Role Phone Vineet Quintana MD Primary Care Provider Puneet Dee MD Unavailable Encounters Date Type Department Care Team Description 09/22/2024 8:45 AM CDT Office Visit [facility] Medical Group Cardiology [address] [place] [phone] Puneet Dee MD Longstanding persistent atrial fibrillation (HCC) (Primary Dx); Cardiac amyloidosis (HCC); Bilateral carotid artery stenosis; Cardiomyopathy, unspecified type (HCC); Essential hypertension; LVH (left ventricular hypertrophy); Chronic systolic congestive heart failure (HCC) 09/15/2024 9:45 AM CDT Office Visit [facility] Medical [facility] Vascular and Vein Surgery [address] [place] [phone] Aubrey Renee MD Bilateral carotid artery stenosis (Primary Dx) 09/14/2024 Anticoagulation Visit [facility] [address] [place] [address] [address] [place] [address] Gregoria Sloan, ANDREW Atrial fibrillation, unspecified type (HCC) (Primary Dx) 09/10/2024 10:00 AM CDT - 09/10/2024 11:59 PM CDT Hospital Encounter [facility] Medical Office Building 2 Vascular [address] [facility] [address] [facility] [address] [place] [address] Stenosis of left carotid artery Discharge Disposition: Discharge to home or self care 08/16/2024 Anticoagulation Visit [facility] [address] [place] [address] Gregoria Sloan RN Atrial fibrillation, unspecified type (HCC) (Primary Dx) 06/24/2024 Anticoagulation Visit [facility] [address] [place] [address] Gregoria Sloan RN Atrial fibrillation, unspecified type (HCC) (Primary Dx) 06/23/2024 Results Follow-Up [facility] Cardiology [facility] Floor 1, [address] [place] [address] Myocardial Amyloidosis Imaging SPECT/CT 06/23/2024 9:36 AM INSULATOR CUTTER AND FORMER - 06/23/2024 11:59 PM INSULATOR CUTTER AND FORMER Hospital Encounter [facility] Radiology 1 [place] [address] Discharge Disposition: Discharge to home or self care 06/23/2024 9:35 AM INSULATOR CUTTER AND FORMER - 06/23/2024 11:59 PM INSULATOR CUTTER AND FORMER Hospital Encounter [facility] Radiology 1 [place] [address] LVH (left ventricular hypertrophy); Cardiac amyloidosis (HCC) Discharge Disposition: Discharge to home or self care from Last 3 Months Allergies No known [...] (10/02/2020): Added automatically from request for surgery [id number] Disorder of arteries and arterioles 06/20/2020 Carotid [...] Date Diagnosed Date Resolved Date Pulmonary HTN ([facility]/HCC) 11/05/2016 08/09/2020 Immunizations Immunization Administration Dates Next Due Influenza, [...] any clubs o r organizations such as jew groups, unions, fraternal or athletic groups, or [...] place to sleep or slept in a custodial (including now)? No 10/12/2020 Sex and Gender Information Value Date Recorded Sex Assigned at Not on file Legal Sex Male 12:35 AM INSULATOR CUTTER AND FORMER Gender Identity Not on file Sexual Orientation Not on file Last Filed Vital Signs Vital Sign Reading Time Taken Comments Blood Pressure 120/56 09/22/2024 8:44 AM CDT Pulse 102 09/22/2024 8:44 AM CDT Temperature 36.1 C (97 F) 01/16/2021 9:50 AM CDT Respiratory Rate 18 03/29/2024 8:29 AM INSULATOR CUTTER AND FORMER Oxygen Saturation 92% 09/22/2024 8:44 AM CDT Inhaled Oxygen Concentration - - Weight 78.9 kg (174 lb) 09/22/2024 8:44 AM CDT Height 180.3 cm (5' 11) 09/22/2024 8:44 AM CDT Body Mass Index 24.27 09/22/2024 8:44 AM CDT Plan of Treatment Not on file Medical Devices Implanted Type Area Revenue Cycle Administrator Device Identifier Shelf Expiration Date Model / Serial / Lot Medtronic Scs Lead [id number] Implanted:Qty : 2 Lead Back Med[employer]onic Inc [id number] / / Description:STIMULATOR IS NO T CURRENTLY ACTIVE, NOT SURE WHERE EXTERNAL CONTROLLER IS - PT DOES NOT USE JL 04/22/24 Medtronic Scs [id number]/15/20 16 Implanted: (Quantity not on file) Spinal Cord Stimulator Left: Lumbar-Sac ral Spine Medtronic [id number] / [id number] / Description:STIMULATOR IS NO T CURRENTLY ACTIVE, NOT SURE WHERE EXTERNAL CONTROLLER IS - PT DOES NOT USE JL 04/22/24 Shane Donovan from [employer] patient managing Dr needs to fill out MRI scan type eligibility form prior to MRI since device is NON Functioning and external controller is missing. Oneida Spine [id number] l7-G2 Cage Spinal [place] 7 D L13mm X W16mm X H7mm Sterile Latex Free Cervical Interbody System - [id number] Implanted:Qty : 1 on 10/04/2020 by Eliseo Del Castillo MD at [facility] N/A: Spine Cervical Oneida Spine [id number] 08/04/2024 6101-213 5748GU2- G2 / / [id number] Edda Spine [id number] l7-G2 Cage Spinal [place] 7 D L13mm X W16mm X H8mm Sterile Latex Free Cervical Interbody System - [id number] Implanted:Qty : 1 on 10/04/2020 by Eliseo Del Castillo MD at [facility] N/A: Spine Cervical Edda Spine [id number] 12/17/2024 6101-213 3759NW1- G2 / / [id number] Edda Spine [id number] Mccurtain 34mm 2 Level Spine Cervical Plate Bone Nonsterile - [id number] Implanted:Qty : 1 on 10/04/2020 by Eliseo Del Castillo MD at [facility] N/A: Spine Cervical Edda Spine [id number] / / Oneida Spine [id number] Mccurtain 4mm 18mm Self Tap Variable Angle Spine Cervical Screw Bone - [id number] Implanted:Qty : 2 on 10/04/2020 by Eliseo Del Castillo MD at [facility] N/A: Spine Cervical Oneida Spine [id number] 18CA / / Oneida Spine [id number] Mccurtain 4mm 18mm Self Tap Fix Angle Spine Cervical Screw Bone - [id number] Implanted:Qty : 2 on 10/04/2020 by Eliseo Del Castillo MD at [facility] N/A: Spine Cervical Oneida Spine [id number] 18CA / / Screw Bone 4mm 20mm Spine Cerv St Variable Nonstrl Ltxfre - [id number] Implanted:Qty : 2 on 10/04/2020 by Eliseo Del Castillo MD at [facility] N/A: Spine Cervical Edda Spine [...] Read Routine (OP Routine) 06/23/2024 1:42 PM INSULATOR CUTTER AND FORMER LVH (left ventricular hypertrophy) Cardiac amyloidosis (HCC) PROTIME-INR Routine 06/23/2024 8:22 AM INSULATOR CUTTER AND FORMER Atrial fibrillation, unspecified type (HCC) Chronic anticoagulation EGFR Routine 03/29/2024 9:41 AM INSULATOR CUTTER AND FORMER Cardiomyopathy, unspecified type (HCC) Essential hypertension HEMOGLOBIN A1C Routine 03/29/2024 9:41 AM INSULATOR CUTTER AND FORMER Cardiomyopathy, unspecified type (HCC) Essential hypertension Type 2 diabetes mellitus with chronic kidney disease, without long-term current use of insulin, unspecified CKD stage (HCC) LIPID PANEL Routine 03/29/2024 9:41 AM INSULATOR CUTTER AND FORMER Cardiomyopathy, unspecified type (HCC) Essential hypertension from [...] Study Date: 09/10/2024 10:12:50 AM Gender: M Windows Support Engineer: Antonia Retana Provider: AUBREY RENEE Quality: [...] Study Date: 09/10/2024 10:12:50 AM Gender: M Windows Support Engineer: Antonia Retana Provider: AUBREY RENEE Quality: [...] Protime-INR (09/10/2024 9:17 AM CDT) INR 1.9(H) [facility] jacob Renee Comment: Reference Range 0.9-1.1 Moderate-intensity Warfarin Therapy 2.0-3.0 Higher-intensity Warfarin Therapy 3.0-4.0 PT 19.7(H) 9.0 - 11.5 sec [facility] jacob Renee Comment: For additional information, please refer to http://education.Petrabytes.SAIC/faq/NCW784 (This link is being provided for informational/ educational purposes only.) Blood 09/10/2024 9:17 AM CDT 09/10/2024 9:20 AM CDT us Puneet Dee MD LAB BLOOD ORDERABLES Colleen l [facility] [address] [place] [address] * (ABNORMAL) Protime-INR (08/14/2024 10:30 AM CDT) INR 1.8(H) [facility] Renee Comment: Reference Range 0.9-1.1 Moderate-intensity Warfarin Therapy 2.0-3.0 Higher-intensity Warfarin Therapy 3.0-4.0 PT 18.8(H) 9.0 - 11.5 sec [facility] Renee Comment: For additional information, please refer to http://education.trivago/faq/ABI144 (This link is being provided for informational/ educational purposes only.) Blood 08/14/2024 10:3 0 AM CDT 08/14/2024 10:30 AM CDT us Puneet Dee MD LAB BLOOD ORDERABLES Colleen l [facility] [address] [place] [address] * NM Myocardial Amyloidosis Imaging SPECT/CT (06/23/2024 1:42 PM INSULATOR CUTTER AND FORMER) Anatomical Region Laterality Modality N/A Nuclear Medicine 06/23/2024 3:02 PM INSULATOR CUTTER AND FORMER Impressions 06/23/2024 3:13 PM INSULATOR CUTTER AND FORMER - This study demonstrates no abnormal myocardial [...] Recommendations for Multimodality Imaging in Cardiac Amyloidosis (https://pubmed.ncbi.nlm.nih.gov/22607278/ and https://pubmed.ncbi.nlm.nih.gov/50065306/). Dictated by: Zhang Perez M.D. The radiology attending physician has personally reviewed this study, and had reviewed and/or edited this written report and agrees with it. Electronically signed by: Bereket Farrar M.D. Narrative 06/23/2024 3:13 PM INSULATOR CUTTER AND FORMER EXAMINATION: MYOCARDIAL AMYLOID SCINTIGRAPHY (PLANAR/SPECT-CT) DATE OF [...] Recommendations for Multimodality Imaging in Cardiac Amyloidosis (https://pubmed.ncbi.nlm.nih.gov/26731923/ and https://pubmed.ncbi.nlm.nih.gov/92616865/). Dictated by: Zhang Perez M.D. The radiology attending physician has personally reviewed this study, and had reviewed and/or edited this written report and agrees with it. Electronically signed by: Bereket Farrar M.D. Job Mcdonough MD IMG NM PROCEDURES Fin al Result * (ABNORMAL) Protime-INR (06/23/2024 8:22 AM INSULATOR CUTTER AND FORMER) INR 2.6(H) [facility] Renee Comment: Reference Range 0.9-1.1 Moderate-intensity Warfarin Therapy 2.0-3.0 Higher-intensity Warfarin Therapy 3.0-4.0 PT 26.2(H) 9.0 - 11.5 sec [facility] Renee Comment: For additional information, please refer to http://education.trivago/faq/PAI116 (This link is being provided for informational/ educational purposes only.) Blood 06/23/2024 8:22 AM INSULATOR CUTTER AND FORMER 06/23/2024 8:23 AM INSULATOR CUTTER AND FORMER Puneet Dee MD LAB BLOOD ORDERABLES Colleen l [facility] [address] [place] [address] * (ABNORMAL) eGFR (03/29/2024 9:41 AM INSULATOR CUTTER AND FORMER) eGFR 47(L) >=60 mL/min/1. 73 m2 Comment: [...] last reviewed 2021. Blood 03/29/2024 9:41 AM INSULATOR CUTTER AND FORMER 03/29/2024 9:44 AM INSULATOR CUTTER AND FORMER us Job Mcdonough MD LAB BLOOD ORDERABLES Final Result EMELY [facility] Department [place] [address] * (ABNORMAL) Hemoglobin A1c (03/29/2024 9:41 AM INSULATOR CUTTER AND FORMER) Hgb A1C 6.3(H) 4.0 - 5.6 % Estimated Average Glucose 134 mg/dL EMELY [facility] Comment: The ADA recommends reporting an estimated Average Glucose (eAG) with all Hemoglobin A1c results using the equation derived from a study of 507 normal and diabetic adults. Minority populations were underrepresented and children were not included. (Diabetes Care 2020; 43(S1): S66-S76). The eAG is not equivalent to a fasting glucose. Blood 03/29/2024 9:41 AM INSULATOR CUTTER AND FORMER 03/29/2024 9:44 AM INSULATOR CUTTER AND FORMER Narrative EMELY KELLEY - 03/29/2024 10:00 AM INSULATOR CUTTER AND FORMER Cardio onc lab, dr mcdonough. us Job Mcdonough MD LAB BLOOD ORDERABLES Final Result [facility] Department [place] [address] * (ABNORMAL) Lipid panel (03/29/2024 9:41 AM INSULATOR CUTTER AND FORMER) Cholesterol 131 30 - 199 mg/dL Comment: [...] on 2017. Triglycerides 104 <=149 mg/dL [facility] Comment: Interpretive Data Ages < or [...] HDL 38(L) >=40 mg/dL [facility] Comment: Interpretive Data Ages < or [...] on 2017. LDL, calculated 74 <=129 mg/dL [facility] Comment: Interpretive Data Ages < [...] 3. Azam Herrera et al. YANNICK Cardiol. 2019August 19;5(5):540-548. doi: [email or web address] Current Interpretive Data was last revised on 2023. Non-HDL Cholesterol 93 mg/dL [facility] Comment: Interpretive Data Ages < [...] revised on 2017. Chol/HDL ratio 3 [facility] Blood 03/29/2024 9:41 AM INSULATOR CUTTER AND FORMER 03/29/2024 9:44 AM INSULATOR CUTTER AND FORMER Narrative EMELY KELLEY - 03/29/2024 10:07 AM INSULATOR CUTTER AND FORMER Cardio onc lab, dr mcdonough. Job Mcdonough MD LAB BLOOD ORDERABLES Final Result [facility] Department [place] [address] from Last 3 Months or Most Recently Relevant to Health Maintenance Additional Health Concerns Infection Onset Date Last Indicated MDR gram neg/ESBL 10/16/2020 10/16/2020 Insurance TNA MEDICARE GOLD TNA MEDICARE GOLD AETNA MEDICARE TNA MEDICARE GOLD Advance Directives For more information, please contact: [phone] Documents on File Type Date Recorded Patient Professional Bondsman Expl anation ADVANCE DIRECTIVE 01/06/2019 12:00 AM PAULA HUFFMAN * Full Code (Latest Code Status on File) Date Activated Date Inactivated Comments 10/06/2020 3:43 PM 10/26/2020 7:19 PM * Full Code Date Activated Date Inactivated Comments 09/27/2020 8:36 PM 10/06/2020 3:42 PM Care Teams Nursing Aide Relationship Specialty Start Date End Date Vineet Quintana MD [address] [id number] PCP - General 07/19/16 Puneet Dee MD [address] [facility] [address] [place] [address] Consulting Physician Cardiology 12/22/18
--- OUTSIDE RECORDS SUMMARY | 2024-09-22 09:36 | XMS_ITS | Encounter Summary ---
Author Organization [facility] Address [address] [place] [address] Care Team Providers Care Jira Developer Name Role Phone Vineet Quintana MD Primary Care Provider Puneet Dee MD Unavailable Encounter Details Date Type Department Care Team (Late st Contact Info) Description 08/26/2016 Orders Only [facility] Provider, MD [place] [address] [place] [address] Social History Tobacco Use Types Packs/Day Years Used Date Smoking Tobacco: Never Alcohol Use Standard Drinks/Week Comments No 0 (1 standard drink = 0.6 oz pur e alcohol) Sex and Gender Information Value Date Recorded Sex Assigned at Not on file 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
--- OUTSIDE RECORDS SUMMARY | 2024-09-22 09:36 | XMS_ITS | Encounter Summary ---
Author Organization [facility] Medical [facility] Address [address] [place] [address] Care Team Providers Care Plywood Layup Line Core Layer Name Role Phone Vineet Quintana MD Primary Care Provider Puneet Dee MD Unavailable Encounter Details Date Type Department Care Team (Late st Contact Info) Description 07/31/2016 Orders Only [facility] Provider, MD [place] [address] [place] [address] Social History Tobacco Use Types Packs/Day Years Used Date Smoking Tobacco: Never Alcohol Use Standard Drinks/Week Comments No 0 (1 standard drink = 0.6 oz pur e alcohol) Sex and Gender Information Value Date Recorded Sex Assigned at Not on file 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
[2024-09-22 10:11] VITALS: BP 86/68; PULSE 98; RESP 16; TEMP 36.1; O2SAT 96
--- NOTE | 2024-09-22 10:48 | ED_ITS ---
HPI - General Adult General Chief complaint: Extremity Problem,Nontraumatic Stated complaint: RT Hip Pain History of Present Illness HPI narrative: Patient is an 84-year-old male who presents to the ER with right hip pain that started 2 days ago. He endorses increased pain with movement, but reports the pain increases when he sits, stands, and lays down. Patient denies any recent injury. He denies any urinary symptoms, recent fevers, or problems with constipation. Patient reports he uses a walker to walk at home. He endorses a history right hip replacement, diabetes, atrial fibrillation, and right knee replacement. Patient takes warfarin daily. Related Data Home Medications ?Medication ?Instructions ?Recorded ?Confirmed ?Last Taken ?Type furosemide 20 mg tablet 20 mg PO DAILY 05/02/23 09/22/24 05/09/24 History metoprolol tartrate 100 mg tablet 50 mg PO Q12H 05/09/24 09/22/24 05/09/24 09:00 History warfarin 3 mg tablet 3 mg PO DAILY 05/09/24 09/22/24 05/09/24 History brimonidine 0.2 % eye drops 1 drp EACH EYE BID 07/06/24 09/22/24 Unknown History Allergies Allergy/AdvReac Type Severity Reaction Status Date / Time No Known Allergies Allergy Verified 09/22/24 10:44 Review of Systems Review of Systems: All systems reviewed & are unremarkable except as noted in HPI and below PMFSH Past Medical History Medical History DM renal manif type II Hypertensive CKD (chronic kidney disease) Chronic interstitial lung disease Diet-controlled type 2 diabetes mellitus Diabetic peripheral neuropathy Hyperlipidemia Pulmonary hypertension Hypertension Retinal telangiectasia of both eyes Vitreous hemorrhage, bilateral Chronic kidney disease, stage 3 unspecified Stenosis of right carotid artery 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 manager current use of anticoagulant Fatty liver Atrial fibrillation Surgical History Surgical History History of right hip replacement Dr Bates- 2009 History of right knee joint replacement Dr Bates- 2013 History of right cataract extraction History of revision of total replacement of right hip joint Dr. Coleman History of endarterectomy Family History Family History Sibling Hypertension Family history of chronic obstructive pulmonary disease Malignant neoplasm of prostate Family history of lung cancer Social History Social History Social History: Surrogate medical decision maker: Kayla Haji, niece. Code status: Full code, he states he would not want to be on life support any longer than 5 days. Smoking status: Never smoker Second hand tobacco smoke exposure: No Alcohol intake: never Substance use: never Substance use type: does not use Do You Feel Safe in your Home?: Yes Lack of Transportation: No Lack of Food: Never True Current Housing: I Have Housing Concerned About Future Housing: No Difficulty Paying Gas/Electric Bills: No Difficulty Paying for Meds: No Currently Unemployed: No Education: High School Diploma/GED Difficulty w/ Childcare or Family Care: No Living arrangements: alone Occupation/Education: retired Spiritual care concerns: No Exam Narrative: GENERAL: Well appearing, well-nourished, non-toxic, in no acute distress. NECK: Supple. No adenopathy, no masses. RESPIRATORY: Airway patent, respirations nonlabored. Clear to auscultation bilaterally, no rales, rhonchi, wheezing. CARDIOVASCULAR: Regular rate and rhythm without murmurs, rubs, or gallops. Peripheral pulses 2+ and equal bilaterally. -CVA tenderness ABDOMINAL: Soft, nontender, nondistended, no hepatosplenomegaly. Normoactive BS. MUSCULOSKELETAL: Moves all extremities. Strength/ROM intact without gross deformities in other extremities. Pain with palpation to R hip joint, decreased ROM at baseline. Pt endorses increased pain with extension, abduction/adduction, and manipulation. SKIN: Warm, dry, normal color. No rashes. Course Course Level of Care: Express Care Visit Vital Signs Vital signs: Vital Signs Temperature 36.1 C L 09/22/24 10:11 Pulse Rate 98 09/22/24 10:11 Respiratory Rate 16 09/22/24 10:11 Blood Pressure 86/68 L 09/22/24 10:11 Pulse Oximetry 96 09/22/24 10:11 Oxygen Delivery Room Air 09/22/24 10:11 Temperature 36.1 C L 09/22/24 10:11 Pulse Rate 98 09/22/24 10:11 Respiratory Rate 16 09/22/24 10:11 Blood Pressure 86/68 L 09/22/24 10:11 Pulse Oximetry 96 09/22/24 10:11 Oxygen Delivery Room Air 09/22/24 10:11 Medical Decision Making MDM Narrative Medical decision making narrative: Patient is an 84-year-old male who presents to the ER with right hip pain that started 2 days ago. He endorses increased pain with movement, but reports the pain increases when he sits, stands, and lays down. Patient denies any recent injury. He denies any urinary symptoms, recent fevers, or problems with constipation. Patient reports he uses a walker to walk at home. He endorses a history right hip replacement, diabetes, atrial fibrillation, and right knee replacement. Patient takes warfarin daily. Imaging Ordered: Right hip x-ray Results: Pt's hip x-ray indicates no acute bone or joint abnormality. Diagnosis: R hip bursitis Consults: orthopedics (outpatient) Patient Education/Shared MDM: Results of imaging shared with patient. Patient strongly advised to follow-up with his PCP and orthopedics as soon as possible. He will be discharged home with a prescription for Lidocaine patches and Voltaren cream. Strict return precautions provided. Patient verbalized understanding and is in agreement with plan. Vital signs stable at time of discharge. All questions answered. Differential Diagnosis Differential Diagnosis: Right hip osteoarthritis, right hip fracture, Bursitis Vital Signs Vital Signs: Vital Signs Temperature 36.1 C L 09/22/24 10:11 Pulse Rate 98 09/22/24 10:11 Respiratory Rate 16 09/22/24 10:11 Blood Pressure 86/68 L 09/22/24 10:11 Pulse Oximetry 96 09/22/24 10:11 Oxygen Delivery Room Air 09/22/24 10:11 Temperature 36.1 C L 09/22/24 10:11 Pulse Rate 98 09/22/24 10:11 Respiratory Rate 16 09/22/24 10:11 Blood Pressure 86/68 L 09/22/24 10:11 Pulse Oximetry 96 09/22/24 10:11 Oxygen Delivery Room Air 09/22/24 10:11 Imaging Data Attestation: I personally reviewed and interpreted this imaging study as follows: Radiologist's impression: Impressions Hip X-Ray 09/22/24 11:33 Impression: 1: No acute bone or joint abnormality. Discharge Plan Discharge Clinical Impression: Bursitis of right hip Patient Disposition: Home Condition: Stable Instructions: Antibiotic Form, Hip Bursitis (ED) Additional Instructions: Please present to the ER with any worsening symptoms. Follow-up with primary care provider and orthopedic surgery as soon as possible. Take all medications as prescribed, including regularly scheduled medications. You may take Tylenol for pain control. Please use lidocaine patches or Voltaren for pain control. Patient Language: Burkinan Prescriptions: New Zilacaine Patch 5 % combo pack 1 patch topical DAILY Qty: 60 0RF Rx Instructions: leave on most painful area for up to 12 hrs diclofenac sodium [Arthritis Pain (diclofenac)] 1 % gel 4 g topical QID Qty: 100 0RF Rx Instructions: apply to single knee, ankle, foot; for foot includes sole/toes/top of foot No Action furosemide 20 mg tablet 20 mg PO DAILY warfarin 3 mg tablet 3 mg PO DAILY metoprolol tartrate 100 mg tablet 50 mg PO Q12H colchicine 0.6 mg tablet 0.6 mg PO DAILY Qty: 30 0RF pravastatin 40 mg tablet 40 mg PO DAILY Qty: 90 2RF brimonidine 0.2 % drops 1 drp EACH EYE BID Follow-up/Referrals: Vineet Quintana MD [Primary Care Provider] - Time of Disposition: 11:50
== END 2024-09-22 11:52 | disposition home or self-care (01) ==
PROVIDERS: Emergency Provider Registered Nurse; PCP Family Medicine
DX: M70.71 Other bursitis of hip, right hip (principal); I12.9 Hypertensive chronic kidney disease with stage 1 through stage 4 chronic kidney disease, or unspecified chronic kidney disease; E11.22 Type 2 diabetes mellitus with diabetic chronic kidney disease; N18.30 Chronic kidney disease, stage 3 unspecified; J84.9 Interstitial pulmonary disease, unspecified; E11.42 Type 2 diabetes mellitus with diabetic polyneuropathy; E78.5 Hyperlipidemia, unspecified; I27.20 Pulmonary hypertension, unspecified; I65.21 Occlusion and stenosis of right carotid artery; I48.91 Unspecified atrial fibrillation; K76.0 Fatty (change of) liver, not elsewhere classified; Z96.641 Presence of right artificial hip joint; Z96.651 Presence of right artificial knee joint
CPT/HCPCS: 73502; 99213; G0463

== ENCOUNTER 2024-10-14 13:03 | Emergency (ER) | payer MEDICARE, SELFPAY ==
--- NOTE | ~2024-10-14 | CT_ITS ---
EXAM: CT cervical spine wo con - 10/14/2024 13:28 CDT History: 84 years old Male with fall COMPARISON: 05/09/2024 PROCEDURE: CT of the cervical spine without contrast. Axial, sagittal and coronal reformatted plane s were evaluated. Automatic exposure control was used for this study. FINDINGS: No acute fracture. As before, there is grade 1 anterolisthesis of C5 on C6 and C6 on C7. C3-C5 ACDF with intact hardware . As before, right inferior fixation screw is fractured. Straightening of cervical lordosis, likely positional or may be related to muscle spasm. Multilevel d egenerative changes of the cervical spine include varying degrees of disk space narrowing, endplate o steophytosis as well as facet and uncal arthropathy. Prevertebral soft tissues are within normal limi ts. Visualized lung apices are clear. IMPRESSION: No evidence for cervical spine fracture or traumatic subluxation. Multilevel degenerative changes of the cervical spine. 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
--- NOTE | ~2024-10-14 | CT_ITS ---
CT brain wo con Ordering provider: Teresita Mendieta MD History: 84 years Male with . fall, lac . Comparison: None. Technique: CT of the head without contrast. Radiation reduction technique utilized.The dose-length pr oduct was 605.33 mGy-cm. FINDINGS: BRAIN PARENCHYMA AND CSF SPACES: Mild leukoaraiosis and diffuse cortical atrophy. Mild atheromatous d isease. No midline shift, mass effect or hemorrhage. The brain parenchyma and CSF spaces are otherwi se normal. VISUALIZED PARANASAL SINUSES: Well aerated. MASTOIDS: Well aerated. BONES: The bones appear intact. SOFT TISSUES: Visualized nasopharynx is normal. Superficial soft tissues are normal. IMPRESSION: No acute intracranial findings. 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
[2024-10-14 13:05] VITALS: BP 150/90; PULSE 80; RESP 16; TEMP 36.9; O2SAT 99
--- NOTE | 2024-10-14 14:41 | ED.FALL ---
HPI - Fall General Chief Complaint: Fall Stated Complaint: glf, lac on head Time Seen by Provider: 10/14/24 14:29 History of Present Illness HPI Narrative: 84-year-old male history of AFib, arthritis presents to ER via EMS for evaluation of a head injury. Patient states he tripped over his walker while ambulating. Struck the ground with his head. Denies AMS or LOC. denies neck pain. Related Data Home Medications ?Medication ?Instructions ?Recorded ?Confirmed ?Last Taken ?Type furosemide 20 mg tablet 20 mg PO DAILY 05/02/23 09/22/24 05/09/24 History metoprolol tartrate 100 mg tablet 50 mg PO Q12H 05/09/24 09/22/24 05/09/24 09:00 History warfarin 3 mg tablet 3 mg PO DAILY 05/09/24 09/22/24 05/09/24 History brimonidine 0.2 % eye drops 1 drp EACH EYE BID 07/06/24 09/22/24 Unknown History Allergies Allergy/AdvReac Type Severity Reaction Status Date / Time No Known Allergies Allergy Verified 09/22/24 10:44 Review of Systems Review of Systems: All systems reviewed & are unremarkable except as noted in HPI and below PMFSH Past Medical History Medical History DM renal manif type II Hypertensive CKD (chronic kidney disease) Chronic interstitial lung disease Diet-controlled type 2 diabetes mellitus Diabetic peripheral neuropathy Hyperlipidemia Pulmonary hypertension Hypertension Retinal telangiectasia of both eyes Vitreous hemorrhage, bilateral Chronic kidney disease, stage 3 unspecified Stenosis of right carotid artery 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 frame tender current use of anticoagulant Fatty liver Atrial fibrillation Surgical History Surgical History History of right hip replacement Dr Bates- 2009 History of right knee joint replacement Dr Bates- 2013 History of right cataract extraction History of revision of total replacement of right hip joint Dr. Coleman -2016 History of endarterectomy Family History Family History Sibling Hypertension Family history of chronic obstructive pulmonary disease Malignant neoplasm of prostate Family history of lung cancer Social History Social History Social History: Surrogate medical decision maker: Kalya Haji, niece. Code status: Full code, he states he would not want to be on life support any longer than 5 days. Smoking status: Never smoker Second hand tobacco smoke exposure: No Alcohol intake: never Substance use: never Substance use type: does not use Do You Feel Safe in your Home?: Yes Lack of Transportation: No Lack of Food: Never True Current Housing: I Have Housing Concerned About Future Housing: No Difficulty Paying Gas/Electric Bills: No Difficulty Paying for Meds: No Currently Unemployed: No Education: High School Diploma/GED Difficulty w/ Childcare or Family Care: No Living arrangements: alone Occupation/Education: retired Spiritual care concerns: No Exam Const: General: alert and ill appearing chronically HENMT: Head: laceration Head images:  1. Laceration Ears: TM's normal bilaterally Face/Nose/Sinus: Normal external nose present Neck: Neck: normal visual inspection Resp: Effort & Inspection: normal respiratory effort Auscultation: clear to auscultation bilaterally Cardio: Rate: regular rate Rhythm: abnormal rhythm Back/Spine/Pelvis: Other: No tenderness to cervical spine, no step-offs, full range of motion Skin: Other: Laceration of posterior scalp Neuro: General: patient oriented x3 and moves all extremities Extrem: General: normal to inspection Psych: Mental Status: mental status grossly normal Course Vital Signs Vital signs: Vital Signs Temperature 36.9 C 10/14/24 13:05 Pulse Rate 80 10/14/24 13:05 Respiratory Rate 16 10/14/24 13:05 Blood Pressure 150/90 H 10/14/24 13:05 Pulse Oximetry 99 10/14/24 13:05 Temperature 36.9 C 10/14/24 13:05 Pulse Rate 80 10/14/24 13:05 Respiratory Rate 16 10/14/24 13:05 Blood Pressure 150/90 H 10/14/24 13:05 Pulse Oximetry 99 10/14/24 13:05 Procedures Laceration Laceration 1: Date: 10/14/24 Time: 15:28 Site: scalp Size (cm): 3 Description: linear Depth: simple, single layer Local Anesthetic: lidocaine 1% and with epi Amount of anesthesia used (mL): 6 Pre-repair: irrigated ====== Skin Level ====== Skin layer closed with: tea Number of sutures: 6 ====== Subcutaneous Layer ====== ====== Muscle Layer ====== ====== Tendon Layer ====== MDM - Fall MDM Narrative Medical decision making narrative: 84-year-old male he presented to ER complaining of a scalp laceration and head injury following a mechanical GI left. Neuro exam was benign. No LOC or EMS. No neck pain. CT of the brain shows no acute intracranial abnormality. CT his C-spine showed no acute fracture dislocation subluxation.. Scalp laceration was repaired with 6 tea. The differential includes contusion, skull fracture, subdural. Will plan to discharge patient home in stable condition Discharge Plan Discharge Clinical Impression: Laceration of scalp Qualifiers: Encounter type: initial encounter Qualified Code(s): S01.01XA - Laceration without foreign body of scalp, initial encounter Minor head injury Qualifiers: Encounter type: initial encounter Qualified Code(s): S09.90XA - Unspecified injury of head, initial encounter Patient Disposition: Home Condition: Stable Instructions: Antibiotic Form, Laceration (ED), Head Injury (ED) Additional Instructions: Staple to be removed in 7 days. May wash with soap water, otherwise keep wound clean and dry. Patient Language: Khmer Prescriptions: No Action Zilacaine Patch 5 % combo pack 1 patch topical DAILY Qty: 60 0RF Rx Instructions: leave on most painful area for up to 12 hrs diclofenac sodium [Arthritis Pain (diclofenac)] 1 % gel 4 g topical QID Qty: 100 0RF Rx Instructions: apply to single knee, ankle, foot; for foot includes sole/toes/top of foot furosemide 20 mg tablet 20 mg PO DAILY warfarin 3 mg tablet 3 mg PO DAILY metoprolol tartrate 100 mg tablet 50 mg PO Q12H colchicine 0.6 mg tablet 0.6 mg PO DAILY Qty: 30 0RF pravastatin 40 mg tablet 40 mg PO DAILY Qty: 90 2RF brimonidine 0.2 % drops 1 drp EACH EYE BID Follow-up/Referrals: Vineet Quintana MD [Primary Care Provider] - Time of Disposition: 15:31
[2024-10-14] MEDS: LIDOCAINE, EPINEPHRINE, TETRACAINE VISCOUS SOLN 3 ML TOPICAL (14:53)
[2024-10-14] MEDS: LIDO 1%/EPINEPHRINE 1:100,000 20 ML VIAL 30 ML INFILTRATE (14:54)
--- NOTE | 2024-10-14 15:46 | PC.NURSE ---
Patient reporting that his niece can't come for him until around 6:30-7 when she gets off work. train station server made aware that patient is a fall risk and is blind, unsafe to sit in waiting room on his own. Miriam MORALES-charge reports that a sitter would be possible to sit with him. Will place patient in paper scrubs/socks upon discharge
[2024-10-14 16:00] VITALS: BP 140/64; PULSE 89; RESP 19; O2SAT 99
[2024-10-14 16:08] VITALS: BP 140/64
== END 2024-10-14 16:09 | disposition home or self-care (01) ==
PROVIDERS: Emergency Provider Nurse Practitioner Family; PCP Family Medicine
DX: S01.01XA Laceration without foreign body of scalp, initial encounter (principal); I12.9 Hypertensive chronic kidney disease with stage 1 through stage 4 chronic kidney disease, or unspecified chronic kidney disease; E11.22 Type 2 diabetes mellitus with diabetic chronic kidney disease; N18.30 Chronic kidney disease, stage 3 unspecified; I27.20 Pulmonary hypertension, unspecified; I65.21 Occlusion and stenosis of right carotid artery; I48.91 Unspecified atrial fibrillation; E11.42 Type 2 diabetes mellitus with diabetic polyneuropathy; E78.5 Hyperlipidemia, unspecified; J84.9 Interstitial pulmonary disease, unspecified; M19.90 Unspecified osteoarthritis, unspecified site; Z96.641 Presence of right artificial hip joint; Z96.651 Presence of right artificial knee joint; Z79.01 Long term (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 of anticoagulants; Z79.899 Other long term (current) drug therapy; Z98.41 Cataract extraction status, right eye; W18.09XA Striking against other object with subsequent fall, initial encounter
CPT/HCPCS: 12001; 70450; 72125; 99284; J2004